=== PATIENT | male | born 1940 | race Caucasian/White ===

== ENCOUNTER 2020-03-15 08:03 | Outpatient (REF) | payer BC, SELFPAY ==
[2020-03-15 09:28] LABS: MANUAL DIFF FLAG NO
[2020-03-15 09:30] LABS: Basophils Percent Auto 0.2 % (0-2); Eosinophils Absolute Auto 0.4 X10*3/uL (0.0-0.4); Eosinophils Percent Auto 6.6 % (0-4); Hematocrit 39.8 % (42-52); Hemoglobin 12.5 g/dl (14.0-18.0); Imm Gran Abs Auto 0.01 X10*3/uL (0.00-0.03); Imm Gran Pct Auto 0.2 % (0.0-0.4); Lymphocytes Absolute Auto 2.4 X10*3/uL (1.2-4.9); Lymphocytes Percent Auto 39.5 % (20-40); Mean Corpuscular HGB Conc 31.4 g/dl (31.0-36.0); Mean Corpuscular Hemoglobin 29.6 pg (27.0-33.0); Mean Corpuscular Volume 94.3 fL (80-98); Mean Platelet Volume 10.2 fL (9.4-12.4); Monocytes Absolute Auto 0.6 X10*3/uL (0.1-1.2); Monocytes Percent Auto 10.6 % (2-11); Neutrophils Absolute Auto 2.6 X10*3/uL (2.0-8.3); Neutrophils Percent Auto 42.9 % (45-73); Platelet Count 195 X10*3/uL (160-400); Red Blood Count 4.22 X10*6/uL (4.60-5.80); Red Cell Distribution Width 13.9 % (11.0-16.0)
[2020-03-15 09:56] LABS: Anion Gap 12 (12-20); Blood Urea Nitrogen 21 mg/dL (9-16); Calcium 8.5 mg/dL (8.4-10.2); Carbon Dioxide 31 mmol/L (22-29); Chloride 103 mmol/L (96-108); Estimated Glomerular Filt Rate > 60; Glucose Fasting 81 mg/dL (60-99); Potassium 4.7 mmol/l (3.3-5.1); Sodium 141 mmol/L (135-145)
[2020-03-15 10:13] LABS: Valproate 52.1 mcg/mL (50.0-100.0)
== END 2020-03-15 08:04 | disposition home or self-care (01) ==
LOC: HO.HSH4E 08:03
PROVIDERS: Visit Provider Internal Medicine Endocrinology, Diabetes & Metabolism
DX: N40.0 Benign prostatic hyperplasia without lower urinary tract symptoms (principal)
CPT/HCPCS: 36415; 80048; 80164; 85025

== ENCOUNTER 2020-06-10 07:12 | Outpatient (REF) | payer BC, SELFPAY ==
[2020-06-10 08:54] LABS: Anion Gap 11 (12-20); Blood Urea Nitrogen 20 mg/dL (9-16); Carbon Dioxide 30 mmol/L (22-29); Chloride 103 mmol/L (96-108); Estimated Glomerular Filt Rate > 60; Glucose Fasting 87 mg/dL (60-99); Potassium 4.3 mmol/L (3.3-5.1); Sodium 140 mmol/L (135-145)
[2020-06-10 09:08] LABS: Valproate 53.6 mcg/mL (50.0-100.0)
== END 2020-06-10 07:13 | disposition home or self-care (01) ==
LOC: HO.HSH4E 07:12
PROVIDERS: Visit Provider Internal Medicine Endocrinology, Diabetes & Metabolism
DX: F20.9 Schizophrenia, unspecified (principal); I10 Essential (primary) hypertension; F31.9 Bipolar disorder, unspecified
CPT/HCPCS: 36415; 80048; 80164

== ENCOUNTER 2020-08-05 05:46 | Outpatient (REF) | payer BC, SELFPAY ==
[2020-08-05 09:31] LABS: Anion Gap 12 (12-20); Blood Urea Nitrogen 28 mg/dL (9-16); Carbon Dioxide 31 mmol/L (22-29); Chloride 104 mmol/L (96-108); Estimated Glomerular Filt Rate > 60; Potassium 4.5 mmol/L (3.3-5.1); Sodium 142 mmol/L (135-145)
== END 2020-08-05 05:47 | disposition home or self-care (01) ==
LOC: HO.HSH2E 05:46
PROVIDERS: Visit Provider Internal Medicine Endocrinology, Diabetes & Metabolism
DX: I10 Essential (primary) hypertension (principal)
CPT/HCPCS: 36415; 80051; 82565; 84520

== ENCOUNTER 2020-09-10 06:01 | Outpatient (REF) | payer BC, SELFPAY ==
[2020-09-10 07:36] LABS: Anion Gap 12 (12-20); Blood Urea Nitrogen 24 mg/dL (9-16); Calcium 9.3 mg/dL (8.4-10.2); Carbon Dioxide 31 mmol/L (22-29); Chloride 101 mmol/L (96-108); Estimated Glomerular Filt Rate > 60; Glucose Fasting 88 mg/dL (60-99); Sodium 140 mmol/L (135-145)
== END 2020-09-10 06:02 | disposition home or self-care (01) ==
LOC: HO.HSH2E 06:01
PROVIDERS: Visit Provider Internal Medicine Endocrinology, Diabetes & Metabolism
DX: I11.0 Hypertensive heart disease with heart failure (principal); I50.9 Heart failure, unspecified
CPT/HCPCS: 36415; 80048

== ENCOUNTER 2020-09-27 07:34 | Outpatient (REF) | payer BC, SELFPAY ==
[2020-09-27 08:53] LABS: Anion Gap 14 (12-20); Blood Urea Nitrogen 20 mg/dL (9-16); Calcium 9.6 mg/dL (8.4-10.2); Carbon Dioxide 30 mmol/L (22-29); Chloride 102 mmol/L (96-108); Estimated Glomerular Filt Rate > 60; Glucose Fasting 85 mg/dL (60-99); Potassium 4.3 mmol/L (3.3-5.1); Sodium 142 mmol/L (135-145)
[2020-09-27 09:49] LABS: Valproate 68.8 mcg/mL (50.0-100.0)
== END 2020-09-27 07:35 | disposition home or self-care (01) ==
LOC: HO.HSH2E 07:34
PROVIDERS: Visit Provider Internal Medicine Endocrinology, Diabetes & Metabolism
DX: F31.9 Bipolar disorder, unspecified (principal); Z79.899 Other long term (current) drug therapy; I10 Essential (primary) hypertension
CPT/HCPCS: 36415; 80048; 80164

== ENCOUNTER 2020-12-09 | Outpatient (REF) | payer BC, SELFPAY ==
[2020-12-09 09:00] LABS: Anion Gap 11 (12-20); Blood Urea Nitrogen 20 mg/dL (9-16); Carbon Dioxide 30 mmol/L (22-29); Chloride 104 mmol/L (96-108); Estimated Glomerular Filt Rate > 60; Glucose Fasting 92 mg/dL (60-99); Potassium 4.2 mmol/L (3.3-5.1); Sodium 141 mmol/L (135-145)
[2020-12-09 11:03] LABS: Valproate 47.6 mcg/mL (50.0-100.0)
== END 2020-12-09 00:01 | disposition home or self-care (01) ==
LOC: HO.HSH4E
PROVIDERS: Visit Provider Internal Medicine Endocrinology, Diabetes & Metabolism
DX: F20.9 Schizophrenia, unspecified (principal); F31.9 Bipolar disorder, unspecified; I10 Essential (primary) hypertension
CPT/HCPCS: 36415; 80048; 80164

== ENCOUNTER 2021-01-06 06:20 | Outpatient (REF) | payer BC, SELFPAY ==
[2021-01-06 08:18] LABS: Anion Gap 14 (12-20); Blood Urea Nitrogen 20 mg/dL (9-16); Calcium 9.8 mg/dL (8.4-10.2); Carbon Dioxide 30 mmol/L (22-29); Chloride 101 mmol/L (96-108); Estimated Glomerular Filt Rate > 60; Glucose Fasting 92 mg/dL (60-99); Potassium 4.6 mmol/L (3.3-5.1); Sodium 140 mmol/L (135-145)
[2021-01-06 08:29] LABS: Valproate 63.4 mcg/mL (50.0-100.0)
== END 2021-01-06 06:21 | disposition home or self-care (01) ==
LOC: HO.HSH4E 06:20
PROVIDERS: Visit Provider Internal Medicine Endocrinology, Diabetes & Metabolism
DX: I10 Essential (primary) hypertension (principal); F31.9 Bipolar disorder, unspecified; G20 Parkinson's disease; Z79.899 Other long term (current) drug therapy
CPT/HCPCS: 36415; 80048; 80164

== ENCOUNTER 2021-06-11 06:43 | Outpatient (REF) | payer BC, SELFPAY ==
[2021-06-11 07:58] LABS: Anion Gap 9 (12-20); Blood Urea Nitrogen 20 mg/dL (9-16); Calcium 9.6 mg/dL (8.4-10.2); Carbon Dioxide 34 mmol/L (22-29); Chloride 101 mmol/L (96-108); Estimated Glomerular Filt Rate > 60; Glucose Fasting 87 mg/dL (60-99); Potassium 4.1 mmol/L (3.3-5.1); Sodium 140 mmol/L (135-145)
[2021-06-11 08:35] LABS: Valproate 67.7 mcg/mL (50.0-100.0)
== END 2021-06-11 06:44 | disposition home or self-care (01) ==
LOC: HO.HSH4E 06:43
PROVIDERS: Visit Provider Internal Medicine Endocrinology, Diabetes & Metabolism
DX: I10 Essential (primary) hypertension (principal); F20.9 Schizophrenia, unspecified; F31.9 Bipolar disorder, unspecified; Z79.899 Other long term (current) drug therapy
CPT/HCPCS: 36415; 80048; 80164

== ENCOUNTER 2021-08-11 05:41 | Outpatient (REF) | payer BC, SELFPAY ==
[2021-08-11 07:45] LABS: Alanine Aminotransferase 9 U/L (0-40); Albumin Level 3.8 g/dL (3.5-5.0); Alkaline Phosphatase 61 U/L (39-117); Anion Gap 9 (12-20); Aspartate Amino Transferase 18 U/L (5-37); Bilirubin Total 0.7 mg/dL (0.0-1.0); Blood Urea Nitrogen 24 mg/dL (9-16); Calcium 9.2 mg/dL (8.4-10.2); Carbon Dioxide 32 mmol/L (22-29); Chloride 99 mmol/L (96-108); Estimated Glomerular Filt Rate 60; Glucose Fasting 89 mg/dL (60-99); Potassium 4.3 mmol/L (3.3-5.1); Sodium 136 mmol/L (135-145); Total Protein 6.6 g/dL (6.5-8.0)
== END 2021-08-11 05:42 | disposition home or self-care (01) ==
LOC: HO.HSH4E 05:41
PROVIDERS: Visit Provider Internal Medicine
DX: I10 Essential (primary) hypertension (principal); I73.9 Peripheral vascular disease, unspecified
CPT/HCPCS: 36415; 80053

== ENCOUNTER 2021-09-30 07:05 | Outpatient (REF) | payer BC, SELFPAY ==
[2021-09-30 07:46] LABS: MANUAL DIFF FLAG NO
[2021-09-30 07:47] LABS: Basophils Percent Auto 0.2 % (0-2); Eosinophils Absolute Auto 0.4 X10*3/uL (0.0-0.4); Eosinophils Percent Auto 5.9 % (0-4); Hematocrit 37.1 % (42.0-52.0); Hemoglobin 11.7 g/dl (14.0-18.0); Imm Gran Abs Auto 0.02 X10*3/uL (0.00-0.03); Imm Gran Pct Auto 0.3 % (0.0-0.4); Lymphocytes Percent Auto 32.1 % (20-40); Mean Corpuscular HGB Conc 31.5 g/dl (31.0-36.0); Mean Corpuscular Hemoglobin 29.8 pg (27.0-33.0); Mean Corpuscular Volume 94.4 fL (80.0-98.0); Mean Platelet Volume 9.9 fL (9.4-12.4); Monocytes Absolute Auto 0.8 X10*3/uL (0.1-1.2); Monocytes Percent Auto 11.9 % (2-11); Neutrophils Absolute Auto 3.1 x10*3/uL (2.0-8.3); Neutrophils Percent Auto 49.6 % (45-73); Platelet Count 167 X10*3/uL (160-400); Red Blood Count 3.93 X10*6/uL (4.60-5.80); Red Cell Distribution Width 14.1 % (11.0-16.0); White Blood Count 6.3 X10*3/uL (4.8-10.8)
[2021-09-30 07:58] LABS: Anion Gap 11 (12-20); Blood Urea Nitrogen 19 mg/dL (9-16); Calcium 9.2 mg/dL (8.4-10.2); Carbon Dioxide 30 mmol/L (22-29); Chloride 102 mmol/L (96-108); Estimated Glomerular Filt Rate > 60; Glucose Fasting 92 mg/dL (60-99); Potassium 4.5 mmol/L (3.3-5.1); Sodium 138 mmol/L (135-145)
[2021-09-30 08:07] LABS: Valproate 56.6 mcg/mL (50.0-100.0)
== END 2021-09-30 07:06 | disposition home or self-care (01) ==
LOC: HO.HSH4E 07:05
PROVIDERS: Visit Provider Internal Medicine
DX: F31.9 Bipolar disorder, unspecified (principal); G20 Parkinson's disease; Z79.899 Other long term (current) drug therapy
CPT/HCPCS: 36415; 80048; 80164; 85025

== ENCOUNTER 2021-10-16 05:41 | Outpatient (REF) | payer BC, SELFPAY ==
[2021-10-16 08:55] LABS: Thyroid Stimulating Hormone 1.78 uIU/mL (0.32-4.0)
[2021-10-16 09:06] LABS: Vitamin B12 387 pg/mL (200-900)
== END 2021-10-16 05:42 | disposition home or self-care (01) ==
LOC: HO.HSH4E 05:41
PROVIDERS: Visit Provider Internal Medicine Endocrinology, Diabetes & Metabolism
DX: F31.9 Bipolar disorder, unspecified (principal)
CPT/HCPCS: 36415; 82607; 84443

== ENCOUNTER 2021-11-15 15:16 | Outpatient (REF) | payer BC, SELFPAY ==
[2021-11-15 16:14] LABS: CDiff Gene PCR POSITIVE (Negative)
[2021-11-15 17:10] LABS: CDiff Toxin Negative (Negative)
[2021-11-15 17:11] LABS: CDIFF Internal ctrl Dots and bkg OK (V)
== END 2021-11-15 15:17 | disposition home or self-care (01) ==
LOC: HO.HSH4E 15:16
PROVIDERS: Visit Provider Internal Medicine
DX: R19.7 Diarrhea, unspecified (principal)
CPT/HCPCS: 36415; 87324; 87493

== ENCOUNTER 2021-11-17 05:51 | Outpatient (REF) | payer BC, SELFPAY ==
[2021-11-17 07:45] LABS: MANUAL DIFF FLAG NO
[2021-11-17 08:49] LABS: Basophils Percent Auto 0.5 % (0-2); Eosinophils Absolute Auto 0.3 X10*3/uL (0.0-0.4); Eosinophils Percent Auto 4.6 % (0-4); Hematocrit 36.9 % (42.0-52.0); Hemoglobin 11.6 g/dl (14.0-18.0); Imm Gran Abs Auto 0.08 X10*3/uL (0.00-0.03); Imm Gran Pct Auto 1.3 % (0.0-0.4); Lymphocytes Absolute Auto 1.7 X10*3/uL (1.2-4.9); Lymphocytes Percent Auto 28.3 % (20-40); Mean Corpuscular HGB Conc 31.4 g/dl (31.0-36.0); Mean Corpuscular Hemoglobin 29.7 pg (27.0-33.0); Mean Corpuscular Volume 94.6 fL (80.0-98.0); Mean Platelet Volume 8.8 fL (9.4-12.4); Monocytes Absolute Auto 0.9 X10*3/uL (0.1-1.2); Monocytes Percent Auto 13.8 % (2-11); Neutrophils Absolute Auto 3.2 x10*3/uL (2.0-8.3); Neutrophils Percent Auto 51.5 % (45-73); Platelet Count 241 X10*3/uL (160-400); Red Cell Distribution Width 14.8 % (11.0-16.0); White Blood Count 6.2 X10*3/uL (4.8-10.8)
== END 2021-11-17 05:52 | disposition home or self-care (01) ==
LOC: HO.HSH4E 05:51
PROVIDERS: Visit Provider Internal Medicine
DX: D64.9 Anemia, unspecified (principal)
CPT/HCPCS: 36415; 85025

== ENCOUNTER 2021-11-18 07:45 | Outpatient (REF) | payer BC, SELFPAY ==
[2021-11-18 07:40] LABS: MANUAL DIFF FLAG NO
[2021-11-18 07:43] LABS: Basophils Percent Auto 0.5 % (0-2); Eosinophils Absolute Auto 0.3 X10*3/uL (0.0-0.4); Eosinophils Percent Auto 4.3 % (0-4); Hemoglobin 11.7 g/dl (14.0-18.0); Imm Gran Abs Auto 0.06 X10*3/uL (0.00-0.03); Imm Gran Pct Auto 0.9 % (0.0-0.4); Lymphocytes Percent Auto 29.7 % (20-40); Mean Corpuscular HGB Conc 31.6 g/dl (31.0-36.0); Mean Corpuscular Volume 94.9 fL (80.0-98.0); Mean Platelet Volume 8.9 fL (9.4-12.4); Monocytes Absolute Auto 0.9 X10*3/uL (0.1-1.2); Monocytes Percent Auto 13.6 % (2-11); Neutrophils Absolute Auto 3.4 x10*3/uL (2.0-8.3); Platelet Count 243 X10*3/uL (160-400); Red Cell Distribution Width 14.7 % (11.0-16.0); White Blood Count 6.6 X10*3/uL (4.8-10.8)
[2021-11-18 08:25] LABS: Anion Gap 9 (12-20); Blood Urea Nitrogen 30 mg/dL (9-16); Calcium 9.6 mg/dL (8.4-10.2); Carbon Dioxide 32 mmol/L (22-29); Chloride 102 mmol/L (96-108); Estimated Glomerular Filt Rate > 60; Glucose Fasting 87 mg/dL (60-99); Potassium 4.7 mmol/L (3.3-5.1); Sodium 138 mmol/L (135-145)
== END 2021-11-18 07:46 | disposition home or self-care (01) ==
LOC: HO.HSH4E 07:45
PROVIDERS: Visit Provider Internal Medicine
DX: A41.9 Sepsis, unspecified organism (principal); R65.20 Severe sepsis without septic shock
CPT/HCPCS: 36415; 80048; 85025

== ENCOUNTER 2022-01-09 05:42 | Outpatient (REF) | payer BC, SELFPAY ==
[2022-01-09 08:28] LABS: Anion Gap 15 (12-20); Blood Urea Nitrogen 22 mg/dL (9-16); Calcium 9.3 mg/dL (8.4-10.2); Carbon Dioxide 29 mmol/L (22-29); Chloride 99 mmol/L (96-108); Estimated Glomerular Filt Rate > 60; Glucose Fasting 83 mg/dL (60-99); Potassium 4.3 mmol/L (3.3-5.1); Sodium 139 mmol/L (135-145)
== END 2022-01-09 05:43 | disposition home or self-care (01) ==
LOC: HO.HSH4E 05:42
PROVIDERS: Visit Provider Internal Medicine Endocrinology, Diabetes & Metabolism
DX: F20.9 Schizophrenia, unspecified (principal); F31.9 Bipolar disorder, unspecified; Z79.899 Other long term (current) drug therapy
CPT/HCPCS: 36415; 80048; 80164

== ENCOUNTER 2022-02-23 07:00 | Outpatient (REF) | payer BC, SELFPAY ==
[2022-02-23 07:29] LABS: Cholesterol 151 mg/dL; HDL Cholesterol 33 mg/dL; LDL Cholesterol Calculated 95 mg/dl; Triglycerides 119 mg/dL
== END 2022-02-23 07:01 | disposition home or self-care (01) ==
LOC: HO.HSH4E 07:00
PROVIDERS: Visit Provider Internal Medicine Endocrinology, Diabetes & Metabolism
DX: E78.00 Pure hypercholesterolemia, unspecified (principal)
CPT/HCPCS: 36415; 80061

== ENCOUNTER 2022-03-16 05:44 | Outpatient (REF) | payer BC, SELFPAY ==
[2022-03-21 12:52] LABS: Testosterone, Total 138 ng/dL (250-1100)
== END 2022-03-16 05:45 | disposition home or self-care (01) ==
LOC: HO.HSH4E 05:44
PROVIDERS: Visit Provider Internal Medicine Endocrinology, Diabetes & Metabolism
DX: N40.0 Benign prostatic hyperplasia without lower urinary tract symptoms (principal); Z12.5 Encounter for screening for malignant neoplasm of prostate
CPT/HCPCS: 36415; 84153; 84403

== ENCOUNTER 2022-04-07 16:28 | Inpatient (IN) | payer BC, SELFPAY ==
--- NOTE | ~2022-04-07 | XR_ITS ---
EXAMINATION: XR CHEST CLINICAL INFORMATION: Tachypnea and acute mental status change COMPARISON: Chest x-ray 05/30/2018 TECHNIQUE: Frontal view of the chest was obtained. FINDINGS: Lungs are hypoinflated. Minimal streaky subsegmental atelectasis at the lung bases. No airspace consolidation, pleural effusion, or pneumothorax. Normal cardiomediastinal silhouette. No evidence of pulmonary edema. No acute osseous injury. XR/XR chest 1V IMPRESSION: Low lung volumes with minimal bibasilar subsegmental atelectasis. No acute pulmonary process.
--- NOTE | ~2022-04-07 | CT_ITS ---
EXAMINATION: CT CERVICAL SPINE WITHOUT CONTRAST CLINICAL INFORMATION: Fall COMPARISON: None TECHNIQUE: Axial imaging was performed through the cervical spine. Reformatted coronal and sagittal imaging was provided for interpretation. Today's examination is limited due to motion artifact. This CT examination was performed using dose optimization techniques as appropriate, variously including the following: *Automated exposure control *Adjustment of mA and/or kV according to patient size (this includes techniques or standardized protocols for targeted exams where dose is matched to indication/reason for exam; i.e. extremities or head) *Use of iterative reconstruction technique DLP: 557 mGy-cm FINDINGS: The cervical spine is visualized in its entirety. There is straightening of the normal cervical lordosis. Alignment is otherwise unremarkable. Normal C1/C2 articulation. Cervical vertebral body heights are maintained. Disc spaces demonstrate moderate to severe narrowing at the C4/C5, C5/C6 and C6/C7 levels. There are osteophytes and sclerotic and cystic changes at these levels. Cystic changes also noted within the C2 vertebral body. Mild diffuse facet hypertrophy bilaterally. Lung apices are well aerated. CT/CT cervical spine wo IV con IMPRESSION: Moderate diffuse degenerative changes of the cervical spine without compression deformity. Fleischner guidelines were followed.
--- NOTE | ~2022-04-07 | CT_ITS ---
EXAMINATION: CT ANGIOGRAM OF THE CHEST WITH AND WITHOUT CONTRAST (CT PULMONARY ANGIOGRAM FOR PE) CLINICAL INFORMATION: Tachypnea and hypoxia COMPARISON: Chest radiograph earlier today and CT abdomen pelvis 05/29/2018 TECHNIQUE: Prior to contrast administration, noncontrast localization images were obtained. Subsequently, multidetector volumetric imaging was performed from the thoracic inlet to below the diaphragms following the administration of 85 mL Omnipaque 350 intravenous contrast. No contrast reaction reported Sagittal, coronal, and MIP oblique sagittal reformatted images were obtained on the CT workstation, uploaded to PACS, and reviewed. This CT examination was performed using dose optimization techniques as appropriate, variously including the following: *Automated exposure control *Adjustment of mA and/or kV according to patient size (this includes techniques or standardized protocols for targeted exams where dose is matched to indication/reason for exam; i.e. extremities or head) *Use of iterative reconstruction technique Total exam dose-length product 620 mGy-cm FINDINGS: QUALITY OF STUDY/CONTRAST BOLUS: Satisfactory. PULMONARY ARTERIES: The main pulmonary artery is dilated at 4 cm suggesting pulmonary hypertension. No pulmonary emboli are detected. THORACIC AORTA: No aneurysm or dissection. LUNG: The lungs are hypoinflated. Bibasilar atelectasis is present. No lung masses. No gross consolidation. PLEURA: No pleural effusion or pneumothorax. MEDIASTINUM: Normal heart size. Left ventricular hypertrophy. No pericardial effusion. No hilar or mediastinal lymphadenopathy. No evidence of septal bowing or right heart strain. Marked coronary calcification present. CHEST WALL/AXILLA: No axillary or internal mammary lymphadenopathy. OSSEOUS STRUCTURES: No acute or suspicious osseous abnormality. UPPER ABDOMEN: There is hepatic steatosis which could also be appreciated on the prior 05/29/2018 CT scan (2:24). No reflux of contrast into the hepatic veins to suggest elevated right heart pressures. CT/CT angio chest PE protocol IMPRESSION: 1. No evidence of pulmonary emboli. 2. Dilated main pulmonary artery suggesting pulmonary hypertension. 3. Left ventricular hypertrophy. 4. Hepatic steatosis VTE: negative
--- NOTE | ~2022-04-07 | CT_ITS ---
EXAMINATION: CT ABDOMEN AND PELVIS WITH CONTRAST CLINICAL INFORMATION: Fall with abdominal pain COMPARISON: CT abdomen pelvis 05/29/2018 TECHNIQUE: Multidetector volumetric images were obtained from the superior aspect of the liver through the pubic symphysis following administration 85 mL of Omnipaque 350 intravenous contrast. Sagittal and coronal reformatted images were obtained on the technologist's workstation. Oral contrast: No This CT examination was performed using dose optimization techniques as appropriate, variously including the following: *Automated exposure control *Adjustment of mA and/or kV according to patient size (this includes techniques or standardized protocols for targeted exams where dose is matched to indication/reason for exam; i.e. extremities or head) *Use of iterative reconstruction technique DLP: 1375 mGy-cm FINDINGS: LUNG BASES: See report CT PE study same day. The right hemidiaphragm is elevated. LIVER, GALLBLADDER, AND BILIARY TREE: The liver is normal in size and shape but with probable decreased attenuation suggesting hepatic steatosis. No focal hepatic lesion or biliary ductal dilatation is present. The gallbladder is unremarkable with no evidence of radiopaque gallstones, gallbladder wall thickening, or obvious pericholecystic inflammatory changes. PANCREAS: Unremarkable. SPLEEN: Unremarkable. ADRENAL GLANDS: Unremarkable. KIDNEYS AND URETERS: The kidneys are normal in size, shape, and attenuation. Left renal collecting system is slightly more dilated than the right. No gross hydronephrosis, hydroureter, or calculi seen. No perinephric stranding. BLADDER: A catheter is present in the bladder which is empty. GASTROINTESTINAL TRACT: The small and large bowel are unremarkable. The appendix is unremarkable. ABDOMINAL WALL: No significant hernia is appreciated. LYMPH NODES: There is new retroperitoneal adenopathy when compared to the prior study. One of the larger bronchial nodes in the right external iliac region measuring 6.0 x 3.2 x 7.3 cm (15:78). Left iliac nodes are present as well as are paracaval and retrocaval lymph nodes. All lymph nodes seen are below the level of the renal arteries. The largest paracaval node at the IVC confluence measures 3.9 x 2.6 x 5.2 cm (15:63). VASCULAR: Unremarkable. PELVIC VISCERA: Mildly prominent prostate. 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 No gross pathologic fractures are seen. CT/CT abdomen pelvis w IV con IMPRESSION: 1. New extensive retroperitoneal adenopathy. 2. 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 3. Other incidental findings as described above. Fleischner guidelines were followed.
--- NOTE | ~2022-04-07 | CT_ITS ---
EXAMINATION: CT HEAD WITHOUT CONTRAST CLINICAL INFORMATION: Acute mental status change COMPARISON: None TECHNIQUE: Imaging was performed from the skull base to vertex without intravenous administration of contrast. This CT examination was performed using dose optimization techniques as appropriate, variously including the following: *Automated exposure control *Adjustment of mA and/or kV according to patient size (this includes techniques or standardized protocols for targeted exams where dose is matched to indication/reason for exam; i.e. extremities or head) *Use of iterative reconstruction technique Total exam dose length product: 740 2. mGy-cm FINDINGS: No intra or extra-axial fluid collection, hemorrhage, or mass. No ventriculomegaly. No midline shift or herniation. Basal cisterns are patent. Bautista-white matter differentiation is maintained. No territorial encephalomalacia. Proportional prominence of the ventricles and sulcal spaces is consistent with moderate volume loss. Minimal nonspecific periventricular white matter hypoattenuation. No calvarial fracture or soft tissue abnormality. The mastoid air cells and visualized portions of the paranasal sinuses are well aerated. CT/CT head/brain wo IV con IMPRESSION: 1. No acute intracranial hemorrhage or acute edematous territorial infarct. 2. No calvarial fracture. Findings were communicated directly to Madison Valenzuela NP at time of initial exam interpretation 6:25 PM 04/07/2022.
--- NOTE | ~2022-04-07 | XR_ITS ---
EXAMINATION: XR chest 1V CLINICAL INFORMATION: Reason for Exam sob, cough COMPARISON: Chest radiograph 04/07/2022 TECHNIQUE: One view of the chest FINDINGS: Lung volumes with minimal bibasilar atelectasis. New trace left pleural effusion. No pneumothorax. Normal cardiomediastinal silhouette. XR/XR chest 1V IMPRESSION: 1. Lung volumes with minimal bibasilar atelectasis. 2. New trace left pleural effusion.
--- NOTE | ~2022-04-07 | XR_ITS ---
EXAMINATION: XR TIBIA AND FIBULA, RIGHT CLINICAL INFORMATION: Cellulitis. Question osteomyelitis. COMPARISON: None TECHNIQUE: AP and lateral views of the right tibia and fibula were obtained. FINDINGS: Diffuse subcutaneous edema and reticulation. No tracking soft tissue gas. No aggressive osseous destructive change or periosteal reaction. No fracture or dislocation. Trace knee joint effusion. No ankle joint effusion. Advanced tricompartmental knee joint osteoarthritis. Moderate vascular calcifications. XR/XR tibia fibula RT 2V IMPRESSION: 1. No acute osseous injury or radiographic evidence of advanced osteomyelitis. 2. Diffuse subcutaneous edema and reticulation. No tracking soft tissue gas.
--- NOTE | 2022-04-07 16:37 | ED_ITS ---
HPI - Altered Mental Status General Chief Complaint: Altered Mental Status <RUSTY Minor - Last Filed: 04/07/22 18:03> Stated Complaint: AMS <RUSTY Minor - Last Filed: 04/07/22 18:03> Time Seen by Provider: 04/07/22 16:32 <RUSTY Minor - Last Filed: 04/07/22 18:03> Source: patient and EMS <RUSTY Minor - Last Filed: 04/07/22 18:03> Mode of arrival: EMS <RUSTY Minor - Last Filed: 04/07/22 18:03> History of Present Illness HPI narrative: 82-year-old male with a past medical history of PE not on anticoagu lation, HTN, schizoaffective disorder, chronic indwelling Nugent catheter, presenting to the ED from [facility] for unwitnessed mechanical fall in the bathroom around noon today, denied head trauma/LOC, increasing confusion as patient with chronic Nugent catheter and usually A&Ox3. Then patient noted to be tachypneic, hypoxic 89% on RA and increasingly altered with hypotension 84/49 prior to arrival. Of note patient with recent injury to RLE with negative Doppler outpatient & finished dose of Keflex 04/04. patient also given an extra dose of Ativan [employer]. Per patient's nurse area was attempted to be aspirated without success. patient denies headache, CP, SOB, abdominal pain, nausea /vomit ing <RUSTY Minor - Last Filed: 04/07/22 18:03> MD complaint: altered mental status and decreased responsiveness <RUSTY Minor - Last Filed: 04/07/22 18:03> Onset (ago): hour(s) <RUSTY Minor - Last Filed: 04/07/22 18:03> Related Data Home Medications: Home Medications Medication Instructions Recorded Confirmed 1% Iodoquinol/1% Hydrocortison 1 appl topical BID 04/07/22 04/07/22 acetaminophen 325 mg tablet 650 mg PO Q6H PRN PAIN/TEMP OVER 04/07/22 04/07/22 100 acetaminophen 325 mg tablet 650 mg PO TID 04/07/22 04/07/22 aluminum-mag hydroxide-simethicone 30 ml PO Q6H PRN Indigestion 04/07/2204/07 200 mg-200 mg-20 mg/5 mL oral susp amlodipine 5 mg tablet 5 mg PO DAILY 04/07/22 04/07/22 aspirin 81 mg chewable tablet 81 mg PO DAILY 04/07/22 04/07/22 bisacodyl 10 mg rectal suppository 10 mg NE DAILY PRN Constipation 04/07/22 04/07/22 calcium polycarbophil 625 mg tablet 1,250 mg PO DAILY 04/07/22 04/07/22 carbidopa 25 mg-levodopa 100 mg 1 tab PO QID 04/07/22 04/07/22 tablet cholecalciferol (vitamin D3) 25 25 mcg PO DAILY 04/07/22 04/07/22 mcg (1,000 unit) tablet dextromethorphan-guaifenesin 10 10 ml PO Q4H PRN Cough 04/07/22 04/07/22 mg-100 mg/5 mL oral liquid divalproex 125 mg capsule,delayed 375 mg PO DAILY@1400 04/07/22 04/07/22 release sprinkle divalproex 125 mg capsule,delayed 500 mg PO BID 04/07/22 04/07/22 release sprinkle (Depakote Sprinkles) docusate sodium 100 mg capsule 100 mg PO BID 04/07/22 04/07/22 (Colace) furosemide 40 mg tablet 40 mg PO BID@0900,1400 04/07/22 04/07/22 levalbuterol tartrate 45 2 inh inhalation Q6H PRN 04/07/22 04/07/22 mcg/actuation aerosol inhaler sob/wheezing loperamide 2 mg tablet 2 mg PO QID PRN Loose Stool 04/07/22 04/07/22 lorazepam 0.5 mg tablet 0.5 mg PO BEDTIME 04/07/22 04/07/22 lorazepam 0.5 mg tablet 0.5 mg PO TID PRN Anxiety 04/07/22 04/07/22 metoprolol tartrate 25 mg tablet 12.5 mg PO BID@0900,1700 04/07/22 04/07/22 olanzapine 10 mg tablet 10 mg PO BEDTIME 04/07/22 04/07/22 olanzapine 2.5 mg tablet 7.5 mg PO DAILY 04/07/22 04/07/22 ondansetron 4 mg disintegrating 4 mg PO Q6H PRN Vomiting 04/07/22 04/07/22 tablet polyethylene glycol 3350 17 17 g PO DAILY PRN Constipation 04/07/22 04/07/22 gram/dose oral powder (Miralax) pramipexole 0.5 mg tablet 0.5 mg PO BID@0900,1700 04/07/22 04/07/22 sennosides 8.6 mg tablet (senna) 8.6 mg PO DAILY PRN Constipation 04/07/22 04/07/22 simvastatin 40 mg tablet 40 mg PO BEDTIME 04/07/22 04/07/22 tamsulosin 0.4 mg capsule 0.8 mg PO BEDTIME 04/07/22 04/07/22 <RUSTY Minor Last Filed: 04/07/22 18:03> Allergies/Adverse Reactions: Allergies Allergy/AdvReac Type Severity Reaction Status Date / Time No Known Allergies Allergy Unverified 01/25/20 16:00 [No Known Allergies*] <RUSTY Minor Last Filed: 04/07/22 18:03> Review of Systems Review of Systems: Constitutional: No Fever, No Chills, No Fatigue, No Malaise ENT/Mouth: No Ear Pain, No Nasal Congestion,No sore throat, No Rhinorrhea, No Swallowing Difficulty Eyes: No Eye Pain, No Swelling, No Vision Changes Cardiovascular: No Chest Pain, No SOB, No Edema, No Palpitations Respiratory: No Cough, No Sputum, No Dyspnea Gastrointestinal: No Nausea, No Vomiting, No Diarrhea, No Constipation, No Abdominal pain Genitourinary: No Dysuria, No Urinary Frequency, No Hematuria, No Flank Pain Musculoskeletal: No joint pain, No Myalgias, No Joint Swelling Skin: + Skin Lesions, No rash Neuro: No Weakness, No Loss of Consciousness, No Dizziness, No Headache, +fall <RUSTY Minor Last Filed: 04/07/22 18:03> Yes all other systems are reviewed and are negative <RUSTY Minor Last Filed: 04/07/22 18:03> Constitutional: Constitutional: Reports as per HPI <RUSTY Minor Last Filed: 04/07/22 18:03> Neurologic: Denies Abnormal speech present <RUSTY Minor - Last Filed: 04/07/22 18:03> [facility], LAT[facility] Past Medical History Attestation statement: The following information was validated with the patient. <RUSTY Minor - Last Filed: 04/07/22 18:03> Social History Social History: Social History Advance Directives: No Advance Directives Information Provided: No <RUSTY Minor - Last Filed: 04/07/22 18:03> Physical Exam ED Vital Signs: Vital Signs - 24 hr 04/07/22 16:44 04/07/22 18:31 04/07/22 18:55 Temperature 98.1 F Pulse Rate 62 64 67 Respiratory Rate 22 H 16 22 H Blood Pressure 120/61 131/72 Pulse Oximetry 94 94 Oxygen Delivery Method Nasal Cannula Nasal Cannula Oxygen Flow Rate 2 BMI result Body Mass Index 34.2 <RUSTY Minor - Last Filed: 04/07/22 18:03> Vital Signs - 24 hr 04/07/22 16:44 04/07/22 18:31 04/07/22 18:55 Temperature 98.1 F Pulse Rate 62 64 67 Respiratory Rate 22 H 16 22 H Blood Pressure 120/61 131/72 Pulse Oximetry 94 94 Oxygen Delivery Method Nasal Cannula Nasal Cannula Oxygen Flow Rate 2 BMI result Body Mass Index 34.2 <Madison Saucedo NP - Last Filed: 04/07/22 22:08> Const General: cooperative, no acute distress, alert and lethargic <RUSTY Minor - Last Filed: 04/07/22 18:03> Orientation/consciousness: patient oriented x3 and lethargic <RUSTY Minor - Last Filed: 04/07/22 18:03> Limitations: no limitations <RUSTY Minor - Last Filed: 04/07/22 18:03> HENMT Head: Yes normal to inspection, Yes atraumatic, No Kaye's sign and No raccoon eyes <RUSTY Minor Last Filed: 04/07/22 18:03> Ears: hearing grossly normal bilaterally <Regina Kerrmarybandar [place] - Last Filed: 04/07/22 18:03> General nose exam: Normal external nose present <Regina Kerrmaribell [place] - Last Filed: 04/07/22 18:03> Face and sinus: Yes normal facial exam <Regina Kerrmarybandar [place] - Last Filed: 04/07/22 18:03> Eyes General: appearance normal, both eyes and all related structures <Regina Kerrmaribell [place] - Last Filed: 04/07/22 18:03> Pupils: Equal, round and reactive pupils present <Regina Kerrmaribell [place] - Last Filed: 04/07/22 18:03> EOM: EOMs intact bilaterally <Regina Kerrmaribell [place] - Last Filed: 04/07/22 18:03> Neck Neck: Yes normal visual inspection and Yes no meningeal signs <Regina Kerrmaribell [place] - Last Filed: 04/07/22 18:03> Resp Effort & Inspection: normal respiratory effort, no respiratory distress and tachypneic <Regina Kerrmaribell [place] - Last Filed: 04/07/22 18:03> Auscultation: crackles bilateral at the base and diminished lung sounds diffuse <Regina Kerrmaribell [place] - Last Filed: 04/07/22 18:03> Cardio Rate: regular rate <Regina Kerrmaribell [place] - Last Filed: 04/07/22 18:03> Heart sounds: S1 normal heart sound present and S2 normal heart sound present <Regina Kerrmaribell [place] - Last Filed: 04/07/22 18:03> GI Inspection: Yes normal to inspection <Regina Kerrmaribell [facility] Last Filed: 04/07/22 18:03> Palpation (GI): Soft to palpation, Tenderness to palpation present (GI) ( diffusely) with no rebound tenderness, no guarding and not rigid <Regina Kerrmaribell [place] - Last Filed: 04/07/22 18:03> Back/Spine/Pelvis Other: No midline thoracic/lumbar spinous tenderness/step-off or deformity <Regina Kerrmaribell [place] - Last Filed: 04/07/22 18:03> Skin Other: + right lower extremity with noted erythema and fluctuant hematoma to anterior boo. Mildly warm. Neurovascular back distally. <RUSTY Minor - Last Filed: 04/07/22 18:03> Rashes: no rashes <RUSTY Minor - Last Filed: 04/07/22 18:03> Wounds: no wounds <RUSTY Minor - Last Filed: 04/07/22 18:03> Neuro General: patient oriented x3, tone normal, moves all extremities, no meningeal signs, no focal motor deficits and CN's II-XI intact bilaterally <RUSTY Minor - Last Filed: 04/07/22 18:03> Cranial nerves: Yes Equal, round and reactive pupils present <RUSTY Minor - Last Filed: 04/07/22 18:03> Speech: No Abnormal speech present <RUSTY Minor - Last Filed: 04/07/22 18:03> Gait exam (Neuro): Normal gait present <RUSTY Minor - Last Filed: 04/07/22 18:03> Motor exam (neuro): 5/5 motor strength present throughout <RUSTY Minor - Last Filed: 04/07/22 18:03> Coordination: [id number] test normal <RUSTY Minor - Last Filed: 04/07/22 18:03> Romberg Test: Negative <RUSTY Minor - Last Filed: 04/07/22 18:03> Course Course Course Narrative: -1745-- noted the co cytosis of 17.7. H&H stable. Empiric IV cefepime ordered - lactic acid negative. UA infected - attempted aspiration of hematoma without success, suspect clotted, Chema wrap applied for compression - BUN chronically elevated. BNP elevated to 603 > 40mg of IV Lasix ordered -1800-- ED care transferred to [facility] pending remaining labs, CXR, CT's and admission <RUSTY Minor - Last Filed: 04/07/22 18:03> -1745-- noted the co cytosis of 17.7. H&H stable. Empiric IV cefepime ordered - lactic acid negative. UA infected - attempted aspiration of hematoma without success, suspect clotted, Chema wrap applied for compression - BUN chronically elevated. BNP elevated to 603 > 40mg of IV Lasix ordered -1800-- ED care transferred to [facility] pending remaining labs, CXR, CT's and admission 18:13 Dr. Jack contacted for elevated troponin over 36,000, plan is to start heparin. 18:26 discussion with [facility] regarding stat CT head read, no active bleeding noted. Heparin at this time. 19:06 patient noted to be in a flutter at 66-90 beats per minute, blood pressure 131/72, order for metoprolol 2.5 mg. 19:30 no longer in flutter, normal sinus at 66 with heart rate of 1 0 5/70. 19:46 discussion with [facility], patient has diffuse bone metastatic with adenopathy and abdomen and pelvis. Discussion with hospitalist, plan of care is to admit. <Madison Saucedo NP - L ast Filed: 04/07/22 22:08> Consultations Consultation #1: Sheeba <Madison Saucedo NP - Last Filed: 04/07/22 22:08> Time: 19:20 <Madison Saucedo NP - Last Filed: 04/07/22 22:08> Medications Administered Generic Name Dose Route Start Last Admin Trade Name Freq PRN Reason Stop Dose Admin Heparin Sodium/Sodium Chloride 25,000 unit in 250 mls @ 0 mls/hr 04/07/22 19:00 04/07/22 19:17 Heparin Sodium,Porcine/1/2ns IVCONT 9.78 units/kg/hr .Q0M IVIS 10 mls/hr Administration Protocol Per Protocol Ceftriaxone Sodium 1 gm/ 50 mls @ 100 mls/hr 04/07/22 22:00 04/07/22 21:27 Sodium Chloride IV 100 mls/hr Q24H IVIS Administration Discontinued Medications Generic Name Dose Route Start Last Admin Trade Name Freq PRN Reason Stop Dose Admin Albuterol/Ipratropium 3 ml 04/07/22 17:18 04/07/22 18:30 Albuterol/Iprat 2.5/0.5mg 3 Ml Ampul.Neb INHALE 04/07/22 17:19 3 ml ONCE ONE Administration Furosemide 40 mg 04/07/22 18:01 04/07/22 18:36 Furosemide 40 Mg/4 Ml Vial IVPUSH 04/07/22 18:02 40 mg STAT STA Administration Protocol Heparin Sodium (Porcine) 4,000 unit 04/07/22 18:19 04/07/22 18:52 Heparin Sodium,Porcine 5,000 Unit/Ml Vial IVPUSH 04/07/22 18:20 4,000 unit ONCE ONE Administration Cefepime HCl 2 gm/ Sodium 50 mls @ 100 mls/hr 04/07/22 17:44 04/07/22 19:07 Chloride IV 04/07/22 18:13 Infused ONCE ONE Infusion Iohexol 100 ml 04/07/22 18:17 04/07/22 18:17 Iohexol 350 Mg/Ml 100 Ml Infus..Btl IV 04/07/22 18:18 85 ml ONCE ONE Administration Lidocaine HCl 2 ml 04/07/22 17:00 04/07/22 18:02 Lidocaine Hcl 1 % Mpf 2 Ml Vial INFILTRATI 04/07/22 17:01 Not Given ONCE ONE Metoprolol Tartrate 2.5 mg 04/07/22 19:07 04/07/22 19:18 Metoprolol Tartrate 5 Mg/5 Ml Vial IVPUSH 04/07/22 19:08 2.5 mg ONCE ONE Administration <RUSTY Minor - Last Filed: 04/07/22 18:03> Medications Administered Generic Name Dose Route Start Last Admin Trade Name Freq PRN Reason Stop Dose Admin Heparin Sodium/Sodium Chloride 25,000 unit in 250 mls @ 0 mls/hr 04/07/22 19:00 04/07/22 19:17 Heparin Sodium,Porcine/1/2ns IVCONT 9.78 units/kg/hr .Q0M IVIS 10 mls/hr Administration Protocol Per Protocol Ceftriaxone Sodium 1 gm/ 50 mls @ 100 mls/hr 04/07/22 22:00 04/07/22 21:27 Sodium Chloride IV 100 mls/hr Q24H IVIS Administration Discontinued Medications Generic Name Dose Route Start Last Admin Trade Name Freq PRN Reason Stop Dose Admin Albuterol/Ipratropium 3 ml 04/07/22 17:18 04/07/22 18:30 Albuterol/Iprat 2.5/0.5mg 3 Ml Ampul.Neb INHALE 04/07/22 17:19 3 ml ONCE ONE Administration Furosemide 40 mg 04/07/22 18:01 04/07/22 18:36 Furosemide 40 Mg/4 Ml Vial IVPUSH 04/07/22 18:02 40 mg STAT STA Administration Protocol Heparin Sodium (Porcine) 4,000 unit 04/07/22 18:19 04/07/22 18:52 Heparin Sodium,Porcine 5,000 Unit/Ml Vial IVPUSH 04/07/22 18:20 4,000 unit ONCE ONE Administration Cefepime HCl 2 gm/ Sodium 50 mls @ 100 mls/hr 04/07/22 17:44 04/07/22 19:07 Chloride IV 04/07/22 18:13 Infused ONCE ONE Infusion Iohexol 100 ml 04/07/22 18:17 04/07/22 18:17 Iohexol 350 Mg/Ml 100 Ml Infus..Btl IV 04/07/22 18:18 85 ml ONCE ONE Administration Lidocaine HCl 2 ml 04/07/22 17:00 04/07/22 18:02 Lidocaine Hcl 1 % Mpf 2 Ml Vial INFILTRATI 04/07/22 17:01 Not Given ONCE ONE Metoprolol Tartrate 2.5 mg 04/07/22 19:07 04/07/22 19:18 Metoprolol Tartrate 5 Mg/5 Ml Vial IVPUSH 04/07/22 19:08 2.5 mg ONCE ONE Administration <Madison Saucedo NP - Last Filed: 04/07/22 22:08> MDM - Altered Mental Status MDM Narrative Medical decision making narrative: 82-year-old male with a past medical history of PE not on anticoagulation, HTN, schizoaffective disorder, chronic indwelling Nugent catheter, presenting to the ED from [facility] for unwitnessed mechanical fall in the bathroom around noon today, denied head trauma/LOC, increasing confusion as patient with chronic Nugent catheter and usually A&Ox3. Then patient noted to be tachypneic, hypoxic 89% on RA and increasingly altered with hypotension 84/49 prior to arrival. On exam lethargic but A&O x3, tachypneic, satting 94% on 2 L nasal cannula, decreased lung sounds with bibasilar crackles, abdomen soft diffusely tender, right lower extremity with noted cellulitis and anterior boo hematoma that is fluctuant. Concern for altered mental status /encephalopathy vs ICH vs fracture vs pulmonary embolism/ ACS. rule out infectious and metabolic etiologies including intra-abdominal pathology. Low suspicion for severe sepsis at this time plan: EKG, labs, UA, head/ C-spine/ chest/abdomen/ pelvis CT, anticipate admission <RUSTY Minor - Last Filed: 04/07/22 18:03> Differential Diagnosis Differential diagnosis: Likely altered mental status, delirium, dementia, encephalopathy, hy poglycemia, hyponatremia, overdose polysubstance, renal failure and subarachnoid hemorrhage <RUSTY Minor - Last Filed: 04/07/22 18:03> Medical Records Attestation: I reviewed the patient's medical records. <RUSTY Minor - Last Filed: 04/07/22 18:03> Lab Data Attestation: I reviewed the patient's lab results. <RUSTY Minor - Last Filed: 04/07/22 18:03> Result diagrams: : 04/07/22 17:13 04/07/22 17:12 <RUSTY Minor - Last Filed: 04/07/22 18:03> Labs: Lab Results 04/07/22 04/07/22 04/07/22 Range/Units 17:11 17:12 17:12 WBC (4.8-10.8) X10*3/uL RBC (4.60-5.80) X10*6/uL Hgb (14.0-18.0) g/dl Hct (42.0-52.0) % MCV (80.0-98.0) fL MCH (27.0-33.0) pg MCHC (31.0-36.0) g/dl RDW (11.0-16.0) % Plt Count (160-400) X10*3/uL MPV (9.4-12.4) fL Immature Gran % (Auto) (0.0-0.4) % Neut % (Auto) (45-73) % Lymph % (Auto) (20-40) % [place] % (Auto) (2-11) % Eos % (Auto) (0-4) % Baso % (Auto) (0-2) % Lymph # (Auto) (1.2-4.9) X10*3/uL [place] # (Auto) (0.1-1.2) X10*3/uL Eos # (Auto) (0.0-0.4) X10*3/uL Baso # (Auto) (0.0-0.2) X10*3/uL Abs Immat Gran (auto) (0.00-0.03) X10*3/uL Absolute Neuts (auto) (2.0-8.3) x10*3/uL Absolute Nucleated RBC (0.0-0.012) X10*3/uL Nucleated RBC % (auto) (0.0-0.2) /100WBC PT 13.9 H (10.0-13.1) SEC INR 1.2 H (0.9-1.1) APTT 30.8 (26.0-36.4) SEC Sodium 136 (135-145) mmol/L Potassium 4.8 (3.3-5.1) mmol/L Chloride 97 (96-108) mmol/L Carbon Dioxide 33 H (22-29) mmol/L Anion Gap 11 L (12-20) BUN 20 H (9-16) mg/dL Creatinine 1.12 (0.5-1.4) mg/dL Estim Creat Clear Calc 91.5 Estimated GFR > 60 Random Glucose 102 (60-115) mg/dL Lactic Acid 1.5 (0.5-2.0) mmol/L Calcium 9.5 (8.4-10.2) mg/dL Magnesium 2.1 (1.6-2.6) mg/dL Total Bilirubin 0.7 (0.0-1.0) mg/dL Direct Bilirubin 0.3 (0.0-0.5) mg/dL AST 29 (5-37) U/L ALT < 6 (0-40) U/L Alkaline Phosphatase 74 (39-117) U/L Ammonia (13-55) umol/L Troponin I High Sens (<3.5-35.0) ng/L B-Natriuretic Peptide (<100) pg/mL Total Protein 6.9 (6.5-8.0) g/dL Albumin 3.5 (3.5-5.0) g/dL Lipase 23 (8-78) U/L Urine Color Urine Appearance Urine pH (5.0-9.0) Ur Specific [place] (1.005-1.025) Urine Protein (Neg-Trace) mg/dL Urine Glucose (UA) (Negative) mg/dL Urine Ketones (Negative) mg/dL Urine Blood (Negative) Urine Nitrite (Negative) Ur Leukocyte Esterase (Negative) Urine RBC (0-2) /HPF Urine WBC (0-5) /HPF Ur Squamous Epith Cells (0-2) /HPF Urine Bacteria (None Seen) Hyaline Casts (0-2) /LPF Urine Opiates Screen (Not Detect) Urine Fentanyl Screen (Not Detect) Ur Barbiturates Screen (Not Detect) Ur Phencyclidine Scrn (Not Detect) Ur Amphetamines Screen (Not Detect) U Benzodiazepines Scrn (Not Detect) Urine Cocaine Screen (Not Detect) U Marijuana (THC) Screen (Not Detect) Influenza Type A (PCR) (Negative) Influenza Type B (PCR) (Negative) RSV RNA Qual (PCR) (Negative) SARS-CoV-2 RNA (RT-PCR) (Negative) 04/07/22 04/07/22 04/07/22 Range/Units 17:12 17:12 17:13 WBC 17.7 H (4.8-10.8) X10*3/uL RBC 4.18 L (4.60-5.80) X10*6/uL Hgb 12.3 L (14.0-18.0) g/dl Hct 38.5 L (42.0-52.0) % MCV 92.1 (80.0-98.0) fL MCH 29.4 (27.0-33.0) pg MCHC 31.9 (31.0-36.0) g/dl RDW 14.3 (11.0-16.0) % Plt Count 246 (160-400) X10*3/uL MPV 9.0 L (9.4-12.4) fL Immature Gran % (Auto) 0.5 H (0.0-0.4) % Neut % (Auto) 79.2 H (45-73) % Lymph % (Auto) 13.8 L (20-40) % [place] % (Auto) 6.3 (2-11) % Eos % (Auto) 0.1 (0-4) % Baso % (Auto) 0.1 (0-2) % Lymph # (Auto) 2.4 (1.2-4.9) X10*3/uL [place] # (Auto) 1.1 (0.1-1.2) X10*3/uL Eos # (Auto) 0.0 (0.0-0.4) X10*3/uL Baso # (Auto) 0.0 (0.0-0.2) X10*3/uL Abs Immat Gran (auto) 0.08 H (0.00-0.03) X10*3/uL Absolute Neuts (auto) 14.1 H (2.0-8.3) x10*3/uL Absolute Nucleated RBC 0.000 (0.0-0.012) X10*3/uL Nucleated RBC % (auto) 0.0 (0.0-0.2) /100WBC PT (10.0-13.1) SEC INR (0.9-1.1) APTT (26.0-36.4) SEC Sodium (135-145) mmol/L Potassium (3.3-5.1) mmol/L Chloride (96-108) mmol/L Carbon Dioxide (22-29) mmol/L Anion Gap (12-20) BUN (9-16) mg/dL Creatinine (0.5-1.4) mg/dL Estim Creat Clear Calc Estimated GFR Random Glucose (60-115) mg/dL Lactic Acid (0.5-2.0) mmol/L Calcium (8.4-10.2) mg/dL Magnesium (1.6-2.6) mg/dL Total Bilirubin (0.0-1.0) mg/dL Direct Bilirubin (0.0-0.5) mg/dL AST (5-37) U/L ALT (0-40) U/L Alkaline Phosphatase (39-117) U/L Ammonia (13-55) umol/L Troponin I High Sens > 3600.0 H* (<3.5-35.0) ng/L B-Natriuretic Peptide 603 H (<100) pg/mL Total Protein (6.5-8.0) g/dL Albumin (3.5-5.0) g/dL Lipase (8-78) U/L Urine Color Urine Appearance Urine pH (5.0-9.0) Ur Specific [place] (1.005-1.025) Urine Protein (Neg-Trace) mg/dL Urine Glucose (UA) (Negative) mg/dL Urine Ketones (Negative) mg/dL Urine Blood (Negative) Urine Nitrite (Negative) Ur Leukocyte Esterase (Negative) Urine RBC (0-2) /HPF Urine WBC (0-5) /HPF Ur Squamous Epith Cells (0-2) /HPF Urine Bacteria (None Seen) Hyaline Casts (0-2) /LPF Urine Opiates Screen (Not Detect) Urine Fentanyl Screen (Not Detect) Ur Barbiturates Screen (Not Detect) Ur Phencyclidine Scrn (Not Detect) Ur Amphetamines Screen (Not Detect) U Benzodiazepines Scrn (Not Detect) Urine Cocaine Screen (Not Detect) U Marijuana (THC) Screen (Not Detect) Influenza Type A (PCR) (Negative) Influenza Type B (PCR) (Negative) RSV RNA Qual (PCR) (Negative) SARS-CoV-2 RNA (RT-PCR) (Negative) 04/07/22 04/07/22 04/07/22 Range/Units 17:13 17:13 18:37 WBC (4.8-10.8) X10*3/uL RBC (4.60-5.80) X10*6/uL Hgb (14.0-18.0) g/dl Hct (42.0-52.0) % MCV (80.0-98.0) fL MCH (27.0-33.0) pg MCHC (31.0-36.0) g/dl RDW (11.0-16.0) % Plt Count (160-400) X10*3/uL MPV (9.4-12.4) fL Immature Gran % (Auto) (0.0-0.4) % Neut % (Auto) (45-73) % Lymph % (Auto) (20-40) % [place] % (Auto) (2-11) % Eos % (Auto) (0-4) % Baso % (Auto) (0-2) % Lymph # (Auto) (1.2-4.9) X10*3/uL [place] # (Auto) (0.1-1.2) X10*3/uL Eos # (Auto) (0.0-0.4) X10*3/uL Baso # (Auto) (0.0-0.2) X10*3/uL Abs Immat Gran (auto) (0.00-0.03) X10*3/uL Absolute Neuts (auto) (2.0-8.3) x10*3/uL Absolute Nucleated RBC (0.0-0.012) X10*3/uL Nucleated RBC % (auto) (0.0-0.2) /100WBC PT (10.0-13.1) SEC INR (0.9-1.1) APTT (26.0-36.4) SEC Sodium (135-145) mmol/L Potassium (3.3-5.1) mmol/L Chloride (96-108) mmol/L Carbon Dioxide (22-29) mmol/L Anion Gap (12-20) BUN (9-16) mg/dL Creatinine (0.5-1.4) mg/dL Estim Creat Clear Calc Estimated GFR Random Glucose (60-115) mg/dL Lactic Acid (0.5-2.0) mmol/L Calcium (8.4-10.2) mg/dL Magnesium (1.6-2.6) mg/dL Total Bilirubin (0.0-1.0) mg/dL Direct Bilirubin (0.0-0.5) mg/dL AST (5-37) U/L ALT (0-40) U/L Alkaline Phosphatase (39-117) U/L Ammonia (13-55) umol/L Troponin I High Sens (<3.5-35.0) ng/L B-Natriuretic Peptide (<100) pg/mL Total Protein (6.5-8.0) g/dL Albumin (3.5-5.0) g/dL Lipase (8-78) U/L Urine Color Yellow Urine Appearance Clear Urine pH 7.0 (5.0-9.0) Ur Specific [place] 1.010 (1.005-1.025) Urine Protein Negative (Neg-Trace) mg/dL Urine Glucose (UA) Negative (Negative) mg/dL Urine Ketones Negative (Negative) mg/dL Urine Blood Trace H (Negative) Urine Nitrite Positive H (Negative) Ur Leukocyte Esterase Trace H (Negative) Urine RBC 3-5 H (0-2) /HPF Urine WBC 0-5 (0-5) /HPF Ur Squamous Epith Cells 0-2 (0-2) /HPF Urine Bacteria 3+ (None Seen) Hyaline Casts 0-2 (0-2) /LPF Urine Opiates Screen Not Detected (Not Detect) Urine Fentanyl Screen Not Detected (Not Detect) Ur Barbiturates Screen Not Detected (Not Detect) Ur Phencyclidine Scrn Not Detected (Not Detect) Ur Amphetamines Screen Not Detected (Not Detect) U Benzodiazepines Scrn Not Detected (Not Detect) Urine Cocaine Screen Not Detected (Not Detect) U Marijuana (THC) Screen Not Detected (Not Detect) Influenza Type A (PCR) NEGATIVE (Negative) Influenza Type B (PCR) NEGATIVE (Negative) RSV RNA Qual (PCR) NEGATIVE (Negative) SARS-CoV-2 RNA (RT-PCR) NEGATIVE (Negative) 04/07/22 04/07/22 Range/Units 18:38 19:15 WBC (4.8-10.8) X10*3/uL RBC (4.60-5.80) X10*6/uL Hgb (14.0-18.0) g/dl Hct (42.0-52.0) % MCV (80.0-98.0) fL MCH (27.0-33.0) pg MCHC (31.0-36.0) g/dl RDW (11.0-16.0) % Plt Count (160-400) X10*3/uL MPV (9.4-12.4) fL Immature Gran % (Auto) (0.0-0.4) % Neut % (Auto) (45-73) % Lymph % (Auto) (20-40) % [place] % (Auto) (2-11) % Eos % (Auto) (0-4) % Baso % (Auto) (0-2) % Lymph # (Auto) (1.2-4.9) X10*3/uL [place] # (Auto) (0.1-1.2) X10*3/uL Eos # (Auto) (0.0-0.4) X10*3/uL Baso # (Auto) (0.0-0.2) X10*3/uL Abs Immat Gran (auto) (0.00-0.03) X10*3/uL Absolute Neuts (auto) (2.0-8.3) x10*3/uL Absolute Nucleated RBC (0.0-0.012) X10*3/uL Nucleated RBC % (auto) (0.0-0.2) /100WBC PT (10.0-13.1) SEC INR (0.9-1.1) APTT (26.0-36.4) SEC Sodium (135-145) mmol/L Potassium (3.3-5.1) mmol/L Chloride (96-108) mmol/L Carbon Dioxide (22-29) mmol/L Anion Gap (12-20) BUN (9-16) mg/dL Creatinine (0.5-1.4) mg/dL Estim Creat Clear Calc Estimated GFR Random Glucose (60-115) mg/dL Lactic Acid (0.5-2.0) mmol/L Calcium (8.4-10.2) mg/dL Magnesium (1.6-2.6) mg/dL Total Bilirubin (0.0-1.0) mg/dL Direct Bilirubin (0.0-0.5) mg/dL AST (5-37) U/L ALT (0-40) U/L Alkaline Phosphatase (39-117) U/L Ammonia 30 (13-55) umol/L Troponin I High Sens > 3600.0 H* (<3.5-35.0) ng/L B-Natriuretic Peptide (<100) pg/mL Total Protein (6.5-8.0) g/dL Albumin (3.5-5.0) g/dL Lipase (8-78) U/L Urine Color Urine Appearance Urine pH (5.0-9.0) Ur Specific [place] (1.005-1.025) Urine Protein (Neg-Trace) mg/dL Urine Glucose (UA) (Negative) mg/dL Urine Ketones (Negative) mg/dL Urine Blood (Negative) Urine Nitrite (Negative) Ur Leukocyte Esterase (Negative) Urine RBC (0-2) /HPF Urine WBC (0-5) /HPF Ur Squamous Epith Cells (0-2) /HPF Urine Bacteria (None Seen) Hyaline Casts (0-2) /LPF Urine Opiates Screen (Not Detect) Urine Fentanyl Screen (Not Detect) Ur Barbiturates Screen (Not Detect) Ur Phencyclidine Scrn (Not Detect) Ur Amphetamines Screen (Not Detect) U Benzodiazepines Scrn (Not Detect) Urine Cocaine Screen (Not Detect) U Marijuana (THC) Screen (Not Detect) Influenza Type A (PCR) (Negative) Influenza Type B (PCR) (Negative) RSV RNA Qual (PCR) (Negative) SARS-CoV-2 RNA (RT-PCR) (Negative) <RUSTY Minor - Last Filed: 04/07/22 18:03> Lab Results 04/07/22 04/07/22 04/07/22 Range/Units 17:11 17:12 17:12 WBC (4.8-10.8) X10*3/uL RBC (4.60-5.80) X10*6/uL Hgb (14.0-18.0) g/dl Hct (42.0-52.0) % MCV (80.0-98.0) fL MCH (27.0-33.0) pg MCHC (31.0-36.0) g/dl RDW (11.0-16.0) % Plt Count (160-400) X10*3/uL MPV (9.4-12.4) fL Immature Gran % (Auto) (0.0-0.4) % Neut % (Auto) (45-73) % Lymph % (Auto) (20-40) % [place] % (Auto) (2-11) % Eos % (Auto) (0-4) % Baso % (Auto) (0-2) % Lymph # (Auto) (1.2-4.9) X10*3/uL [place] # (Auto) (0.1-1.2) X10*3/uL Eos # (Auto) (0.0-0.4) X10*3/uL Baso # (Auto) (0.0-0.2) X10*3/uL Abs Immat Gran (auto) (0.00-0.03) X10*3/uL Absolute Neuts (auto) (2.0-8.3) x10*3/uL Absolute Nucleated RBC (0.0-0.012) X10*3/uL Nucleated RBC % (auto) (0.0-0.2) /100WBC PT 13.9 H (10.0-13.1) SEC INR 1.2 H (0.9-1.1) APTT 30.8 (26.0-36.4) SEC Sodium 136 (135-145) mmol/L Potassium 4.8 (3.3-5.1) mmol/L Chloride 97 (96-108) mmol/L Carbon Dioxide 33 H (22-29) mmol/L Anion Gap 11 L (12-20) BUN 20 H (9-16) mg/dL Creatinine 1.12 (0.5-1.4) mg/dL Estim Creat Clear Calc 91.5 Estimated GFR > 60 Random Glucose 102 (60-115) mg/dL Lactic Acid 1.5 (0.5-2.0) mmol/L Calcium 9.5 (8.4-10.2) mg/dL Magnesium 2.1 (1.6-2.6) mg/dL Total Bilirubin 0.7 (0.0-1.0) mg/dL Direct Bilirubin 0.3 (0.0-0.5) mg/dL AST 29 (5-37) U/L ALT < 6 (0-40) U/L Alkaline Phosphatase 74 (39-117) U/L Ammonia (13-55) umol/L Troponin I High Sens (<3.5-35.0) ng/L B-Natriuretic Peptide (<100) pg/mL Total Protein 6.9 (6.5-8.0) g/dL Albumin 3.5 (3.5-5.0) g/dL Lipase 23 (8-78) U/L Urine Color Urine Appearance Urine pH (5.0-9.0) Ur Specific [place] (1.005-1.025) Urine Protein (Neg-Trace) mg/dL Urine Glucose (UA) (Negative) mg/dL Urine Ketones (Negative) mg/dL Urine Blood (Negative) Urine Nitrite (Negative) Ur Leukocyte Esterase (Negative) Urine RBC (0-2) /HPF Urine WBC (0-5) /HPF Ur Squamous Epith Cells (0-2) /HPF Urine Bacteria (None Seen) Hyaline Casts (0-2) /LPF Urine Opiates Screen (Not Detect) Urine Fentanyl Screen (Not Detect) Ur Barbiturates Screen (Not Detect) Ur Phencyclidine Scrn (Not Detect) Ur Amphetamines Screen (Not Detect) U Benzodiazepines Scrn (Not Detect) Urine Cocaine Screen (Not Detect) U Marijuana (THC) Screen (Not Detect) Influenza Type A (PCR) (Negative) Influenza Type B (PCR) (Negative) RSV RNA Qual (PCR) (Negative) SARS-CoV-2 RNA (RT-PCR) (Negative) 04/07/22 04/07/22 04/07/22 Range/Units 17:12 17:12 17:13 WBC 17.7 H (4.8-10.8) X10*3/uL RBC 4.18 L (4.60-5.80) X10*6/uL Hgb 12.3 L (14.0-18.0) g/dl Hct 38.5 L (42.0-52.0) % MCV 92.1 (80.0-98.0) fL MCH 29.4 (27.0-33.0) pg MCHC 31.9 (31.0-36.0) g/dl RDW 14.3 (11.0-16.0) % Plt Count 246 (160-400) X10*3/uL MPV 9.0 L (9.4-12.4) fL Immature Gran % (Auto) 0.5 H (0.0-0.4) % Neut % (Auto) 79.2 H (45-73) % Lymph % (Auto) 13.8 L (20-40) % [place] % (Auto) 6.3 (2-11) % Eos % (Auto) 0.1 (0-4) % Baso % (Auto) 0.1 (0-2) % Lymph # (Auto) 2.4 (1.2-4.9) X10*3/uL [place] # (Auto) 1.1 (0.1-1.2) X10*3/uL Eos # (Auto) 0.0 (0.0-0.4) X10*3/uL Baso # (Auto) 0.0 (0.0-0.2) X10*3/uL Abs Immat Gran (auto) 0.08 H (0.00-0.03) X10*3/uL Absolute Neuts (auto) 14.1 H (2.0-8.3) x10*3/uL Absolute Nucleated RBC 0.000 (0.0-0.012) X10*3/uL Nucleated RBC % (auto) 0.0 (0.0-0.2) /100WBC PT (10.0-13.1) SEC INR (0.9-1.1) APTT (26.0-36.4) SEC Sodium (135-145) mmol/L Potassium (3.3-5.1) mmol/L Chloride (96-108) mmol/L Carbon Dioxide (22-29) mmol/L Anion Gap (12-20) BUN (9-16) mg/dL Creatinine (0.5-1.4) mg/dL Estim Creat Clear Calc Estimated GFR Random Glucose (60-115) mg/dL Lactic Acid (0.5-2.0) mmol/L Calcium (8.4-10.2) mg/dL Magnesium (1.6-2.6) mg/dL Total Bilirubin (0.0-1.0) mg/dL Direct Bilirubin (0.0-0.5) mg/dL AST (5-37) U/L ALT (0-40) U/L Alkaline Phosphatase (39-117) U/L Ammonia (13-55) umol/L Troponin I High Sens > 3600.0 H* (<3.5-35.0) ng/L B-Natriuretic Peptide 603 H (<100) pg/mL Total Protein (6.5-8.0) g/dL Albumin (3.5-5.0) g/dL Lipase (8-78) U/L Urine Color Urine Appearance Urine pH (5.0-9.0) Ur Specific [place] (1.005-1.025) Urine Protein (Neg-Trace) mg/dL Urine Glucose (UA) (Negative) mg/dL Urine Ketones (Negative) mg/dL Urine Blood (Negative) Urine Nitrite (Negative) Ur Leukocyte Esterase (Negative) Urine RBC (0-2) /HPF Urine WBC (0-5) /HPF Ur Squamous Epith Cells (0-2) /HPF Urine Bacteria (None Seen) Hyaline Casts (0-2) /LPF Urine Opiates Screen (Not Detect) Urine Fentanyl Screen (Not Detect) Ur Barbiturates Screen (Not Detect) Ur Phencyclidine Scrn (Not Detect) Ur Amphetamines Screen (Not Detect) U Benzodiazepines Scrn (Not Detect) Urine Cocaine Screen (Not Detect) U Marijuana (THC) Screen (Not Detect) Influenza Type A (PCR) (Negative) Influenza Type B (PCR) (Negative) RSV RNA Qual (PCR) (Negative) SARS-CoV-2 RNA (RT-PCR) (Negative) 04/07/22 04/07/22 04/07/22 Range/Units 17:13 17:13 18:37 WBC (4.8-10.8) X10*3/uL RBC (4.60-5.80) X10*6/uL Hgb (14.0-18.0) g/dl Hct (42.0-52.0) % MCV (80.0-98.0) fL MCH (27.0-33.0) pg MCHC (31.0-36.0) g/dl RDW (11.0-16.0) % Plt Count (160-400) X10*3/uL MPV (9.4-12.4) fL Immature Gran % (Auto) (0.0-0.4) % Neut % (Auto) (45-73) % Lymph % (Auto) (20-40) % [place] % (Auto) (2-11) % Eos % (Auto) (0-4) % Baso % (Auto) (0-2) % Lymph # (Auto) (1.2-4.9) X10*3/uL [place] # (Auto) (0.1-1.2) X10*3/uL Eos # (Auto) (0.0-0.4) X10*3/uL Baso # (Auto) (0.0-0.2) X10*3/uL Abs Immat Gran (auto) (0.00-0.03) X10*3/uL Absolute Neuts (auto) (2.0-8.3) x10*3/uL Absolute Nucleated RBC (0.0-0.012) X10*3/uL Nucleated RBC % (auto) (0.0-0.2) /100WBC PT (10.0-13.1) SEC INR (0.9-1.1) APTT (26.0-36.4) SEC Sodium (135-145) mmol/L Potassium (3.3-5.1) mmol/L Chloride (96-108) mmol/L Carbon Dioxide (22-29) mmol/L Anion Gap (12-20) BUN (9-16) mg/dL Creatinine (0.5-1.4) mg/dL Estim Creat Clear Calc Estimated GFR Random Glucose (60-115) mg/dL Lactic Acid (0.5-2.0) mmol/L Calcium (8.4-10.2) mg/dL Magnesium (1.6-2.6) mg/dL Total Bilirubin (0.0-1.0) mg/dL Direct Bilirubin (0.0-0.5) mg/dL AST (5-37) U/L ALT (0-40) U/L Alkaline Phosphatase (39-117) U/L Ammonia (13-55) umol/L Troponin I High Sens (<3.5-35.0) ng/L B-Natriuretic Peptide (<100) pg/mL Total Protein (6.5-8.0) g/dL Albumin (3.5-5.0) g/dL Lipase (8-78) U/L Urine Color Yellow Urine Appearance Clear Urine pH 7.0 (5.0-9.0) Ur Specific [place] 1.010 (1.005-1.025) Urine Protein Negative (Neg-Trace) mg/dL Urine Glucose (UA) Negative (Negative) mg/dL Urine Ketones Negative (Negative) mg/dL Urine Blood Trace H (Negative) Urine Nitrite Positive H (Negative) Ur Leukocyte Esterase Trace H (Negative) Urine RBC 3-5 H (0-2) /HPF Urine WBC 0-5 (0-5) /HPF Ur Squamous Epith Cells 0-2 (0-2) /HPF Urine Bacteria 3+ (None Seen) Hyaline Casts 0-2 (0-2) /LPF Urine Opiates Screen Not Detected (Not Detect) Urine Fentanyl Screen Not Detected (Not Detect) Ur Barbiturates Screen Not Detected (Not Detect) Ur Phencyclidine Scrn Not Detected (Not Detect) Ur Amphetamines Screen Not Detected (Not Detect) U Benzodiazepines Scrn Not Detected (Not Detect) Urine Cocaine Screen Not Detected (Not Detect) U Marijuana (THC) Screen Not Detected (Not Detect) Influenza Type A (PCR) NEGATIVE (Negative) Influenza Type B (PCR) NEGATIVE (Negative) RSV RNA Qual (PCR) NEGATIVE (Negative) SARS-CoV-2 RNA (RT-PCR) NEGATIVE (Negative) 04/07/22 04/07/22 Range/Units 18:38 19:15 WBC (4.8-10.8) X10*3/uL RBC (4.60-5.80) X10*6/uL Hgb (14.0-18.0) g/dl Hct (42.0-52.0) % MCV (80.0-98.0) fL MCH (27.0-33.0) pg MCHC (31.0-36.0) g/dl RDW (11.0-16.0) % Plt Count (160-400) X10*3/uL MPV (9.4-12.4) fL Immature Gran % (Auto) (0.0-0.4) % Neut % (Auto) (45-73) % Lymph % (Auto) (20-40) % [place] % (Auto) (2-11) % Eos % (Auto) (0-4) % Baso % (Auto) (0-2) % Lymph # (Auto) (1.2-4.9) X10*3/uL [place] # (Auto) (0.1-1.2) X10*3/uL Eos # (Auto) (0.0-0.4) X10*3/uL Baso # (Auto) (0.0-0.2) X10*3/uL Abs Immat Gran (auto) (0.00-0.03) X10*3/uL Absolute Neuts (auto) (2.0-8.3) x10*3/uL Absolute Nucleated RBC (0.0-0.012) X10*3/uL Nucleated RBC % (auto) (0.0-0.2) /100WBC PT (10.0-13.1) SEC INR (0.9-1.1) APTT (26.0-36.4) SEC Sodium (135-145) mmol/L Potassium (3.3-5.1) mmol/L Chloride (96-108) mmol/L Carbon Dioxide (22-29) mmol/L Anion Gap (12-20) BUN (9-16) mg/dL Creatinine (0.5-1.4) mg/dL Estim Creat Clear Calc Estimated GFR Random Glucose (60-115) mg/dL Lactic Acid (0.5-2.0) mmol/L Calcium (8.4-10.2) mg/dL Magnesium (1.6-2.6) mg/dL Total Bilirubin (0.0-1.0) mg/dL Direct Bilirubin (0.0-0.5) mg/dL AST (5-37) U/L ALT (0-40) U/L Alkaline Phosphatase (39-117) U/L Ammonia 30 (13-55) umol/L Troponin I High Sens > 3600.0 H* (<3.5-35.0) ng/L B-Natriuretic Peptide (<100) pg/mL Total Protein (6.5-8.0) g/dL Albumin (3.5-5.0) g/dL Lipase (8-78) U/L Urine Color Urine Appearance Urine pH (5.0-9.0) Ur Specific [place] (1.005-1.025) Urine Protein (Neg-Trace) mg/dL Urine Glucose (UA) (Negative) mg/dL Urine Ketones (Negative) mg/dL Urine Blood (Negative) Urine Nitrite (Negative) Ur Leukocyte Esterase (Negative) Urine RBC (0-2) /HPF Urine WBC (0-5) /HPF Ur Squamous Epith Cells (0-2) /HPF Urine Bacteria (None Seen) Hyaline Casts (0-2) /LPF Urine Opiates Screen (Not Detect) Urine Fentanyl Screen (Not Detect) Ur Barbiturates Screen (Not Detect) Ur Phencyclidine Scrn (Not Detect) Ur Amphetamines Screen (Not Detect) U Benzodiazepines Scrn (Not Detect) Urine Cocaine Screen (Not Detect) U Marijuana (THC) Screen (Not Detect) Influenza Type A (PCR) (Negative) Influenza Type B (PCR) (Negative) RSV RNA Qual (PCR) (Negative) SARS-CoV-2 RNA (RT-PCR) (Negative) <Madison Saucedo NP - Last Filed: 04/07/22 22:08> Imaging Data CT scan - head: Attestation: I personally reviewed and interpreted this imaging study as follows: <Madison Saucedo NP - Last Filed: 04/07/22 22:08> Radiologist's impression: EXAMINATION: XR CHEST CLINICAL INFORMATION: Weakness and dizziness COMPARISON: Chest x-ray 08/26/2021 TECHNIQUE: Frontal view of the chest was obtained. FINDINGS: Cardiac silhouette is normal in size. The lungs are well aerated. There is no lobar consolidation. No pleural effusion or pneumothorax. XR/XR chest 1V IMPRESSION: No acute pulmonary pathology. ? <Madison Saucedo NP - Last Filed: 04/07/22 22:08> Chest x-ray: Attestation: I personally reviewed and interpreted this imaging study as follows: <Madison Saucedo UNDERWRITING ANALYST - Last Filed: 04/07/22 22:08> Radiologist's impression: EXAMINATION: XR CHEST CLINICAL INFORMATION: Tachypnea and acute mental status change COMPARISON: Chest x-ray 05/30/2018 TECHNIQUE: Frontal view of the chest was obtained. FINDINGS: Lungs are hypoinflated. Minimal streaky subsegmental atelectasis at the lung bases. No airspace consolidation, pleural effusion, or pneumothorax. Normal cardiomediastinal silhouette. No evidence of pulmonary edema. No acute osseous injury. XR/XR chest 1V IMPRESSION: Low lung volumes with minimal bibasilar subsegmental atelectasis. No acute pulmonary process. <Madison Saucedo NP - Last Filed: 04/07/22 22:08> Chest CTA, cervical spine CT, abdomen pelvis CT: Attestation: I personally reviewed and interpreted this imaging study as follows: <Madison Saucedo NP - Last Filed: 04/07/22 22:08> Radiologist's impression: FINDINGS: The cervical spine is visualized in its entirety. There is straightening of the normal cervical lordosis. Alignment is otherwise unremarkable. Normal C1/C2 articulation. Cervical vertebral body heights are maintained. Disc spaces demonstrate moderate to severe narrowing at the C4/C5, C5/C6 and C6/C7 levels. There are osteophytes and sclerotic and cystic changes at these levels. Cystic changes also noted within the C2 vertebral body. Mild diffuse facet hypertrophy bilaterally.? Lung apices are well aerated. CT/CT cervical spine wo IV con IMPRESSION: Moderate diffuse degenerative changes of the cervical spine without compression deformity. ? Fleischner guidelines were followed. FINDINGS: QUALITY OF STUDY/CONTRAST BOLUS: Satisfactory. PULMONARY ARTERIES: The main pulmonary artery is dilated at 4 cm suggesting pulmonary hypertension. No pulmonary emboli are detected. THORACIC AORTA: No aneurysm or dissection. LUNG: The lungs are hypoinflated. Bibasilar atelectasis is present. No lung masses. No gross consolidation. PLEURA: No pleural effusion or pneumothorax. MEDIASTINUM: Normal heart size. Left ventricular hypertrophy. No pericardial effusion.? No hilar or mediastinal lymphadenopathy.? No evidence of septal bowing or right heart strain. Marked coronary calcification present. CHEST WALL/AXILLA: No axillary or internal mammary lymphadenopathy. OSSEOUS STRUCTURES: No acute or suspicious osseous abnormality.? UPPER ABDOMEN: There is hepatic steatosis which could also be appreciated on the prior 05/29/2018 CT scan (2:24).? No reflux of contrast into the hepatic veins to suggest elevated right heart pressures. CT/CT angio chest PE protocol IMPRESSION: 1.? No evidence of pulmonary emboli. 2.? Dilated main pulmonary artery suggesting pulmonary hypertension. 3.? Left ventricular hypertrophy. 4.? Hepatic steatosis VTE: negative FINDINGS: LUNG BASES: See report CT PE study same day. The right hemidiaphragm is elevated. LIVER, GALLBLADDER, AND BILIARY TREE: The liver is normal in size and shape but with probable decreased attenuation suggesting hepatic steatosis. No focal hepatic lesion or biliary ductal dilatation is present. The gallbladder is unremarkable with no evidence of radiopaque gallstones, gallbladder wall thickening, or obvious pericholecystic inflammatory changes.? PANCREAS: Unremarkable.? SPLEEN: Unremarkable.? ADRENAL GLANDS: Unremarkable.? KIDNEYS AND URETERS: The kidneys are normal in size, shape, and attenuation. Left renal collecting system is slightly more dilated than the right. No gross hydronephrosis, hydroureter, or calculi seen. No perinephric stranding. ? BLADDER: A catheter is present in the bladder which is empty.? GASTROINTESTINAL TRACT: The small and large bowel are unremarkable. The appendix is unremarkable.? ABDOMINAL WALL: No significant hernia is appreciated.? LYMPH NODES: There is new retroperitoneal adenopathy when compared to the prior study. One of the larger bronchial nodes in the right external iliac region measuring 6.0 x 3.2 x 7.3 cm (15:78). Left iliac nodes are present as well as are paracaval and retrocaval lymph nodes. All lymph nodes seen are below the level of the renal arteries. The largest paracaval node at the IVC confluence measures 3.9 x 2.6 x 5.2 cm (15:63). VASCULAR: Unremarkable. PELVIC VISCERA: Mildly prominent prostate.? 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 No gross pathologic fractures are seen. CT/CT abdomen pelvis w IV con IMPRESSION: 1.? New extensive retroperitoneal adenopathy. 2.? 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 3.? Other incidental findings as described above. ? Fleischner guidelines were followed. <Madison Saucedo NP - Last Filed: 04/07/22 22:08> Tib-fib x-ray: Attestation: I personally reviewed and interpreted this imaging study as follows: <Madison Saucedo NP - Last Filed: 04/07/22 22:08> Radiologist's impression: EXAMINATION: XR TIBIA AND FIBULA, RIGHT CLINICAL INFORMATION: Cellulitis. Question osteomyelitis.? COMPARISON: None? TECHNIQUE: AP and lateral views of the right tibia and fibula were obtained. FINDINGS: Diffuse subcutaneous edema and reticulation. No tracking soft tissue gas. No aggressive osseous destructive change or periosteal reaction. No fracture or dislocation. Trace knee joint effusion. No ankle joint effusion. Advanced tricompartmental knee joint osteoarthritis. Moderate vascular calcifications. XR/XR tibia fibula RT 2V IMPRESSION: 1.? No acute osseous injury or radiographic evidence of advanced osteomyelitis. 2.? Diffuse subcutaneous edema and reticulation. No tracking soft tissue gas. <Madison Saucedo NP - Last Filed: 04/07/22 22:08> ECG Data ECG #1: Attestation: I personally reviewed and interpreted this ECG as follows: <Madison Saucedo NP - Last Filed: 04/07/22 22:08> ECG interpretation date: 04/07/22 <Madison Saucedo NP - Last Filed: 04/07/22 22:08> ECG interpretation time: 17:40 <Madison Saucedo NP - Last Filed: 04/07/22 22:08> Ischemic changes: acute STEMI <Madison Saucedo NP - Last Filed: 04/07/22 22:08> Interpretation: Vent. rate 59 BPM NE interval 162 ms QRS duration 156 ms QT/QTc 484/479 ms P-R-T axes 39 -60 39 Sinus bradycardia Right bundle branch block Left anterior fascicular block Bifascicular block Minimal voltage criteria for LVH, may be normal variant ( R in aVL ) Septal infarct , age undetermined Abnormal ECG When compared with ECG of 25-MAY-2018 05:53, Premature atrial complexes are no longer Present Septal infarct is now Present ... <Madison Saucedo NP - Last Filed: 04/07/22 22:08> ECG #2: Attestation: I personally reviewed and interpreted this ECG as follows: <Madison Saucedo NP - Last Filed: 04/07/22 22:08> ECG interpretation date: 04/07/22 <Madison Saucedo NP - Last Filed: 04/07/22 22:08> ECG interpretation time: 18:56 <Madison Saucedo NP - Last Filed: 04/07/22 22:08> Prior ECG tracings: available for review <Madison Saucedo NP - Last Filed: 04/07/22 22:08> Interpretation: Vent. rate 67 BPM NE interval * ms QRS duration 152 ms QT/QTc 436/460 ms P-R-T axes * -56 63 Atrial fibrillation Left axis deviation Right bundle branch block Minimal voltage criteria for LVH, may be normal variant ( R in aVL ) Septal infarct (cited on or before 07-APR-2022) Abnormal ECG When compared with ECG of 07-APR-2022 17:40, Atrial fibrillation has replaced Sinus rhythm Patient is in a flutter <Madison Saucedo NP - Last Filed: 04/07/22 22:08> Critical Care Time Critical Care Time Critical Care Time: Yes <RUSTY Minor - Last Filed: 04/07/22 18:03> Total Critical Care Time: 40 <RUSTY Minor - Last Filed: 04/07/22 18:03> 65 <Madison Saucedo NP - Last Filed: 04/07/22 22:08> Attestation: I have personally provided critical care time exclusive of time spent on separately billable procedures. Time includes review of lab data, radiology results, discussion with consultants, and monitoring for potential decompensation. Intervention performed as documented. <RUSTY Minor - Last Filed: 04/07/22 18:03> Discharge Plan Discharge Clinical Impression: Altered mental status, Fall, UTI (urinary tract infection), Congestive heart failure (CHF), Acute non-ST elevation myocardial infarction (NSTEMI), Metastatic cancer to bone <RUSTY Minor - Last Filed: 04/07/22 18:03> Patient Disposition: Admitted As Inpatient <RUSTY Minor - Last Filed: 04/07/22 18:03>
[2022-04-07 16:44] VITALS: BP 120/61; BP 138/80; PULSE 62; PULSE 66; RESP 22; TEMP 36.7; O2SAT 94; O2SAT 96; BMI 68.7
--- NOTE | 2022-04-07 17:00 | ECG_ITS ---
Test Reason : SOB Blood Pressure : / mmHG Vent. Rate : 059 BPM Atrial Rate : 059 BPM P-R Int : 162 ms QRS Dur : 156 ms QT Int : 484 ms P-R-T Axes : 039 -60 039 degrees QTc Int : 479 ms Sinus bradycardia Right bundle branch block Left anterior fascicular block Bifascicular block Minimal voltage criteria for LVH, may be normal variant ( R in aVL ) Abnormal ECG When compared with ECG of 25-MAY-2018 05:53, Premature atrial complexes are no longer Present T wave inversion no longer evident in Anterior leads Referred By: eRgina Shelton Electronically Signed By:ILYA ANNE MD
[2022-04-07 17:22] LABS: MANUAL DIFF FLAG NO
--- NOTE | 2022-04-07 17:23 | PC.NURSE ---
PT a&ox2, reports he had a fall today. PT tachypnic, o2 sat 90-93% on RA. PT placed on 1 L via NC. LS crackles.
[2022-04-07 17:30] LABS: Basophils Percent Auto 0.1 % (0-2); Eosinophils Percent Auto 0.1 % (0-4); Hematocrit 38.5 % (42.0-52.0); Hemoglobin 12.3 g/dl (14.0-18.0); Imm Gran Abs Auto 0.08 X10*3/uL (0.00-0.03); Imm Gran Pct Auto 0.5 % (0.0-0.4); Lymphocytes Absolute Auto 2.4 X10*3/uL (1.2-4.9); Lymphocytes Percent Auto 13.8 % (20-40); Mean Corpuscular HGB Conc 31.9 g/dl (31.0-36.0); Mean Corpuscular Hemoglobin 29.4 pg (27.0-33.0); Mean Corpuscular Volume 92.1 fL (80.0-98.0); Monocytes Absolute Auto 1.1 X10*3/uL (0.1-1.2); Monocytes Percent Auto 6.3 % (2-11); Neutrophils Absolute Auto 14.1 x10*3/uL (2.0-8.3); Neutrophils Percent Auto 79.2 % (45-73); Platelet Count 246 X10*3/uL (160-400); Red Blood Count 4.18 X10*6/uL (4.60-5.80); Red Cell Distribution Width 14.3 % (11.0-16.0); White Blood Count 17.7 X10*3/uL (4.8-10.8)
[2022-04-07 17:31] LABS: INTERNATIONAL NORM RATIO 1.2 (0.9-1.1); Prothrombin Time 13.9 SEC (10.0-13.1)
[2022-04-07 17:32] LABS: Appearance Urine Clear; Color Urine Yellow; Glucose Urine UA Negative (Negative); Leukocyte Esterase Urine Trace (Negative); Nitrite Urine Positive (Negative); UMIC TRIGGER UACC YES; Urine Blood Trace (Negative); Urine Ketones Negative (Negative); Urine Protein Negative (Neg-Trace)
[2022-04-07 17:34] LABS: Partial Thromboplastin Time 30.8 SEC (26.0-36.4)
[2022-04-07 17:35] LABS: Amphetamine Screen Urine Not Detected (Not Detect); Barbiturates, Urine Not Detected (Not Detect); Benzodiazepines Screen Urine Not Detected (Not Detect); Cannabinoid Screen Urine Not Detected (Not Detect); Cocaine Screen Urine Not Detected (Not Detect); Fentanyl, urine Not Detected (Not Detect); Opiate Screen Urine Not Detected (Not Detect); Phencyclidine Screen Urine Not Detected (Not Detect)
[2022-04-07 17:37] LABS: Bacteria Urine 3+ (None Seen); Hyaline Casts Urine 0-2 /LPF (0-2); Squamous Epithelial Cell Urine 0-2 /HPF (0-2); UACC Culture Trigger YES; WBC Urine 0-5 /HPF (0-5)
[2022-04-07 17:39] LABS: Lactic Acid 1.5 mmol/L (0.5-2.0)
[2022-04-07 17:46] LABS: Alanine Aminotransferase < 6 U/L (0-40); Albumin Level 3.5 g/dL (3.5-5.0); Alkaline Phosphatase 74 U/L (39-117); Anion Gap 11 (12-20); Aspartate Amino Transferase 29 U/L (5-37); Bilirubin Direct 0.3 mg/dL (0.0-0.5); Bilirubin Total 0.7 mg/dL (0.0-1.0); Blood Urea Nitrogen 20 mg/dL (9-16); Calcium 9.5 mg/dL (8.4-10.2); Carbon Dioxide 33 mmol/L (22-29); Chloride 97 mmol/L (96-108); Creatinine Clr Calc Pharmacy 91.5; Estimated Glomerular Filt Rate > 60; Glucose Random 102 mg/dL (60-115); Lipase 23 U/L (8-78); Magnesium 2.1 mg/dL (1.6-2.6); Potassium 4.8 mmol/L (3.3-5.1); Sodium 136 mmol/L (135-145); Total Protein 6.9 g/dL (6.5-8.0)
[2022-04-07 17:48] LABS: B Type Natriuretic Peptide 603 pg/mL (<100)
[2022-04-07 18:08] LABS: Troponin-I High Sensitivity > 3600.0 ng/L (<3.5-35.0)
[2022-04-07] MEDS: iohexoL 350 MG/ML 100 ML INFUS..BTL IV (18:17)
[2022-04-07 18:26] VITALS: BMI 34.2
[2022-04-07] MEDS: Albuterol/Iprat 2.5/0.5MG 3 ML AMPUL.NEB INHALE (18:30)
[2022-04-07 18:31] VITALS: PULSE 64; RESP 16; O2SAT 97
[2022-04-07] MEDS: cefEPime HCl 2 GM in 0.9 % Sodium Chloride 50 ML IV (18:34)
[2022-04-07] MEDS: Furosemide 40 MG/4 ML VIAL IVPUSH (18:36)
[2022-04-07 18:52] LABS: Ammonia 30 umol/L (13-55)
[2022-04-07] MEDS: Heparin Sodium,Porcine 5,000 UNIT/ML VIAL 4000 UNIT IVPUSH (18:52)
[2022-04-07 18:55] VITALS: BP 131/72; PULSE 67; RESP 22; O2SAT 94
--- NOTE | 2022-04-07 18:57 | ECG_ITS ---
Test Reason : REPEAT Blood Pressure : / mmHG Vent. Rate : 067 BPM Atrial Rate : 000 BPM P-R Int : 000 ms QRS Dur : 152 ms QT Int : 436 ms P-R-T Axes : 000 -56 063 degrees QTc Int : 460 ms Atrial fibrillation Left anterior fascicular block Right bundle branch block Minimal voltage criteria for LVH, may be normal variant ( R in aVL ) Abnormal ECG When compared with ECG of 07-APR-2022 17:40, Atrial fibrillation has replaced Sinus rhythm Referred By: Madison Saucedo Electronically Signed By:ILYA ANNE MD
[2022-04-07] MEDS: Heparin Sodium,Porcine/1/2NS 25,000 UNIT/250 ML IV.SOLN 10 UNIT IVCONT (19:17)
[2022-04-07] MEDS: Metoprolol Tartrate 5 MG/5 ML VIAL 2.5 MG IVPUSH (19:18)
[2022-04-07 19:23] LABS: Influenza A PCR NEGATIVE (Negative); Influenza B PCR NEGATIVE (Negative); Resp Syncy Virus RNA Qual PCR NEGATIVE (Negative); SARS COV2 PCR INHOUSE NEGATIVE (Negative)
--- NOTE | 2022-04-07 19:53 | PHA.MEDREC ---
MED REC COMPLETE,NO ISSUES Pharmacy Consult ? Medication Reconciliation Pharmacy has completed the medication reconciliation.
[2022-04-07 20:15] LABS: Troponin-I High Sensitivity > 3600.0 ng/L (<3.5-35.0)
--- NOTE | 2022-04-07 21:07 | PM.IMHP ---
History of Present Illness Date of Service: 04/07/22 Chief Complaint: fall This is an 82-year-old male with past medical history of hypertension, GERD, schizoaffective disorder, secondary parkinsonism, aortic valve stenosis, bipolar disorder, urinary retention, overactive bladder, prostate cancer presents to the hospital with altered mental status. patient is a resident of [facility]. History is obtained from EMR and ED provider as patient is altered and unable to give history. Patient was brought in from [facility] after a fall and becoming progressively altered. According to note from [facility] patient had respiratory distress with tachypnea and the 40s. On arrival to the ED patient hemodynamically stable with a respiratory rate of 22 Labs are significant for WBC count of 17.7, hemoglobin of 12.3, hematocrit 38.5, INR 1.3, pH is 7.45 with no CO2 retention, creatinine of 1.12, troponin of more than 3600, BNP of 603, UA positive for leukocyte Estrace, nitrates, WBC Chest CT angiograms negative for pulmonary emboli, patient has dilated main pulmonary artery suggesting pulmonary hypertension, abdomen pelvic CT shows new extensive retroperitoneal adenopathy, diffuse sclerotic metastatic disease throughout the entire visualized skeleton, along with other incidental findings X-ray of the tibia, fibula, cervical spine shows no acute osseous injury or drug out of thick evidence of advanced osteomyelitis. Patient started on IV antibiotics as well as heparin drip and will be admitted for further management unable to obtain past history is including family, surgical, or social history from patient as he is altered and no documentation in chart Review of Systems Review of Systems: Yes Unobtainable due to mental condition and Unobtainable due to mental status [facility] Medical History (Updated 04/08/22 @ 00:18 by Abigail Aly MD) Bipolar disorder GERD (gastroesophageal reflux disease) Hypertension Schizoaffective disorder Pertinent family history: unable to obtain Social History Advance Directives: No Advance Directives Information Provided: No Meds Allergies Allergy/AdvReac Type Severity Reaction Status Date / Time No Known Allergies Allergy Unverified 01/25/20 16:00 [No Known Allergies*] Active Medications: Current Medications Heparin Sodium (Porcine) (Heparin Sodium,Porcine 5,000 Unit/Ml Vial) 4,100 unit 40 unit/kg (4100 unit) IVPUSH PROTOCOL BOLUS PRN; Protocol PRN Reason: 40 unit/kg - Heparin Protocol Heparin Sodium (Porcine) (Heparin Sodium,Porcine 5,000 Unit/Ml Vial) 8,200 unit 80 unit/kg (8200 unit) IVPUSH PROTOCOL BOLUS PRN; Protocol PRN Reason: 80 unit/kg - Heparin Protocol Heparin Sodium/Sodium Chloride (Heparin Sodium,Porcine/1/2ns) 25,000 unit in 250 mls @ 0 mls/hr IVCONT .Q0M IVIS; Protocol Last Admin: 04/07/22 19:17 Dose: 9.78 units/kg/hr, 10 mls/hr Home Medications Medication Instructions Recorded Confirmed Last Taken Type 1% Iodoquinol/1% Hydrocortison 1 appl topical BID 04/07/22 04/07/22 Unknown History acetaminophen 325 mg tablet 650 mg PO Q6H PRN PAIN/TEMP OVER 04/07/22 04/07/22 Unknown History 100 acetaminophen 325 mg tablet 650 mg PO TID 04/07/22 04/07/22 04/07/22 History aluminum-mag hydroxide-simethicone 30 ml PO Q6H PRN Indigestion 04/07/22 04/07/22 Unknown History 200 mg-200 mg-20 mg/5 mL oral susp amlodipine 5 mg tablet 5 mg PO DAILY 04/07/22 04/07/22 04/07/22 History aspirin 81 mg chewable tablet 81 mg PO DAILY 04/07/22 04/07/22 04/07/22 History bisacodyl 10 mg rectal suppository 10 mg [place] DAILY PRN Constipation 04/07/22 04/07/22 Unknown History calcium polycarbophil 625 mg tablet 1,250 mg PO DAILY 04/07/22 04/07/22 04/07/22 History carbidopa 25 mg-levodopa 100 mg 1 tab PO QID 04/07/22 04/07/22 04/07/22 History tablet cholecalciferol (vitamin D3) 25 25 mcg PO DAILY 04/07/22 04/07/22 04/07/22 History mcg (1,000 unit) tablet dextromethorphan-guaifenesin 10 10 ml PO Q4H PRN Cough 04/07/22 04/07/22 Unknown History mg-100 mg/5 mL oral liquid divalproex 125 mg capsule,delayed 375 mg PO DAILY@1400 04/07/22 04/07/22 04/07/22 History release sprinkle divalproex 125 mg capsule,delayed 500 mg PO BID 04/07/22 04/07/22 04/07/22 History release sprinkle (Depakote Sprinkles) docusate sodium 100 mg capsule 100 mg PO BID 04/07/22 04/07/22 04/07/22 History (Colace) furosemide 40 mg tablet 40 mg PO BID@0900,1400 04/07/22 04/07/22 04/07/22 History levalbuterol tartrate 45 2 inh inhalation Q6H PRN 04/07/22 04/07/22 Unknown History mcg/actuation aerosol inhaler sob/wheezing loperamide 2 mg tablet 2 mg PO QID PRN Loose Stool 04/07/22 04/07/22 Unknown History lorazepam 0.5 mg tablet 0.5 mg PO BEDTIME 04/07/22 04/07/22 04/06/22 History lorazepam 0.5 mg tablet 0.5 mg PO TID PRN Anxiety 04/07/22 04/07/22 Unknown History metoprolol tartrate 25 mg tablet 12.5 mg PO BID@0900,1700 04/07/22 04/07/22 04/07/22 History olanzapine 10 mg tablet 10 mg PO BEDTIME 04/07/22 04/07/22 04/06/22 History olanzapine 2.5 mg tablet 7.5 mg PO DAILY 04/07/22 04/07/22 04/07/22 History ondansetron 4 mg disintegrating 4 mg PO Q6H PRN Vomiting 04/07/22 04/07/22 Unknown History tablet polyethylene glycol 3350 17 17 g PO DAILY PRN Constipation 04/07/22 04/07/22 Unknown History gram/dose oral powder (Miralax) pramipexole 0.5 mg tablet 0.5 mg PO BID@0900,1700 04/07/22 04/07/22 04/07/22 History sennosides 8.6 mg tablet (senna) 8.6 mg PO DAILY PRN Constipation 04/07/22 04/07/22 Unknown History simvastatin 40 mg tablet 40 mg PO BEDTIME 04/07/22 04/07/22 04/06/22 History tamsulosin 0.4 mg capsule 0.8 mg PO BEDTIME 04/07/22 04/07/22 04/06/22 History Physical Exam Vital Signs and Narrative: Vital Signs: Last Vital Signs Temp 98.1 F 04/07/22 16:44 Pulse 67 04/07/22 18:55 Resp 22 H 04/07/22 18:55 BP 131/72 04/07/22 18:55 Pulse Ox 94 04/07/22 18:55 O2 Del Method 04/07/22 18:55 O2 Flow Rate 2 04/07/22 18:55 Oxygen Flow Rate 1 04/07/22 16:44 BMI result Body Mass Index 34.2 Const: Other: patient is sleeping, wakes up to verbal stimuli, falls right back to sleep, not answering questions and unable to cooperate with exam General: cooperative and no acute distress Eyes: General: appearance normal, both eyes and all related structures Resp: Effort & Inspection: normal respiratory effort Auscultation: clear to auscultation bilaterally Cardio: Rate: regular rate Rhythm: regular rhythm GI: Palpation (GI): Soft to palpation Auscultation: normal bowel sounds Skin: General skin exam: no rashes or lesions noted Neuro: Cognition (Neuro): normal cognition Extrem: General: Yes normal to inspection and Yes no pedal edema Results Labs CBC and Chem 7: 04/07/22 17:13 04/07/22 17:12 Labs: Laboratory Results - last 24 hr 04/07/22 04/07/22 04/07/22 17:11 17:12 17:12 MCV MCH MCHC RDW Plt Count MPV Immature Gran % (Auto) Neut % (Auto) Lymph % (Auto) [place] % (Auto) Eos % (Auto) Baso % (Auto) Lymph # (Auto) [place] # (Auto) Eos # (Auto) Baso # (Auto) Abs Immat Gran (auto) Absolute Neuts (auto) Absolute Nucleated RBC Nucleated RBC % (auto) PT 13.9 H INR 1.2 H APTT 30.8 Anion Gap 11 L Estim Creat Clear Calc 91.5 Estimated GFR > 60 Random Glucose 102 Lactic Acid 1.5 Calcium 9.5 Magnesium 2.1 Total Bilirubin 0.7 Direct Bilirubin 0.3 AST 29 ALT < 6 Alkaline Phosphatase 74 Ammonia Troponin I High Sens B-Natriuretic Peptide Total Protein 6.9 Albumin 3.5 Lipase 23 Urine Color Urine Appearance Urine pH Ur Specific [place] Urine Protein Urine Glucose (UA) Urine Ketones Urine Blood Urine Nitrite Ur Leukocyte Esterase Urine RBC Urine WBC Ur Squamous Epith Cells Urine Bacteria Hyaline Casts Urine Opiates Screen Urine Fentanyl Screen Ur Barbiturates Screen Ur Phencyclidine Scrn Ur Amphetamines Screen U Benzodiazepines Scrn Urine Cocaine Screen U Marijuana (THC) Screen Influenza Type A (PCR) Influenza Type B (PCR) RSV RNA Qual (PCR) SARS-CoV-2 RNA (RT-PCR) 04/07/22 04/07/22 04/07/22 17:12 17:12 17:13 MCV 92.1 MCH 29.4 MCHC 31.9 RDW 14.3 Plt Count 246 MPV 9.0 L Immature Gran % (Auto) 0.5 H Neut % (Auto) 79.2 H Lymph % (Auto) 13.8 L [place] % (Auto) 6.3 Eos % (Auto) 0.1 Baso % (Auto) 0.1 Lymph # (Auto) 2.4 [place] # (Auto) 1.1 Eos # (Auto) 0.0 Baso # (Auto) 0.0 Abs Immat Gran (auto) 0.08 H Absolute Neuts (auto) 14.1 H Absolute Nucleated RBC 0.000 Nucleated RBC % (auto) 0.0 PT INR APTT Anion Gap Estim Creat Clear Calc Estimated GFR Random Glucose Lactic Acid Calcium Magnesium Total Bilirubin Direct Bilirubin AST ALT Alkaline Phosphatase Ammonia Troponin I High Sens > 3600.0 H* B-Natriuretic Peptide 603 H Total Protein Albumin Lipase Urine Color Urine Appearance Urine pH Ur Specific [place] Urine Protein Urine Glucose (UA) Urine Ketones Urine Blood Urine Nitrite Ur Leukocyte Esterase Urine RBC Urine WBC Ur Squamous Epith Cells Urine Bacteria Hyaline Casts Urine Opiates Screen Urine Fentanyl Screen Ur Barbiturates Screen Ur Phencyclidine Scrn Ur Amphetamines Screen U Benzodiazepines Scrn Urine Cocaine Screen U Marijuana (THC) Screen Influenza Type A (PCR) Influenza Type B (PCR) RSV RNA Qual (PCR) SARS-CoV-2 RNA (RT-PCR) 04/07/22 04/07/22 04/07/22 17:13 17:13 18:37 MCV MCH MCHC RDW Plt Count MPV Immature Gran % (Auto) Neut % (Auto) Lymph % (Auto) [place] % (Auto) Eos % (Auto) Baso % (Auto) Lymph # (Auto) [place] # (Auto) Eos # (Auto) Baso # (Auto) Abs Immat Gran (auto) Absolute Neuts (auto) Absolute Nucleated RBC Nucleated RBC % (auto) PT INR APTT Anion Gap Estim Creat Clear Calc Estimated GFR Random Glucose Lactic Acid Calcium Magnesium Total Bilirubin Direct Bilirubin AST ALT Alkaline Phosphatase Ammonia Troponin I High Sens B-Natriuretic Peptide Total Protein Albumin Lipase Urine Color Yellow Urine Appearance Clear Urine pH 7.0 Ur Specific [place] 1.010 Urine Protein Negative Urine Glucose (UA) Negative Urine Ketones Negative Urine Blood Trace H Urine Nitrite Positive H Ur Leukocyte Esterase Trace H Urine RBC 3-5 H Urine WBC 0-5 Ur Squamous Epith Cells 0-2 Urine Bacteria 3+ Hyaline Casts 0-2 Urine Opiates Screen Not Detected Urine Fentanyl Screen Not Detected Ur Barbiturates Screen Not Detected Ur Phencyclidine Scrn Not Detected Ur Amphetamines Screen Not Detected U Benzodiazepines Scrn Not Detected Urine Cocaine Screen Not Detected U Marijuana (THC) Screen Not Detected Influenza Type A (PCR) NEGATIVE Influenza Type B (PCR) NEGATIVE RSV RNA Qual (PCR) NEGATIVE SARS-CoV-2 RNA (RT-PCR) NEGATIVE 04/07/22 04/07/22 18:38 19:15 MCV MCH MCHC RDW Plt Count MPV Immature Gran % (Auto) Neut % (Auto) Lymph % (Auto) [place] % (Auto) Eos % (Auto) Baso % (Auto) Lymph # (Auto) [place] # (Auto) Eos # (Auto) Baso # (Auto) Abs Immat Gran (auto) Absolute Neuts (auto) Absolute Nucleated RBC Nucleated RBC % (auto) PT INR APTT Anion Gap Estim Creat Clear Calc Estimated GFR Random Glucose Lactic Acid Calcium Magnesium Total Bilirubin Direct Bilirubin AST ALT Alkaline Phosphatase Ammonia 30 Troponin I High Sens > 3600.0 H* B-Natriuretic Peptide Total Protein Albumin Lipase Urine Color Urine Appearance Urine pH Ur Specific [place] Urine Protein Urine Glucose (UA) Urine Ketones Urine Blood Urine Nitrite Ur Leukocyte Esterase Urine RBC Urine WBC Ur Squamous Epith Cells Urine Bacteria Hyaline Casts Urine Opiates Screen Urine Fentanyl Screen Ur Barbiturates Screen Ur Phencyclidine Scrn Ur Amphetamines Screen U Benzodiazepines Scrn Urine Cocaine Screen U Marijuana (THC) Screen Influenza Type A (PCR) Influenza Type B (PCR) RSV RNA Qual (PCR) SARS-CoV-2 RNA (RT-PCR) Imaging Radiologist's Impressions: Impressions Chest X-Ray 04/07/22 17:25 IMPRESSION: Low lung volumes with minimal bibasilar subsegmental atelectasis. No acute pulmonary process. Tibia/Fibula X-Ray 04/07/22 18:21 IMPRESSION: 1. No acute osseous injury or radiographic evidence of advanced osteomyelitis. 2. Diffuse subcutaneous edema and reticulation. No tracking soft tissue gas. Cervical Spine CT 04/07/22 18:23 IMPRESSION: Moderate diffuse degenerative changes of the cervical spine without compression deformity. Fleischner guidelines were followed. Head CT 04/07/22 18:23 IMPRESSION: 1. No acute intracranial hemorrhage or acute edematous territorial infarct. 2. No calvarial fracture. Findings were communicated directly to Madison Valenzuela NP at time of initial exam interpretation 6:25 PM 04/07/2022. Abdomen/Pelvis CT 04/07/22 18:40 IMPRESSION: 1. New extensive retroperitoneal adenopathy. 2. 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 3. Other incidental findings as described above. Fleischner guidelines were followed. Chest CTA 04/07/22 18:40 IMPRESSION: 1. No evidence of pulmonary emboli. 2. Dilated main pulmonary artery suggesting pulmonary hypertension. 3. Left ventricular hypertrophy. 4. Hepatic steatosis VTE: negative Assessment and Plan (1) Encephalopathy: Status: Acute (2) UTI (urinary tract infection): Status: Acute (3) Acute non-ST elevation myocardial infarction (NSTEMI): Status: Acute (4) Metastatic cancer to bone: Status: Acute (5) Fall: Status: Acute (6) Atrial fibrillation: Status: Acute Plan 82-year-old male with past medical history of schizoaffective disorder, hypertension, presents to the hospital from [facility] after having a fall and becoming more altered # encephalopathy - likely toxic metabolic encephalopathy - head CT negative for acute findings - patient has an active UTI, as well as what appears to be in NSTEMI - unable to get much history from patient at this time - baseline according to charts reviewed from [facility] show patient to be alert, oriented to self and place and can have conversations - will treat underlying infection, - monitor mentation # acute UTI - positive UA - has leukocytosis, afebrile, - will treat with IV antibiotics - follow cultures # NSTEMI - has a troponin of more than 3600 - EKG shows atrial fib which appears to be new onset - patient started on heparin GGT - will obtain echocardiogram - cardiology consulted # new onset AFib - no documented history of AFib on his charge received from [facility] - patient given 2.5 of IV Lopressor with improvement in his heart rate - echocardiogram - on heparin GGT for anticoagulation # metastatic cancer to the bone - likely primary is prostate as he has history of prostatic cancer - Hematology-Oncology consulted # hypertension - soft - will hold antihypertensives # mood disorder - continue mood stabilizers # CHF? - patient on furosemide at home, but no documented CHF and the chart from [facility] - at this time does not appear to be in volume overload - will continue home furosemide DVT prophylaxis: Heparin ggt code status: DNR DNI from [facility] given patient's need for IV antibiotics, as well as IV heparin patient will require a minimum 2 night inpatient hospital stay for further management and monitoring Quality Stroke Does the patient have a stroke diagnosis?: No VTE Prior VTE?: No VTE Risk Level:: Medical - moderate - high VTE Device Contraindication: Treatment Not Indicated VTE Drug Contraindication: N/A - Med Ordered
--- OUTSIDE RECORDS SUMMARY | 2022-04-07 21:17 | XMS_ITS | Continuity of Care Document ---
:1940 Author Organization [facility] Address [address] [place] [address]- Care Team Providers Name Role Phone Not on Staff, PCP Primary Care Physician Unavailable Encounter [facility] [place] Date(s): 10/30/21 - 11/14/[address] [address] Encounter Diagnosis Hypoxia (Final) - 10/30/21 Fever (Final) - 10/30/21 Sepsis (Final) - 10/30/21 Discharge Disposition: A-Transfer SNF Attending Physician: Edith Webber MD Admitting Physician: Filipe Jules MD, Jerome Jose Referring Physician: Not on Staff, Referring MD Allergies, Adverse Reactions, Alerts No Known Allergies Immunizations Given and Recorded Vaccine Date Status Refusal Reason SARS-CoV-2 (COVID-19) mRNA BNT-162b2 vac1 09/03/21 Record ed SARS-CoV-2 (COVID-19) mRNA BNT-162b2 vac2 02/03/21 Record ed SARS-CoV-2 (COVID-19) mRNA BNT-162b2 vac 05/28/20 Recorde d SARS-CoV-2 (COVID-19) mRNA BNT-162b2 vac 05/07/20 Recorde d pneumococcal 23-valent vaccine 07/16/12 Given 1Result Comment: #2 [id number] Comment: booster #1 Medications acetaminophen 325 mg oral tablet 650 mg, 2, tablet, By Mouth, 3 times a day, Maintenance, 10/30/21 19:05:00 EDT Start Date: 10/30/21 Status: Orderedalbuterol CFC free 90 mcg/inh inhalation aerosol 180 mcg, 2, puffs, Inhalation, Every 4 hours, PRN, Refills 0, Maintenance, 11/14/21 14:55:00 EDT, Inhaler Start Date: 11/14/21 Status: OrderedamLODIPine 5 mg oral tablet 5 mg, 1, tablet, By Mouth, Daily, Maintenance, 10/30/21 19:06:00 EDT Start Date: 10/30/21 Status: Orderedamoxicillin 250 mg oral capsule 4 capsule = 1 Gm, By Mouth, Every 8 hours, Till 11/17/2021, 0 Refills, Maintenance, 11/14/21 14:54:00EDT, Capsule, Partial fill upon patient request if the prescription is for a schedule II opioid drug. Start Date: 11/14/21 Status: Orderedarformoterol 15 mcg/2 mL inhalation solution 2 mL = 15 mcg, BAND Nebulizer, 2 times a day, 0 Refills, Maintenance, 11/14/21 14:54:00 EDT, Inhalation Solution, Partial fill upon patient request if the prescription is for a schedule II opioid drug. Start Date: 11/14/21 Status: Orderedaspirin 81 mg oral delayed release tablet 81 mg, By Mouth, Daily, Refills 0, Maintenance, 11/14/21 14:53:00 EDT, Partial fill upon patient request if the prescription is for a schedule II opioid drug. Start Date: 11/14/21 Status: Orderedcarbidopa-levodopa 25 mg-100 mg oral tablet 1 tablet, By Mouth, 4 times a day, Maintenance, 10/30/21 19:07:00 EDT, Tablet Start Date: 10/30/21 Status: Orderedcholecalciferol 1000 intl units oral capsule 1 capsule = 25 mcg, By Mouth, Daily, Maintenance, 10/30/21 19:07:00 EDT, Capsule Start Date: 10/30/21 Status: OrderedDepakote 500 mg oral enteric coated tablet 1 tablet = 500 mg, By Mouth, 2 times a day, 9a and 9p, Maintenance, 10/30/21 19:15:00 EDT, EC Tablet Start Date: 10/30/21 Status: OrderedDepakote Capsule 375 mg, By Mouth, Daily, at 2 pm, Maintenance, 10/30/21 19:15:00 EDT Start Date: 10/30/21 Status: Ordereddocusate sodium 100 mg oral capsule 100 mg, 1, capsule, By Mouth, 2 times a day, Maintenance, 10/30/21 19:08:00 EDT Start Date: 10/30/21 Status: Ordereddocusate-senna 50 mg-8.6 mg oral capsule 1 capsule, By Mouth, 2 times a day, 0 Refills, Maintenance, 11/14/21 14:54:00 EDT, Capsule, Partial fill upon patient request if the prescription is for a schedule II opioid drug. Start Date: 11/14/21 Status: OrderedLasix 40 mg oral tablet 40 mg, 1, tablet, By Mouth, 2 times a day, # 30 tablet, Refills 0, Tot. Refills 0, Maintenance, 11/14/21 15:14:00 EDT, Do Not Route, Partial fill upon patient request if the prescription is for a schedule II opioid drug. Start Date: 11/14/21 Status: Orderedlorazepam 0.5 mg oral tablet 1 tablet = 0.5 mg, By Mouth, Daily at bedtime, 0 Refills, Maintenance, 07/16/12 2:07:33 EST Start Date: 07/16/12 Status: OrderedLORazepam 0.5 mg oral tablet 1 tablet = 0.5 mg, By Mouth, Every 8 hours, PRN as needed for anxiety, Maintenance, 10/30/21 19:12:00 EDT, Tablet Start Date: 10/30/21 Status: Orderedmetoprolol 25 mg oral tablet 12.5 mg, Tablet, By Mouth, 11/14/21 9:00:00 EDT Start Date: 11/14/21 Stop Date: 11/14/21 Status: Completedmetoprolol 25 mg oral tablet 0.5 tablet = 12.5 mg, By Mouth, 2 times a day, 0 Refills, Maintenance, Tablet Start Date: 07/16/12 Status: OrderedMiconazole 2% Topical Ointment 1 applicator, Topically, Every 12 hours, 0 Refills, Maintenance, Ointment Start Date: 11/14/21 Status: Orderedolanzapine 10 mg oral tablet 1 tablet = 10 mg, By Mouth, Daily at bedtime, 0 Refills, Maintenance Start Date: 07/16/12 Status: Orderedolanzapine 5 mg oral tablet 1.5 tablet = 7.5 mg, By Mouth, Daily in AM, 0 Refills, Maintenance, 07/16/12 1:50:22 EST Start Date: 07/16/12 Status: Orderedpramipexole 0.5 mg oral tablet 1 tablet = 0.5 mg, By Mouth, 2 times a day, Maintenance, 10/30/21 19:11:00 EDT, Tablet Start Date: 10/30/21 Status: OrderedPulmicort Respules 0.5 mg/2 mL inhalation suspension 0.5 mg, 2, mL, BAND Nebulizer, 2 times a day, Refills 0, Maintenance, 11/14/21 14:54:00 EDT, Inhalation Suspension Start Date: 11/14/21 Status: OrderedSenna 8.6 mg oral tablet 8.6 mg, 1, tablet, By Mouth, Daily, PRN, Refills 0, Maintenance, Constipation, 11/14/21 14:54:00 EDT, Tablet, Partial fill upon patient request if the prescription is for a schedule II opioid drug. Start Date: 11/14/21 Status: Orderedsimvastatin 40 mg oral tablet 1 tablet, By Mouth, Daily at bedtime, # 90 tablet, 0 Refills, Maintenance, Tablet Start Date: 07/21/09 Status: Orderedtamsulosin 0.4 mg oral capsule 1 capsule = 0.4 mg, By Mouth, Daily at bedtime, 0 Refills, Maintenance Start Date: 07/16/12 Status: Ordered Problem List Condition Effective Dates Status Health Status Informant Obese class I(Confirmed) Active Results Orders for Microbiology Reports Name Date Blood Culture #2 11/02/21 Blood Culture 11/01/21 Blood Culture #2 11/01/21 Blood Culture 10/30/21 Blood Culture #2 10/30/21 Microbiology Reports TEST:Blood Culture, Second Order STATUS:Auth (Verified) BODY SITE: SOURCE:Blood COLLECTED DATE/TIME:11/02/21 12:28 AMBlood Culture, Second Order SPECIMEN DESCRIPTION : BLOOD L ARM SPECIAL REQUESTS : NONE CULTURE : NO GROWTH 5 DAYS. REPORT STATUS : FINAL 11/07/2021TEST:Blood Culture STATUS:Auth (Verified) BODY SITE: SOURCE:Blood COLLECTED DATE/TIME:11/01/21 5:10 AMBlood Culture SPECIMEN DESCRIPTION : BLOOD NOSITE SPECIAL REQUESTS : NONE CULTURE : NO GROWTH 5 DAYS. REPORT STATUS : FINAL 11/06/2021TEST:Blood Culture, Second Order STATUS:Auth (Verified) BODY SITE: SOURCE:Blood COLLECTED DATE/TIME:11/01/21 5:09 AMBlood Culture, Second Order SPECIMEN DESCRIPTION : BLOOD NOSITE SPECIAL REQUESTS : NONE CULTURE : NO GROWTH 5 DAYS. REPORT STATUS : FINAL 11/06/2021TEST:Blood Culture STATUS:Auth (Verified) BODY SITE: SOURCE:Blood COLLECTED DATE/TIME:10/30/21 12:15 PMBlood Culture SPECIMEN DESCRIPTION : BLOOD RT AC SPECIAL REQUESTS : CRITICAL VALUE CALLED AND VERIFIED BY READBACK FOR: GRAM POSITIVE COCCI TO ESC TO EN BY TECH [id number] 10/30/21 2300 CULTURE : STREPTOCOCCI, GR.G BETA HEMOLYTIC FOR SUSCEPTIBILITY RESULT REFER TO BLOOD CULTURE Streptococcus species was identified by multi-plex PCR REPORT STATUS : FINAL 11/02/2021TEST:Blood Culture, Second Order STATUS:Auth (Verified) BODY SITE: SOURCE:Blood COLLECTED DATE/TIME:10/30/21 12:14 PMBlood Culture, Second Order SPECIMEN DESCRIPTION : BLOOD RHAND SPECIAL REQUESTS : NONE CULTURE : STREPTOCOCCI, GR.G BETA HEMOLYTIC This isolate was identified using Maldi-TOF system REPORT STATUS : FINAL 11/02/2021 ORGANISM STREPTOCOCCI, GR.G BETA HEMOLYTIC This isolate was identified using Maldi-TOF system METHOD MIN. INHIB. CONC. (MCG/ML) CEFTRIAXONE SUSCEPTIBLE CLINDAMYCIN SUSCEPTIBLE ERYTHROMYCIN SUSCEPTIBLE PENICILLIN SUSCEPTIBLE VANCOMYCIN SUSCEPTIBLERadiology Reports Exam Date Time Procedure Performing Provider Status 11/07/21 5:52 PM Chest Portable Palomo Jacinto; Auth (Verified) Notes:(Chest Portable) Reason For Exam: Shortness of BreathRESULT: Chest Portable Chest Portable Reason: Shortness of Breath; Clinical Question(s): CHF COMPARISON: 11/01/2021 FINDINGS: LINES AND TUBES: None. LUNGS AND PLEURA: Central vascular congestion and bilateral pleural effusions unchanged. No pneumothorax. HEART, MEDIASTINUM AND MEG: Mild prominence of the cardiac silhouette, unchanged. Normal upper mediastinal and hilar contour. BONES AND SOFT TISSUES: No acute abnormality. IMPRESSION: Cardiac enlargement with central vascular congestion and small effusions compatible with CHF not significantly changed given differences in positioning. WSN: [id number] Ordering Physician: Loc Mccarthy Dictated By: Rodriguez Arcos MD Dictated Date/Time: 11/07/21 7:48 pm Reviewed By: Rodriguez Arcos MD Signed By: Rodriguez Arcos MD Signed Date/Time: 11/07/21 7:48 pm Transcribed By: JOSIAH Transcribed Date/Time: 11/07/21 7:44 pm Exam Date Time Procedure Performing Provider Status 11/01/21 9:08 AM Chest Portable Palomo Jacinto; Susanna (Verified) Notes:(Chest Portable) Reason For Exam: Shortness of BreathRESULT: Chest Portable AP upright portable chest dated November 01, 2021 at 0825 hours. Comparison films are from October 30, 2021. HISTORY: Shortness of breath. FINDINGS: The cardiac silhouette is at the upper limits of normal for size and unchanged. Mural calcifications are present in the aorta. There is some minimal opacity at the left lung base likely atelectasis. The right lung is clear. Degenerative changes are noted in the spine and shoulders. IMPRESSION: Minimal left basilar atelectasis. Examination [address]. Thank you for allowing me to participate in the care of this patient. WSN: [id number] Ordering Physician: Waldo Murillo Dictated By: Jc Flores MD Dictated Date/Time: 11/01/21 1:05 pm Reviewed By: Jc Flores MD Signed By: Jc Flores MD Signed Date/Time: 11/01/21 1:05 pm Transcribed By: JOSIAH Transcribed Date/Time: 11/01/21 1:05 pm Exam Date Time Procedure Performing Provider Status 10/30/21 12:39 PM Chest Portable Shyann Dale; Susanna ([facility] ed) Notes:(Chest Portable) Reason For Exam: Shortness of BreathRESULT: Chest Portable Chest Portable Hx of Present Illness: see level 1 sheet; Reason: Shortness of Breath; Clinical Question(s): CHF COMPARISON: FINDINGS: No acute cardiopulmonary process. IMPRESSION: No acute abnormality. WSN: [id number] Ordering Physician: Cass Morales Dictated By: Tong Morley MD Dictated Date/Time: 10/30/21 12:52 p Reviewed By: Tong Morley MD Signed By: Tong Morley MD Signed Date/Time: 10/30/21 12:52 pm Transcribed By: JOSIAH Transcribed Date/Time: 10/30/21 12:51 pm Vital Signs Most recent to oldest 1 2 3 [Reference Range]: Height 172.7 cm 172.7 cm 172.7 cm (11/14/21 12:24 PM) (11/14/21 6:38 AM) (11/13/21 10:18 PM) Weight 94.3 kg 95.0 kg 95.3 kg (11/14/21 6:39 AM) (11/13/21 6:12 AM) (11/10/21 5:43 A M) Oxygen Saturation [94-100 %] 98 % 97 % 100 % (11/14/21 12:24 PM) (11/14/21 6:38 AM) (11/13/21 10:18 PM) Pulse Rate [55-90 bpm] 60 bpm 66 bpm 52 bpm (11/14/21 12:24 PM) (11/14/21 8:11 AM) *L* (11/14/21 6:38 AM) Body Mass Index [18.5-24.99] 32.12 33.86 *>HHI* *>HHI* (11/08/21 5:00 AM) (10/31/21 12:42 AM) Blood Pressure [90-138/55-84 133/48 mm Hg 148/72 mm Hg 99/ 55 mm Hg mm Hg] (11/14/21 12:24 PM) *H* (11/14/21 6:38 A M) (11/14/21 8:11 AM) Respiratory Rate [16-30 20 br/min 19 br/min 25 br/mi n br/min] (11/14/21 12:24 PM) (11/14/21 6:38 AM) (11/13/21 10:18 PM) Temperature [96.8-100.4 DegF] 98.0 DegF 98.1 DegF 98 .6 DegF (11/14/21 12:24 PM) (11/14/21 6:38 AM) (11/13/21 10:18 PM) Liters per Minute 3 L/min 2 L/min 2 L/min (11/13/21 10:18 PM) (11/13/21 4:17 PM) (11/13/21 6:11 AM) Mode of Delivery (Oxygen) Room air Room air Nasal cannula (11/14/21 12:24 PM) (11/14/21 6:38 AM) (11/13/21 10:18 PM) Blood pressure sites Arm, left Arm, left Arm, left (11/14/21 12:24 PM) (11/14/21 6:38 AM) (11/13/21 10:18 PM) Temperature Route Oral Axillary Oral (11/14/21 12:24 PM) (11/14/21 6:38 AM) (11/13/21 10:18 PM) Dry Weight 101 kg (10/31/21 12:42 AM) Weight Obtained Via Bed scale Bed scale Bed scale (11/14/21 6:39 AM) (11/13/21 6:12 AM) (11/10/21 5:43 A M)
--- OUTSIDE RECORDS SUMMARY | 2022-04-07 21:17 | XMS_ITS | Continuity of Care Document ---
:1940 Author Organization [facility] Address [address] [place] [id number]- Care Team Providers Name Role Phone Not on Staff, PCP Primary Care Physician Unavailable [place] [facility] [place] 02/03/22 [facility] [address] [place] [address]- Attending Physician: Keyur Judd MD Admitting Physician: Keyur Judd MD Allergies, Adverse Reactions, Alerts No Known Allergies Immunizations Given and Recorded Vaccine Date Status Refusal Reason SARS-CoV-2 (COVID-19) mRNA BNT-162b2 vac1 09/03/21 Record ed SARS-CoV-2 (COVID-19) mRNA BNT-162b2 vac2 02/03/21 Record ed SARS-CoV-2 (COVID-19) mRNA BNT-162b2 vac 05/28/20 Recorde d SARS-CoV-2 (COVID-19) mRNA BNT-162b2 vac 05/07/20 Recorde d pneumococcal 23-valent vaccine 07/16/12 Given 1Result Comment: #2 [id number] Comment: booster #1 Medications acetaminophen 325 mg [...] II opioid drug. Start Date: 11/14/21 Status: OrderedGuaiFENEsin DM By Mouth, 0 Refills, Maintenance, 01/22/22 10:42:00 EDT, Partial fill upon patient request if the prescription is for a schedule II opioid drug. Start Date: 01/22/22 Status: OrderedLasix 40 mg oral tablet 40 mg, 1, tablet, By Mouth, 2 times a day, # 30 tablet, Refills 0, Tot. Refills 0, Maintenance, 11/14/21 15:14:00 EDT, Do Not Route, Partial fill upon patient request if the prescription is for a schedule II opioid drug. Start Date: 11/14/21 Status: Orderedloperamide 2 mg oral capsule 2 mg, 1, capsule, By Mouth, Every 4 hours, PRN, # 60 capsule, Refills 0, Maintenance, for loose stool, 01/22/22 10:42:00 EDT, Partial fill upon patient request if the prescription is for a schedule II opioid drug. Start Date: 01/22/22 Status: Orderedlorazepam 0.5 mg oral tablet 1 tablet = 0.5 mg, By Mouth, Daily at bedtime, 0 Refills, Maintenance, 07/16/12 2:07:33 EST Start Date: 07/16/12 Status: OrderedLORazepam 0.5 mg oral tablet 1 tablet = 0.5 mg, By Mouth, Every 8 hours, PRN as needed for anxiety, Maintenance, 10/30/21 19:12:00 EDT, Tablet Start Date: 10/30/21 Status: Orderedmetoprolol 25 mg oral tablet 0.5 tablet = 12.5 mg, By Mouth, 2 times a day, 0 Refills, Maintenance, Tablet Start Date: 07/16/12 Status: OrderedMiconazole 2% Topical Ointment 1 applicator, Topically, Every 12 hours, 0 Refills, Maintenance, Ointment Start Date: 11/14/21 Status: OrderedMylanta Gas = 80 mg, 3 times a day after meals and bedtime, 0 Refills, Maintenance, 01/22/22 10:41:00 EDT, Partial fill upon patient request if the prescription is for a schedule II opioid drug. Start Date: 01/22/22 Status: Orderedolanzapine 10 mg oral tablet 1 tablet = 10 mg, By Mouth, Daily at bedtime, 0 Refills, Maintenance Start Date: 07/16/12 Status: Orderedolanzapine 5 mg oral tablet 1.5 tablet = 7.5 mg, By Mouth, Daily in AM, 0 Refills, Maintenance, 07/16/12 1:50:22 EST Start Date: 07/16/12 Status: Orderedondansetron 4 mg oral tablet 1 tablet = 4 mg, By Mouth, Every 8 hours, PRN as needed for nausea/vomiting, 0 Refills, Maintenance,01/22/22 10:41:00 EDT, Tablet, Partial fill upon patient request if the prescription is for a schedule II opioid drug. Start Date: 01/22/22 Status: Orderedpramipexole 0.5 mg oral tablet 1 [...] Health Status Informant Obese class I(Confirmed) Active Care Team PersonnelName: Not on Staff, PCP
--- OUTSIDE RECORDS SUMMARY | 2022-04-07 21:17 | XMS_ITS | Continuity of Care Document ---
:1940 Author Organization [facility] Address [address] [place] [phone]- Care Team Providers Name Role Phone Not on Staff, PCP Primary Care Physician Unavailable [place] [facility] [place] 11/20/21 - 02/03/22 [facility] [address] [place] [phone]- Attending Physician: Keyur Judd MD Admitting Physician: [...] 23-valent vaccine 07/16/12 Given 1Result Comment: #2 [id number] Comment: booster #1 Medications acetaminophen 325 mg [...]
--- OUTSIDE RECORDS SUMMARY | 2022-04-07 21:17 | XMS_ITS | Continuity of Care Document ---
:1940 Author Organization [facility] Address [address] [place] [address]- Care Team Providers Name Role Phone Not on Staff, PCP Primary Care Physician Unavailable [place] [facility] [place]26[place] - 12/26/21 [facility] [address] [place] [phone]- [place] Allergies, Adverse Reactions, Alerts No Known Allergies Immunizations Given and Recorded Vaccine Date Status Refusal Reason SARS-CoV-2 (COVID-19) mRNA BNT-162b2 vac1 09/03/21 Record ed SARS-CoV-2 (COVID-19) mRNA BNT-162b2 vac2 02/03/21 Record ed SARS-CoV-2 (COVID-19) mRNA BNT-162b2 vac 05/28/20 Recorde d SARS-CoV-2 (COVID-19) mRNA BNT-162b2 vac 05/07/20 Recorde d pneumococcal 23-valent vaccine 07/16/12 Given 1Result Comment: #2 [id number] Comment: booster #1 Medications acetaminophen 325 mg [...]
--- OUTSIDE RECORDS SUMMARY | 2022-04-07 21:17 | XMS_ITS | Continuity of Care Document ---
:1940 Author Organization [facility] Address [address] [place] [phone]- Care Team Providers Name Role Phone Not on Staff, PCP Primary Care Physician Unavailable [place] [facility] [place] 11/26/21 - 02/03/22 [facility] [address] [place] [phone]- Attending Physician: Keyur Judd MD Admitting Physician: [...] 23-valent vaccine 07/16/12 Given 1Result Comment: #2 [id number] Comment: booster #1 Medications acetaminophen 325 mg [...]
--- OUTSIDE RECORDS SUMMARY | 2022-04-07 21:17 | XMS_ITS | Continuity of Care Document ---
:1940 Author Organization [facility] Address [address] [place] [phone]- Care Team Providers Name Role Phone Not on Staff, PCP Primary Care Physician Unavailable [place] [facility] [place] - 12[place]27/21 [facility] [address] [place] [phone]- Attending Physician: Keyur Judd MD Admitting Physician: [...] 23-valent vaccine 07/16/12 Given 1Result Comment: #2 [id number] Comment: booster #1 Medications acetaminophen 325 mg [...]
[2022-04-07] MEDS: cefTRIAXone sodium 1 GM in 0.9 % Sodium Chloride 50 ML IV (21:27)
[2022-04-07 22:18] LABS: Venous Blood Gas Refer to POC result
[2022-04-07 22:19] LABS: INTERNATIONAL NORM RATIO 1.3 (0.9-1.1); Prothrombin Time 14.5 SEC (10.0-13.1)
[2022-04-07 22:19] LABS: VBG Base Excess 9.6 mmol/L; VBG HCO3 34 mmol/L (22-26); VBG pCO2 49 mmHg; VBG pH 7.45 (7.32-7.43); VBG pO2 47 mmHg
--- NOTE | 2022-04-07 22:25 | PC.NURSE ---
PTT came back at 59.0. Per protocol, no adjustments needed.
--- NOTE | 2022-04-07 22:28 | PC.NURSE ---
Spoke with [facility], who were asking for updates. Updated them with admission orders, heparin drip, UTI
[2022-04-08] VITALS: BP 107/56; PULSE 67; RESP 12; TEMP 36.3; O2SAT 93
[2022-04-08 01:00] LABS: PTT Heparin Drip 41.9 SEC (53-77.9)
[2022-04-08 05:59] VITALS: BP 142/68; PULSE 76; RESP 14; TEMP 36.6; O2SAT 90
--- NOTE | 2022-04-08 07:00 | CA_ITS ---
Transthoracic Echocardiogram Patient (Last, First, Middle): Satnam Garcia, Gender: Male Date of : 1940 Age: 82 Procedure Date: 04/08/2022 Procedure Type: Transthoracic Echocardiogram Location: ER Height: 172.72 cm Weight: 102.06 kg BSA: 2.15 m2 Heart Rate: bpm BP: 142 / 68 mmHg Administration Physician: TO Referring MD: Abigail Aly MD Symptoms: CHF, NSTEMI Study Quality: Technically Difficult/Upright/Supine Conclusions: - Normal left ventricular cavity size. There is severely increased left ventricular wall thickness. The left ventricular systolic function is hyperdynamic. The visually estimated ejection fraction is >70%. - Normal right ventricular cavity size and systolic function. - There is severe aortic valve stenosis. The peak aortic velocity is 3.77 m/s. The mean gradient is 37 mmHg. The aortic valve area is 0.85 cm2. - There is severe mitral annular calcification. - There is mild dilatation of the ascending aorta measuring 3.90 cm. Findings Procedure Information Contrast agent, definity, is being given per protocol without apparent complications. Left Ventricle Normal left ventricular cavity size. There is severely increased left ventricular wall thickness. The left ventricular systolic function is hyperdynamic. The visually estimated ejection fraction is >70%. There is no evidence of regional wall motion abnormalities. Diastolic function is indeterminate on the basis of available data. Right Ventricle Normal right ventricular cavity size and systolic function. Atria The left atrium is mildly dilated. Aortic Valve There is severe calcification of the aortic valve. There is severe thickening of the aortic valve. There is severe aortic valve stenosis. The peak aortic velocity is 3.77 m/s. The mean gradient is 37 mmHg. The aortic valve area is 0.85 cm2. There is no aortic valve regurgitation. Mitral Valve There is severe mitral annular calcification. There is no mitral valve regurgitation. There is no mitral valve stenosis. Pulmonic Valve The pulmonic valve was not well visualized. Tricuspid Valve The tricuspid valve was not well visualized. Tricuspid regurgitation envelope is inadequate for calculation of right ventricular systolic pressure. Normal right atrial pressure. Great Vessels There is mild dilatation of the ascending aorta measuring 3.90 cm. The visualized portions of the pulmonary artery and branches are normal. Venous The inferior vena cava is normal in size and collapses greater than 50% with inspiration. Pericardium/Pleural There is no evidence of pericardial effusion. Prior Study Comparison Changes noted compared to prior study dated: 05/26/2018. Severe present. Measurements 2D Linear Measurements IVSd: 2.38 0.6-0.9/0.6-1.0 cm LVIDd: 4.80 3.9-5.3/4.2-5.9 cm LVIDd Index: 2.23 2.4-3.2/2.2-3.1 cm/m2 LVIDs: 3.47 2.0-3.6 cm LVPWd: 1.52 0.7-1.1 cm LV Mass: 569.83 67-162/88-224 g LV Mass Index: 265.04 43-95/49-115 g/m2 LVOT Diam: 2.10 3.0+(-)1.3 cm 2D Systolic Function EF 4C: 68.40 >55% Mitral Valve MV VTI: 0.29 MV Pk Paulie: 1.88 MV Mn Paulie: 1.03 MV Pk Grad: 14.00 MV Mn Grad: 5.00 MV Pk E: 0.74 MV PK A: 1.80 MV Decel Time: 144.00 E/A: 0.40 E'Lateral: 6.31 E'Medial: 5.55 E/E' Med: 13.30 E/E' Lat: 11.70 PHT: 42.00 MVA PHT: 5.24 MVA Continuity: 1.87 Decel [place]: 5.14 Aortic Valve AoV Pk Paulie: 3.77 AoV Mn Paulie: 2.91 AoV VTI: 0.65 AoV Pk Grad: 57.00 Aov Mn Grad: 37.00 SONIDO Cont.VTI: 0.85 LVOT LVOT Pk Paulie: 0.89 LVOT Mn Paulie: 0.57 LVOT VTI: 0.16 LVOT Pk Grad: 3.00 LVOT Mn Grad: 2.00 LVOT Diam: 2.10 LVOT Area: 3.46 Diastolic Function MV Pk E: 0.74 MV Pk A: 1.80 E/A: 0.40 E'Medial: 5.55 E/E' Med: 13.30 E' Laterial: 6.31 E/E' Lat: 11.70 Right Ventricle TAPSE (mm): 19.10 TVS' Paulie: 9.68 Great Vessels Aorta Sinus of Valsalva: 3.63 2.0-3.[address] [place]: 2.57 1.7-3.4 cm Ao Asc: 3.90 2.1-3.4 cm Updated in Other Vendor System with Status of Final Reinaldo Jack MD electronically signed on 04/08/2022 7:36:22 PM with status of Final
[2022-04-08 07:19] LABS: Basophils Percent Auto 0.3 % (0-2); Eosinophils Absolute Auto 0.1 X10*3/uL (0.0-0.4); Eosinophils Percent Auto 1.2 % (0-4); Hematocrit 35.9 % (42.0-52.0); Hemoglobin 11.3 g/dl (14.0-18.0); Imm Gran Abs Auto 0.05 X10*3/uL (0.00-0.03); Imm Gran Pct Auto 0.4 % (0.0-0.4); Lymphocytes Percent Auto 16.5 % (20-40); MANUAL DIFF FLAG NO; Mean Corpuscular HGB Conc 31.5 g/dl (31.0-36.0); Mean Corpuscular Hemoglobin 29.7 pg (27.0-33.0); Mean Corpuscular Volume 94.2 fL (80.0-98.0); Mean Platelet Volume 9.4 fL (9.4-12.4); Monocytes Absolute Auto 1.1 X10*3/uL (0.1-1.2); Neutrophils Absolute Auto 8.6 x10*3/uL (2.0-8.3); Neutrophils Percent Auto 72.6 % (45-73); Platelet Count 254 X10*3/uL (160-400); Red Blood Count 3.81 X10*6/uL (4.60-5.80); Red Cell Distribution Width 14.6 % (11.0-16.0); White Blood Count 11.8 X10*3/uL (4.8-10.8)
[2022-04-08 07:30] LABS: Anion Gap 13 (12-20); Blood Urea Nitrogen 21 mg/dL (9-16); Calcium 9.4 mg/dL (8.4-10.2); Carbon Dioxide 33 mmol/L (22-29); Chloride 97 mmol/L (96-108); Estimated Glomerular Filt Rate > 60; Glucose Random 94 mg/dL (60-115); Potassium 4.2 mmol/L (3.3-5.1); Sodium 139 mmol/L (135-145)
[2022-04-08 07:33] LABS: INTERNATIONAL NORM RATIO 1.2 (0.9-1.1); Prothrombin Time 14.1 SEC (10.0-13.1)
[2022-04-08 08:43] LABS: PTT Heparin Drip 40.9 SEC (53-77.9)
[2022-04-08] MEDS: Heparin Sodium,Porcine 5,000 UNIT/ML VIAL 4100 UNIT IVPUSH ×2 (08:57→15:12)
--- NOTE | 2022-04-08 09:03 | PC.NURSE ---
DAUGHTER BRIANNA UPDATED, SPOKE WITH HER FATHER.
[2022-04-08 09:50] LABS: Partial Thromboplastin Time 33.5 SEC (26.0-36.4)
--- NOTE | 2022-04-08 10:20 | HO.PM.IMPN ---
Subjective Subjective Date of Service: 04/08/22 Physical Exam Vital Signs: Vital Signs: Last Vital Signs Temp 97.9 F 04/08/22 05:59 Pulse 76 04/08/22 05:59 Resp 14 04/08/22 05:59 BP 142/68 H 04/08/22 05:59 Pulse Ox 90 L 04/08/22 05:59 O2 Del Method 04/08/22 05:59 O2 Flow Rate 2 04/07/22 18:55 Oxygen Flow Rate 1 04/07/22 16:44 BMI result Body Mass Index 34.2 Objective Data Active Medications Acetaminophen (Acetaminophen 325 Mg Tablet) 650 mg PO Q6H PRN PRN Reason: Pain, Mild (Pain Scale 1-3) Docusate Sodium (Docusate Sodium 100 Mg Capsule) 100 mg PO DAILY PRN PRN Reason: Constipation Heparin Sodium (Porcine) (Heparin Sodium,Porcine 5,000 Unit/Ml Vial) 4,100 unit 40 unit/kg (4100 unit) IVPUSH PROTOCOL BOLUS PRN; Protocol PRN Reason: 40 unit/kg - Heparin Protocol Last Admin: 04/08/22 08:57 Dose: 4,100 unit Documented By: MAYO Heparin Sodium (Porcine) (Heparin Sodium,Porcine 5,000 Unit/Ml Vial) 8,200 unit 80 unit/kg (8200 unit) IVPUSH PROTOCOL BOLUS PRN; Protocol PRN Reason: 80 unit/kg - Heparin Protocol Heparin Sodium/Sodium Chloride (Heparin Sodium,Porcine/1/2ns) 25,000 unit in 250 mls @ 0 mls/hr IVCONT .Q0M [facility]; Protocol Last Titration: 04/08/22 08:50 Dose: 12 units/kg/hr, 12.26 mls/hr Documented By: MAYO Co-signed By: DICK Ceftriaxone Sodium 1 gm/ (Sodium Chloride) 50 mls @ 100 mls/hr IV Q24H [facility] Last Infusion: 04/07/22 22:24 Dose: 0 mls/hr Documented By: JENNIFER Ondansetron HCl (Ondansetron Hcl 4 Mg/2 Ml Vial) 4 mg IVPUSH Q8H PRN PRN Reason: Nausea and Vomiting Labs CBC & Chem 7: 04/08/22 06:06 04/08/22 06:06 Labs: Laboratory Results - last 24 hr 04/07/22 04/07/22 04/07/22 17:11 17:12 17:12 MCV MCH MCHC RDW Plt Count MPV Immature Gran % (Auto) Neut % (Auto) Lymph % (Auto) [place] % (Auto) Eos % (Auto) Baso % (Auto) Lymph # (Auto) [place] # (Auto) Eos # (Auto) Baso # (Auto) Abs Immat Gran (auto) Absolute Neuts (auto) Absolute Nucleated RBC Nucleated RBC % (auto) PT 13.9 H INR 1.2 H APTT 30.8 aPTT Heparin Protocol VBG pH VBG pCO2 VBG pO2 VBG HCO3 VBG O2 Saturation VBG Base Excess Anion Gap 11 L Estim Creat Clear Calc 91.5 Estimated GFR > 60 Random Glucose 102 Lactic Acid 1.5 Calcium 9.5 Magnesium 2.1 Total Bilirubin 0.7 Direct Bilirubin 0.3 AST 29 ALT < 6 Alkaline Phosphatase 74 Ammonia Troponin I High Sens B-Natriuretic Peptide Total Protein 6.9 Albumin 3.5 Lipase 23 Urine Color Urine Appearance Urine pH Ur Specific [place] Urine Protein Urine Glucose (UA) Urine Ketones Urine Blood Urine Nitrite Ur Leukocyte Esterase Urine RBC Urine WBC Ur Squamous Epith Cells Urine Bacteria Hyaline Casts Urine Opiates Screen Urine Fentanyl Screen Ur Barbiturates Screen Ur Phencyclidine Scrn Ur Amphetamines Screen U Benzodiazepines Scrn Urine Cocaine Screen U Marijuana (THC) Screen Influenza Type A (PCR) Influenza Type B (PCR) RSV RNA Qual (PCR) SARS-CoV-2 RNA (RT-PCR) 04/07/22 04/07/22 04/07/22 17:12 17:12 17:13 MCV 92.1 MCH 29.4 MCHC 31.9 RDW 14.3 Plt Count 246 MPV 9.0 L Immature Gran % (Auto) 0.5 H Neut % (Auto) 79.2 H Lymph % (Auto) 13.8 L [place] % (Auto) 6.3 Eos % (Auto) 0.1 Baso % (Auto) 0.1 Lymph # (Auto) 2.4 [place] # (Auto) 1.1 Eos # (Auto) 0.0 Baso # (Auto) 0.0 Abs Immat Gran (auto) 0.08 H Absolute Neuts (auto) 14.1 H Absolute Nucleated RBC 0.000 Nucleated RBC % (auto) 0.0 PT INR APTT aPTT Heparin Protocol VBG pH VBG pCO2 VBG pO2 VBG HCO3 VBG O2 Saturation VBG Base Excess Anion Gap Estim Creat Clear Calc Estimated GFR Random Glucose Lactic Acid Calcium Magnesium Total Bilirubin Direct Bilirubin AST ALT Alkaline Phosphatase Ammonia Troponin I High Sens > 3600.0 H* B-Natriuretic Peptide 603 H Total Protein Albumin Lipase Urine Color Urine Appearance Urine pH Ur Specific [place] Urine Protein Urine Glucose (UA) Urine Ketones Urine Blood Urine Nitrite Ur Leukocyte Esterase Urine RBC Urine WBC Ur Squamous Epith Cells Urine Bacteria Hyaline Casts Urine Opiates Screen Urine Fentanyl Screen Ur Barbiturates Screen Ur Phencyclidine Scrn Ur Amphetamines Screen U Benzodiazepines Scrn Urine Cocaine Screen U Marijuana (THC) Screen Influenza Type A (PCR) Influenza Type B (PCR) RSV RNA Qual (PCR) SARS-CoV-2 RNA (RT-PCR) 04/07/22 04/07/22 04/07/22 17:13 17:13 18:37 MCV MCH MCHC RDW Plt Count MPV Immature Gran % (Auto) Neut % (Auto) Lymph % (Auto) [place] % (Auto) Eos % (Auto) Baso % (Auto) Lymph # (Auto) [place] # (Auto) Eos # (Auto) Baso # (Auto) Abs Immat Gran (auto) Absolute Neuts (auto) Absolute Nucleated RBC Nucleated RBC % (auto) PT INR APTT aPTT Heparin Protocol VBG pH VBG pCO2 VBG pO2 VBG HCO3 VBG O2 Saturation VBG Base Excess Anion Gap Estim Creat Clear Calc Estimated GFR Random Glucose Lactic Acid Calcium Magnesium Total Bilirubin Direct Bilirubin AST ALT Alkaline Phosphatase Ammonia Troponin I High Sens B-Natriuretic Peptide Total Protein Albumin Lipase Urine Color Yellow Urine Appearance Clear Urine pH 7.0 Ur Specific [place] 1.010 Urine Protein Negative Urine Glucose (UA) Negative Urine Ketones Negative Urine Blood Trace H Urine Nitrite Positive H Ur Leukocyte Esterase Trace H Urine RBC 3-5 H Urine WBC 0-5 Ur Squamous Epith Cells 0-2 Urine Bacteria 3+ Hyaline Casts 0-2 Urine Opiates Screen Not Detected Urine Fentanyl Screen Not Detected Ur Barbiturates Screen Not Detected Ur Phencyclidine Scrn Not Detected Ur Amphetamines Screen Not Detected U Benzodiazepines Scrn Not Detected Urine Cocaine Screen Not Detected U Marijuana (THC) Screen Not Detected Influenza Type A (PCR) NEGATIVE Influenza Type B (PCR) NEGATIVE RSV RNA Qual (PCR) NEGATIVE SARS-CoV-2 RNA (RT-PCR) NEGATIVE 04/07/22 04/07/22 04/07/22 18:38 19:15 22:02 MCV MCH MCHC RDW Plt Count MPV Immature Gran % (Auto) Neut % (Auto) Lymph % (Auto) [place] % (Auto) Eos % (Auto) Baso % (Auto) Lymph # (Auto) [place] # (Auto) Eos # (Auto) Baso # (Auto) Abs Immat Gran (auto) Absolute Neuts (auto) Absolute Nucleated RBC Nucleated RBC % (auto) PT 14.5 H INR 1.3 H APTT aPTT Heparin Protocol 59.0 VBG pH VBG pCO2 VBG pO2 VBG HCO3 VBG O2 Saturation VBG Base Excess Anion Gap Estim Creat Clear Calc Estimated GFR Random Glucose Lactic Acid Calcium Magnesium Total Bilirubin Direct Bilirubin AST ALT Alkaline Phosphatase Ammonia 30 Troponin I High Sens > 3600.0 H* B-Natriuretic Peptide Total Protein Albumin Lipase Urine Color Urine Appearance Urine pH Ur Specific [place] Urine Protein Urine Glucose (UA) Urine Ketones Urine Blood Urine Nitrite Ur Leukocyte Esterase Urine RBC Urine WBC Ur Squamous Epith Cells Urine Bacteria Hyaline Casts Urine Opiates Screen Urine Fentanyl Screen Ur Barbiturates Screen Ur Phencyclidine Scrn Ur Amphetamines Screen U Benzodiazepines Scrn Urine Cocaine Screen U Marijuana (THC) Screen Influenza Type A (PCR) Influenza Type B (PCR) RSV RNA Qual (PCR) SARS-CoV-2 RNA (RT-PCR) 04/07/22 04/08/22 04/08/22 22:13 00:43 06:06 MCV 94.2 MCH 29.7 MCHC 31.5 RDW 14.6 Plt Count 254 MPV 9.4 Immature Gran % (Auto) 0.4 Neut % (Auto) 72.6 Lymph % (Auto) 16.5 L [place] % (Auto) 9.0 Eos % (Auto) 1.2 Baso % (Auto) 0.3 Lymph # (Auto) 2.0 [place] # (Auto) 1.1 Eos # (Auto) 0.1 Baso # (Auto) 0.0 Abs Immat Gran (auto) 0.05 H Absolute Neuts (auto) 8.6 H Absolute Nucleated RBC 0.000 Nucleated RBC % (auto) 0.0 PT INR APTT aPTT Heparin Protocol 41.9 L D VBG pH 7.45 H VBG pCO2 49 VBG pO2 47 VBG HCO3 34 H VBG O2 Saturation 71.0 VBG Base Excess 9.6 Anion Gap Estim Creat Clear Calc Estimated GFR Random Glucose Lactic Acid Calcium Magnesium Total Bilirubin Direct Bilirubin AST ALT Alkaline Phosphatase Ammonia Troponin I High Sens B-Natriuretic Peptide Total Protein Albumin Lipase Urine Color Urine Appearance Urine pH Ur Specific [place] Urine Protein Urine Glucose (UA) Urine Ketones Urine Blood Urine Nitrite Ur Leukocyte Esterase Urine RBC Urine WBC Ur Squamous Epith Cells Urine Bacteria Hyaline Casts Urine Opiates Screen Urine Fentanyl Screen Ur Barbiturates Screen Ur Phencyclidine Scrn Ur Amphetamines Screen U Benzodiazepines Scrn Urine Cocaine Screen U Marijuana (THC) Screen Influenza Type A (PCR) Influenza Type B (PCR) RSV RNA Qual (PCR) SARS-CoV-2 RNA (RT-PCR) 04/08/22 04/08/22 04/08/22 06:06 06:06 08:21 MCV MCH MCHC RDW Plt Count MPV Immature Gran % (Auto) Neut % (Auto) Lymph % (Auto) [place] % (Auto) Eos % (Auto) Baso % (Auto) Lymph # (Auto) [place] # (Auto) Eos # (Auto) Baso # (Auto) Abs Immat Gran (auto) Absolute Neuts (auto) Absolute Nucleated RBC Nucleated RBC % (auto) PT 14.1 H INR 1.2 H APTT 33.5 aPTT Heparin Protocol 40.9 L VBG pH VBG pCO2 VBG pO2 VBG HCO3 VBG O2 Saturation VBG Base Excess Anion Gap 13 Estim Creat Clear Calc 75.0 Estimated GFR > 60 Random Glucose 94 Lactic Acid Calcium 9.4 Magnesium Total Bilirubin Direct Bilirubin AST ALT Alkaline Phosphatase Ammonia Troponin I High Sens B-Natriuretic Peptide Total Protein Albumin Lipase Urine Color Urine Appearance Urine pH Ur Specific [place] Urine Protein Urine Glucose (UA) Urine Ketones Urine Blood Urine Nitrite Ur Leukocyte Esterase Urine RBC Urine WBC Ur Squamous Epith Cells Urine Bacteria Hyaline Casts Urine Opiates Screen Urine Fentanyl Screen Ur Barbiturates Screen Ur Phencyclidine Scrn Ur Amphetamines Screen U Benzodiazepines Scrn Urine Cocaine Screen U Marijuana (THC) Screen Influenza Type A (PCR) Influenza Type B (PCR) RSV RNA Qual (PCR) SARS-CoV-2 RNA (RT-PCR) Assessment and Plan (1) Atrial fibrillation: Status: Acute Plan 82-year-old male with past medical history of schizoaffective disorder, hypertension, presents to the hospital? from [facility] after having a fall and becoming more altered Toxic metabolic encephalopathy head CT negative for acute findings patient has an active UTI, as well as?what appears to be in NSTEMI baseline according to charts reviewed from [facility] show patient to be alert, oriented to self and place and can have conversations will treat underlying infection, monitor mentation Acute UTI will treat with IV antibiotics follow cultures NSTEMI has a troponin of more than 3600 EKG shows atrial fib which appears to be new onset patient started on heparin GGT will obtain echocardiogram cardiology consulted New onset AFib no documented history of AFib on his charge received from [facility] patient given 2.5 of IV Lopressor with improvement in his heart rate echocardiogram on heparin GGT for anticoagulation Metastatic?cancer to the bone likely primary is prostate as he has history of prostatic cancer Hematology-Oncology consulted Hypertension soft will hold antihypertensives Mood disorder continue mood stabilizers CHF, unspecified patient on furosemide at home, but no documented CHF and the chart from [facility] at this time does not appear to be in volume overload will continue home furosemide Echo pending DVT prophylaxis: Heparin ggt Attending Dr. Paz code status:? DNR DNI from [facility] given patient's need for IV antibiotics, as well as IV heparin patient will require a minimum 2 night inpatient hospital stay for further management and monitoring Quality Stroke Does the patient have a stroke diagnosis?: No VTE Prior VTE?: No VTE Risk Level:: Medical - moderate - high VTE Device Contraindication: Treatment Not Indicated VTE Drug Contraindication: N/A - Med Ordered
[2022-04-08 11:10] LABS: Lactate Dehydrogenase 272 U/L (118-273)
[2022-04-08 11:50] VITALS: BP 148/76; PULSE 75; RESP 32; TEMP 36.4; O2SAT 96
[2022-04-08] MEDS: Furosemide 40 MG/4 ML VIAL IVPUSH ×2 (11:55→18:31)
--- NOTE | 2022-04-08 12:10 | PC.NURSE ---
Patient awake and alert to person and situation, patient thinks this is [facility] but patient reoriented that he is at [facility], not oriented to time. skin pale, warm, dry. resp even and labored at 32, lasix administered per order. Callie urine draining from long- sediment noted in tubing. Patient continues on heparin drip, next PTTHD ordered for 1430.
--- NOTE | 2022-04-08 12:36 | P.CONCA_ITS ---
History of Present Illness History of Present Illness Date of Service: 04/08/22 Requesting physician: Kait Machuca Chief complaint: NSTEMI, UTI, CHF, Metastatic disease Narrative: 82-year-old gentleman with severe aortic valve stenosis. He was following at [facility] with Dr. Pagan. It appears he has prostate cancer and there was some discussions happening about potential TAVR in the future as he was asymptomatic. He is now presenting to us with confusion. He is a resident of [facility]. At the time of interview he was very short of breath with minimal activity in bed. Denying chest pain. Has ruled in for NSTEMI with elevated high sensitivity troponin levels. Clinically volume overloaded. He had CT PA which did not show any evidence of pulmonary embolism but did show dilated pulmonary arteries with concern for pulmonary hypertension. Currently appears quite distress from shortness of breath despite being on supplemental oxygen. Also has parkinsonism with parkinsonian tremors in both arms. [facility] Past Medical History Medical History (Updated 04/08/22 @ 15:45 by Reinaldo Jack MD) Bipolar disorder GERD (gastroesophageal reflux disease) Hypertension Schizoaffective disorder Social History Social History Advance Directives: Yes Advance Directives on File: Yes Advance Directives Date on File: 04/08/22 service: Yes Current occupational status: retired Meds Allergies Allergy/AdvReac Type Severity Reaction Status Date / Time No Known Allergies Allergy Unverified 01/25/20 16:00 [No Known Allergies*] Active Medications: Current Medications Acetaminophen (Acetaminophen 325 Mg Tablet) 650 mg PO Q6H PRN PRN Reason: Pain, Mild (Pain Scale 1-3) Docusate Sodium (Docusate Sodium 100 Mg Capsule) 100 mg PO DAILY PRN PRN Reason: Constipation Furosemide (Furosemide 40 Mg/4 Ml Vial) 40 mg IVPUSH DAILY IVIS; Protocol Heparin Sodium (Porcine) (Heparin Sodium,Porcine 5,000 Unit/Ml Vial) 4,100 unit 40 unit/kg (4100 unit) IVPUSH PROTOCOL BOLUS PRN; Protocol PRN Reason: 40 unit/kg - Heparin Protocol Last Admin: 04/08/22 08:57 Dose: 4,100 unit Heparin Sodium (Porcine) (Heparin Sodium,Porcine 5,000 Unit/Ml Vial) 8,200 unit 80 unit/kg (8200 unit) IVPUSH PROTOCOL BOLUS PRN; Protocol PRN Reason: 80 unit/kg - Heparin Protocol Heparin Sodium/Sodium Chloride (Heparin Sodium,Porcine/1/2ns) 25,000 unit in 250 mls @ 0 mls/hr IVCONT .Q0M IVIS; Protocol Last Titration: 04/08/22 08:50 Dose: 12 units/kg/hr, 12.26 mls/hr Ceftriaxone Sodium 1 gm/ (Sodium Chloride) 50 mls @ 100 mls/hr IV Q24H [facility] Last Infusion: 04/07/22 22:24 Dose: Infused Ondansetron HCl (Ondansetron Hcl 4 Mg/2 Ml Vial) 4 mg IVPUSH Q8H PRN PRN Reason: Nausea and Vomiting Home Medications Medication Instructions Recorded Confirmed Last Taken Type 1% Iodoquinol/1% Hydrocortison 1 appl topical BID 04/07/22 04/07/22 Unknown History acetaminophen 325 mg tablet 650 mg PO Q6H PRN PAIN/TEMP OVER 04/07/22 04/07/22 Unknown History 100 acetaminophen 325 mg tablet 650 mg PO TID 04/07/22 04/07/22 04/07/22 History aluminum-mag hydroxide-simethicone 30 ml PO Q6H PRN Indigestion 04/07/22 04/07/22 Unknown History 200 mg-200 mg-20 mg/5 mL oral susp amlodipine 5 mg tablet 5 mg PO DAILY 04/07/22 04/07/22 04/07/22 History aspirin 81 mg chewable tablet 81 mg PO DAILY 04/07/22 04/07/22 04/07/22 History bisacodyl 10 mg rectal suppository 10 mg [place] DAILY PRN Constipation 04/07/22 04/07/22 Unknown History calcium polycarbophil 625 mg tablet 1,250 mg PO DAILY 04/07/22 04/07/22 04/07/22 History carbidopa 25 mg-levodopa 100 mg 1 tab PO QID 04/07/22 04/07/22 04/07/22 History tablet cholecalciferol (vitamin D3) 25 25 mcg PO DAILY 04/07/22 04/07/22 04/07/22 Hist ory mcg (1,000 unit) tablet dextromethorphan-guaifenesin 10 10 ml PO Q4H PRN Cough 04/07/22 04/07/22 Unknown History mg-100 mg/5 mL oral liquid divalproex 125 mg capsule,delayed 375 mg PO DAILY@1400 04/07/22 04/07/22 04/07/22 History release sprinkle divalproex 125 mg capsule,delayed 500 mg PO BID 04/07/22 04/07/22 04/07/22 History release sprinkle (Depakote Sprinkles) docusate sodium 100 mg capsule 100 mg PO BID 04/07/22 04/07/22 04/07/22 History (Colace) furosemide 40 mg tablet 40 mg PO BID@0900,1400 04/07/22 04/07/22 04/07/22 History levalbuterol tartrate 45 2 inh inhalation Q6H PRN 04/07/22 04/07/22 Unknown History mcg/actuation aerosol inhaler sob/wheezing loperamide 2 mg tablet 2 mg PO QID PRN Loose Stool 04/07/22 04/07/22 Unknown History lorazepam 0.5 mg tablet 0.5 mg PO BEDTIME 04/07/22 04/07/22 04/06/22 History lorazepam 0.5 mg tablet 0.5 mg PO TID PRN Anxiety 04/07/22 04/07/22 Unknown History metoprolol tartrate 25 mg tablet 12.5 mg PO BID@0900,1700 04/07/22 04/07/22 04/07/22 History olanzapine 10 mg tablet 10 mg PO BEDTIME 04/07/22 04/07/22 04/06/22 History olanzapine 2.5 mg tablet 7.5 mg PO DAILY 04/07/22 04/07/22 04/07/22 History ondansetron 4 mg disintegrating 4 mg PO Q6H PRN Vomiting 04/07/22 04/07/22 Unknown History tablet polyethylene glycol 3350 17 17 g PO DAILY PRN Constipation 04/07/22 04/07/22 Unknown History gram/dose oral powder (Miralax) pramipexole 0.5 mg tablet 0.5 mg PO BID@0900,1700 04/07/22 04/07/22 04/07/22 History sennosides 8.6 mg tablet (senna) 8.6 mg PO DAILY PRN Constipation 04/07/22 04/07/22 Unknown History simvastatin 40 mg tablet 40 mg PO BEDTIME 04/07/22 04/07/22 04/06/22 History tamsulosin 0.4 mg capsule 0.8 mg PO BEDTIME 04/07/22 04/07/22 04/06/22 History Physical Exam Vital Signs: Vital Signs: Last Vital Signs Temp 97.6 F 04/08/22 11:50 Pulse 75 04/08/22 11:50 Resp 32 H 04/08/22 11:50 BP 148/76 H 04/08/22 11:50 Pulse Ox 96 04/08/22 11:50 O2 Del Method 04/08/22 11:50 O2 Flow Rate 3 04/08/22 11:50 Oxygen Flow Rate 1 04/07/22 16:44 BMI result Body Mass Index 34.2 GENERAL APPEARANCE: Short of breath. On supplemental oxygen. NECK: no carotid bruit, elevated jugular venous distention. SKIN: no suspicious lesions, warm and dry. HEART: Ejection systolic murmur aortic area with absent 2nd heart sound., regular rate and rhythm. LUNGS: Bilateral crackles. ABDOMEN: soft, nontender. EXTREMITIES: no edema. PERIPHERAL PULSES: equal. NEUROLOGIC: Parkinsonian tremors in both hands. Objective Labs and Meds Result diagrams: 04/08/22 06:06 04/08/22 06:06 Lab results: Laboratory Results - last 24 hr 04/07/22 04/07/22 04/07/22 17:11 17:12 17:12 WBC RBC Hgb Hct MCV MCH MCHC RDW Plt Count MPV Immature Gran % (Auto) Neut % (Auto) Lymph % (Auto) [place] % (Auto) Eos % (Auto) Baso % (Auto) Lymph # (Auto) [place] # (Auto) Eos # (Auto) Baso # (Auto) Abs Immat Gran (auto) Absolute Neuts (auto) Absolute Nucleated RBC Nucleated RBC % (auto) PT 13.9 H INR 1.2 H APTT 30.8 aPTT Heparin Protocol VBG pH VBG pCO2 VBG pO2 VBG HCO3 VBG O2 Saturation VBG Base Excess Sodium 136 Potassium 4.8 Chloride 97 Carbon Dioxide 33 H Anion Gap 11 L BUN 20 H Creatinine 1.12 Estim Creat Clear Calc 91.5 Estimated GFR > 60 Random Glucose 102 Lactic Acid 1.5 Calcium 9.5 Magnesium 2.1 Total Bilirubin 0.7 Direct Bilirubin 0.3 AST 29 ALT < 6 Alkaline Phosphatase 74 Ammonia Lactate Dehydrogenase Troponin I High Sens B-Natriuretic Peptide Total Protein 6.9 Albumin 3.5 Lipase 23 Prostate Specific Ag Urine Color Urine Appearance Urine pH Ur Specific [place] Urine Protein Urine Glucose (UA) Urine Ketones Urine Blood Urine Nitrite Ur Leukocyte Esterase Urine RBC Urine WBC Ur Squamous Epith Cells Urine Bacteria Hyaline Casts Urine Opiates Screen Urine Fentanyl Screen Ur Barbiturates Screen Ur Phencyclidine Scrn Ur Amphetamines Screen U Benzodiazepines Scrn Urine Cocaine Screen U Marijuana (THC) Screen Influenza Type A (PCR) Influenza Type B (PCR) RSV RNA Qual (PCR) SARS-CoV-2 RNA (RT-PCR) 04/07/22 04/07/22 04/07/22 17:12 17:12 17:13 WBC 17.7 H RBC 4.18 L Hgb 12.3 L Hct 38.5 L MCV 92.1 MCH 29.4 MCHC 31.9 RDW 14.3 Plt Count 246 MPV 9.0 L Immature Gran % (Auto) 0.5 H Neut % (Auto) 79.2 H Lymph % (Auto) 13.8 L [place] % (Auto) 6.3 Eos % (Auto) 0.1 Baso % (Auto) 0.1 Lymph # (Auto) 2.4 [place] # (Auto) 1.1 Eos # (Auto) 0.0 Baso # (Auto) 0.0 Abs Immat Gran (auto) 0.08 H Absolute Neuts (auto) 14.1 H Absolute Nucleated RBC 0.000 Nucleated RBC % (auto) 0.0 PT INR APTT aPTT Heparin Protocol VBG pH VBG pCO2 VBG pO2 VBG HCO3 VBG O2 Saturation VBG Base Excess Sodium Potassium Chloride Carbon Dioxide Anion Gap BUN Creatinine Estim Creat Clear Calc Estimated GFR Random Glucose Lactic Acid Calcium Magnesium Total Bilirubin Direct Bilirubin AST ALT Alkaline Phosphatase Ammonia Lactate Dehydrogenase Troponin I High Sens > 3600.0 H* B-Natriuretic Peptide 603 H Total Protein Albumin Lipase Prostate Specific Ag Urine Color Urine Appearance Urine pH Ur Specific [place] Urine Protein Urine Glucose (UA) Urine Ketones Urine Blood Urine Nitrite Ur Leukocyte Esterase Urine RBC Urine WBC Ur Squamous Epith Cells Urine Bacteria Hyaline Casts Urine Opiates Screen Urine Fentanyl Screen Ur Barbiturates Screen Ur Phencyclidine Scrn Ur Amphetamines Screen U Benzodiazepines Scrn Urine Cocaine Screen U Marijuana (THC) Screen Influenza Type A (PCR) Influenza Type B (PCR) RSV RNA Qual (PCR) SARS-CoV-2 RNA (RT-PCR) 04/07/22 04/07/22 04/07/22 17:13 17:13 18:37 WBC RBC Hgb Hct MCV MCH MCHC RDW Plt Count MPV Immature Gran % (Auto) Neut % (Auto) Lymph % (Auto) [place] % (Auto) Eos % (Auto) Baso % (Auto) Lymph # (Auto) [place] # (Auto) Eos # (Auto) Baso # (Auto) Abs Immat Gran (auto) Absolute Neuts (auto) Absolute Nucleated RBC Nucleated RBC % (auto) PT INR APTT aPTT Heparin Protocol VBG pH VBG pCO2 VBG pO2 VBG HCO3 VBG O2 Saturation VBG Base Excess Sodium Potassium Chloride Carbon Dioxide Anion Gap BUN Creatinine Estim Creat Clear Calc Estimated GFR Random Glucose Lactic Acid Calcium Magnesium Total Bilirubin Direct Bilirubin AST ALT Alkaline Phosphatase Ammonia Lactate Dehydrogenase Troponin I High Sens B-Natriuretic Peptide Total Protein Albumin Lipase Prostate Specific Ag Urine Color Yellow Urine Appearance Clear Urine pH 7.0 Ur Specific [place] 1.010 Urine Protein Negative Urine Glucose (UA) Negative Urine Ketones Negative Urine Blood Trace H Urine Nitrite Positive H Ur Leukocyte Esterase Trace H Urine RBC 3-5 H Urine WBC 0-5 Ur Squamous Epith Cells 0-2 Urine Bacteria 3+ Hyaline Casts 0-2 Urine Opiates Screen Not Detected Urine Fentanyl Screen Not Detected Ur Barbiturates Screen Not Detected Ur Phencyclidine Scrn Not Detected Ur Amphetamines Screen Not Detected U Benzodiazepines Scrn Not Detected Urine Cocaine Screen Not Detected U Marijuana (THC) Screen Not Detected Influenza Type A (PCR) NEGATIVE Influenza Type B (PCR) NEGATIVE RSV RNA Qual (PCR) NEGATIVE SARS-CoV-2 RNA (RT-PCR) NEGATIVE 04/07/22 04/07/22 04/07/22 18:38 19:15 22:02 WBC RBC Hgb Hct MCV MCH MCHC RDW Plt Count MPV Immature Gran % (Auto) Neut % (Auto) Lymph % (Auto) [place] % (Auto) Eos % (Auto) Baso % (Auto) Lymph # (Auto) [place] # (Auto) Eos # (Auto) Baso # (Auto) Abs Immat Gran (auto) Absolute Neuts (auto) Absolute Nucleated RBC Nucleated RBC % (auto) PT 14.5 H INR 1.3 H APTT aPTT Heparin Protocol 59.0 VBG pH VBG pCO2 VBG pO2 VBG HCO3 VBG O2 Saturation VBG Base Excess Sodium Potassium Chloride Carbon Dioxide Anion Gap BUN Creatinine Estim Creat Clear Calc Estimated GFR Random Glucose Lactic Acid Calcium Magnesium Total Bilirubin Direct Bilirubin AST ALT Alkaline Phosphatase Ammonia 30 Lactate Dehydrogenase Troponin I High Sens > 3600.0 H* B-Natriuretic Peptide Total Protein Albumin Lipase Prostate Specific Ag Urine Color Urine Appearance Urine pH Ur Specific [place] Urine Protein Urine Glucose (UA) Urine Ketones Urine Blood Urine Nitrite Ur Leukocyte Esterase Urine RBC Urine WBC Ur Squamous Epith Cells Urine Bacteria Hyaline Casts Urine Opiates Screen Urine Fentanyl Screen Ur Barbiturates Screen Ur Phencyclidine Scrn Ur Amphetamines Screen U Benzodiazepines Scrn Urine Cocaine Screen U Marijuana (THC) Screen Influenza Type A (PCR) Influenza Type B (PCR) RSV RNA Qual (PCR) SARS-CoV-2 RNA (RT-PCR) 04/07/22 04/08/22 04/08/22 22:13 00:43 06:06 WBC 11.8 H RBC 3.81 L Hgb 11.3 L Hct 35.9 L MCV 94.2 MCH 29.7 MCHC 31.5 RDW 14.6 Plt Count 254 MPV 9.4 Immature Gran % (Auto) 0.4 Neut % (Auto) 72.6 Lymph % (Auto) 16.5 L [place] % (Auto) 9.0 Eos % (Auto) 1.2 Baso % (Auto) 0.3 Lymph # (Auto) 2.0 [place] # (Auto) 1.1 Eos # (Auto) 0.1 Baso # (Auto) 0.0 Abs Immat Gran (auto) 0.05 H Absolute Neuts (auto) 8.6 H Absolute Nucleated RBC 0.000 Nucleated RBC % (auto) 0.0 PT INR APTT aPTT Heparin Protocol 41.9 L D VBG pH 7.45 H VBG pCO2 49 VBG pO2 47 VBG HCO3 34 H VBG O2 Saturation 71.0 VBG Base Excess 9.6 Sodium Potassium Chloride Carbon Dioxide Anion Gap BUN Creatinine Estim Creat Clear Calc Estimated GFR Random Glucose Lactic Acid Calcium Magnesium Total Bilirubin Direct Bilirubin AST ALT Alkaline Phosphatase Ammonia Lactate Dehydrogenase Troponin I High Sens B-Natriuretic Peptide Total Protein Albumin Lipase Prostate Specific Ag Urine Color Urine Appearance Urine pH Ur Specific [place] Urine Protein Urine Glucose (UA) Urine Ketones Urine Blood Urine Nitrite Ur Leukocyte Esterase Urine RBC Urine WBC Ur Squamous Epith Cells Urine Bacteria Hyaline Casts Urine Opiates Screen Urine Fentanyl Screen Ur Barbiturates Screen Ur Phencyclidine Scrn Ur Amphetamines Screen U Benzodiazepines Scrn Urine Cocaine Screen U Marijuana (THC) Screen Influenza Type A (PCR) Influenza Type B (PCR) RSV RNA Qual (PCR) SARS-CoV-2 RNA (RT-PCR) 04/08/22 04/08/22 04/08/22 06:06 06:06 08:21 WBC RBC Hgb Hct MCV MCH MCHC RDW Plt Count MPV Immature Gran % (Auto) Neut % (Auto) Lymph % (Auto) [place] % (Auto) Eos % (Auto) Baso % (Auto) Lymph # (Auto) [place] # (Auto) Eos # (Auto) Baso # (Auto) Abs Immat Gran (auto) Absolute Neuts (auto) Absolute Nucleated RBC Nucleated RBC % (auto) PT 14.1 H INR 1.2 H APTT 33.5 aPTT Heparin Protocol 40.9 L VBG pH VBG pCO2 VBG pO2 VBG HCO3 VBG O2 Saturation VBG Base Excess Sodium 139 Potassium 4.2 Chloride 97 Carbon Dioxide 33 H Anion Gap 13 BUN 21 H Creatinine 0.91 Estim Creat Clear Calc 75.0 Estimated GFR > 60 Random Glucose 94 Lactic Acid Calcium 9.4 Magnesium Total Bilirubin Direct Bilirubin AST ALT Alkaline Phosphatase Ammonia Lactate Dehydrogenase 272 Troponin I High Sens B-Natriuretic Peptide Total Protein Albumin Lipase Prostate Specific Ag 307.33 H Urine Color Urine Appearance Urine pH Ur Specific [place] Urine Protein Urine Glucose (UA) Urine Ketones Urine Blood Urine Nitrite Ur Leukocyte Esterase Urine RBC Urine WBC Ur Squamous Epith Cells Urine Bacteria Hyaline Casts Urine Opiates Screen Urine Fentanyl Screen Ur Barbiturates Screen Ur Phencyclidine Scrn Ur Amphetamines Screen U Benzodiazepines Scrn Urine Cocaine Screen U Marijuana (THC) Screen Influenza Type A (PCR) Influenza Type B (PCR) RSV RNA Qual (PCR) SARS-CoV-2 RNA (RT-PCR) Imaging Radiologist's impression: Impressions Chest X-Ray 04/07/22 17:25 IMPRESSION: Low lung volumes with minimal bibasilar subsegmental atelectasis. No acute pulmonary process. Tibia/Fibula X-Ray 04/07/22 18:21 IMPRESSION: 1. No acute osseous injury or radiographic evidence of advanced osteomyelitis. 2. Diffuse subcutaneous edema and reticulation. No tracking soft tissue gas. Cervical Spine CT 04/07/22 18:23 IMPRESSION: Moderate diffuse degenerative changes of the cervical spine without compression deformity. Fleischner guidelines were followed. Head CT 04/07/22 18:23 IMPRESSION: 1. No acute intracranial hemorrhage or acute edematous territorial infarct. 2. No calvarial fracture. Findings were communicated directly to Madison Valenzuela NP at time of initial exam interpretation 6:25 PM 04/07/2022. Abdomen/Pelvis CT 04/07/22 18:40 IMPRESSION: 1. New extensive retroperitoneal adenopathy. 2. 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 3. Other incidental findings as described above. Fleischner guidelines were followed. Chest CTA 04/07/22 18:40 IMPRESSION: 1. No evidence of pulmonary emboli. 2. Dilated main pulmonary artery suggesting pulmonary hypertension. 3. Left ventricular hypertrophy. 4. Hepatic steatosis VTE: negative Assessment and Plan (1) Acute non-ST elevation myocardial infarction (NSTEMI): Status: Acute (2) Congestive heart failure (CHF): Status: Acute (3) Aortic stenosis: Status: Acute Plan [age] year gentleman was presenting for confusion. Clinically he is in congestive heart failure right now. He has severe aortic valve stenosis based on echocardiography previously showing a valve area 0.7 and mean gradient of 60. Clinically overloaded. Adding Lasix 40 mg right now. I think he will require 40 mg IV b.i.d. Lasix. He is imaging has shown evidence of extensive sclerotic metastatic disease from his known history of prostate cancer. He also has lymphadenopathy on the CT abdomen. He has elevated troponin levels which could be due to congestive heart failure due to aortic valve stenosis. Recommend echocardiogram to assess for wall motion abnormality. In any case he has care will be conservative currently due to metastatic cancer. I have discussed the case with Dr. Pagan and we will conservatively manage this patient for now. Once he is stable than further discussions can be done as outpatient with Dr. Pagan. I think he is not a good TAVR candidate given Parkinson's disease, frailty and extensive Mets. He has elevated troponin level which can be due to congestive heart failure but a true NSTEMI is also possible. Will check echocardiogram for assess for wall motion abnormality. He should be on baby aspirin. Thank you for allowing me to participate in the care of your patient. Please feel free to contact me if you have any questions. Procedures Date of Service Date of Service: 04/08/22
--- NOTE | 2022-04-08 13:34 | MHC.CM.PN ---
pt from [facility] where he will return when dcd
[2022-04-08 14:45] VITALS: BP 144/81; PULSE 87; RESP 21; TEMP 36.8; O2SAT 97
[2022-04-08 14:57] LABS: PTT Heparin Drip 50.7 SEC (53-77.9)
--- NOTE | 2022-04-08 15:28 | PC.NURSE ---
heparin drip was infusing at 10.78u/kg/hr, drip increased to 12.78u/kg/hr per protocol
--- NOTE | 2022-04-08 15:50 | P.CNHO_ITS ---
Subjective - Subjective Chief complaint: Shortness of breath, low blood pressure Patient: new to practice Consult date: 04/08/22 Requesting Physician: Hospitalist team Primary Care Provider: Franky Bryant MD HPI - Consult Narrative Reason for consult: Metastatic prostate cancer Narrative: Satnam Garcia is a 82 year old male, long-term resident of [facility] with multiple medical problems who is now admitted for non STEMI and congestive heart failure. He was noted on imaging study to have extensive retroperitoneal lymphadenopathy sclerotic bone metastasis. Patient was unable to provide much of a history in terms of his prostate cancer but I was able to get in touch with his daughter Vivien Church and able to obtain history. Review of Systems - Constitutional Reports as per HPI, Reports fatigue, Reports lack of energy, Reports malaise - Neurologic Denies abnormal speech Oncology Screenings - ECOG Performance Status ECOG Performance Status: 3 [facility] Medical History: Medical History (Last Updated 04/08/22 @ 00:14 by Abigail Aly MD) Bipolar disorder GERD (gastroesophageal reflux disease) Hypertension Schizoaffective disorder Social History: Social History (Last Reviewed 04/07/22 @ 17:17 by RUSTY Minor) Advance Directives: Advance Directives: Yes Advance Directives on File: Yes Advance Directives Date on File: 04/08/22 Occupation Assessmet: service: Yes Current occupational status: retired Home Medications and Allergies Current Medications: Current Medications Acetaminophen (Acetaminophen 325 Mg Tablet) 650 mg PO Q6H PRN PRN Reason: Pain, Mild (Pain Scale 1-3) Docusate Sodium (Docusate Sodium 100 Mg Capsule) 100 mg PO DAILY PRN PRN Reason: Constipation Furosemide (Furosemide 40 Mg/4 Ml Vial) 40 mg IVPUSH BID@0900,1800 IVIS; Protocol Heparin Sodium (Porcine) (Heparin Sodium,Porcine 5,000 Unit/Ml Vial) 4,100 unit 40 unit/kg (4100 unit) IVPUSH PROTOCOL BOLUS PRN; Protocol PRN Reason: 40 unit/kg - Heparin Protocol Last Admin: 04/08/22 15:12 Dose: 4,100 unit Heparin Sodium (Porcine) (Heparin Sodium,Porcine 5,000 Unit/Ml Vial) 8,200 unit 80 unit/kg (8200 unit) IVPUSH PROTOCOL BOLUS PRN; Protocol PRN Reason: 80 unit/kg - Heparin Protocol Heparin Sodium/Sodium Chloride (Heparin Sodium,Porcine/1/2ns) 25,000 unit in 250 mls @ 0 mls/hr IVCONT .Q0M [facility]; Protocol Last Titration: 04/08/22 15:24 Dose: 12.78 units/kg/hr, 13.06 mls/hr Ceftriaxone Sodium 1 gm/ (Sodium Chloride) 50 mls @ 100 mls/hr IV Q24H [facility] Last Infusion: 04/07/22 22:24 Dose: Infused Ondansetron HCl (Ondansetron Hcl 4 Mg/2 Ml Vial) 4 mg IVPUSH Q8H PRN PRN Reason: Nausea and Vomiting Home Medications Medication Instructions Recorded Confirmed Type 1% Iodoquinol/1% Hydrocortison 1 appl topical BID 04/07/22 04/07/22 History acetaminophen 325 mg tablet 650 mg PO Q6H PRN PAIN/TEMP OVER 04/07/22 04/07/22 History 100 acetaminophen 325 mg tablet 650 mg PO TID 04/07/22 04/07/22 History aluminum-mag hydroxide-simethicone 30 ml PO Q6H PRN Indigestion 04/07/22 04/07/22 History 200 mg-200 mg-20 mg/5 mL oral susp amlodipine 5 mg tablet 5 mg PO DAILY 04/07/22 04/07/22 History aspirin 81 mg chewable tablet 81 mg PO DAILY 04/07/22 04/07/22 History bisacodyl 10 mg rectal suppository 10 mg SD DAILY PRN Constipation 04/07/22 04/07/22 History calcium polycarbophil 625 mg tablet 1,250 mg PO DAILY 04/07/22 04/07/22 History carbidopa 25 mg-levodopa 100 mg 1 tab PO QID 04/07/22 04/07/22 History tablet cholecalciferol (vitamin D3) 25 25 mcg PO DAILY 04/07/22 04/07/22 History mcg (1,000 unit) tablet dextromethorphan-guaifenesin 10 10 ml PO Q4H PRN Cough 04/07/22 04/07/22 History mg-100 mg/5 mL oral liquid divalproex 125 mg capsule,delayed 375 mg PO DAILY@1400 04/07/22 04/07/22 History release sprinkle divalproex 125 mg capsule,delayed 500 mg PO BID 04/07/22 04/07/22 History release sprinkle (Depakote Sprinkles) docusate sodium 100 mg capsule 100 mg PO BID 04/07/22 04/07/22 History (Colace) furosemide 40 mg tablet 40 mg PO BID@0900,1400 04/07/22 04/07/22 History levalbuterol tartrate 45 2 inh inhalation Q6H PRN 04/07/22 04/07/22 History mcg/actuation aerosol inhaler sob/wheezing loperamide 2 mg tablet 2 mg PO QID PRN Loose Stool 04/07/22 04/07/22 History lorazepam 0.5 mg tablet 0.5 mg PO BEDTIME 04/07/22 04/07/22 History lorazepam 0.5 mg tablet 0.5 mg PO TID PRN Anxiety 04/07/22 04/07/22 History metoprolol tartrate 25 mg tablet 12.5 mg PO BID@0900,1700 04/07/22 04/07/22 History olanzapine 10 mg tablet 10 mg PO BEDTIME 04/07/22 04/07/22 History olanzapine 2.5 mg tablet 7.5 mg PO DAILY 04/07/22 04/07/22 History ondansetron 4 mg disintegrating 4 mg PO Q6H PRN Vomiting 04/07/22 04/07/22 History tablet polyethylene glycol 3350 17 17 g PO DAILY PRN Constipation 04/07/22 04/07/22 History gram/dose oral powder (Miralax) pramipexole 0.5 mg tablet 0.5 mg PO BID@0900,1700 04/07/22 04/07/22 History sennosides 8.6 mg tablet (senna) 8.6 mg PO DAILY PRN Constipation 04/07/22 04/07/22 History simvastatin 40 mg tablet 40 mg PO BEDTIME 04/07/22 04/07/22 History tamsulosin 0.4 mg capsule 0.8 mg PO BEDTIME 04/07/22 04/07/22 History Allergies Allergy/AdvReac Type Severity Reaction Status Date / Time No Known Allergies Allergy Unverified 01/25/20 16:00 [No Known Allergies*] Physical Exam Vital signs: Vital Signs Temp 98.3 F 04/08/22 14:45 Pulse 87 04/08/22 14:45 Resp 21 H 04/08/22 14:45 BP 144/81 H 04/08/22 14:45 Pulse Ox 97 04/08/22 14:45 O2 Del Method 04/08/22 14:45 O2 Flow Rate 3 04/08/22 14:45 Intake & Output 04/07/22 04/08/22 04/08/22 18:59 06:59 18:59 Intake Total 100 / 100 216.007 / 216.007 Balance 100 / 100 216.007 / 216.007 Intake: Intake, IV Amount 100 / 100 216.007 / 216.007 cefEPime HCl 2 gm In 0.9 % 50 / 50 Sodium Chloride 50 ml @ 100 mls /hr IV ONCE ONE Rx#:[id number] cefTRIAXone sodium 1 gm In 0.9 50 / 50 % Sodium Chloride 50 ml @ 100 mls/hr IV Q24H [facility] Rx#: [id number] Heparin Sodium,Porcine/1/2NS 25 216.007 / 216.007 ,000 unit In 250 ml @ Per Protocol IVCONT .Q0M [facility] Rx#: [id number] Other: Weight 102.2 kg [place] Weight in Grams [id number] Weight 102.2 kg - Constitutional Present: mild distress, obese - Routine HEENT Exam Head: Present: normal inspection Eye: Present: PERRL - Routine Neck Exam Absent: lymphadenopathy - Routine Respiratory Exam Present: decreased breath sounds - Routine Cardiovascular Exam Cardiovascular: Present: S1, S2 - Routine Abdominal Exam Present: soft Hem/Onc Consult Result - Labs CBC & Chem 7: 04/08/22 06:06 04/08/22 06:06 Labs: Short CBC 04/07/22 04/08/22 Range/Units 17:13 06:06 WBC 17.7 H 11.8 H (4.8-10.8) X10*3/uL Hgb 12.3 L 11.3 L (14.0-18.0) g/dl Hct 38.5 L 35.9 L (42.0-52.0) % Plt Count 246 254 (160-400) X10*3/uL BMP 04/07/22 04/08/22 17:12 06:06 Sodium 136 139 Potassium 4.8 4.2 Chloride 97 97 Carbon Dioxide 33 H 33 H BUN 20 H 21 H Creatinine 1.12 0.91 Calcium 9.5 9.4 Liver Function 04/07/22 Range/Units 17:12 Total Bilirubin 0.7 (0.0-1.0) mg/dL Direct Bilirubin 0.3 (0.0-0.5) mg/dL AST 29 (5-37) U/L ALT < 6 (0-40) U/L Alkaline Phosphatase 74 (39-117) U/L Albumin 3.5 (3.5-5.0) g/dL Urine 04/07/22 Range/Units 17:13 Urine Color Yellow Urine Appearance Clear Urine pH 7.0 (5.0-9.0) Ur Specific Star[place] 1.010 (1.005-1.025) Urine Protein Negative (Neg-Trace) mg/dL Urine Glucose (UA) Negative (Negative) mg/dL Assessment and Plan Patient Active problem list reviewed?: Yes (1) Prostate cancer metastatic to intraabdominal lymph node Status: Acute Assessment and plan: 1. This is a 82-year-old male with multiple medical problems currently admitted for non STEMI, CHF who has been diagnosed with de natalee metastatic prostate cancer. I spoke to his daughter Vivien Church who states that patient was diagnosed with this in December 2021 at [facility] when he was admitted there. He was seen by urologist ([facility]), she thinks he may have had a biopsy. He has had scans as well and he was supposed to go for a bone scan tomorrow. He was already counseled about treatment with androgen deprivation therapy/hormonal therapy. This can be done upon discharge and after resolution of his acute problems. At this time, no further oncological intervention is necessary. I thank you for this consultation. - Time Spent With Patient Time Spent with Patient (in minutes): 15
[2022-04-08] MEDS: Heparin Sodium,Porcine/1/2NS 25,000 UNIT/250 ML IV.SOLN 13.06 UNIT IVCONT (18:18)
[2022-04-08] MEDS: Acetaminophen 325 MG TABLET 650 MG PO (18:33)
[2022-04-08 19:43] VITALS: BP 133/66; PULSE 87; RESP 22; TEMP 36.7; O2SAT 95
[2022-04-08 20:00] VITALS: BP 130/71; PULSE 89; RESP 20; TEMP 37.1; O2SAT 95
[2022-04-08] MEDS: Atorvastatin Calcium 40 MG TABLET PO (20:37)
[2022-04-08] MEDS: cefTRIAXone sodium 1 GM in 0.9 % Sodium Chloride 50 ML IV (20:45)
[2022-04-08 21:09] LABS: PTT Heparin Drip 60.8 SEC (53-77.9)
[2022-04-09] VITALS (7 sets, daily range): BP systolic 109–140; BP diastolic 61–70; PULSE 67–90; RESP 16–20; TEMP 36.1–37.7; O2SAT 95–97
[2022-04-09 03:29] LABS: Hematocrit 36.5 % (42.0-52.0); Hemoglobin 11.9 g/dl (14.0-18.0); Mean Corpuscular HGB Conc 32.6 g/dl (31.0-36.0); Mean Corpuscular Hemoglobin 29.9 pg (27.0-33.0); Mean Corpuscular Volume 91.7 fL (80.0-98.0); Mean Platelet Volume 8.7 fL (9.4-12.4); Platelet Count 217 X10*3/uL (160-400); Red Blood Count 3.98 X10*6/uL (4.60-5.80); Red Cell Distribution Width 14.4 % (11.0-16.0); White Blood Count 11.5 X10*3/uL (4.8-10.8)
[2022-04-09 03:38] LABS: PTT Heparin Drip 60.7 SEC (53-77.9)
[2022-04-09 04:05] LABS: Anion Gap 13 (12-20); Blood Urea Nitrogen 22 mg/dL (9-16); Calcium 9.3 mg/dL (8.4-10.2); Carbon Dioxide 29 mmol/L (22-29); Chloride 95 mmol/L (96-108); Creatinine Clr Calc Pharmacy 68.9; Estimated Glomerular Filt Rate > 60; Glucose Random 131 mg/dL (60-115); Potassium 4.1 mmol/L (3.3-5.1); Sodium 133 mmol/L (135-145)
[2022-04-09 07:20] LABS: PTT Heparin Drip 48.7 SEC (53-77.9)
[2022-04-09] MEDS: Furosemide 40 MG/4 ML VIAL IVPUSH ×2 (08:26→17:40)
[2022-04-09] MEDS: Aspirin 81 MG TAB.CHEW PO (08:26)
[2022-04-09] MEDS: Heparin Sodium,Porcine 5,000 UNIT/ML VIAL 4100 UNIT IVPUSH (08:27)
[2022-04-09 09:54] LABS: PTT Heparin Drip > 200.0 SEC (53-77.9)
--- NOTE | 2022-04-09 11:48 | PM.PNCARD ---
Subjective Subjective Date of Service: 04/09/22 Interval history: Patient seen and examined at bedside. Breathing is improving. Still volume overloaded. On antibiotics for UTI. Physical Exam Vital Signs: Last Vital Signs Temp 98.0 F 04/09/22 11:39 Pulse 84 04/09/22 11:39 Resp 16 04/09/22 11:39 BP 109/62 04/09/22 11:39 Pulse Ox 97 04/09/22 11:39 O2 Del Method 04/09/22 11:39 O2 Flow Rate 3 04/09/22 11:39 Oxygen Flow Rate 1 04/07/22 16:44 BMI result Body Mass Index 34.2 GENERAL APPEARANCE: In no significant distress. On supplemental oxygen. NECK: no carotid bruit, elevated jugular venous distention. SKIN: no suspicious lesions, warm and dry. HEART: Ejection systolic murmur aortic area with absent 2nd heart sound., regular rate and rhythm. LUNGS: Bilateral crackles. ABDOMEN: soft, nontender. EXTREMITIES: no edema. PERIPHERAL PULSES: equal. NEUROLOGIC: Parkinsonian tremors in both hands. Objective Labs and Meds Result diagrams: 04/09/22 03:24 04/09/22 03:24 Lab results: Laboratory Results - last 24 hr 04/08/22 04/08/22 04/09/22 14:38 20:35 03:24 WBC RBC Hgb Hct MCV MCH MCHC RDW Plt Count MPV Absolute Nucleated RBC Nucleated RBC % (auto) aPTT Heparin Protocol 50.7 L D 60.8 60.7 Sodium Potassium Chloride Carbon Dioxide Anion Gap BUN Creatinine Estim Creat Clear Calc Estimated GFR Random Glucose Calcium 04/09/22 04/09/22 04/09/22 03:24 03:24 07:00 WBC 11.5 H RBC 3.98 L Hgb 11.9 L Hct 36.5 L MCV 91.7 MCH 29.9 MCHC 32.6 RDW 14.4 Plt Count 217 MPV 8.7 L Absolute Nucleated RBC 0.000 Nucleated RBC % (auto) 0.0 aPTT Heparin Protocol 48.7 L Sodium 133 L Potassium 4.1 Chloride 95 L Carbon Dioxide 29 Anion Gap 13 BUN 22 H Creatinine 0.99 Estim Creat Clear Calc 68.9 Estimated GFR > 60 Random Glucose 131 H Calcium 9.3 04/09/22 09:02 WBC RBC Hgb Hct MCV MCH MCHC RDW Plt Count MPV Absolute Nucleated RBC Nucleated RBC % (auto) aPTT Heparin Protocol > 200.0 H* D Sodium Potassium Chloride Carbon Dioxide Anion Gap BUN Creatinine Estim Creat Clear Calc Estimated GFR Random Glucose Calcium Progress Note: A&P Assessment and plan (1) Aortic stenosis: Status: Acute (2) Acute non-ST elevation myocardial infarction (NSTEMI): Status: Acute (3) Congestive heart failure (CHF): Status: Acute Plan 82-year-old gentleman who is presenting for confusion secondary to UTI as well as congestive heart failure. He has known history of severe aortic valve stenosis. His echocardiography is showing severe left ventricular hypertrophy without any wall motion abnormalities and hyperdynamic function. This possible that he has some sort of infiltrative process given significant wall thickness present. He has prostate cancer currently and this is metastatic to bones with extensive bony metastatic disease. He also has Parkinson's disease which affects his mobility. Overall clinically stable. Still volume overloaded so I would continue the IV diuretics. I think heparin can be continued for 48 hours and then it can be stopped. No significant wall motion abnormalities to suggest a major event I think the troponin elevation is related to congestive heart failure and severe . Thank you for allowing me to participate in the care of your patient. Please feel free to contact me if you have any questions. Time Spent With Patient Time: Total time spent is greater than 50% in coordination of care (as documented) at patient's floor/unit and/or counseling patient: Progress Note: Quality Stroke Does the patient have a stroke diagnosis?: No Procedures Date of Service Date of Service: 04/09/22
--- NOTE | 2022-04-09 12:50 | P.CONGS_ITS ---
History of Present Illness Consult details Consult date: 04/09/22 Narrative: 82-year-old male admitted from [facility] days ago because of altered mental status. He had apparently fallen with subsequent changes in his mental status at that time. The patient does not appear to be reliable with regards to his history. He had some shortness of breath and he had a CAT scan in the ER showing pulmonary embolism as well as multiple skeletalmetastatic lesions in the skeleton and retroperitoneal lymph nodes likely secondary to his prostate cancer. He has tremors on both hands. He was referred to me because of a swollen mass on his right anterior lower leg. He does state that he hit this when had fallen. Review of Systems Constitutional: Constitutional: Denies chills and Denies fever(s) Cardiovascular: Cardiovascular: Denies chest pain and Denies dyspnea Respiratory: Respiratory: Denies dyspnea Gastrointestinal: Gastrointestinal: Reports abdominal pain Genitourinary: Genitourinary: Denies difficulty urinating PMFSH Past Medical History Medical History (Updated 04/09/22 @ 12:56 by Miguelangel Bartlett MD) Bipolar disorder GERD (gastroesophageal reflux disease) Hematoma of lower leg Hypertension Schizoaffective disorder Social History Social History Household Members: Other Household Members Other:: [facility] Housing: Detention Do you presently have visiting nurse or other home services: Yes Patient Tobacco Use Status: Former Tobacco user Advance Directives Date on File: 04/08/22 service: Yes Current occupational status: retired Meds Allergies Allergy/AdvReac Type Severity Reaction Status Date / Time No Known Allergies Allergy Unverified 01/25/20 16:00 [No Known Allergies*] Active Medications: Current Medications Acetaminophen (Acetaminophen 325 Mg Tablet) 650 mg PO Q6H PRN PRN Reason: Pain, Mild (Pain Scale 1-3) Last Admin: 04/08/22 18:33 Dose: 650 mg Aspirin (Aspirin 81 Mg Tab.Chew) 81 mg PO DAILY [facility] Last Admin: 04/09/22 08:26 Dose: 81 mg Atorvastatin Calcium (Atorvastatin Calcium 40 Mg Tablet) 40 mg PO BEDTIME [facility] Last Admin: 04/08/22 20:37 Dose: 40 mg Atorvastatin Calcium (Atorvastatin Calcium 20 Mg Tablet) 20 mg PO BEDTIME [facility] Carbidopa/Levodopa (Carbidopa/Levodopa 25/100 Tablet) 1 tab PO QID [facility] Divalproex Sodium (Divalproex Sodium Sprinkles 125 Mg ) 500 mg PO BID [facility] Divalproex Sodium (Divalproex Sodium Sprinkles 125 Mg ) 375 mg PO DAILY@1400 [facility] Docusate Sodium (Docusate Sodium 100 Mg Capsule) 100 mg PO DAILY PRN PRN Reason: Constipation Docusate Sodium (Docusate Sodium 100 Mg Capsule) 100 mg PO BID [facility] Furosemide (Furosemide 40 Mg/4 Ml Vial) 40 mg IVPUSH BID@0900,1800 [facility]; Protocol Last Admin: 04/09/22 08:26 Dose: 40 mg Heparin Sodium (Porcine) (Heparin Sodium,Porcine 5,000 Unit/Ml Vial) 4,100 unit 40 unit/kg (4100 unit) IVPUSH PROTOCOL BOLUS PRN; Protocol PRN Reason: 40 unit/kg - Heparin Protocol Last Admin: 04/09/22 08:27 Dose: 4,100 unit Heparin Sodium (Porcine) (Heparin Sodium,Porcine 5,000 Unit/Ml Vial) 8,200 unit 80 unit/kg (8200 unit) IVPUSH PROTOCOL BOLUS PRN; Protocol PRN Reason: 80 unit/kg - Heparin Protocol Heparin Sodium/Sodium Chloride (Heparin Sodium,Porcine/1/2ns) 25,000 unit in 250 mls @ 0 mls/hr IVCONT .Q0M [facility]; Protocol Last Titration: 04/09/22 08:27 Dose: 14.78 units/kg/hr, 15.11 mls/hr Ceftriaxone Sodium 1 gm/ (Sodium Chloride) 50 mls @ 100 mls/hr IV Q24H [facility] Last Infusion: 04/08/22 21:22 Dose: Infused Lorazepam (Lorazepam 0.5 Mg Tablet) 0.5 mg PO TID PRN PRN Reason: Anxiety Metoprolol Tartrate (Metoprolol Tartrate 12.5 Mg Halftab) 12.5 mg PO BID@0900,1700 [facility]; Protocol Olanzapine (Olanzapine 10 Mg Tablet) 10 mg PO BEDTIME [facility] Olanzapine (Olanzapine 2.5 Mg Tablet) 7.5 mg PO DAILY [facility] Ondansetron HCl (Ondansetron Hcl 4 Mg/2 Ml Vial) 4 mg IVPUSH Q8H PRN PRN Reason: Nausea and Vomiting Tamsulosin HCl (Tamsulosin Hcl 0.4 Mg Capsule) 0.8 mg PO BEDTIME [facility] Home Medications Medication Instructions Recorded Confirmed Last Taken Type 1% Iodoquinol/1% Hydrocortison 1 appl topical BID 04/07/22 04/07/22 Unknown History acetaminophen 325 mg tablet 650 mg PO Q6H PRN PAIN/TEMP OVER 04/07/22 04/07/22 Unknown History 100 acetaminophen 325 mg tablet 650 mg PO TID 04/07/22 04/07/22 04/07/22 History aluminum-mag hydroxide-simethicone 30 ml PO Q6H PRN Indigestion 04/07/22 04/07/22 Unknown History 200 mg-200 mg-20 mg/5 mL oral susp amlodipine 5 mg tablet 5 mg PO DAILY 04/07/22 04/07/22 04/07/22 History aspirin 81 mg chewable tablet 81 mg PO DAILY 04/07/22 04/07/22 04/07/22 History bisacodyl 10 mg rectal suppository 10 mg OH DAILY PRN Constipation 04/07/22 04/07/22 Unknown History calcium polycarbophil 625 mg tablet 1,250 mg PO DAILY 04/07/22 04/07/22 04/07/22 History carbidopa 25 mg-levodopa 100 mg 1 tab PO QID 04/07/22 04/07/22 04/07/22 History tablet cholecalciferol (vitamin D3) 25 25 mcg PO DAILY 04/07/22 04/07/22 04/07/22 History mcg (1,000 unit) tablet dextromethorphan-guaifenesin 10 10 ml PO Q4H PRN Cough 04/07/22 04/07/22 Unknown History mg-100 mg/5 mL oral liquid divalproex 125 mg capsule,delayed 375 mg PO DAILY@1400 04/07/22 04/07/22 04/07/22 History release sprinkle divalproex 125 mg capsule,delayed 500 mg PO BID 04/07/22 04/07/22 04/07/22 History release sprinkle (Depakote Sprinkles) docusate sodium 100 mg capsule 100 mg PO BID 04/07/22 04/07/22 04/07/22 History (Colace) furosemide 40 mg tablet 40 mg PO BID@0900,1400 04/07/22 04/07/22 04/07/22 History levalbuterol tartrate 45 2 inh inhalation Q6H PRN 04/07/22 04/07/22 Unknown History mcg/actuation aerosol inhaler sob/wheezing loperamide 2 mg tablet 2 mg PO QID PRN Loose Stool 04/07/22 04/07/22 Unknown H istory lorazepam 0.5 mg tablet 0.5 mg PO BEDTIME 04/07/22 04/07/22 04/06/22 History lorazepam 0.5 mg tablet 0.5 mg PO TID PRN Anxiety 04/07/22 04/07/22 Unknown History metoprolol tartrate 25 mg tablet 12.5 mg PO BID@0900,1700 04/07/22 04/07/22 04/07/22 History olanzapine 10 mg tablet 10 mg PO BEDTIME 04/07/22 04/07/22 04/06/22 History olanzapine 2.5 mg tablet 7.5 mg PO DAILY 04/07/22 04/07/22 04/07/22 History ondansetron 4 mg disintegrating 4 mg PO Q6H PRN Vomiting 04/07/22 04/07/22 Unknown History tablet polyethylene glycol 3350 17 17 g PO DAILY PRN Constipation 04/07/22 04/07/22 Unknown History gram/dose oral powder (Miralax) pramipexole 0.5 mg tablet 0.5 mg PO BID@0900,1700 04/07/22 04/07/22 04/07/22 History sennosides 8.6 mg tablet (senna) 8.6 mg PO DAILY PRN Constipation 04/07/22 04/07/22 Unknown History simvastatin 40 mg tablet 40 mg PO BEDTIME 04/07/22 04/07/22 04/06/22 History tamsulosin 0.4 mg capsule 0.8 mg PO BEDTIME 04/07/22 04/07/22 04/06/22 History Physical Exam Vital Signs: Vital Signs: Last Vital Signs Temp 98.0 F 04/09/22 11:39 Pulse 84 04/09/22 11:39 Resp 16 04/09/22 11:39 BP 109/62 04/09/22 11:39 Pulse Ox 97 04/09/22 11:39 O2 Del Method 04/09/22 11:39 O2 Flow Rate 3 04/09/22 11:39 Oxygen Flow Rate 1 04/07/22 16:44 BMI result Body Mass Index 34.2 Const: Other: Conversant although may be unreliable General: comfortable and no acute distress Resp: Effort & Inspection: normal respiratory effort Cardio: Rate: regular rate GI: Palpation (GI): Soft to palpation, not firm and nontender Extrem: Other: anterior boo with a hematoma, about 2.5 cm in diameter, with mild redness, no evidence of any abscess at this time Results Labs Result diagrams: 04/10/22 06:48 04/10/22 06:48 Labs: Abnormal lab results 04/08/22 04/09/22 04/09/22 Range/Units 14:38 03:24 03:24 WBC 11.5 H (4.8-10.8) X10*3/uL RBC 3.98 L (4.60-5.80) X10*6/uL Hgb 11.9 L (14.0-18.0) g/dl Hct 36.5 L (42.0-52.0) % MPV 8.7 L (9.4-12.4) fL aPTT Heparin Protocol 50.7 L D (53-77.9) SEC Sodium 133 L (135-145) mmol/L Chloride 95 L (96-108) mmol/L BUN 22 H (9-16) mg/dL Random Glucose 131 H (60-115) mg/dL 04/09/22 04/09/22 Range/Units 07:00 09:02 WBC (4.8-10.8) X10*3/uL RBC (4.60-5.80) X10*6/uL Hgb (14.0-18.0) g/dl Hct (42.0-52.0) % MPV (9.4-12.4) fL aPTT Heparin Protocol 48.7 L > 200.0 H* D (53-77.9) SEC Sodium (135-145) mmol/L Chloride (96-108) mmol/L BUN (9-16) mg/dL Random Glucose (60-115) mg/dL Short CBC 04/09/22 Range/Units 03:24 WBC 11.5 H (4.8-10.8) X10*3/uL Hgb 11.9 L (14.0-18.0) g/dl Hct 36.5 L (42.0-52.0) % Plt Count 217 (160-400) X10*3/uL BMP 04/09/22 03:24 Sodium 133 L Potassium 4.1 Chloride 95 L Carbon Dioxide 29 BUN 22 H Creatinine 0.99 Calcium 9.3 Urine 04/07/22 Range/Units 17:13 Urine Color Yellow Urine Appearance Clear Urine pH 7.0 (5.0-9.0) Ur Specific [place] 1.010 (1.005-1.025) Urine Protein Negative (Neg-Trace) mg/dL Urine Glucose (UA) Negative (Negative) mg/dL All other labs normal. Imaging Additional studies: Laboratory Results WBC 11.5 X10*3/uL (4.8-10.8) H 04/09/22 03:24 RBC 3.98 X10*6/uL (4.60-5.80) L 04/09/22 03:24 Hgb 11.9 g/dl (14.0-18.0) L 04/09/22 03:24 Hct 36.5 % (42.0-52.0) L 04/09/22 03:24 MCV 91.7 fL (80.0-98.0) 04/09/22 03:24 MCH 29.9 pg (27.0-33.0) 04/09/22 03:24 MCHC 32.6 g/dl (31.0-36.0) 04/09/22 03:24 RDW 14.4 % (11.0-16.0) 04/09/22 03:24 Plt Count 217 X10*3/uL (160-400) 04/09/22 03:24 MPV 8.7 fL (9.4-12.4) L 04/09/22 03:24 Immature Gran % (Auto) 0.4 % (0.0-0.4) 04/08/22 06:06 Neut % (Auto) 72.6 % (45-73) 04/08/22 06:06 Lymph % (Auto) 16.5 % (20-40) L 04/08/22 06:06 [place] % (Auto) 9.0 % (2-11) 04/08/22 06:06 Eos % (Auto) 1.2 % (0-4) 04/08/22 06:06 Baso % (Auto) 0.3 % (0-2) 04/08/22 06:06 Lymph # (Auto) 2.0 X10*3/uL (1.2-4.9) 04/08/22 06:06 [place] # (Auto) 1.1 X10*3/uL (0.1-1.2) 04/08/22 06:06 Eos # (Auto) 0.1 X10*3/uL (0.0-0.4) 04/08/22 06:06 Baso # (Auto) 0.0 X10*3/uL (0.0-0.2) 04/08/22 06:06 Abs Immat Gran (auto) 0.05 X10*3/uL (0.00-0.03) H 04/08/22 06:06 Absolute Neuts (auto) 8.6 x10*3/uL (2.0-8.3) H 04/08/22 06:06 Absolute Nucleated RBC 0.000 X10*3/uL (0.0-0.012) 04/09/22 03:24 Nucleated RBC % (auto) 0.0 /100WBC (0.0-0.2) 04/09/22 03:24 PT 14.1 SEC (10.0-13.1) H 04/08/22 06:06 INR 1.2 (0.9-1.1) H 04/08/22 06:06 APTT 33.5 SEC (26.0-36.4) 04/08/22 06:06 aPTT Heparin Protocol > 200.0 SEC (53-77.9) H* D 04/09/22 09:02 VBG pH 7.45 (7.32-7.43) H 04/07/22 22:13 VBG pCO2 49 mmHg 04/07/22 22:13 VBG pO2 47 mmHg 04/07/22 22:13 VBG HCO3 34 mmol/L (22-26) H 04/07/22 22:13 VBG O2 Saturation 71.0 % 04/07/22 22:13 VBG Base Excess 9.6 mmol/L 04/07/22 22:13 Sodium 133 mmol/L (135-145) L 04/09/22 03:24 Potassium 4.1 mmol/L (3.3-5.1) 04/09/22 03:24 Chloride 95 mmol/L (96-108) L 04/09/22 03:24 Carbon Dioxide 29 mmol/L (22-29) 04/09/22 03:24 Anion Gap 13 (12-20) 04/09/22 03:24 BUN 22 mg/dL (9-16) H 04/09/22 03:24 Creatinine 0.99 mg/dL (0.5-1.4) 04/09/22 03:24 Estim Creat Clear Calc 68.9 04/09/22 03:24 Estimated GFR > 60 04/09/22 03:24 Random Glucose 131 mg/dL (60-115) H 04/09/22 03:24 Lactic Acid 1.5 mmol/L (0.5-2.0) 04/07/22 17:12 Calcium 9.3 mg/dL (8.4-10.2) 04/09/22 03:24 Magnesium 2.1 mg/dL (1.6-2.6) 04/07/22 17:12 Total Bilirubin 0.7 mg/dL (0.0-1.0) 04/07/22 17:12 Direct Bilirubin 0.3 mg/dL (0.0-0.5) 04/07/22 17:12 AST 29 U/L (5-37) 04/07/22 17:12 ALT < 6 U/L (0-40) 04/07/22 17:12 Alkaline Phosphatase 74 U/L (39-117) 04/07/22 17:12 Ammonia 30 umol/L (13-55) 04/07/22 18:38 Lactate Dehydrogenase 272 U/L (118-273) 04/08/22 06:06 Troponin I High Sens > 3600.0 ng/L (<3.5-35.0) H* 04/07/22 19:15 B-Natriuretic Peptide 603 pg/mL (<100) H 04/07/22 17:12 Total Protein 6.9 g/dL (6.5-8.0) 04/07/22 17:12 Albumin 3.5 g/dL (3.5-5.0) 04/07/22 17:12 Lipase 23 U/L (8-78) 04/07/22 17:12 Prostate Specific Ag 307.33 ng/mL (<0.05-4.0) H 04/08/22 06:06 Urine Color Yellow 04/07/22 17:13 Urine Appearance Clear 04/07/22 17:13 Urine pH 7.0 (5.0-9.0) 04/07/22 17:13 Ur Specific [place] 1.010 (1.005-1.025) 04/07/22 17:13 Urine Protein Negative mg/dL (Neg-Trace) 04/07/22 17:13 Urine Glucose (UA) Negative mg/dL (Negative) 04/07/22 17:13 Urine Ketones Negative mg/dL (Negative) 04/07/22 17:13 Urine Blood Trace (Negative) H 04/07/22 17:13 Urine Nitrite Positive (Negative) H 04/07/22 17:13 Ur Leukocyte Esterase Trace (Negative) H 04/07/22 17:13 Urine RBC 3-5 /HPF (0-2) H 04/07/22 17:13 Urine WBC 0-5 /HPF (0-5) 04/07/22 17:13 Ur Squamous Epith Cells 0-2 /HPF (0-2) 04/07/22 17:13 Urine Bacteria 3+ (None Seen) 04/07/22 17:13 Hyaline Casts 0-2 /LPF (0-2) 04/07/22 17:13 Urine Opiates Screen Not Detected (Not Detect) 04/07/22 17:13 Urine Fentanyl Screen Not Detected (Not Detect) 04/07/22 17:13 Ur Barbiturates Screen Not Detected (Not Detect) 04/07/22 17:13 Ur Phencyclidine Scrn Not Detected (Not Detect) 04/07/22 17:13 Ur Amphetamines Screen Not Detected (Not Detect) 04/07/22 17:13 U Benzodiazepines Scrn Not Detected (Not Detect) 04/07/22 17:13 Urine Cocaine Screen Not Detected (Not Detect) 04/07/22 17:13 U Marijuana (THC) Screen Not Detected (Not Detect) 04/07/22 17:13 Influenza Type A (PCR) NEGATIVE (Negative) 04/07/22 18:37 Influenza Type B (PCR) NEGATIVE (Negative) 04/07/22 18:37 RSV RNA Qual (PCR) NEGATIVE (Negative) 04/07/22 18:37 SARS-CoV-2 RNA (RT-PCR) NEGATIVE (Negative) 04/07/22 18:37 Impressions Chest X-Ray 04/07/22 17:25 IMPRESSION: Low lung volumes with minimal bibasilar subsegmental atelectasis. No acute pulmonary process. Tibia/Fibula X-Ray 04/07/22 18:21 IMPRESSION: 1. No acute osseous injury or radiographic evidence of advanced osteomyelitis. 2. Diffuse subcutaneous edema and reticulation. No tracking soft tissue gas. Cervical Spine CT 04/07/22 18:23 IMPRESSION: Moderate diffuse degenerative changes of the cervical spine without compression deformity. Fleischner guidelines were followed. Head CT 04/07/22 18:23 IMPRESSION: 1. No acute intracranial hemorrhage or acute edematous territorial infarct. 2. No calvarial fracture. Findings were communicated directly to Madison Valenzuela NP at time of initial exam interpretation 6:25 PM 04/07/2022. Abdomen/Pelvis CT 04/07/22 18:40 IMPRESSION: 1. New extensive retroperitoneal adenopathy. 2. 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 3. Other incidental findings as described above. Fleischner guidelines were followed. Chest CTA 04/07/22 18:40 IMPRESSION: 1. No evidence of pulmonary emboli. 2. Dilated main pulmonary artery suggesting pulmonary hypertension. 3. Left ventricular hypertrophy. 4. Hepatic steatosis VTE: negative Assessment and Plan (1) Hematoma of lower leg: Status: Acute He has what appears to be hematoma of his right lower leg after he had fallen. I would not open this up nor drain this at this point. He has multiple acute m edical issues currently. He is being treated for a PE and he has CHF. I have reapplied the [place] bandage over his leg. I would allow his hematoma to self resorbed. I will follow along while he is in the hospital. The rest of his care will be as per the hospitalist service. Procedures Date of Service Date of Service: 04/09/22
[2022-04-09] MEDS: Heparin Sodium,Porcine/1/2NS 25,000 UNIT/250 ML IV.SOLN 15.11 UNIT IVCONT (13:13)
[2022-04-09] MEDS: Carbidopa/Levodopa 25/100 TABLET 1 TAB PO ×3 (13:13→17:46)
[2022-04-09] MEDS: Divalproex Sodium Sprinkles 125 MG CAP.DR.SPR 375 MG PO (13:13)
[2022-04-09] MEDS: Famotidine/PF 20 MG/2 ML VIAL IVPUSH (13:59)
[2022-04-09] MEDS: diphenhydrAMINE HCL 50 MG/ML VIAL 25 MG IVPUSH (13:59)
[2022-04-09] MEDS: methylPREDNISolone Sod Succ 125 MG/2 ML VIAL 60 MG IVPUSH (14:00)
--- NOTE | 2022-04-09 14:05 | HO.PM.IMPN ---
Subjective Subjective Date of Service: 04/09/22 Interval History: seen and examined this morning follow up for CHF, NSTEMI reporting right leg pain. states he bumped his leg on his son's car a few weeks ago and there has been bump on his leg since. Review of Systems Review of Systems: Yes all other systems are reviewed and are negative Constitutional Constitutional: Denies chills and Denies fever(s) Cardiovascular Cardiovascular: Denies chest pain, Denies palpitations and Reports dyspnea Respiratory Respiratory: Denies cough and Reports dyspnea Gastrointestinal Gastrointestinal: Denies abdominal pain Endocrine Endocrine: Denies palpitations Physical Exam Vital Signs: Vital Signs: Last Vital Signs Temp 98.0 F 04/09/22 11:39 Pulse 84 04/09/22 11:39 Resp 16 04/09/22 11:39 BP 109/62 04/09/22 11:39 Pulse Ox 97 04/09/22 11:39 O2 Del Method 04/09/22 11:39 O2 Flow Rate 3 04/09/22 11:39 Oxygen Flow Rate 1 04/07/22 16:44 BMI result Body Mass Index 34.2 Const: General: alert and awake Nutritional Appearance: overweight Orientation/consciousness: patient oriented x3 Resp: Effort & Inspection: able to speak in complete sentences and tachypneic Auscultation: crackles and wheezes Cardio: Rate: regular rate Heart sounds: Murmur heart sound present GI: Inspection: No distended Palpation (GI): Soft to palpation Neuro: Other: b/l upper extremity tremors General: patient oriented x3 Extrem: General: Yes no pedal edema Objective Data Active Medications Acetaminophen (Acetaminophen 325 Mg Tablet) 650 mg PO Q6H PRN PRN Reason: Pain, Mild (Pain Scale 1-3) Last Admin: 04/08/22 18:33 Dose: 650 mg Documented By: MEDARDO Aspirin (Aspirin 81 Mg Tab.Chew) 81 mg PO DAILY [facility] Last Admin: 04/09/22 08:26 Dose: 81 mg Documented By: BLANQUITA Atorvastatin Calcium (Atorvastatin Calcium 40 Mg Tablet) 40 mg PO BEDTIME [facility] Last Admin: 04/08/22 20:37 Dose: 40 mg Documented By: RENATE Atorvastatin Calcium (Atorvastatin Calcium 20 Mg Tablet) 20 mg PO BEDTIME [facility] Carbidopa/Levodopa (Carbidopa/Levodopa 25/100 Tablet) 1 tab PO QID [facility] Last Admin: 04/09/22 13:13 Dose: 1 tab Documented By: BLANQUITA Divalproex Sodium (Divalproex Sodium Sprinkles 125 Mg ) 500 mg PO BID [facility] Divalproex Sodium (Divalproex Sodium Sprinkles 125 Mg ) 375 mg PO DAILY@1400 [facility] Last Admin: 04/09/22 13:13 Dose: 375 mg Documented By: BLANQUITA Docusate Sodium (Docusate Sodium 100 Mg Capsule) 100 mg PO DAILY PRN PRN Reason: Constipation Docusate Sodium (Docusate Sodium 100 Mg Capsule) 100 mg PO BID [facility] Furosemide (Furosemide 40 Mg/4 Ml Vial) 40 mg IVPUSH BID@0900,1800 [facility]; Protocol Last Admin: 04/09/22 08:26 Dose: 40 mg Documented By: BLANQUITA Heparin Sodium (Porcine) (Heparin Sodium,Porcine 5,000 Unit/Ml Vial) 4,100 unit 40 unit/kg (4100 unit) IVPUSH PROTOCOL BOLUS PRN; Protocol PRN Reason: 40 unit/kg - Heparin Protocol Last Admin: 04/09/22 08:27 Dose: 4,100 unit Documented By: BLANQUITA Heparin Sodium (Porcine) (Heparin Sodium,Porcine 5,000 Unit/Ml Vial) 8,200 unit 80 unit/kg (8200 unit) IVPUSH PROTOCOL BOLUS PRN; Protocol PRN Reason: 80 unit/kg - Heparin Protocol Heparin Sodium/Sodium Chloride (Heparin Sodium,Porcine/1/2ns) 25,000 unit in 250 mls @ 0 mls/hr IVCONT .Q0M [facility]; Protocol Last Admin: 04/09/22 13:13 Dose: 14.78 units/kg/hr, 15.11 mls/hr Documented By: BLANQUITA Co-signed By: DOBROB Lorazepam (Lorazepam 0.5 Mg Tablet) 0.5 mg PO TID PRN PRN Reason: Anxiety Metoprolol Tartrate (Metoprolol Tartrate 12.5 Mg Halftab) 12.5 mg PO BID@0900,1700 [facility]; Protocol Olanzapine (Olanzapine 10 Mg Tablet) 10 mg PO BEDTIME [facility] Olanzapine (Olanzapine 2.5 Mg Tablet) 7.5 mg PO DAILY [facility] Ondansetron HCl (Ondansetron Hcl 4 Mg/2 Ml Vial) 4 mg IVPUSH Q8H PRN PRN Reason: Nausea and Vomiting Tamsulosin HCl (Tamsulosin Hcl 0.4 Mg Capsule) 0.8 mg PO BEDTIME [facility] Labs CBC & Chem 7: 04/09/22 03:24 04/09/22 03:24 Labs: Laboratory Results - last 24 hr 04/08/22 04/08/22 04/09/22 14:38 20:35 03:24 MCV MCH MCHC RDW Plt Count MPV Absolute Nucleated RBC Nucleated RBC % (auto) aPTT Heparin Protocol 50.7 L D 60.8 60.7 Anion Gap Estim Creat Clear Calc Estimated GFR Random Glucose Calcium 04/09/22 04/09/22 04/09/22 03:24 03:24 07:00 MCV 91.7 MCH 29.9 MCHC 32.6 RDW 14.4 Plt Count 217 MPV 8.7 L Absolute Nucleated RBC 0.000 Nucleated RBC % (auto) 0.0 aPTT Heparin Protocol 48.7 L Anion Gap 13 Estim Creat Clear Calc 68.9 Estimated GFR > 60 Random Glucose 131 H Calcium 9.3 04/09/22 09:02 MCV MCH MCHC RDW Plt Count MPV Absolute Nucleated RBC Nucleated RBC % (auto) aPTT Heparin Protocol > 200.0 H* D Anion Gap Estim Creat Clear Calc Estimated GFR Random Glucose Calcium Microbiology Microbiology Results: Microbiology 04/07/22 17:41 Urine Culture - Preliminary Urine clean catch - Urine cotto top Gram negative wood 04/07/22 18:35 Blood Culture - Preliminary Blood - Venous No growth after 24 hours. 04/07/22 17:12 Blood Culture - Preliminary Blood - Venous No growth after 24 hours. Assessment and Plan (1) Hematoma of lower leg: Status: Acute (2) Prostate cancer metastatic to intraabdominal lymph node: Status: Acute (3) Aortic stenosis: Status: Acute (4) Congestive heart failure (CHF): Status: Acute (5) Acute non-ST elevation myocardial infarction (NSTEMI): Status: Acute Plan 82-year-old male with past medical history of schizoaffective disorder, hypertension, presents to the hospital? from [facility] after having a fall and becoming more altered Skin rash nurse reported skin rash this afternoon not previously noted. possible r/t to abx will stop ceftriaxone will treat with iv benadryl, solu-medrol, pepcid monitor closely Acute on chronic HFpEF continue IV lasix cardiology following Toxic metabolic encephalopathy. improving. appears to be at baseline head CT negative for acute findings patient has an active UTI, as well as?what appears to be in NSTEMI baseline according to charts reviewed from [facility] show patient to be alert, oriented to self and place and can have conversations Acute UTI Urine culture growing GNR will stop ceftriaxone due to possible allergy will change to levaquin follow final urine cultures. blood cultures negative to date NSTEMI has a troponin of more than 3600 plan for heparin GGT x 48 hours echocardiogram with no WMA cardiology following continue aspirin, statin Metastatic?cancer to the bone likely primary is prostate as he has history of prostatic cancer seen by Hematology-Oncology - recommend outpatient follow up Parkinson's disease continue sinemet Hypertension continue metoprolol Mood continue home meds DVT prophylaxis: Heparin ggt Attending Dr. Paz code status:? DNR DNI from [facility] Patient requires ongoing inpatient hospitalization for management of NSTEMI, CHF Quality Stroke Does the patient have a stroke diagnosis?: No VTE Prior VTE?: No VTE Risk Level:: Medical - moderate - high VTE Device Contraindication: Treatment Not Indicated VTE Drug Contraindication: N/A - Med Ordered
[2022-04-09 14:56] LABS: PTT Heparin Drip 64.2 SEC (53-77.9)
[2022-04-09] MEDS: Metoprolol Tartrate 12.5 MG HALFTAB PO (17:40)
[2022-04-09] MEDS: Pramipexole Di-HCL 0.25 MG TABLET 0.5 MG PO (17:45)
[2022-04-09] MEDS: levoFLOXacin/D5W 500 MG/100 ML PIGGYBACK 100 MG IV (20:40)
[2022-04-09] MEDS: Atorvastatin Calcium 40 MG TABLET PO (20:45)
[2022-04-09] MEDS: Tamsulosin HCL 0.4 MG CAPSULE 0.8 MG PO (20:45)
[2022-04-09] MEDS: OLANZapine 10 MG TABLET PO (20:45)
[2022-04-09] MEDS: Divalproex Sodium Sprinkles 125 MG CAP.DR.SPR 500 MG PO (20:46)
[2022-04-09] MEDS: Docusate Sodium 100 MG CAPSULE PO (20:47)
[2022-04-09] MEDS: LORazepam 0.5 MG TABLET PO (23:07)
[2022-04-10] VITALS (7 sets, daily range): BP systolic 115–143; BP diastolic 58–71; PULSE 50–67; RESP 16–20; TEMP 36.3–37.3; O2SAT 94–98
--- NOTE | 2022-04-10 | ECG_ITS ---
Test Reason : ? afib Blood Pressure : / mmHG Vent. Rate : 060 BPM Atrial Rate : 060 BPM P-R Int : 158 ms QRS Dur : 166 ms QT Int : 468 ms P-R-T Axes : 054 -62 089 degrees QTc Int : 468 ms Normal sinus rhythm Left axis deviation Right bundle branch block Left ventricular hypertrophy with repolarization abnormality ( R in aVL , Romhilt-Myles ) Abnormal ECG When compared with ECG of 07-APR-2022 18:56, No significant changes seen Referred By: Elizabeth Georges Electronically Signed By:Reinaldo Jack
[2022-04-10 07:41] LABS: Hematocrit 35.5 % (42.0-52.0); Hemoglobin 11.2 g/dl (14.0-18.0); Mean Corpuscular HGB Conc 31.5 g/dl (31.0-36.0); Mean Corpuscular Hemoglobin 29.2 pg (27.0-33.0); Mean Corpuscular Volume 92.4 fL (80.0-98.0); Mean Platelet Volume 9.2 fL (9.4-12.4); Platelet Count 270 X10*3/uL (160-400); Red Blood Count 3.84 X10*6/uL (4.60-5.80); Red Cell Distribution Width 14.1 % (11.0-16.0); White Blood Count 14.2 X10*3/uL (4.8-10.8)
[2022-04-10 07:55] LABS: Anion Gap 13 (12-20); Blood Urea Nitrogen 31 mg/dL (9-16); Calcium 9.6 mg/dL (8.4-10.2); Carbon Dioxide 31 mmol/L (22-29); Chloride 97 mmol/L (96-108); Creatinine Clr Calc Pharmacy 70.3; Estimated Glomerular Filt Rate > 60; Glucose Random 124 mg/dL (60-115); Potassium 4.5 mmol/L (3.3-5.1); Sodium 136 mmol/L (135-145)
[2022-04-10] MEDS: Furosemide 40 MG/4 ML VIAL IVPUSH ×2 (09:14→17:08)
[2022-04-10] MEDS: OLANZapine 2.5 MG TABLET 7.5 MG PO (09:14)
[2022-04-10] MEDS: Aspirin 81 MG TAB.CHEW PO (09:15)
[2022-04-10] MEDS: Divalproex Sodium Sprinkles 125 MG CAP.DR.SPR 500 MG PO ×2 (09:15→20:07)
[2022-04-10] MEDS: Pramipexole Di-HCL 0.25 MG TABLET 0.5 MG PO ×2 (09:16→17:08)
[2022-04-10] MEDS: Carbidopa/Levodopa 25/100 TABLET 1 TAB PO ×4 (09:16→20:07)
[2022-04-10] MEDS: Metoprolol Tartrate 12.5 MG HALFTAB PO ×2 (09:17→17:08)
[2022-04-10] MEDS: Docusate Sodium 100 MG CAPSULE PO ×2 (09:19→20:07)
--- NOTE | 2022-04-10 10:45 | P.PNGS_ITS ---
Subjective Subjective Date of Service: 04/10/22 Interval history: no new complaints tolerating diet well describes pain on right lower leg Physical Exam Vital Signs: Vital Signs: Last Vital Signs Temp 97.3 F 04/10/22 07:47 Pulse 67 04/10/22 07:47 Resp 20 04/10/22 07:47 BP 123/63 04/10/22 07:47 Pulse Ox 97 04/10/22 07:47 O2 Del Method 04/10/22 07:47 O2 Flow Rate 3 04/10/22 07:47 Oxygen Flow Rate 1 04/07/22 16:44 BMI result Body Mass Index 34.2 Const: Other: conversant has tremors General: comfortable and no acute distress Resp: Effort & Inspection: normal respiratory effort Cardio: Rate: regular rate GI: Palpation (GI): Soft to palpation, not firm and nontender Extrem: Other: large hematoma on the right lower leg anteriorly, no cellulitis or drainage Objective Data Active Medications Acetaminophen (Acetaminophen 325 Mg Tablet) 650 mg PO Q6H PRN PRN Reason: Pain, Mild (Pain Scale 1-3) Last Admin: 04/08/22 18:33 Dose: 650 mg Documented By: MEDARDO Albuterol Sulfate (Albuterol Sulfate 90 Mcg 8 Gm Inhaler) 2 puff INHALE Q6H PRN PRN Reason: sob/wheezing Aspirin (Aspirin 81 Mg Tab.Chew) 81 mg PO DAILY [facility] Last Admin: 04/10/22 09:15 Dose: 81 mg Documented By: BLANQUITA Atorvastatin Calcium (Atorvastatin Calcium 40 Mg Tablet) 40 mg PO BEDTIME [facility] Last Admin: 04/09/22 20:45 Dose: 40 mg Documented By: RENATE Carbidopa/Levodopa (Carbidopa/Levodopa 25/100 Tablet) 1 tab PO QID [facility] Last Admin: 04/10/22 09:16 Dose: 1 tab Documented By: BLANQUITA Divalproex Sodium (Divalproex Sodium Sprinkles 125 Mg ) 500 mg PO BID [facility] Last Admin: 04/10/22 09:15 Dose: 500 mg Documented By: BLANQUITA Divalproex Sodium (Divalproex Sodium Sprinkles 125 Mg ) 375 mg PO DAILY@1400 [facility] Last Admin: 04/09/22 13:13 Dose: 375 mg Documented By: BLANQUITA Docusate Sodium (Docusate Sodium 100 Mg Capsule) 100 mg PO DAILY PRN PRN Reason: Constipation Docusate Sodium (Docusate Sodium 100 Mg Capsule) 100 mg PO BID [facility] Last Admin: 04/10/22 09:19 Dose: 100 mg Documented By: BLANQUITA Furosemide (Furosemide 40 Mg/4 Ml Vial) 40 mg IVPUSH BID@0900,1800 [facility]; Protocol Last Admin: 04/10/22 09:14 Dose: 40 mg Documented By: BLANQUITA Heparin Sodium (Porcine) (Heparin Sodium,Porcine 5,000 Unit/Ml Vial) 4,100 unit 40 unit/kg (4100 unit) IVPUSH PROTOCOL BOLUS PRN; Protocol PRN Reason: 40 unit/kg - Heparin Protocol Last Admin: 04/09/22 08:27 Dose: 4,100 unit Documented By: BLANQUITA Heparin Sodium (Porcine) (Heparin Sodium,Porcine 5,000 Unit/Ml Vial) 8,200 unit 80 unit/kg (8200 unit) IVPUSH PROTOCOL BOLUS PRN; Protocol PRN Reason: 80 unit/kg - Heparin Protocol Levofloxacin (Levaquin) 500 mg in 100 mls @ 100 mls/hr IV Q24H [facility] Last Infusion: 04/09/22 21:50 Dose: 0 mls/hr Documented By: RENATE Lorazepam (Lorazepam 0.5 Mg Tablet) 0.5 mg PO TID PRN PRN Reason: Anxiety Last Admin: 04/09/22 23:07 Dose: 0.5 mg Documented By: RENATE Metoprolol Tartrate (Metoprolol Tartrate 12.5 Mg Halftab) 12.5 mg PO BID@0900,1700 [facility]; Protocol Last Admin: 04/10/22 09:17 Dose: 12.5 mg Documented By: BLANQUITA Olanzapine (Olanzapine 10 Mg Tablet) 10 mg PO BEDTIME [facility] Last Admin: 04/09/22 20:45 Dose: 10 mg Documented By: RENATE Olanzapine (Olanzapine 2.5 Mg Tablet) 7.5 mg PO DAILY [facility] Last Admin: 04/10/22 09:14 Dose: 7.5 mg Documented By: BLANQUITA Pramipexole Dihydrochloride (Pramipexole Di-Hcl 0.25 Mg Tablet) 0.5 mg PO BID@0900,1700 [facility] Last Admin: 04/10/22 09:16 Dose: 0.5 mg Documented By: BLANQUITA Tamsulosin HCl (Tamsulosin Hcl 0.4 Mg Capsule) 0.8 mg PO BEDTIME [facility] Last Admin: 04/09/22 20:45 Dose: 0.8 mg Documented By: RENATE Labs CBC & Chem 7: 04/10/22 06:48 04/10/22 06:48 Labs: Laboratory Results - last 24 hr 04/09/22 04/10/22 04/10/22 14:38 06:48 06:48 MCV 92.4 MCH 29.2 MCHC 31.5 RDW 14.1 Plt Count 270 MPV 9.2 L Absolute Nucleated RBC 0.000 Nucleated RBC % (auto) 0.0 aPTT Heparin Protocol 64.2 D Anion Gap 13 Estim Creat Clear Calc 70.3 Estimated GFR > 60 Random Glucose 124 H Calcium 9.6 Microbiology Microbiology Results: Microbiology 04/07/22 17:41 Urine Culture - Final Urine clean catch - Urine cotto top Pseudomonas aeruginosa Enterobacter cloacae complex 04/07/22 18:35 Blood Culture - Preliminary Blood - Venous No growth after 48 hours. 04/07/22 17:12 Blood Culture - Preliminary Blood - Venous No growth after 48 hours. Procedures Date of Service Date of Service: 04/10/22 Progress Note: A&P Assessment and plan (1) Hematoma of lower leg: Status: Acute Assessment and Plan: not infected dressings changed would allow self resorption of hematoma warm compresses may help hasten process of resorption no debridement or evacuation needed at this time Time Spent With Patient Time: Total time spent is greater than 50% in coordination of care (as documented) at patient's floor/unit and/or counseling patient: Quality Stroke Does the patient have a stroke diagnosis?: No VTE Prior VTE?: No VTE Risk Level:: Medical - moderate - high VTE Device Contraindication: Treatment Not Indicated VTE Drug Contraindication: N/A - Med Ordered
--- NOTE | 2022-04-10 12:12 | HO.PM.IMPN ---
Subjective Subjective Date of Service: 04/10/22 Interval History: seen and examined this morning follow up for UTI, CHF, NSTEMI rash improving had a better night. intermittent SOB Review of Systems Review of Systems: Yes all other systems are reviewed and are negative Constitutional Constitutional: Denies chills and Denies fever(s) Cardiovascular Cardiovascular: Denies chest pain, Denies palpitations and Reports dyspnea Respiratory Respiratory: Denies cough and Reports dyspnea Gastrointestinal Gastrointestinal: Denies abdominal pain Endocrine Endocrine: Denies palpitations Physical Exam Vital Signs: Vital Signs: Last Vital Signs Temp 97.9 F 04/10/22 11:09 Pulse 54 04/10/22 11:09 Resp 20 04/10/22 11:09 BP 115/58 L 04/10/22 11:09 Pulse Ox 97 04/10/22 11:09 O2 Del Method 04/10/22 11:09 O2 Flow Rate 3 04/10/22 11:09 Oxygen Flow Rate 1 04/07/22 16:44 BMI result Body Mass Index 34.2 Const: General: alert and awake Nutritional Appearance: overweight Orientation/consciousness: patient oriented x3 Resp: Effort & Inspection: able to speak in complete sentences and tachypneic Auscultation: crackles and wheezes Cardio: Rate: regular rate Heart sounds: Murmur heart sound present GI: Inspection: No distended Palpation (GI): Soft to palpation Neuro: Other: b/l upper extremity tremors General: patient oriented x3 Extrem: General: Yes no pedal edema Objective Data Active Medications Acetaminophen (Acetaminophen 325 Mg Tablet) 650 mg PO Q6H PRN PRN Reason: Pain, Mild (Pain Scale 1-3) Last Admin: 04/08/22 18:33 Dose: 650 mg Documented By: MEDARDO Albuterol Sulfate (Albuterol Sulfate 90 Mcg 8 Gm Inhaler) 2 puff INHALE Q6H PRN PRN Reason: sob/wheezing Aspirin (Aspirin 81 Mg Tab.Chew) 81 mg PO DAILY [facility] Last Admin: 04/10/22 09:15 Dose: 81 mg Documented By: BLANQUITA Atorvastatin Calcium (Atorvastatin Calcium 40 Mg Tablet) 40 mg PO BEDTIME [facility] Last Admin: 04/09/22 20:45 Dose: 40 mg Documented By: RENATE Carbidopa/Levodopa (Carbidopa/Levodopa 25/100 Tablet) 1 tab PO QID [facility] Last Admin: 04/10/22 09:16 Dose: 1 tab Documented By: BLANQUITA Divalproex Sodium (Divalproex Sodium Sprinkles 125 Mg ) 500 mg PO BID [facility] Last Admin: 04/10/22 09:15 Dose: 500 mg Documented By: BLANQUITA Divalproex Sodium (Divalproex Sodium Sprinkles 125 Mg ) 375 mg PO DAILY@1400 [facility] Last Admin: 04/09/22 13:13 Dose: 375 mg Documented By: BLANQUITA Docusate Sodium (Docusate Sodium 100 Mg Capsule) 100 mg PO DAILY PRN PRN Reason: Constipation Docusate Sodium (Docusate Sodium 100 Mg Capsule) 100 mg PO BID [facility] Last Admin: 04/10/22 09:19 Dose: 100 mg Documented By: BLANQUITA Furosemide (Furosemide 40 Mg/4 Ml Vial) 40 mg IVPUSH BID@0900,1800 [facility]; Protocol Last Admin: 04/10/22 09:14 Dose: 40 mg Documented By: BLANQUITA Heparin Sodium (Porcine) (Heparin Sodium,Porcine 5,000 Unit/Ml Vial) 4,100 unit 40 unit/kg (4100 unit) IVPUSH PROTOCOL BOLUS PRN; Protocol PRN Reason: 40 unit/kg - Heparin Protocol Last Admin: 04/09/22 08:27 Dose: 4,100 unit Documented By: BLANQUITA Heparin Sodium (Porcine) (Heparin Sodium,Porcine 5,000 Unit/Ml Vial) 8,200 unit 80 unit/kg (8200 unit) IVPUSH PROTOCOL BOLUS PRN; Protocol PRN Reason: 80 unit/kg - Heparin Protocol Levofloxacin (Levaquin) 500 mg in 100 mls @ 100 mls/hr IV Q24H [facility] Last Infusion: 04/09/22 21:50 Dose: 0 mls/hr Documented By: RENATE Lorazepam (Lorazepam 0.5 Mg Tablet) 0.5 mg PO TID PRN PRN Reason: Anxiety Last Admin: 04/09/22 23:07 Dose: 0.5 mg Documented By: RENATE Metoprolol Tartrate (Metoprolol Tartrate 12.5 Mg Halftab) 12.5 mg PO BID@0900,1700 [facility]; Protocol Last Admin: 04/10/22 09:17 Dose: 12.5 mg Documented By: BLANQUITA Olanzapine (Olanzapine 10 Mg Tablet) 10 mg PO BEDTIME [facility] Last Admin: 04/09/22 20:45 Dose: 10 mg Documented By: RENATE Olanzapine (Olanzapine 2.5 Mg Tablet) 7.5 mg PO DAILY [facility] Last Admin: 04/10/22 09:14 Dose: 7.5 mg Documented By: BLANQUITA Pramipexole Dihydrochloride (Pramipexole Di-Hcl 0.25 Mg Tablet) 0.5 mg PO BID@0900,1700 [facility] Last Admin: 04/10/22 09:16 Dose: 0.5 mg Documented By: BLANQUITA Tamsulosin HCl (Tamsulosin Hcl 0.4 Mg Capsule) 0.8 mg PO BEDTIME [facility] Last Admin: 04/09/22 20:45 Dose: 0.8 mg Documented By: RENATE Labs CBC & Chem 7: 04/10/22 06:48 04/10/22 06:48 Labs: Laboratory Results - last 24 hr 04/09/22 04/10/22 04/10/22 14:38 06:48 06:48 MCV 92.4 MCH 29.2 MCHC 31.5 RDW 14.1 Plt Count 270 MPV 9.2 L Absolute Nucleated RBC 0.000 Nucleated RBC % (auto) 0.0 aPTT Heparin Protocol 64.2 D Anion Gap 13 Estim Creat Clear Calc 70.3 Estimated GFR > 60 Random Glucose 124 H Calcium 9.6 Microbiology Microbiology Results: Microbiology 04/07/22 17:41 Urine Culture - Final Urine clean catch - Urine cotto top Pseudomonas aeruginosa Enterobacter cloacae complex 04/07/22 18:35 Blood Culture - Preliminary Blood - Venous No growth after 48 hours. 04/07/22 17:12 Blood Culture - Preliminary Blood - Venous No growth after 48 hours. Assessment and Plan (1) Hematoma of lower leg: Status: Acute (2) Congestive heart failure (CHF): Status: Acute (3) Acute non-ST elevation myocardial infarction (NSTEMI): Status: Acute (4) UTI (urinary tract infection): Status: Acute Plan 82-year-old male with past medical history of schizoaffective disorder, hypertension, presents to the hospital? from [facility] after having a fall and becoming more altered Skin rash possible r/t to abx - ceftriaxone stopped s/p benadryl, solu-medrol, pepcid - rash improving Acute on chronic HFpEF continue IV lasix cardiology following Toxic metabolic encephalopathy. improving. appears to be at baseline head CT negative for acute findings baseline according to charts reviewed from [facility] show patient to be alert, oriented to self and place and can have conversations Acute UTI Urine culture growing pseudomoas, enterobacter cloacae complex ceftriaxone stopped due to possible allergy, changed to levaquin 04/09 follow final urine cultures. 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 Paz code status:? DNR DNI from [facility] Patient requires ongoing inpatient hospitalization for management of NSTEMI, CHF Quality Stroke Does the patient have a stroke diagnosis?: No VTE Prior VTE?: No VTE Risk Level:: Medical - moderate - high VTE Device Contraindication: Treatment Not Indicated VTE Drug Contraindication: N/A - Med Ordered
[2022-04-10] MEDS: Divalproex Sodium Sprinkles 125 MG CAP.DR.SPR 375 MG PO (13:39)
[2022-04-10] MEDS: Heparin Sodium,Porcine 5,000 UNIT/ML VIAL 5000 UNIT SUBCUT ×2 (13:40→23:53)
--- NOTE | 2022-04-10 15:46 | MHC.CM.PN ---
Per MD rounds no dc today. Patient needs further management of HF. He is still SOB. DP return to the [facility]. he will travel via BLS.
--- NOTE | 2022-04-10 15:52 | P.PNCA_ITS ---
Subjective Subjective Date of Service: 04/10/22 Interval history: Seen and examined at bedside. Breathing improving. Physical Exam Vital Signs: Last Vital Signs Temp 98.5 F 04/10/22 15:15 Pulse 52 04/10/22 15:15 Resp 16 04/10/22 15:15 BP 116/58 L 04/10/22 15:15 Pulse Ox 98 04/10/22 15:15 O2 Del Method 04/10/22 15:15 O2 Flow Rate 3 04/10/22 11:09 Oxygen Flow Rate 1 04/07/22 16:44 BMI result Body Mass Index 34.2 GENERAL APPEARANCE: In no significant distress. On supplemental oxygen. NECK: no carotid bruit, no significant jugular venous distention. SKIN: no suspicious lesions, warm and dry. HEART: Ejection systolic murmur aortic area with absent 2nd heart sound., regular rate and rhythm. LUNGS: Few crackles both lungs. ABDOMEN: soft, nontender. EXTREMITIES: no edema. PERIPHERAL PULSES: equal. NEUROLOGIC: Parkinsonian tremors in both hands. Objective Labs and Meds Result diagrams: 04/10/22 06:48 04/10/22 06:48 Lab results: Laboratory Results - last 24 hr 04/10/22 04/10/22 06:48 06:48 WBC 14.2 H RBC 3.84 L Hgb 11.2 L Hct 35.5 L MCV 92.4 MCH 29.2 MCHC 31.5 RDW 14.1 Plt Count 270 MPV 9.2 L Absolute Nucleated RBC 0.000 Nucleated RBC % (auto) 0.0 Sodium 136 Potassium 4.5 Chloride 97 Carbon Dioxide 31 H Anion Gap 13 BUN 31 H Creatinine 0.97 Estim Creat Clear Calc 70.3 Estimated GFR > 60 Random Glucose 124 H Calcium 9.6 Progress Note: A&P Assessment and plan (1) Aortic stenosis: Status: Acute (2) Acute non-ST elevation myocardial infarction (NSTEMI): Status: Acute (3) Congestive heart failure (CHF): Status: Acute Plan 82-year-old gentleman who is presenting for confusion secondary to UTI as well as congestive heart failure. He has known history of severe aortic valve stenosis. His echocardiography is showing severe left ventricular hypertrophy without any wall motion abnormalities and hyperdynamic function. It is possible that he has some sort of infiltrative process given significant wall thickness present. He has prostate cancer currently and this is metastatic to bones with extensive bony metastatic disease. He also has Parkinson's disease which affects his mobility. Treated for NSTEMI for 48 hours. I think this was likely due to aortic stenosis and congestive heart failure and not true acute coronary syndrome. Can change to oral diuretics at this stage. Give him incentive spirometer because some of his crackles in the lungs are related to atelectasis and may improve with incentive spirometry. As he improves he can go home and can follow up with [facility] Cardiology Dr. Pagan. Thank you for allowing me to participate in the care of your patient. Please feel free to contact me if you have any questions. Time Spent With Patient Time: Total time spent is greater than 50% in coordination of care (as documented) at patient's floor/unit and/or counseling patient: Progress Note: Quality Stroke Does the patient have a stroke diagnosis?: No Procedures Date of Service Date of Service: 04/10/22
[2022-04-10] MEDS: levoFLOXacin/D5W 500 MG/100 ML PIGGYBACK 100 MG IV (20:06)
[2022-04-10] MEDS: OLANZapine 10 MG TABLET PO (20:07)
[2022-04-10] MEDS: Tamsulosin HCL 0.4 MG CAPSULE 0.8 MG PO (20:07)
[2022-04-10] MEDS: Atorvastatin Calcium 40 MG TABLET PO (20:07)
[2022-04-11] VITALS (10 sets, daily range): BP systolic 106–147; BP diastolic 56–91; PULSE 51–71; RESP 16–22; TEMP 36.4–36.9; O2SAT 88–97
[2022-04-11] MEDS: LORazepam 0.5 MG TABLET PO ×2 (04:05→23:48)
[2022-04-11] MEDS: Acetaminophen 325 MG TABLET 650 MG PO ×2 (04:05→23:48)
[2022-04-11 07:47] LABS: Anion Gap 12 (12-20); Blood Urea Nitrogen 37 mg/dL (9-16); Calcium 9.9 mg/dL (8.4-10.2); Carbon Dioxide 33 mmol/L (22-29); Chloride 95 mmol/L (96-108); Creatinine Clr Calc Pharmacy 66.9; Estimated Glomerular Filt Rate > 60; Glucose Random 94 mg/dL (60-115); Potassium 4.1 mmol/L (3.3-5.1); Sodium 136 mmol/L (135-145)
[2022-04-11] MEDS: Divalproex Sodium Sprinkles 125 MG CAP.DR.SPR 500 MG PO ×2 (09:14→20:58)
[2022-04-11] MEDS: Metoprolol Tartrate 12.5 MG HALFTAB PO ×2 (09:14→17:20)
[2022-04-11] MEDS: Pramipexole Di-HCL 0.25 MG TABLET 0.5 MG PO ×2 (09:14→17:20)
[2022-04-11] MEDS: OLANZapine 2.5 MG TABLET 7.5 MG PO (09:14)
[2022-04-11] MEDS: Furosemide 40 MG TABLET PO ×2 (09:15→15:15)
[2022-04-11] MEDS: Docusate Sodium 100 MG CAPSULE PO ×2 (09:15→20:58)
[2022-04-11] MEDS: Aspirin 81 MG TAB.CHEW PO (09:15)
[2022-04-11] MEDS: Carbidopa/Levodopa 25/100 TABLET 1 TAB PO ×4 (09:15→20:58)
--- NOTE | 2022-04-11 11:16 | P.PNCA_ITS ---
Subjective Subjective Date of Service: 04/11/22 Interval history: Seen and examined at bedside. He has some behavioral issues where he starts breathing quite fast but can calmed down easily by directions. Overall volume status has improved significantly. Right leg is dressed after the injury and hematoma. Physical Exam Vital Signs: Last Vital Signs Temp 97.5 F 04/11/22 07:58 Pulse 57 04/11/22 07:58 Resp 20 04/11/22 07:58 BP 143/75 H 04/11/22 07:58 Pulse Ox 97 04/11/22 07:58 O2 Del Method 04/11/22 07:58 O2 Flow Rate 3.5 04/11/22 07:58 Oxygen Flow Rate 1 04/07/22 16:44 BMI result Body Mass Index 34.2 GENERAL APPEARANCE: In no significant distress. On supplemental oxygen. NECK: no carotid bruit, no significant jugular venous distention. SKIN: no suspicious lesions, warm and dry. HEART: Ejection systolic murmur aortic area with absent 2nd heart sound., regular rate and rhythm. LUNGS: Few crackles both lungs. ABDOMEN: soft, nontender. EXTREMITIES: no edema. PERIPHERAL PULSES: equal. NEUROLOGIC: Parkinsonian tremors in both hands. Objective Labs and Meds Result diagrams: 04/10/22 06:48 04/11/22 06:20 Lab results: Laboratory Results - last 24 hr 04/11/22 06:20 Sodium 136 Potassium 4.1 Chloride 95 L Carbon Dioxide 33 H Anion Gap 12 BUN 37 H Creatinine 1.02 Estim Creat Clear Calc 66.9 Estimated GFR > 60 Random Glucose 94 Calcium 9.9 Progress Note: A&P Assessment and plan (1) Aortic stenosis: Status: Acute (2) Congestive heart failure (CHF): Status: Acute (3) Acute non-ST elevation myocardial infarction (NSTEMI): Status: Acute Plan 82-year-old gentleman who is presenting for confusion secondary to UTI as well as congestive heart failure. He has known history of severe aortic valve stenosis. His echocardiography is showing severe left ventricular hypertrophy without any wall motion abnormalities and hyperdynamic function. It is possible that he has some sort of infiltrative process given significant wall thickness present. He has prostate cancer currently and this is metastatic to bones with extensive bony metastatic disease. He also has Parkinson's disease which affects his mobility. Treated for NSTEMI for 48 hours. I think this was likely due to aortic stenosis and congestive heart failure and not true acute coronary syndrome. On 40 mg p.o. b.i.d. Lasix. Give him incentive spirometer because some of his crackles in the lungs are related to atelectasis and may improve with incentive spirometry. As he improves he can go home and can follow up with [facility] Cardiology Dr. Pagan. Thank you for allowing me to participate in the care of your patient. Please feel free to contact me if you have any questions. Time Spent With Patient Time: Total time spent is greater than 50% in coordination of care (as documented) at patient's floor/unit and/or counseling patient: Progress Note: Quality Stroke Does the patient have a stroke diagnosis?: No Procedures Date of Service Date of Service: 04/11/22
--- NOTE | 2022-04-11 11:20 | P.PNIM_ITS ---
Subjective Subjective Date of Service: 04/11/22 Interval History: seen and examined this morning follow up for CHF reports some cough although thinks his breathing is better. still requiring supplemental oxygen no chest pain, abdominal pain Review of Systems Review of Systems: Yes all other systems are reviewed and are negative Constitutional Constitutional: Denies chills and Denies fever(s) Cardiovascular Cardiovascular: Denies chest pain, Denies palpitations and Denies dyspnea Respiratory Respiratory: Reports cough and Denies dyspnea Gastrointestinal Gastrointestinal: Denies abdominal pain, Denies nausea and Denies vomiting Endocrine Endocrine: Denies palpitations Physical Exam Vital Signs: Vital Signs: Last Vital Signs Temp 97.5 F 04/11/22 07:58 Pulse 57 04/11/22 07:58 Resp 20 04/11/22 07:58 BP 143/75 H 04/11/22 07:58 Pulse Ox 97 04/11/22 07:58 O2 Del Method 04/11/22 07:58 O2 Flow Rate 3.5 04/11/22 07:58 Oxygen Flow Rate 1 04/07/22 16:44 BMI result Body Mass Index 34.2 Const: General: alert and awake Nutritional Appearance: overweight Orientation/consciousness: patient oriented x3 Resp: Other: basilar crackles, diminished respiratory effort has episodes of increased rate of breathing intermittently Effort & Inspection: able to speak in complete sentences Cardio: Rate: regular rate Heart sounds: Murmur heart sound present GI: Inspection: No distended Palpation (GI): Soft to palpation Skin: Other: b/l chronic venous stasis changes hematoma midshin, right leg Neuro: Other: b/l upper extremity tremors General: patient oriented x3 Extrem: Other: right lower leg wrapped in ISELA Objective Data Active Medications Acetaminophen (Acetaminophen 325 Mg Tablet) 650 mg PO Q6H PRN PRN Reason: Pain, Mild (Pain Scale 1-3) Last Admin: 04/11/22 04:05 Dose: 650 mg Documented By: FLAVIA Albuterol Sulfate (Albuterol Sulfate 90 Mcg 8 Gm Inhaler) 2 puff INHALE Q6H PRN PRN Reason: sob/wheezing Aspirin (Aspirin 81 Mg Tab.Chew) 81 mg PO DAILY [facility] Last Admin: 04/11/22 09:15 Dose: 81 mg Documented By: BALA Atorvastatin Calcium (Atorvastatin Calcium 40 Mg Tablet) 40 mg PO BEDTIME [facility] Last Admin: 04/10/22 20:07 Dose: 40 mg Documented By: FLAVIA Carbidopa/Levodopa (Carbidopa/Levodopa 25/100 Tablet) 1 tab PO QID [facility] Last Admin: 04/11/22 09:15 Dose: 1 tab Documented By: BALA Divalproex Sodium (Divalproex Sodium Sprinkles 125 Mg ) 500 mg PO BID [facility] Last Admin: 04/11/22 09:14 Dose: 500 mg Documented By: BALA Divalproex Sodium (Divalproex Sodium Sprinkles 125 Mg ) 375 mg PO DAILY@1400 [facility] Last Admin: 04/10/22 13:39 Dose: 375 mg Documented By: BLANQUITA Docusate Sodium (Docusate Sodium 100 Mg Capsule) 100 mg PO DAILY PRN PRN Reason: Constipation Docusate Sodium (Docusate Sodium 100 Mg Capsule) 100 mg PO BID [facility] Last Admin: 04/11/22 09:15 Dose: 100 mg Documented By: BALA Furosemide (Furosemide 40 Mg Tablet) 40 mg PO BID@0900,1400 [facility]; Protocol Last Admin: 04/11/22 09:15 Dose: 40 mg Documented By: BALA Heparin Sodium (Porcine) (Heparin Sodium,Porcine 5,000 Unit/Ml Vial) 5,000 unit SUBCUT Q12H [facility] Last Admin: 04/10/22 23:53 Dose: 5,000 unit Documented By: FLAVIA Levofloxacin (Levaquin) 500 mg in 100 mls @ 100 mls/hr IV Q24H [facility] Last Infusion: 04/10/22 21:44 Dose: 0 mls/hr Documented By: FLAVIA Lorazepam (Lorazepam 0.5 Mg Tablet) 0.5 mg PO TID PRN PRN Reason: Anxiety Last Admin: 04/11/22 04:05 Dose: 0.5 mg Documented By: FLAVIA Metoprolol Tartrate (Metoprolol Tartrate 12.5 Mg Halftab) 12.5 mg PO BID@0900,1700 [facility]; Protocol Last Admin: 04/11/22 09:14 Dose: 12.5 mg Documented By: HO.[email or web address] Olanzapine (Olanzapine 10 Mg Tablet) 10 mg PO BEDTIME [facility] Last Admin: 04/10/22 20:07 Dose: 10 mg Documented By: FLAVIA Olanzapine (Olanzapine 2.5 Mg Tablet) 7.5 mg PO DAILY [facility] Last Admin: 04/11/22 09:14 Dose: 7.5 mg Documented By: SRINIVASORRLyubov Pramipexole Dihydrochloride (Pramipexole Di-Hcl 0.25 Mg Tablet) 0.5 mg PO BID@0900,1700 [facility] Last Admin: 04/11/22 09:14 Dose: 0.5 mg Documented By: BALA Tamsulosin HCl (Tamsulosin Hcl 0.4 Mg Capsule) 0.8 mg PO BEDTIME [facility] Last Admin: 04/10/22 20:07 Dose: 0.8 mg Documented By: FLAVIA Labs CBC & Chem 7: 04/10/22 06:48 04/11/22 06:20 Labs: Laboratory Results - last 24 hr 04/11/22 06:20 Anion Gap 12 Estim Creat Clear Calc 66.9 Estimated GFR > 60 Random Glucose 94 Calcium 9.9 Microbiology Microbiology Results: Microbiology 04/07/22 17:41 Urine Culture - Final Urine clean catch - Urine cotto top Pseudomonas aeruginosa Enterobacter cloacae complex Assessment and Plan (1) Prostate cancer metastatic to intraabdominal lymph node: Status: Acute (2) Aortic stenosis: Status: Acute (3) Congestive heart failure (CHF): Status: Acute (4) Acute non-ST elevation myocardial infarction (NSTEMI): Status: Acute Plan 82-year-old male with past medical history of schizoaffective disorder, hypertension, presents to the hospital? from [facility] after having a fall and becoming more altered Acute respiratory failure with hypoxia r/t CHF will transition to po lasix still requiring oxygen, reporting cough, will check CXR IS Acute on chronic HFpEF will transition to po lasix cardiology following Toxic metabolic encephalopathy. improving. appears to be at baseline head CT negative for acute findings baseline according to charts reviewed from [facility] show patient to be alert, oriented to self and place and can have conversations Acute UTI Urine culture growing pseudomoas, enterobacter cloacae complex ceftriaxone stopped due to possible allergy, changed to levaquin 04/09 follow final urine cultures. 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 Paz code status:? DNR DNI from [facility] Patient requires ongoing inpatient hospitalization for management of NSTEMI, CHF Quality Stroke Does the patient have a stroke diagnosis?: No VTE Prior VTE?: No VTE Risk Level:: Medical - moderate - high VTE Device Contraindication: Treatment Not Indicated VTE Drug Contraindication: N/A - Med Ordered
[2022-04-11] MEDS: Albuterol/Iprat 2.5/0.5MG 3 ML AMPUL.NEB INHALE ×2 (14:27→19:49)
[2022-04-11] MEDS: Divalproex Sodium Sprinkles 125 MG CAP.DR.SPR 375 MG PO (15:15)
[2022-04-11] MEDS: Heparin Sodium,Porcine 5,000 UNIT/ML VIAL 5000 UNIT SUBCUT ×2 (15:21→23:48)
[2022-04-11] MEDS: Tamsulosin HCL 0.4 MG CAPSULE 0.8 MG PO (20:58)
[2022-04-11] MEDS: levoFLOXacin/D5W 500 MG/100 ML PIGGYBACK 100 MG IV (20:58)
[2022-04-11] MEDS: Atorvastatin Calcium 40 MG TABLET PO (20:58)
[2022-04-11] MEDS: OLANZapine 10 MG TABLET PO (20:58)
[2022-04-12 04:00] VITALS: BP 129/63; PULSE 51; RESP 18; TEMP 36.2; O2SAT 95
[2022-04-12 07:23] VITALS: BP 134/74; PULSE 62; RESP 18; TEMP 36.3; O2SAT 94
[2022-04-12 08:18] LABS: Anion Gap 6 (12-20); Blood Urea Nitrogen 31 mg/dL (9-16); Calcium 8.9 mg/dL (8.4-10.2); Carbon Dioxide 32 mmol/L (22-29); Chloride 100 mmol/L (96-108); Creatinine Clr Calc Pharmacy 76.7; Estimated Glomerular Filt Rate > 60; Glucose Random 93 mg/dL (60-115); Potassium 3.9 mmol/L (3.3-5.1); Sodium 134 mmol/L (135-145)
[2022-04-12] MEDS: Pramipexole Di-HCL 0.25 MG TABLET 0.5 MG PO ×2 (09:40→17:46)
[2022-04-12] MEDS: Furosemide 40 MG TABLET PO ×2 (09:40→15:06)
[2022-04-12] MEDS: OLANZapine 2.5 MG TABLET 7.5 MG PO (09:40)
[2022-04-12] MEDS: Aspirin 81 MG TAB.CHEW PO (09:40)
[2022-04-12] MEDS: Carbidopa/Levodopa 25/100 TABLET 1 TAB PO ×4 (09:40→21:49)
[2022-04-12] MEDS: Divalproex Sodium Sprinkles 125 MG CAP.DR.SPR 500 MG PO ×2 (09:40→21:46)
[2022-04-12] MEDS: Metoprolol Tartrate 12.5 MG HALFTAB PO (09:41)
[2022-04-12] MEDS: Docusate Sodium 100 MG CAPSULE PO (09:41)
--- NOTE | 2022-04-12 10:48 | P.PNIM_ITS ---
Subjective Subjective Date of Service: 04/12/22 Interval History: seen and examined this morning follow up for sob, chf, nstemi no chest pain. hypoxia overnight with movement, still on supplemental oxygen at rest also overall somewhat poor historian but thinks breathing is getting a little better. tearful this morning about being sick reports intermittent dry cough Review of Systems Review of Systems: Yes all other systems are reviewed and are negative Constitutional Constitutional: Denies chills and Denies fever(s) Cardiovascular Cardiovascular: Denies chest pain and Denies palpitations Respiratory Respiratory: Reports cough Gastrointestinal Gastrointestinal: Denies abdominal pain Endocrine Endocrine: Denies palpitations Physical Exam Vital Signs: Vital Signs: Last Vital Signs Temp 97.4 F 04/12/22 07:23 Pulse 62 04/12/22 07:23 Resp 18 04/12/22 07:23 BP 134/74 04/12/22 07:23 Pulse Ox 94 04/12/22 07:23 O2 Del Method 04/12/22 07:23 O2 Flow Rate 1 04/12/22 07:23 Oxygen Flow Rate 1 04/07/22 16:44 BMI result Body Mass Index 34.2 Const: General: alert and awake Nutritional Appearance: overweight Orientation/consciousness: patient oriented x3 Resp: Other: diminished respiratory effort has episodes of increased rate of breathing intermittently but able to recover if you remind him to take deep breaths or do pursed lip breathing Effort & Inspection: able to speak in complete sentences and tachypneic Auscultation: crackles and wheezes Cardio: Rate: regular rate Heart sounds: Murmur heart sound present GI: Inspection: No distended Palpation (GI): Soft to palpation Skin: Other: b/l chronic venous stasis changes hematoma midshin, right leg Neuro: Other: b/l upper extremity tremors General: patient oriented x3 Extrem: Other: right lower leg wrapped in ISELA,; hematoma right boo decreasing in size somewhat b/l chronic venous stasis changes General: Yes no pedal edema Objective Data Active Medications Acetaminophen (Acetaminophen 325 Mg Tablet) 650 mg PO Q6H PRN PRN Reason: Pain, Mild (Pain Scale 1-3) Last Admin: 04/11/22 23:48 Dose: 650 mg Documented By: JENNA Albuterol Sulfate (Albuterol Sulfate 90 Mcg 8 Gm Inhaler) 2 puff INHALE Q6H PRN PRN Reason: sob/wheezing Albuterol/Ipratropium (Albuterol/Iprat 2.5/0.5mg 3 Ml Ampul.Neb) 3 ml INHALE RQ6H WHILE AWAKE [facility] Last Admin: 04/12/22 08:10 Dose: Not Given Documented By: KIMBERLY Non-Admin Reason: pt refused wants to sleep Aspirin (Aspirin 81 Mg Tab.Chew) 81 mg PO DAILY [facility] Last Admin: 04/12/22 09:40 Dose: 81 mg Documented By: BALA Atorvastatin Calcium (Atorvastatin Calcium 40 Mg Tablet) 40 mg PO BEDTIME [facility] Last Admin: 04/11/22 20:58 Dose: 40 mg Documented By: JENNA Carbidopa/Levodopa (Carbidopa/Levodopa 25/100 Tablet) 1 tab PO QID [facility] Last Admin: 04/12/22 09:40 Dose: 1 tab Documented By: BALA Divalproex Sodium (Divalproex Sodium Sprinkles 125 Mg ) 500 mg PO BID [facility] Last Admin: 04/12/22 09:40 Dose: 500 mg Documented By: BALA Divalproex Sodium (Divalproex Sodium Sprinkles 125 Mg Spr) 375 mg PO DAILY@1400 [facility] Last Admin: 04/11/22 15:15 Dose: 375 mg Documented By: BALA Docusate Sodium (Docusate Sodium 100 Mg Capsule) 100 mg PO DAILY PRN PRN Reason: Constipation Docusate Sodium (Docusate Sodium 100 Mg Capsule) 100 mg PO BID [facility] Last Admin: 04/12/22 09:41 Dose: 100 mg Documented By: BALA Furosemide (Furosemide 40 Mg Tablet) 40 mg PO BID@0900,1400 [facility]; Protocol Last Admin: 04/12/22 09:40 Dose: 40 mg Documented By: BALA Heparin Sodium (Porcine) (Heparin Sodium,Porcine 5,000 Unit/Ml Vial) 5,000 unit SUBCUT Q12H [facility] Last Admin: 04/11/22 23:48 Dose: 5,000 unit Documented By: JENNA Levofloxacin (Levaquin) 500 mg in 100 mls @ 100 mls/hr IV Q24H [facility] Last Infusion: 04/12/22 02:10 Dose: 0 mls/hr Documented By: JENNA Lorazepam (Lorazepam 0.5 Mg Tablet) 0.5 mg PO TID PRN PRN Reason: Anxiety Last Admin: 04/11/22 23:48 Dose: 0.5 mg Documented By: JENNA Metoprolol Tartrate (Metoprolol Tartrate 12.5 Mg Halftab) 12.5 mg PO BID@0900,1700 [facility]; Protocol Last Admin: 04/12/22 09:41 Dose: 12.5 mg Documented By: BALA Olanzapine (Olanzapine 10 Mg Tablet) 10 mg PO BEDTIME [facility] Last Admin: 04/11/22 20:58 Dose: 10 mg Documented By: JENNA Olanzapine (Olanzapine 2.5 Mg Tablet) 7.5 mg PO DAILY [facility] Last Admin: 04/12/22 09:40 Dose: 7.5 mg Documented By: BALA Pramipexole Dihydrochloride (Pramipexole Di-Hcl 0.25 Mg Tablet) 0.5 mg PO BID@0900,1700 [facility] Last Admin: 04/12/22 09:40 Dose: 0.5 mg Documented By: BALA Tamsulosin HCl (Tamsulosin Hcl 0.4 Mg Capsule) 0.8 mg PO BEDTIME [facility] Last Admin: 04/11/22 20:58 Dose: 0.8 mg Documented By: JENNA Labs CBC & Chem 7: 04/10/22 06:48 04/12/22 07:42 Labs: Laboratory Results - last 24 hr 04/12/22 07:42 Anion Gap 6 L Estim Creat Clear Calc 76.7 Estimated GFR > 60 Random Glucose 93 Calcium 8.9 D Assessment and Plan (1) Prostate cancer metastatic to intraabdominal lymph node: Status: Acute (2) Aortic stenosis: Status: Acute (3) Hematoma of lower leg: Status: Acute (4) Congestive heart failure (CHF): Status: Acute (5) UTI (urinary tract infection): Status: Acute Plan 82-year-old male with past medical history of schizoaffective disorder, hypertension, presents to the hospital? from [facility] after having a fall and becoming more altered Acute respiratory failure with hypoxia r/t CHF will transition to po lasix still requiring oxygen, hypoxic with movement repeat cxr with trace left pleural effusion, low lung volumes continue IS wean oxygen as tolearted Acute on chronic HFpEF will transition to po lasix cardiology following Toxic metabolic encephalopathy. improving. appears to be at baseline head CT negative for acute findings baseline according to charts reviewed from [facility] show patient to be alert, oriented to self and place and can have conversations. he is currently oriented x3 if you give him enough time to answer questions Acute UTI Urine culture growing pseudomoas, enterobacter cloacae complex ceftriaxone stopped due to possible allergy, changed to levaquin 04/09; plan for 7-10 days of abx blood cultures negative to date Skin rash likely r/t to abx - ceftriaxone stopped s/p benadryl, solu-medrol, pepcid - rash improving Leukocytosis r/t steroids NSTEMI troponin >3600 s/p heparin GGT x 48 hours echocardiogram with no WMA elevation in troponin could be from CHF/ per cardiology cardiology following continue aspirin, statin Hematoma right boo not infected seen by surgery no need for debridement or evacuation Metastatic?cancer to the bone likely primary is prostate as he has history of prostatic cancer seen by Hematology-Oncology - recommend outpatient follow up Parkinson's disease continue sinemet Hypertension continue metoprolol Mood continue home meds DVT prophylaxis: Heparin Attending Dr. Paz code status:? Full code per [facility]. would recommend for consideration of changing code status given multiple medical issues/recently diagnosed metastatic cancer dispo - return to [facility] when medically ready Patient requires ongoing inpatient hospitalization for management of NSTEMI, CHF Quality Stroke Does the patient have a stroke diagnosis?: No VTE Prior VTE?: No VTE Risk Level:: Medical - moderate - high VTE Device Contraindication: Treatment Not Indicated VTE Drug Contraindication: N/A - Med Ordered
[2022-04-12 12:00] VITALS: BP 107/57; PULSE 58; RESP 16; TEMP 36.6; O2SAT 96
--- NOTE | 2022-04-12 12:40 | PM.PNCARD ---
Subjective Subjective Date of Service: 04/12/22 Interval history: Seen and examined at bedside. Denying any shortness of breath. Discussion with medicine team he had hypoxia with ambulation. He had chest x-ray done yesterday which showed trace left pleural effusion with bibasilar atelectasis. Physical Exam Vital Signs: Last Vital Signs Temp 97.8 F 04/12/22 12:00 Pulse 58 04/12/22 12:00 Resp 16 04/12/22 12:00 BP 107/57 L 04/12/22 12:00 Pulse Ox 96 04/12/22 12:00 O2 Del Method 04/12/22 12:00 O2 Flow Rate 1 04/12/22 12:00 Oxygen Flow Rate 1 04/07/22 16:44 BMI result Body Mass Index 34.2 GENERAL APPEARANCE: In no significant distress. On supplemental oxygen. NECK: no carotid bruit, no significant jugular venous distention. SKIN: no suspicious lesions, warm and dry. HEART: Ejection systolic murmur aortic area with absent 2nd heart sound., regular rate and rhythm. LUNGS: Few crackles both lungs. ABDOMEN: soft, nontender. EXTREMITIES: no edema. PERIPHERAL PULSES: equal. NEUROLOGIC: Parkinsonian tremors in both hands. Objective Labs and Meds Result diagrams: 04/10/22 06:48 04/12/22 07:42 Lab results: Laboratory Results - last 24 hr 04/12/22 07:42 Sodium 134 L Potassium 3.9 Chloride 100 Carbon Dioxide 32 H Anion Gap 6 L BUN 31 H Creatinine 0.89 Estim Creat Clear Calc 76.7 Estimated GFR > 60 Random Glucose 93 Calcium 8.9 D Imaging Radiologist's impression: Impressions Chest X-Ray 04/11/22 11:40 IMPRESSION: 1. Lung volumes with minimal bibasilar atelectasis. 2. New trace left pleural effusion. Progress Note: A&P Assessment and plan (1) Aortic stenosis: Status: Acute (2) Congestive heart failure (CHF): Status: Acute (3) Acute non-ST elevation myocardial infarction (NSTEMI): Status: Acute Plan 82-year-old gentleman who is presenting for confusion secondary to UTI as well as congestive heart failure. He has known history of severe aortic valve stenosis. His echocardiography is showing severe left ventricular hypertrophy without any wall motion abnormalities and hyperdynamic function. It is possible that he has some sort of infiltrative process given significant wall thickness present. He has prostate cancer currently and this is metastatic to bones with extensive bony metastatic disease. He also has Parkinson's disease which affects his mobility. Treated for NSTEMI for 48 hours. I think this was likely due to aortic stenosis and congestive heart failure and not true acute coronary syndrome. On 40 mg p.o. b.i.d. Lasix. I think most of his dyspnea is related to atelectasis. There is definitely some behavioral issue in there to because he gets out of breath while talking and but just with reassurance and helping him regulate his breathing his shortness of breath improved. Definitely not overloaded anymore and appears fairly euvolemic. As he improves he can go home and can follow up with [facility] Cardiology Dr. Pagan. Thank you for allowing me to participate in the care of your patient. Please feel free to contact me if you have any questions. Time Spent With Patient Time: Total time spent is greater than 50% in coordination of care (as documented) at patient's floor/unit and/or counseling patient: Progress Note: Quality Stroke Does the patient have a stroke diagnosis?: No Procedures Date of Service Date of Service: 04/12/22
[2022-04-12 15:03] VITALS: BP 105/55; PULSE 55; RESP 18; TEMP 37.2; O2SAT 92
[2022-04-12] MEDS: Divalproex Sodium Sprinkles 125 MG CAP.DR.SPR 375 MG PO (15:05)
[2022-04-12] MEDS: Heparin Sodium,Porcine 5,000 UNIT/ML VIAL 5000 UNIT SUBCUT (15:06)
[2022-04-12 19:37] VITALS: BP 112/57; PULSE 61; RESP 20; TEMP 36.4; O2SAT 93
[2022-04-12 20:31] VITALS: PULSE 61; RESP 20; O2SAT 93
[2022-04-12] MEDS: Albuterol/Iprat 2.5/0.5MG 3 ML AMPUL.NEB INHALE (20:31)
[2022-04-12] MEDS: OLANZapine 10 MG TABLET PO (21:48)
[2022-04-12] MEDS: Atorvastatin Calcium 40 MG TABLET PO (21:48)
[2022-04-12] MEDS: Tamsulosin HCL 0.4 MG CAPSULE 0.8 MG PO (21:50)
[2022-04-12] MEDS: levoFLOXacin/D5W 500 MG/100 ML PIGGYBACK 100 MG IV (21:59)
[2022-04-13] VITALS: BP 119/58; PULSE 61; RESP 18; TEMP 36.6; O2SAT 96
[2022-04-13] MEDS: Heparin Sodium,Porcine 5,000 UNIT/ML VIAL 5000 UNIT SUBCUT (00:09)
[2022-04-13 04:00] VITALS: BP 133/68; PULSE 56; RESP 20; TEMP 36.8; O2SAT 94
[2022-04-13] MEDS: LORazepam 0.5 MG TABLET PO (04:13)
[2022-04-13] MEDS: Albuterol/Iprat 2.5/0.5MG 3 ML AMPUL.NEB INHALE (07:09)
[2022-04-13 07:10] VITALS: PULSE 91; RESP 20; O2SAT 90
--- NOTE | 2022-04-13 07:15 | PC.NURSE ---
0400 Pt screaming unable to calm or redirect PRN ativan given with good result.
[2022-04-13 07:20] VITALS: BP 115/55; PULSE 61; RESP 20; TEMP 36.7; O2SAT 97
[2022-04-13] MEDS: Furosemide 40 MG TABLET PO (09:55)
[2022-04-13] MEDS: Divalproex Sodium Sprinkles 125 MG CAP.DR.SPR 500 MG PO (09:55)
[2022-04-13] MEDS: Aspirin 81 MG TAB.CHEW PO (09:56)
[2022-04-13] MEDS: Pramipexole Di-HCL 0.25 MG TABLET 0.5 MG PO (09:56)
[2022-04-13] MEDS: OLANZapine 2.5 MG TABLET 7.5 MG PO (09:56)
[2022-04-13] MEDS: Docusate Sodium 100 MG CAPSULE PO (09:56)
[2022-04-13] MEDS: Carbidopa/Levodopa 25/100 TABLET 1 TAB PO (09:57)
--- NOTE | 2022-04-13 11:35 | MHC.CM.PN ---
Per ROUNDS discussion, Patient has been medically cleared for dc to return to [facility] today. Patient will return to [facility] today at 1PM, via [facility]. CM addressed IMM with Son/Jc @ [phone](original to be mailed certified letter to Jc and a copy has been placed on the chart).
[2022-04-13 12:00] VITALS: BP 100/59; PULSE 60; RESP 20; TEMP 36.8; O2SAT 95
--- NOTE | 2022-04-13 12:36 | P.DS_ITS ---
DS: Providers Provider Date of Service: 04/13/22 Date of admission: 04/07/22 21:04 Primary care physician: Franky Bryant MD Consults: 04/07/22 21:00 Consult to Cardiology Routine Consulting Provider: Reianldo Jack Reason for consultation: NSTEMI Has provider been notified: No 04/07/22 21:05 Consult to Hematology / Oncology Routine Consulting Provider: Analia Butler Reason for consultation: metastatic disease Has provider been notified: No 04/09/22 12:25 Consult to General Surgery Routine Consulting Provider: Miguelangel Bartlett Reason for consultation: right boo fluctuance ?abscess Has provider been notified: No Attending physician on discharge: Jack Paz Discharging clinician: Kait Machuca DS: Diagnosis Discharge Diagnosis (1) Aortic stenosis: Status: Acute (2) Congestive heart failure (CHF): Status: Acute (3) Acute non-ST elevation myocardial infarction (NSTEMI): Status: Acute DS: Summary Hospital Course Hospital Course: History and physical as per admitting provider This is an 82-year-old male with past medical history of hypertension, GERD, schizoaffective disorder, secondary parkinsonism, aortic valve stenosis, bipolar disorder, urinary retention, overactive bladder, prostate cancer presents to the hospital with altered mental status.? patient is a resident of [facility] History is obtained from EMR and ED provider as patient is altered and unable to give history.? Patient was brought in [facility] after a fall and becoming progressively altered.? According to note from [facility] patient had respiratory distress with tachypnea and the 40s. On arrival to the ED patient hemodynamically stable with a respiratory rate of 22 Labs are significant for? WBC count of 17.7, hemoglobin of 12.3, hematocrit 38.5, INR 1.3, pH is 7.45 with no CO2 retention,? creatinine of 1.12, troponin of more than 3600, BNP of 603, UA positive for leukocyte Estrace, nitrates, WBC Chest CT angiograms negative for pulmonary emboli, patient has dilated main pulmonary artery suggesting pulmonary hypertension, abdomen pelvic CT shows new extensive retroperitoneal adenopathy, diffuse sclerotic metastatic disease throughout the entire visualized skeleton, along with other incidental findings X-ray of the tibia, fibula, cervical spine shows no acute osseous injury or drug out of thick evidence of advanced osteomyelitis. Patient started on IV antibiotics as well as heparin drip and will be admitted for further management unable to obtain? past history is including family, surgical, or social history from patient as he is altered and no documentation in chart . Acute respiratory failure with hypoxia r/t CHF transitioned to oral lasix repeat cxr with trace left pleural effusion, low lung volumes Acute on chronic HFpEF will transition to po lasix cardiology following Toxic metabolic encephalopathy. improving. appears to be at baseline head CT negative for acute findings baseline according to charts reviewed from [facility] show patient to be alert, oriented to self and place and can have conversations. he is currently oriented x3 if you give him enough time to answer questions Acute UTI Urine culture growing pseudomoas, enterobacter cloacae complex ceftriaxone stopped due to possible allergy, changed to levaquin 04/09; plan for 7-10 days of abx blood cultures negative to date Skin rash likely r/t to abx - ceftriaxone stopped s/p benadryl, solu-medrol, pepcid - rash improving? Leukocytosis r/t steroids NSTEMI troponin >3600 s/p heparin GGT x 48 hours echocardiogram with no WMA elevation in troponin could be from CHF/ per cardiology continue aspirin, statin Hematoma right boo not infected seen by surgery no need for debridement or evacuation Metastatic?cancer to the bone likely primary is prostate as he has history of prostatic cancer seen by Hematology-Oncology - recommend outpatient follow up Parkinson's disease continue sinemet Hypertension continue metoprolol Mood continue home meds Time Spent with Patient Time attestation: Total time spent providing and/or coordinating discharge services: Discharge coordination time: Greater than 30 minutes Quality: Safe Use of Opioids Does Pt have an Active Cancer Diagnosis on the Problem List?: No Quality: Stroke Does the patient have a stroke diagnosis?: No Physical Exam Vital Signs: Vital Signs: Last Vital Signs Temp 98.3 F 04/13/22 12:00 Pulse 60 04/13/22 12:00 Resp 20 04/13/22 12:00 BP 100/59 L 04/13/22 12:00 Pulse Ox 95 04/13/22 12:00 O2 Del Method 04/13/22 12:00 O2 Flow Rate 1.5 04/13/22 12:00 Oxygen Flow Rate 1 04/07/22 16:44 BMI result Body Mass Index 34.2 Appearing in no acute distress head is normocephalic atraumatic eyes pupils are PERRLA sclera is anicteric mouth throat mucous membranes are intact and moist neck is supple no lymphadenopathy, no JVD noted lung sounds are clear to auscultation heart regular rate rhythm, clear S1, S2 positive bowel sounds, abdomen is soft, nontender neuro patient is alert x3, no focal deficits Discharge Plan Discharge Anticipated Discharge Date/Time: 04/13/22 12:22 Patient Disposition: Xfer SNF Discharge Diagnosis: Acute respiratory failure with hypoxia secondary to heart failure with preserved ejection fraction Toxic metabolic encephalopathy UTI NSTEMI Referrals: [facility] [Outside] - 1 Week Franky Bryant MD [Primary Care Provider] - 1 Week Discharge Medications: New atorvastatin 40 mg Tablet 40 mg PO BEDTIME Qty: 30 0RF Continued levalbuterol tartrate 45 mcg/actuation Hfa Aerosol Inhaler 2 inh INHALATION Q6H PRN (Reason: sob/wheezing) docusate sodium [Colace] 100 mg Capsule 100 mg PO BID 1% Iodoquinol/1% Hydrocortison 1 appl topical BID Protocol: Apply to: Apply to: GROIN AND SCROTAL RASH acetaminophen 325 mg Tablet 650 mg PO TID amlodipine 5 mg Tablet 5 mg PO DAILY aspirin 81 mg Tablet,Chewable 81 mg PO DAILY calcium polycarbophil 625 mg Tablet 1,250 mg PO DAILY carbidopa-levodopa 25-100 mg Tablet 1 tab PO QID cholecalciferol (vitamin D3) 25 mcg (1,000 unit) Tablet 25 mcg PO DAILY divalproex 125 mg Capsule, Delayed Rel Sprinkle 375 mg PO DAILY@1400 divalproex [Depakote Sprinkles] 125 mg Capsule, Delayed Rel Sprinkle 500 mg PO BID furosemide 40 mg Tablet 40 mg PO BID@0900,1400 lorazepam 0.5 mg Tablet 0.5 mg PO BEDTIME olanzapine 2.5 mg Tablet 7.5 mg PO DAILY pramipexole 0.5 mg Tablet 0.5 mg PO BID@0900,1700 tamsulosin 0.4 mg Capsule 0.8 mg PO BEDTIME olanzapine 10 mg Tablet 10 mg PO BEDTIME metoprolol tartrate 25 mg Tablet 12.5 mg PO BID@0900,1700 Protocol: Hold for SBP/HR < HOLD for SBP < : 0 HOLD for HR < : 50 acetaminophen 325 mg Tablet 650 mg PO Q6H PRN (Reason: PAIN/TEMP OVER 100) alum-mag hydroxide-simeth 200-200-20 mg/5 mL Suspension 30 ml PO Q6H PRN (Reason: Indigestion) bisacodyl 10 mg Suppository 10 mg AL DAILY PRN (Reason: Constipation) dextromethorphan-guaifenesin 10-100 mg/5 mL Liquid 10 ml PO Q4H PRN (Reason: Cough) loperamide 2 mg Tablet 2 mg PO QID PRN (Reason: Loose Stool) lorazepam 0.5 mg Tablet 0.5 mg PO TID PRN (Reason: Anxiety) ondansetron 4 mg Tablet,Disintegrating 4 mg PO Q6H PRN (Reason: Vomiting) polyethylene glycol 3350 [Miralax] 17 gram/dose Powder 17 g PO DAILY PRN (Reason: Constipation) sennosides [senna] 8.6 mg Tablet 8.6 mg PO DAILY PRN (Reason: Constipation) Discontinued simvastatin 40 mg Tablet 40 mg PO BEDTIME Discharge Orders: Discharge Order (Routine); Ordered 04/13/22 Ordered By: Kait Machuca Diet: Advance to usual diet Activity on Discharge: As tolerated Stand Alone Forms: Patient Portal Discharge page Care Plan Goals: Complete resolution of symptoms Health Concerns: Acute respiratory failure with hypoxia secondary to heart failure with preserved ejection fraction Toxic metabolic encephalopathy UTI NSTEMI Plan of Treatment: Take all medications as prescribed Assessment: See discharge summary
--- NOTE | 2022-04-13 12:54 | MHC.CM.PN ---
The dc summary has been successfully faxed to Nursing Art Therapist/Yomi @ [facility] @ [phone].
[2022-04-13 12:55] LABS: COVID-19 Test Negative (Negative)
--- NOTE | 2022-04-13 13:05 | MHC.CM.PN ---
Today's (-) Covid results have been successfully faxed to [facility] Nursing Immigration Consultant/Yomi and a copy placed/sent with dc packet.
== END 2022-04-13 14:12 | disposition skilled nursing facility (03) | DRG 463 ==
LOC: HO.ED 21:00 → HO.EDOVER 21:14 → HO.IMC 04-08 16:32
PROVIDERS: Internal Medicine; Nurse Practitioner Family; Physician Assistant; Physician Assistant Medical; Admitting Provider Internal Medicine; Emergency Provider Emergency Medicine; PCP Internal Medicine Endocrinology, Diabetes & Metabolism; Visit Provider Nurse Practitioner Acute Care
DX: N39.0 Urinary tract infection, site not specified (principal); I21.4 Non-ST elevation (NSTEMI) myocardial infarction; I50.33 Acute on chronic diastolic (congestive) heart failure; G92.8 Other toxic encephalopathy; C77.2 Secondary and unspecified malignant neoplasm of intra-abdominal lymph nodes; C79.51 Secondary malignant neoplasm of bone; I11.0 Hypertensive heart disease with heart failure; G21.9 Secondary parkinsonism, unspecified; I27.20 Pulmonary hypertension, unspecified; C61 Malignant neoplasm of prostate; Z66 Do not resuscitate; I35.0 Nonrheumatic aortic (valve) stenosis; F31.9 Bipolar disorder, unspecified; L27.1 Localized skin eruption due to drugs and medicaments taken internally; T36.1X5A Adverse effect of cephalosporins and other beta-lactam antibiotics, initial encounter; B96.5 Pseudomonas (aeruginosa) (mallei) (pseudomallei) as the cause of diseases classified elsewhere; I48.91 Unspecified atrial fibrillation; K21.9 Gastro-esophageal reflux disease without esophagitis; Z20.822 Contact with and (suspected) exposure to COVID-19; Z87.891 Personal history of nicotine dependence; Z79.82 Long term (current) use of aspirin; Z79.899 Other long term (current) drug therapy
CPT/HCPCS: 0241U; 36415; 70450; 71045; 71275; 72125; 73590; 74177; 80048; 80076; 80307; 81001; 82140; 82803; 83605; 83615; 83690; 83735; 83880; 84153; 84484; 85025; 85027; 85610; 85730; 87040; 87086; 87088; 87186; 87635; 93005; 93306; 94640; 99285; C1758; J0692; J0696; J1200; J1940; J1956; J2930; Q9957; Q9967

== ENCOUNTER 2022-05-07 05:45 | Outpatient (REF) | payer BC, SELFPAY ==
[2022-05-07 08:07] LABS: MANUAL DIFF FLAG NO
[2022-05-07 08:10] LABS: Basophils Percent Auto 0.3 % (0-2); Eosinophils Absolute Auto 0.6 X10*3/uL (0.0-0.4); Eosinophils Percent Auto 9.1 % (0-4); Hematocrit 35.4 % (42.0-52.0); Hemoglobin 11.3 g/dl (14.0-18.0); Imm Gran Abs Auto 0.04 X10*3/uL (0.00-0.03); Imm Gran Pct Auto 0.6 % (0.0-0.4); Lymphocytes Absolute Auto 2.6 X10*3/uL (1.2-4.9); Lymphocytes Percent Auto 38.6 % (20-40); Mean Corpuscular HGB Conc 31.9 g/dl (31.0-36.0); Mean Corpuscular Hemoglobin 29.4 pg (27.0-33.0); Mean Corpuscular Volume 92.2 fL (80.0-98.0); Mean Platelet Volume 9.7 fL (9.4-12.4); Monocytes Percent Auto 14.5 % (2-11); Neutrophils Absolute Auto 2.5 x10*3/uL (2.0-8.3); Neutrophils Percent Auto 36.9 % (45-73); Platelet Count 175 X10*3/uL (160-400); Red Blood Count 3.84 X10*6/uL (4.60-5.80); Red Cell Distribution Width 15.1 % (11.0-16.0); White Blood Count 6.7 X10*3/uL (4.8-10.8)
[2022-05-07 09:26] LABS: Valproate 54.3 mcg/mL (50.0-100.0)
== END 2022-05-07 05:46 | disposition home or self-care (01) ==
LOC: HO.HSH4E 05:45
PROVIDERS: Visit Provider Internal Medicine Endocrinology, Diabetes & Metabolism
DX: F20.9 Schizophrenia, unspecified (principal); F31.9 Bipolar disorder, unspecified; I10 Essential (primary) hypertension; Z79.899 Other long term (current) drug therapy
CPT/HCPCS: 36415; 80164; 85025

== ENCOUNTER 2022-05-21 06:46 | Outpatient (REF) | payer BC, SELFPAY | END 2022-05-21 06:47 | disposition home or self-care (01) | LOC: HO.HSH4E 06:46 | PROVIDERS: Visit Provider Internal Medicine Endocrinology, Diabetes & Metabolism | DX: Z12.5 Encounter for screening for malignant neoplasm of prostate (principal); C61 Malignant neoplasm of prostate | CPT/HCPCS: 36415; 84153; 84403 ==

== ENCOUNTER 2022-05-22 09:03 | Outpatient (REF) | payer BC, SELFPAY ==
[2022-05-22 10:44] LABS: Prostate Specific Antigen 28.69 ng/mL (<0.05-4.0)
[2022-05-30 11:54] LABS: Testosterone, Total 177 ng/dL (250-1100)
== END 2022-05-22 09:04 | disposition home or self-care (01) ==
LOC: HO.HSH3E 09:03
PROVIDERS: Visit Provider Internal Medicine Endocrinology, Diabetes & Metabolism
DX: C61 Malignant neoplasm of prostate (principal)
CPT/HCPCS: 36415; 84153; 84403

== ENCOUNTER 2022-06-08 17:52 | Outpatient (REF) | payer BC, SELFPAY ==
[2022-06-08 18:49] LABS: MANUAL DIFF FLAG NO
[2022-06-08 18:51] LABS: Basophils Percent Auto 0.1 % (0-2); Eosinophils Absolute Auto 0.1 X10*3/uL (0.0-0.4); Eosinophils Percent Auto 0.9 % (0-4); Hematocrit 40.4 % (42.0-52.0); Imm Gran Abs Auto 0.07 X10*3/uL (0.00-0.03); Imm Gran Pct Auto 0.5 % (0.0-0.4); Lymphocytes Percent Auto 12.9 % (20-40); Mean Corpuscular HGB Conc 32.2 g/dl (31.0-36.0); Mean Corpuscular Hemoglobin 29.3 pg (27.0-33.0); Mean Corpuscular Volume 91.2 fL (80.0-98.0); Mean Platelet Volume 9.5 fL (9.4-12.4); Monocytes Percent Auto 6.8 % (2-11); Neutrophils Absolute Auto 12.1 x10*3/uL (2.0-8.3); Neutrophils Percent Auto 78.8 % (45-73); Platelet Count 191 X10*3/uL (160-400); Red Blood Count 4.43 X10*6/uL (4.60-5.80); Red Cell Distribution Width 14.9 % (11.0-16.0); White Blood Count 15.3 X10*3/uL (4.8-10.8)
[2022-06-08 18:53] LABS: Appearance Urine Turbid; Color Urine Dark Yellow; Glucose Urine UA Negative (Negative); Leukocyte Esterase Urine Small (1+) (Negative); Nitrite Urine Positive (Negative); PH 5.5 (5.0-9.0); Specific Gravity - Urine 1.025 (1.005-1.025); UMIC TRIGGER UA YES; Urine Blood Large (3+) (Negative); Urine Ketones Trace mg/dL (Negative); Urine Protein 300 (3+) mg/dL (Neg-Trace)
[2022-06-08 19:01] LABS: Bacteria Urine 4+ (None Seen); RBC Urine >20 /HPF (0-2)
[2022-06-08 19:11] LABS: C Reactive Protein 1.28 mg/dL (< or = 0.50)
== END 2022-06-08 17:53 | disposition home or self-care (01) ==
LOC: HO.HSH4E 17:52
PROVIDERS: Absent Provider Internal Medicine Interventional Cardiology; Visit Provider Nurse Practitioner
DX: N39.0 Urinary tract infection, site not specified (principal); R50.9 Fever, unspecified; R09.02 Hypoxemia
CPT/HCPCS: 36415; 81001; 85025; 86140

== ENCOUNTER 2022-06-08 21:48 | Inpatient (IN) | payer OTHER, SELFPAY ==
--- NOTE | ~2022-06-08 | XR_ITS ---
EXAMINATION: XR CHEST CLINICAL INFORMATION: Fever. COMPARISON: Chest x-ray 04/11/2022 TECHNIQUE: Frontal view of the chest was obtained. 10:20 PM FINDINGS: No significant abnormality is noted involving the heart, lungs, mediastinum, bony thorax or soft tissues. XR/XR chest 1V IMPRESSION: Unremarkable examination.
--- NOTE | ~2022-06-08 | XR_ITS ---
EXAMINATION: XR CHEST CLINICAL INFORMATION: Shortness of breath, hypoxia COMPARISON: Chest x-ray on 06/08/2022 TECHNIQUE: Frontal view of the chest was obtained. FINDINGS: The cardiac silhouette is normal. There is mild diffuse bronchial wall thickening. Lung volumes are diminished. There are no areas of consolidation. There are no pleural effusions or pneumothoraces. The bones and soft tissues are unremarkable for the patient's age. XR/XR chest 1V IMPRESSION: Bronchial wall thickening may be infectious and/or inflammatory in etiology.
--- NOTE | ~2022-06-08 | XR_ITS ---
EXAMINATION: XR chest 1V CLINICAL INFORMATION: Reason for Exam hypoxia COMPARISON: 06/10/2022 TECHNIQUE: XR chest 1V Tubes and lines: None Lungs and pleura: Diminished lung volume, portable technique. Redemonstration of diffuse interstitial marking and peribronchial wall thickening, could be mild infiltrates or small airway disease. Mild atelectasis at left lung base. Subpulmonic pleural effusion unchanged. Heart and mediastinum: The mediastinum is within normal limits.. Bones/soft tissue: Skeletal structures included are normal for patient's age. XR/XR chest 1V IMPRESSION: * There has been no significant change, Redemonstration of mild diffuse interstitial marking and peribronchial wall thickening, could be mild infiltrates or small airway disease. * Mild atelectasis at left lung base. * Subpulmonic pleural effusion.
--- NOTE | 2022-06-08 22:08 | ED.FEVER ---
HPI - Fever General Chief Complaint: Fever Stated Complaint: UTI? Fever Time Seen by Provider: 06/08/22 21:53 Source: EMS Mode of arrival: EMS Limitations: other (Dementia) History of Present Illness HPI Narrative: [facility]. Patient was sent here for a urinary tract infection. Earlier today, the staff noted that the patient had a fever of 102, [facility], they noted that his brother also had count was 15.3 and they tested his urine which is positive for UTI. Patient has a chronic Nugent catheter. Patient is awake and alert but is unable to give any significant history. Related Data Home Medications Medication Instructions Recorded Confirmed 1% Iodoquinol/1% Hydrocortison 1 appl topical BID 04/07/22 04/07/22 acetaminophen 325 mg tablet 650 mg PO Q6H PRN PAIN/TEMP OVER 04/07/22 04/07/22 100 acetaminophen 325 mg tablet 650 mg PO TID 04/07/22 04/07/22 aluminum-mag hydroxide-simethicone 30 ml PO Q6H PRN Indigestion 04/07/22 04/07/22 200 mg-200 mg-20 mg/5 mL oral susp amlodipine 5 mg tablet 5 mg PO DAILY 04/07/22 04/07/22 aspirin 81 mg chewable tablet 81 mg PO DAILY 04/07/22 04/07/22 bisacodyl 10 mg rectal suppository 10 mg TN DAILY PRN Constipation 04/07/22 04/07/22 calcium polycarbophil 625 mg tablet 1,250 mg PO DAILY 04/07/22 04/07/22 carbidopa 25 mg-levodopa 100 mg 1 tab PO QID 04/07/22 04/07/22 tablet cholecalciferol (vitamin D3) 25 25 mcg PO DAILY 04/07/22 04/07/22 mcg (1,000 unit) tablet dextromethorphan-guaifenesin 10 10 ml PO Q4H PRN Cough 04/07/22 04/07/22 mg-100 mg/5 mL oral liquid divalproex 125 mg capsule,delayed 375 mg PO DAILY@1400 04/07/22 04/07/22 release sprinkle divalproex 125 mg capsule,delayed 500 mg PO BID 04/07/22 04/07/22 release sprinkle (Depakote Sprinkles) docusate sodium 100 mg capsule 100 mg PO BID 04/07/22 04/07/22 (Colace) furosemide 40 mg tablet 40 mg PO BID@0900,1400 04/07/22 04/07/22 levalbuterol tartrate 45 2 inh inhalation Q6H PRN 04/07/22 04/07/22 mcg/actuation aerosol inhaler sob/wheezing loperamide 2 mg tablet 2 mg PO QID PRN Loose Stool 04/07/22 04/07/22 lorazepam 0.5 mg tablet 0.5 mg PO BEDTIME 04/07/22 04/07/22 lorazepam 0.5 mg tablet 0.5 mg PO TID PRN Anxiety 04/07/22 04/07/22 metoprolol tartrate 25 mg tablet 12.5 mg PO BID@0900,1700 04/07/22 04/07/22 olanzapine 10 mg tablet 10 mg PO BEDTIME 04/07/22 04/07/22 olanzapine 2.5 mg tablet 7.5 mg PO DAILY 04/07/22 04/07/22 ondansetron 4 mg disintegrating 4 mg PO Q6H PRN Vomiting 04/07/22 04/07/22 tablet polyethylene glycol 3350 17 17 g PO DAILY PRN Constipation 04/07/22 04/07/22 gram/dose oral powder (Miralax) pramipexole 0.5 mg tablet 0.5 mg PO BID@0900,1700 04/07/22 04/07/22 sennosides 8.6 mg tablet (senna) 8.6 mg PO DAILY PRN Constipation 04/07/22 04/07/22 tamsulosin 0.4 mg capsule 0.8 mg PO BEDTIME 04/07/22 04/07/22 Previous Rx's Medication Instructions Recorded atorvastatin 40 mg tablet 40 mg PO BEDTIME #30 tabs 04/13/22 levofloxacin 500 mg tablet 500 mg PO DAILY #2 tabs 04/13/22 Allergies Allergy/AdvReac Type Severity Reaction Status Date / Time ceftriaxone Allergy Rash Verified 04/10/22 12:19 Review of Systems Review of Systems: Yes Unobtainable due to mental condition PMFSH Past Medical History Medical History Acute non-ST elevation myocardial infarction (NSTEMI) Aortic stenosis Bipolar disorder Congestive heart failure (CHF) Fall GERD (gastroesophageal reflux disease) Hematoma of lower leg Hypertension Metastatic cancer to bone Prostate cancer metastatic to intraabdominal lymph node Schizoaffective disorder UTI (urinary tract infection) Social History Social History Household Members: Other Household Members Other:: [facility] Housing: Long-Term Do you presently have visiting nurse or other home services: Yes Patient Tobacco Use Status: Former Tobacco user Advance Directives: Yes Advance Directives on File: Yes Advance Directives Date on File: 04/08/22 service: Yes Current occupational status: retired Physical Exam Vital Signs: Vital Signs: Last Vital Signs Temp 99.5 F 06/08/22 23:43 Pulse 58 06/08/22 23:43 Resp 18 06/08/22 23:43 BP 94/46 L 06/08/22 23:43 Pulse Ox 95 06/08/22 23:43 O2 Del Method 06/08/22 23:43 O2 Flow Rate 4 06/08/22 23:43 BMI result Body Mass Index 28.1 Const: Other: Appearance: Alert. Oriented X2. No acute distress. Eyes: Pupils equal, round and reactive to light. ENT: Pharynx normal. Neck: Normal inspection. Neck supple. No lymph nodes noted. No crepitus CVS: Normal heart rate and rhythm. Pulses normal. Normal S1 and S2 Respiratory: No respiratory distress. Breath sounds normal. No Wheezing. No rales Abdomen: Soft and nontender. No rigidity. No distention. Skin: Skin warm and dry. Normal skin color. Normal skin turgor. Extremities: No lower extremity edema. No Lacerations. No Rash Neuro: Oriented X 2. Patient has a resting tremor . Moving all extremities. No slurred speech. CN 2 through 12 grossly intact Psych: calm, cooperative, very anxious Course Course Course Narrative: -left-sided were drawn at left shoulder some, show increased white blood cell count and positive UTI. Patient being treated with fluids and Levaquin has been started. -all patient's labs, imaging and vital signs are pending Reviewing patient's antibiotics susceptibilities, Levaquin is appropriate Medications Administered Discontinued Medications Generic Name Dose Route Start Last Admin Trade Name Freq PRN Reason Stop Dose Admin Acetaminophen 650 mg 06/08/22 23:36 06/08/22 23:56 Acetaminophen 325 Mg Tablet PO 06/08/22 23:37 650 mg ONCE ONE Administration Sodium Chloride 1,000 mls @ 999 mls/hr 06/08/22 21:56 06/08/22 23:55 Ns IVCONT 06/08/22 22:56 Infused .Q1H1M ONE Infusion Levofloxacin 500 mg in 100 mls @ 100 mls/hr 06/08/22 22:07 06/08/22 23:56 Levaquin IV 06/08/22 23:06 Infused ONCE ONE Infusion Medical Decision Making Medical Decision Making MDM Narrative: -as suspected, patient has a UTI -blood pressure stable. -chest x-ray negative. -patient was given Levaquin, patient allergic to ceftriaxone. -I discussed the patient with Dr. Her , patient being admitted Admission/Observation Consideration of admission/observation: Escalation of care including admission/observation considered Consult Healthcare Provider Management of the patient was discussed with: Hospitalist Lab Data MDM Lab Attestation statement: I reviewed the patient's lab results. 06/08/22 22:46 06/08/22 22:47 Labs: Lab Results 06/08/22 06/08/22 06/08/22 Range/Units 22:46 22:46 22:46 WBC 15.3 H (4.8-10.8) X10*3/uL RBC 4.42 L (4.60-5.80) X10*6/uL Hgb 12.7 L (14.0-18.0) g/dl Hct 39.8 L (42.0-52.0) % MCV 90.0 (80.0-98.0) fL MCH 28.7 (27.0-33.0) pg MCHC 31.9 (31.0-36.0) g/dl RDW 15.1 (11.0-16.0) % Plt Count 170 (160-400) X10*3/uL MPV 9.1 L (9.4-12.4) fL Immature Gran % (Auto) 0.5 H (0.0-0.4) % Neut % (Auto) 76.7 H (45-73) % Lymph % (Auto) 12.8 L (20-40) % [place] % (Auto) 9.6 (2-11) % Eos % (Auto) 0.3 (0-4) % Baso % (Auto) 0.1 (0-2) % Lymph # (Auto) 2.0 (1.2-4.9) X10*3/uL [place] # (Auto) 1.5 H (0.1-1.2) X10*3/uL Eos # (Auto) 0.0 (0.0-0.4) X10*3/uL Baso # (Auto) 0.0 (0.0-0.2) X10*3/uL Abs Immat Gran (auto) 0.07 H (0.00-0.03) X10*3/uL Absolute Neuts (auto) 11.7 H (2.0-8.3) x10*3/uL Absolute Nucleated RBC 0.000 (0.0-0.012) X10*3/uL Nucleated RBC % (auto) 0.0 (0.0-0.2) /100WBC PT (10.0-13.1) SEC INR (0.9-1.1) Sodium (135-145) mmol/L Potassium (3.3-5.1) mmol/L Chloride (96-108) mmol/L Carbon Dioxide (22-29) mmol/L Anion Gap (12-20) BUN (9-16) mg/dL Creatinine (0.5-1.4) mg/dL Estim Creat Clear Calc Estimated GFR Random Glucose (60-115) mg/dL Lactic Acid 1.4 (0.5-2.0) mmol/L Calcium (8.4-10.2) mg/dL Total Bilirubin (0.0-1.0) mg/dL Direct Bilirubin (0.0-0.5) mg/dL AST (5-37) U/L ALT (0-40) U/L Alkaline Phosphatase (39-117) U/L Total Protein (6.5-8.0) g/dL Albumin (3.5-5.0) g/dL Urine Color Urine Appearance Urine pH (5.0-9.0) Ur Specific [place] (1.005-1.025) Urine Protein (Neg-Trace) mg/dL Urine Glucose (UA) (Negative) mg/dL Urine Ketones (Negative) mg/dL Urine Blood (Negative) Urine Nitrite (Negative) Ur Leukocyte Esterase (Negative) Urine RBC (0-2) /HPF Urine WBC (0-5) /HPF Ur Squamous Epith Cells (0-2) /HPF Urine Bacteria (None Seen) Hyaline Casts (0-2) /LPF COVID-19 (JOSE) Negative (Negative) COVID-19 Clin Com See Note 06/08/22 06/08/22 06/08/22 Range/Units 22:46 22:47 22:47 WBC (4.8-10.8) X10*3/uL RBC (4.60-5.80) X10*6/uL Hgb (14.0-18.0) g/dl Hct (42.0-52.0) % MCV (80.0-98.0) fL MCH (27.0-33.0) pg MCHC (31.0-36.0) g/dl RDW (11.0-16.0) % Plt Count (160-400) X10*3/uL MPV (9.4-12.4) fL Immature Gran % (Auto) (0.0-0.4) % Neut % (Auto) (45-73) % Lymph % (Auto) (20-40) % [place] % (Auto) (2-11) % Eos % (Auto) (0-4) % Baso % (Auto) (0-2) % Lymph # (Auto) (1.2-4.9) X10*3/uL [place] # (Auto) (0.1-1.2) X10*3/uL Eos # (Auto) (0.0-0.4) X10*3/uL Baso # (Auto) (0.0-0.2) X10*3/uL Abs Immat Gran (auto) (0.00-0.03) X10*3/uL Absolute Neuts (auto) (2.0-8.3) x10*3/uL Absolute Nucleated RBC (0.0-0.012) X10*3/uL Nucleated RBC % (auto) (0.0-0.2) /100WBC PT 14.5 H (10.0-13.1) SEC INR 1.3 H (0.9-1.1) Sodium 139 (135-145) mmol/L Potassium 4.2 (3.3-5.1) mmol/L Chloride 99 (96-108) mmol/L Carbon Dioxide 32 H (22-29) mmol/L Anion Gap 12 (12-20) BUN 22 H (9-16) mg/dL Creatinine 1.15 (0.5-1.4) mg/dL Estim Creat Clear Calc 52.4 Estimated GFR > 60 Random Glucose 102 (60-115) mg/dL Lactic Acid (0.5-2.0) mmol/L Calcium 9.0 (8.4-10.2) mg/dL Total Bilirubin 0.7 (0.0-1.0) mg/dL Direct Bilirubin 0.2 (0.0-0.5) mg/dL AST 12 (5-37) U/L ALT < 6 (0-40) U/L Alkaline Phosphatase 72 (39-117) U/L Total Protein 6.6 (6.5-8.0) g/dL Albumin 3.4 L (3.5-5.0) g/dL Urine Color Dark Yellow Urine Appearance Cloudy Urine pH 8.0 (5.0-9.0) Ur Specific [place] 1.025 (1.005-1.025) Urine Protein 100 (2+) H (Neg-Trace) mg/dL Urine Glucose (UA) Negative (Negative) mg/dL Urine Ketones Trace (Negative) mg/dL Urine Blood Large (3+) H (Negative) Urine Nitrite Negative (Negative) Ur Leukocyte Esterase Moderate (2+) H (Negative) Urine RBC >20 H (0-2) /HPF Urine WBC 21-50 H (0-5) /HPF Ur Squamous Epith Cells 0-2 (0-2) /HPF Urine Bacteria 4+ (None Seen) Hyaline Casts 0-2 (0-2) /LPF COVID-19 (JOSE) (Negative) COVID-19 Clin Com Independent Interpretation I performed an independent interpretation of an: Plain X-Ray (My interpretation of Chest x-ray: Questionable infiltrate versus pleural effusion in the right lower lobe) Radiology Impression Discussion of test interpretation with radiology: I have reviewed the radiologist's reading. Radiologist Impression: FINDINGS: No significant abnormality is noted involving the heart, lungs, mediastinum, bony thorax or soft tissues. XR/XR chest 1V IMPRESSION: Unremarkable examination. Critical Care Time Critical Care Time Critical Care Time: Yes Total Critical Care Time: 60 Attestation: I have personally provided critical care time. Time includes review of lab data, radiology results, discussion with consultants, and monitoring for potential decompensation. Intervention performed as documented. Discharge Plan Discharge Clinical Impression: Acute UTI Patient Disposition: Admitted As Inpatient Prescriptions: No Action levalbuterol tartrate 45 mcg/actuation Hfa Aerosol Inhaler 2 inh INHALATION Q6H PRN (Reason: sob/wheezing) docusate sodium [Colace] 100 mg Capsule 100 mg PO BID 1% Iodoquinol/1% Hydrocortison 1 appl topical BID Protocol: Apply to: Apply to: GROIN AND SCROTAL RASH acetaminophen 325 mg Tablet 650 mg PO TID amlodipine 5 mg Tablet 5 mg PO DAILY aspirin 81 mg Tablet,Chewable 81 mg PO DAILY calcium polycarbophil 625 mg Tablet 1,250 mg PO DAILY carbidopa-levodopa 25-100 mg Tablet 1 tab PO QID cholecalciferol (vitamin D3) 25 mcg (1,000 unit) Tablet 25 mcg PO DAILY divalproex 125 mg Capsule, Delayed Rel Sprinkle 375 mg PO DAILY@1400 divalproex [Depakote Sprinkles] 125 mg Capsule, Delayed Rel Sprinkle 500 mg PO BID furosemide 40 mg Tablet 40 mg PO BID@0900,1400 lorazepam 0.5 mg Tablet 0.5 mg PO BEDTIME olanzapine 2.5 mg Tablet 7.5 mg PO DAILY pramipexole 0.5 mg Tablet 0.5 mg PO BID@0900,1700 tamsulosin 0.4 mg Capsule 0.8 mg PO BEDTIME olanzapine 10 mg Tablet 10 mg PO BEDTIME metoprolol tartrate 25 mg Tablet 12.5 mg PO BID@0900,1700 Protocol: Hold for SBP/HR < HOLD for SBP < : 0 HOLD for HR < : 50 acetaminophen 325 mg Tablet 650 mg PO Q6H PRN (Reason: PAIN/TEMP OVER 100) alum-mag hydroxide-simeth 200-200-20 mg/5 mL Suspension 30 ml PO Q6H PRN (Reason: Indigestion) bisacodyl 10 mg Suppository 10 mg TN DAILY PRN (Reason: Constipation) dextromethorphan-guaifenesin 10-100 mg/5 mL Liquid 10 ml PO Q4H PRN (Reason: Cough) loperamide 2 mg Tablet 2 mg PO QID PRN (Reason: Loose Stool) lorazepam 0.5 mg Tablet 0.5 mg PO TID PRN (Reason: Anxiety) ondansetron 4 mg Tablet,Disintegrating 4 mg PO Q6H PRN (Reason: Vomiting) polyethylene glycol 3350 [Miralax] 17 gram/dose Powder 17 g PO DAILY PRN (Reason: Constipation) sennosides [senna] 8.6 mg Tablet 8.6 mg PO DAILY PRN (Reason: Constipation) atorvastatin 40 mg Tablet 40 mg PO BEDTIME Qty: 30 0RF levofloxacin 500 mg tablet 500 mg PO DAILY Qty: 2 0RF
[2022-06-08 22:20] VITALS: BP 102/50; PULSE 70; O2SAT 96; BMI 28.1
[2022-06-08 22:25] VITALS: BP 110/51; PULSE 74; RESP 18; TEMP 36.9; O2SAT 91
[2022-06-08] MEDS: levoFLOXacin/D5W 500 MG/100 ML PIGGYBACK 100 MG IV (22:52)
[2022-06-08] MEDS: 0.9 % Sodium Chloride 1,000 ML 999 ML IVCONT (22:56)
[2022-06-08 22:57] LABS: MANUAL DIFF FLAG NO
[2022-06-08 22:58] VITALS: BP 98/44; PULSE 68; RESP 30; TEMP 38.3; O2SAT 93
[2022-06-08 22:58] LABS: Appearance Urine Cloudy; Color Urine Dark Yellow; Glucose Urine UA Negative (Negative); Leukocyte Esterase Urine Moderate (2+) (Negative); Nitrite Urine Negative (Negative); Specific Gravity - Urine 1.025 (1.005-1.025); UMIC TRIGGER UACC YES; Urine Blood Large (3+) (Negative); Urine Ketones Trace mg/dL (Negative); Urine Protein 100 (2+) mg/dL (Neg-Trace)
[2022-06-08 22:58] LABS: Basophils Percent Auto 0.1 % (0-2); Eosinophils Percent Auto 0.3 % (0-4); Hematocrit 39.8 % (42.0-52.0); Hemoglobin 12.7 g/dl (14.0-18.0); Imm Gran Abs Auto 0.07 X10*3/uL (0.00-0.03); Imm Gran Pct Auto 0.5 % (0.0-0.4); Lymphocytes Percent Auto 12.8 % (20-40); Mean Corpuscular HGB Conc 31.9 g/dl (31.0-36.0); Mean Corpuscular Hemoglobin 28.7 pg (27.0-33.0); Mean Platelet Volume 9.1 fL (9.4-12.4); Monocytes Absolute Auto 1.5 X10*3/uL (0.1-1.2); Monocytes Percent Auto 9.6 % (2-11); Neutrophils Absolute Auto 11.7 x10*3/uL (2.0-8.3); Neutrophils Percent Auto 76.7 % (45-73); Platelet Count 170 X10*3/uL (160-400); Red Blood Count 4.42 X10*6/uL (4.60-5.80); Red Cell Distribution Width 15.1 % (11.0-16.0); White Blood Count 15.3 X10*3/uL (4.8-10.8)
[2022-06-08 23:03] LABS: Bacteria Urine 4+ (None Seen); Hyaline Casts Urine 0-2 /LPF (0-2); RBC Urine >20 /HPF (0-2); Squamous Epithelial Cell Urine 0-2 /HPF (0-2); UACC Culture Trigger YES; WBC Urine 21-50 /HPF (0-5)
[2022-06-08 23:03] LABS: INTERNATIONAL NORM RATIO 1.3 (0.9-1.1); Prothrombin Time 14.5 SEC (10.0-13.1)
[2022-06-08 23:08] LABS: Lactic Acid 1.4 mmol/L (0.5-2.0)
[2022-06-08 23:09] LABS: COVID-19 Test Negative (Negative); IDNOW Serial# 6674DD1D
[2022-06-08 23:17] LABS: Alanine Aminotransferase < 6 U/L (0-40); Albumin Level 3.4 g/dL (3.5-5.0); Alkaline Phosphatase 72 U/L (39-117); Anion Gap 12 (12-20); Aspartate Amino Transferase 12 U/L (5-37); Bilirubin Direct 0.2 mg/dL (0.0-0.5); Bilirubin Total 0.7 mg/dL (0.0-1.0); Blood Urea Nitrogen 22 mg/dL (9-16); Carbon Dioxide 32 mmol/L (22-29); Chloride 99 mmol/L (96-108); Creatinine Clr Calc Pharmacy 52.4; Estimated Glomerular Filt Rate > 60; Glucose Random 102 mg/dL (60-115); Potassium 4.2 mmol/L (3.3-5.1); Sodium 139 mmol/L (135-145); Total Protein 6.6 g/dL (6.5-8.0)
[2022-06-08 23:43] VITALS: BP 94/46; PULSE 58; RESP 18; TEMP 37.5; O2SAT 95
[2022-06-08] MEDS: Acetaminophen 325 MG TABLET 650 MG PO (23:56)
[2022-06-09] VITALS (11 sets, daily range): BP systolic 78–127; BP diastolic 37–85; PULSE 46–96; RESP 14–28; TEMP 36–37; O2SAT 3–97; BMI 34.2
[2022-06-09] MEDS: levoFLOXacin/D5W 750 MG/150 ML PIGGYBACK 100 MG IV (02:10)
[2022-06-09] MEDS: Enoxaparin Sodium 40 MG/0.4 ML SYRINGE SUBCUT (02:10)
--- NOTE | 2022-06-09 02:31 | PM.IMHP ---
History of Present Illness Date of Service: 06/09/22 Chief Complaint: Fever This is 82-year-old male with pertinent history of essential hypertension, mood disorder, prostate cancer, urinary incontinence was sent from [facility] for evaluation of fever. History obtained from ER provider and EMR as patient is unable to provide any history. Patient was sent via EMS for evaluation of fever and UTI. Staff noted that patient had a fever of 102. Blood work was done which revealed leukocytosis and his urine was concerning for UTI. Patient has chronic [place]. Unable to obtain review of systems. The emergency department, patient was found to be septic and urine was consistent with UTI. Review of Systems Review of Systems: Yes Unobtainable due to mental condition and Unobtainable due to mental status [facility] Medical History Acute non-ST elevation myocardial infarction (NSTEMI) Aortic stenosis Bipolar disorder Congestive heart failure (CHF) Fall GERD (gastroesophageal reflux disease) Hematoma of lower leg Hypertension Metastatic cancer to bone Prostate cancer metastatic to intraabdominal lymph node Schizoaffective disorder UTI (urinary tract infection) Social History Household Members: Other Household Members Other:: Pt [facility] Housing: Detention Do you presently have visiting nurse or other home services: Yes Patient Tobacco Use Status: Former Tobacco user Advance Directives: Yes Advance Directives on File: Yes Advance Directives Date on File: 04/08/22 Nutrition Risks: No Nutritional Risk service: Yes Current occupational status: retired Meds Allergies Allergy/AdvReac Type Severity Reaction Status Date / Time ceftriaxone Allergy Rash Verified 04/10/22 12:19 Active Medications: Current Medications Acetaminophen (Acetaminophen 325 Mg Tablet) 650 mg PO Q6H PRN PRN Reason: Pain, Mild (Pain Scale 1-3) Enoxaparin Sodium (Enoxaparin Sodium 40 Mg/0.4 Ml Syringe) 40 mg SUBCUT Q24H [facility] Last Admin: 06/09/22 02:10 Dose: 40 mg Levofloxacin (Levaquin) 750 mg in 150 mls @ 100 mls/hr IV Q24H [facility] Last Admin: 06/09/22 02:10 Dose: 100 mls/hr Melatonin (Melatonin 3 Mg Tablet) 6 mg PO BEDTIME PRN PRN Reason: Insomnia Ondansetron HCl (Ondansetron Hcl 4 Mg/2 Ml Vial) 4 mg IVPUSH Q8H PRN PRN Reason: Nausea and Vomiting Sodium Chloride (0.9 % Sodium Chloride Flush 3 Ml Syringe) [facility] Medic[facility] Medication Instructions Recorded Confirmed Last Taken Type 1% Iodoquinol/1% Hydrocortison 1 appl topical BID 04/07/22 04/07/22 Unknown History acetaminophen 325 mg tablet 650 mg PO Q6H PRN PAIN/TEMP OVER 04/07/22 04/07/22 Unknown History 100 acetaminophen 325 mg tablet 650 mg PO TID 04/07/22 04/07/22 04/07/22 History aluminum-mag hydroxide-simethicone 30 ml PO Q6H PRN Indigestion 04/07/22 04/07/22 Unknown History 200 mg-200 mg-20 mg/5 mL oral susp amlodipine 5 mg tablet 5 mg PO DAILY 04/07/22 04/07/22 04/07/22 History aspirin 81 mg chewable tablet 81 mg PO DAILY 04/07/22 04/07/22 04/07/22 History bisacodyl 10 mg rectal suppository 10 mg [place] DAILY PRN Constipation 04/07/22 04/07/22 Unknown History calcium polycarbophil 625 mg tablet 1,250 mg PO DAILY 04/07/22 04/07/22 04/07/22 History carbidopa 25 mg-levodopa 100 mg 1 tab PO QID 04/07/22 04/07/22 04/07/22 History tablet cholecalciferol (vitamin D3) 25 25 mcg PO DAILY 04/07/22 04/07/22 04/07/22 History mcg (1,000 unit) tablet dextromethorphan-guaifenesin 10 10 ml PO Q4H PRN Cough 04/07/22 04/07/22 Unknown History mg-100 mg/5 mL oral liquid divalproex 125 mg capsule,delayed 375 mg PO DAILY@1400 04/07/22 04/07/22 04/07/22 History release sprinkle divalproex 125 mg capsule,delayed 500 mg PO BID 04/07/22 04/07/22 04/07/22 History release sprinkle (Depakote Sprinkles) docusate sodium 100 mg capsule 100 mg PO BID 04/07/22 04/07/22 04/07/22 History (Colace) furosemide 40 mg tablet 40 mg PO BID@0900,1400 04/07/22 04/07/22 04/07/22 History levalbuterol tartrate 45 2 inh inhalation Q6H PRN 04/07/22 04/07/22 Unknown History mcg/actuation aerosol inhaler sob/wheezing loperamide 2 mg tablet 2 mg PO QID PRN Loose Stool 04/07/22 04/07/22 Unknown History lorazepam 0.5 mg tablet 0.5 mg PO BEDTIME 04/07/22 04/07/22 04/06/22 History lorazepam 0.5 mg tablet 0.5 mg PO TID PRN Anxiety 04/07/22 04/07/22 Unknown History metoprolol tartrate 25 mg tablet 12.5 mg PO BID@0900,1700 04/07/22 04/07/22 04/07/22 History olanzapine 10 mg tablet 10 mg PO BEDTIME 04/07/22 04/07/22 04/06/22 History olanzapine 2.5 mg tablet 7.5 mg PO DAILY 04/07/22 04/07/22 04/07/22 History ondansetron 4 mg disintegrating 4 mg PO Q6H PRN Vomiting 04/07/22 04/07/22 Unknown History tablet polyethylene glycol 3350 17 17 g PO DAILY PRN Constipation 04/07/22 04/07/22 Unknown History gram/dose oral powder (Miralax) pramipexole 0.5 mg tablet 0.5 mg PO BID@0900,1700 04/07/22 04/07/22 04/07/22 History sennosides 8.6 mg tablet (senna) 8.6 mg PO DAILY PRN Constipation 04/07/22 04/07/22 Unknown History tamsulosin 0.4 mg capsule 0.8 mg PO BEDTIME 04/07/22 04/07/22 04/06/22 History Physical Exam Vital Signs and Narrative: Vital Signs: Last Vital Signs Temp 99.5 F 06/08/22 23:43 Pulse 54 06/09/22 02:17 Resp 28 H 06/09/22 02:17 BP 105/52 L 06/09/22 02:17 Pulse Ox 94 06/09/22 02:17 O2 Del Method 06/09/22 02:17 O2 Flow Rate 4 06/09/22 02:17 BMI result Body Mass Index 28.1 Elderly male lying in bed in no distress Neck supple, no JVD Regular rate and rhythm, S1-S2 heard Regular breath sounds bilaterally, no wheezing or crackles appreciated Abdomen soft nontender, no guarding, no rigidity Patient is drowsy, disoriented to place, time and person Psych: Drowsy Results Labs 06/08/22 22:46 06/08/22 22:47 Labs: Laboratory Results - last 24 hr 06/08/22 06/08/22 06/08/22 22:46 22:46 22:46 MCV 90.0 MCH 28.7 MCHC 31.9 RDW 15.1 Plt Count 170 MPV 9.1 L Immature Gran % (Auto) 0.5 H Neut % (Auto) 76.7 H Lymph % (Auto) 12.8 L [place] % (Auto) 9.6 Eos % (Auto) 0.3 Baso % (Auto) 0.1 Lymph # (Auto) 2.0 [place] # (Auto) 1.5 H Eos # (Auto) 0.0 Baso # (Auto) 0.0 Abs Immat Gran (auto) 0.07 H Absolute Neuts (auto) 11.7 H Absolute Nucleated RBC 0.000 Nucleated RBC % (auto) 0.0 PT INR Anion Gap Estim Creat Clear Calc Estimated GFR Random Glucose Lactic Acid 1.4 Calcium Total Bilirubin Direct Bilirubin AST ALT Alkaline Phosphatase Total Protein Albumin Urine Color Urine Appearance Urine pH Ur Specific [place] Urine Protein Urine Glucose (UA) Urine Ketones Urine Blood Urine Nitrite Ur Leukocyte Esterase Urine RBC Urine WBC Ur Squamous Epith Cells Urine Bacteria Hyaline Casts COVID-19 (JOSE) Negative COVID-19 Clin Com See Note 06/08/22 06/08/22 06/08/22 22:46 22:47 22:47 MCV MCH MCHC RDW Plt Count MPV Immature Gran % (Auto) Neut % (Auto) Lymph % (Auto) [place] % (Auto) Eos % (Auto) Baso % (Auto) Lymph # (Auto) [place] # (Auto) Eos # (Auto) Baso # (Auto) Abs Immat Gran (auto) Absolute Neuts (auto) Absolute Nucleated RBC Nucleated RBC % (auto) PT 14.5 H INR 1.3 H Anion Gap 12 Estim Creat Clear Calc 52.4 Estimated GFR > 60 Random Glucose 102 Lactic Acid Calcium 9.0 Total Bilirubin 0.7 Direct Bilirubin 0.2 AST 12 ALT < 6 Alkaline Phosphatase 72 Total Protein 6.6 Albumin 3.4 L Urine Color Dark Yellow Urine Appearance Cloudy Urine pH 8.0 Ur Specific [place] 1.025 Urine Protein 100 (2+) H Urine Glucose (UA) Negative Urine Ketones Trace Urine Blood Large (3+) H Urine Nitrite Negative Ur Leukocyte Esterase Moderate (2+) H Urine RBC >20 H Urine WBC 21-50 H Ur Squamous Epith Cells 0-2 Urine Bacteria 4+ Hyaline Casts 0-2 COVID-19 (JOSE) COVID-19 Clin Com Imaging Radiologist's Impressions: Impressions Chest X-Ray 06/08/22 22:27 IMPRESSION: Unremarkable examination. Assessment and Plan (1) Acute UTI: Status: Acute Plan This is 82-year-old male with pertinent history of essential hypertension, mood disorder, prostate cancer, urinary incontinence, parkinsonism was sent from [facility] for evaluation of fever. #. Sepsis due to acute UTI #. Acute metabolic encephalopathy due to above in a patient with dementia and mood disorder -will admit patient and continue empiric IV antibiotics. Follow urine culture. Lactic acid and blood culture obtained. Resuscitated with IV crystalloids in the ER #. Mood disorder: Continue home mood stabilizers. Maintain sleep-wake cycle #. Essential hypertension: Hold home antihypertensives in the setting of sepsis. Restart as appropriate Med rec pending DVT Prophylaxis: Lovenox 40mg daily Diet: NPO until mentation improves Full code. COLIN on file Admit as inpatient and will require two night minimum hospital stay for IV antibiotics Time Spent With Patient Time: Total time managing care of this patient today ____ minutes. Quality Stroke Does the patient have a stroke diagnosis?: No VTE Prior VTE?: No VTE Risk Level:: Medical - moderate - high VTE Device Contraindication: Treatment Not Indicated VTE Drug Contraindication: N/A - Med Ordered
--- NOTE | 2022-06-09 04:36 | PC.NURSE ---
Pt aox2, confused. Breaths are even, rapid, and unlabored. O2 sat 89% on 2L nc. Pt increased to 4L NC with o2 sat improvement to 94%. Sinus violeta on monitor with HR 56. Abd distended, soft, and non tender. Bilateral leg edema noted. Long catheter in place. No redness, swelling or foul smell noted on long catheter. Urine in collection bag appears clear and dark yellow. No foul odor noted. Pt arrived with 18G IV on L AC placed by EMS. 22G IV place on R hand. Medicated as ordered with no complications. Pt is now sleeping in no apparent distress.
--- NOTE | 2022-06-09 06:24 | MHC.EDTECH ---
I went into the patient's room to do an end of shift Vitals. Patient had taken off his Heart monitor, BP cuff, and IV. I went and got the Nurse so we could get him cleaned up, Vitals and a new IV. Patient at this time refused BP, Unable to do Temperature. - RN aware, and with Tech.
--- NOTE | 2022-06-09 06:32 | PC.NURSE ---
Pt removed both IV lines. Pt refusing to have another IV line established. Pt agitated and combative. This data analyst report writer will attempt to establish IV at a later time when pt is calm and cooperative. [place] text sent to Dr. Her.
--- NOTE | 2022-06-09 06:38 | PC.NURSE ---
Tissue Packer at bedside. Pt refused to have morning labs drawn. [place] text sent to Dr. Her.
--- NOTE | 2022-06-09 07:39 | PHA.MEDREC ---
Pharmacy Consult ? Medication Reconciliation Pharmacy has completed the medication reconciliation. List from [facility]
[2022-06-09 08:59] LABS: Basophils Percent Auto 0.2 % (0-2); Eosinophils Absolute Auto 0.2 X10*3/uL (0.0-0.4); Eosinophils Percent Auto 1.4 % (0-4); Hematocrit 39.1 % (42.0-52.0); Hemoglobin 12.3 g/dl (14.0-18.0); Imm Gran Abs Auto 0.06 X10*3/uL (0.00-0.03); Imm Gran Pct Auto 0.4 % (0.0-0.4); Lymphocytes Absolute Auto 2.7 X10*3/uL (1.2-4.9); Lymphocytes Percent Auto 18.9 % (20-40); MANUAL DIFF FLAG SCAN; Mean Corpuscular HGB Conc 31.5 g/dl (31.0-36.0); Mean Corpuscular Hemoglobin 28.9 pg (27.0-33.0); Mean Platelet Volume 8.8 fL (9.4-12.4); Monocytes Absolute Auto 1.5 X10*3/uL (0.1-1.2); Monocytes Percent Auto 10.4 % (2-11); Neutrophils Absolute Auto 9.9 x10*3/uL (2.0-8.3); Neutrophils Percent Auto 68.7 % (45-73); Platelet Count 151 X10*3/uL (160-400); Red Blood Count 4.25 X10*6/uL (4.60-5.80); Red Cell Distribution Width 15.2 % (11.0-16.0); SCAN SMEAR FLAG 1; White Blood Count 14.5 X10*3/uL (4.8-10.8)
--- NOTE | 2022-06-09 09:00 | MHC.CM.PN ---
Patient is a LTC Resident at [facility] and the goal is for Patient to return there once medically cleared for dc. Patient has received Covid vax x5 .
[2022-06-09 09:18] LABS: SLIDE REVIEW VERIFIED
[2022-06-09 09:23] LABS: Anion Gap 10 (12-20); Blood Urea Nitrogen 20 mg/dL (9-16); Carbon Dioxide 28 mmol/L (22-29); Chloride 103 mmol/L (96-108); Creatinine Clr Calc Pharmacy 57.3; Estimated Glomerular Filt Rate > 60; Glucose Random 88 mg/dL (60-115); Potassium 4.2 mmol/L (3.3-5.1); Sodium 137 mmol/L (135-145)
--- NOTE | 2022-06-09 09:46 | PC.NURSE ---
pt has a verbal outburst at bedside, screaming, expectorate thick yellow sputum. pt is swearing at staff, pulling at o2 and taking off hospital garment. pt wispered to another staff that he does not like black people nor tolerate black people . this rn is a proud and will treat him with respect.
[2022-06-09] MEDS: OLANZapine 2.5 MG TABLET 7.5 MG PO (10:11)
[2022-06-09] MEDS: Aspirin 81 MG TAB.CHEW PO (10:11)
[2022-06-09] MEDS: Docusate Sodium 100 MG CAPSULE PO ×2 (10:11→21:13)
[2022-06-09] MEDS: Metoprolol Tartrate 12.5 MG HALFTAB PO (10:11)
[2022-06-09] MEDS: Divalproex Sodium Sprinkles 125 MG CAP.DR.SPR 500 MG PO ×2 (10:12→21:12)
[2022-06-09] MEDS: Carbidopa/Levodopa 25/100 TABLET 1 TAB PO ×3 (10:12→21:12)
[2022-06-09] MEDS: Acetaminophen 325 MG TABLET 650 MG PO ×3 (10:13→21:12)
[2022-06-09] MEDS: fentaNYL 12 MCG PATCH.TD72 TRANSDERMA (10:13)
[2022-06-09] MEDS: Cholecalciferol (Vitamin D3) 25 MCG TABLET PO (10:14)
--- NOTE | 2022-06-09 11:06 | PM.EVENT ---
Event Note Date of Service: 06/09/22 Event Note: Seen and evaluated this morning was anxious overnight removing 2 IV lines, more comfortable this morning but still refusing IV to try again to place an IV for IV Abx , if not will cover with PO BP improved pending blood cultures Time Spent With Patient Time: Total time managing care of this patient today ____ minutes.
[2022-06-09] MEDS: LORazepam 0.5 MG TABLET PO ×2 (11:12→21:12)
[2022-06-09] MEDS: Sennosides 8.6 MG TABLET PO (11:12)
--- NOTE | 2022-06-09 11:20 | PC.NURSE ---
pt adamantly refuses to have an iv placed. md aware. pt med x 1 with ativan 0.5mg po for increase anxiety/agitation.
--- NOTE | 2022-06-09 11:40 | P.CDIC_ITS ---
CDI Concurrent Query Documentation Clarification: PHYSICIAN'S DOCUMENTATION REQUEST Date of Query: 06/09/22 1141 Patient Name: Satnam Garcia Admit Date: 06/09/22 Dear Doctor, A review of the medical record indicates additional documentation may be needed. Please review below and update the documentation accordingly. Clinical Indicators: Risk Factors/Clinical Indicators/Treatments H&P - Patient with Dementia and mood disorder, disoriented to place, time and person. PN: 06/09 - Anxious overnight removing IV lines, still refusing IV. If possible, please further clarify type of Dementia and any associated manifestations: Dementia, Vascular, Senile, Alzheimer's, other * Dementia without behavioral disturbance, Vascular, Senile, Alzheimer's or other * Dementia (Vascular, Senile, Alzheimer's etc.) with behavioral disturbance * Aggressive behavior * Combative behavior * Other * Unable to determine Use of terms such as suspected, likely, concern for, or probable (associated with a specific diagnosis that is being evaluated, monitored, or treated as if it exists) are acceptable and can be coded in the inpatient setting, when documented at the time of discharge. Thank you, Radha Collins [facility], CDIS Extension: [phone] Please use your independent medical judgment in providing your response. THIS QUERY IS PART OF THE PERMANENT MEDICAL RECORD Provider Response: Other Other Diagnosis: unable to determine
[2022-06-09] MEDS: 0.9 % Sodium Chloride 1,000 ML 999 ML IV (12:20)
--- NOTE | 2022-06-09 14:05 | PC.NURSE ---
THIS RN RETURNED PT'S DAUGHTER BRIANNA ([phone]) PHONE CALL. SHE WAS UPDATED ON PT STATUS. PT ALSO SPOKE WITH HIS DAUGHTER ON [facility].
[2022-06-09] MEDS: Divalproex Sodium Sprinkles 125 MG CAP.DR.SPR 375 MG PO (14:59)
--- NOTE | 2022-06-09 16:03 | PC.NURSE ---
Plan at this time per md: D/c metoprolol, IVF to be given wide running. Verbal order 1 L NS wide. If sbp does not increase above 90, plan at this time is to recontact Dr. Lopez and administer midodrine/albumin.
[2022-06-09] MEDS: 0.9 % Sodium Chloride Flush 3 ML SYRINGE IVFLUSH ×2 (16:12→21:13)
[2022-06-09 16:16] LABS: Glucose, Whole Blood 100 mg/dL (60-115)
--- NOTE | 2022-06-09 19:46 | PC.NURSE ---
RN report provided to LESA Castano. Pt being transferred to room 360.
[2022-06-09] MEDS: Atorvastatin Calcium 40 MG TABLET PO (21:13)
[2022-06-09] MEDS: OLANZapine 10 MG TABLET PO (21:13)
[2022-06-09] MEDS: Tamsulosin HCL 0.4 MG CAPSULE 0.8 MG PO (21:13)
[2022-06-09] MEDS: Melatonin 3 MG TABLET 6 MG PO (21:13)
[2022-06-10] MEDS: Enoxaparin Sodium 40 MG/0.4 ML SYRINGE SUBCUT (01:31)
[2022-06-10] MEDS: LORazepam 0.5 MG TABLET PO ×2 (01:31→20:22)
[2022-06-10] MEDS: levoFLOXacin/D5W 750 MG/150 ML PIGGYBACK 100 MG IV (01:41)
[2022-06-10 03:41] VITALS: BP 129/79; PULSE 95; RESP 20; TEMP 36.1; O2SAT 98
[2022-06-10 07:22] VITALS: BP 150/100; PULSE 60; RESP 16; TEMP 36.1; O2SAT 91
[2022-06-10 07:22] LABS: Hematocrit 34.8 % (42.0-52.0); Hemoglobin 10.7 g/dl (14.0-18.0); Mean Corpuscular HGB Conc 30.7 g/dl (31.0-36.0); Mean Corpuscular Hemoglobin 29.2 pg (27.0-33.0); Mean Corpuscular Volume 95.1 fL (80.0-98.0); Mean Platelet Volume 9.6 fL (9.4-12.4); Platelet Count 154 X10*3/uL (160-400); Red Blood Count 3.66 X10*6/uL (4.60-5.80); Red Cell Distribution Width 15.2 % (11.0-16.0); White Blood Count 8.1 X10*3/uL (4.8-10.8)
[2022-06-10 07:51] LABS: Anion Gap 10 (12-20); Blood Urea Nitrogen 17 mg/dL (9-16); Calcium 8.8 mg/dL (8.4-10.2); Carbon Dioxide 30 mmol/L (22-29); Chloride 106 mmol/L (96-108); Estimated Glomerular Filt Rate > 60; Glucose Random 78 mg/dL (60-115); Potassium 4.1 mmol/L (3.3-5.1); Sodium 142 mmol/L (135-145)
[2022-06-10] MEDS: Aspirin 81 MG TAB.CHEW PO (08:16)
[2022-06-10] MEDS: Acetaminophen 325 MG TABLET 650 MG PO ×3 (08:16→20:22)
[2022-06-10] MEDS: Carbidopa/Levodopa 25/100 TABLET 1 TAB PO ×4 (08:16→20:22)
[2022-06-10] MEDS: Docusate Sodium 100 MG CAPSULE PO ×2 (08:16→20:22)
[2022-06-10] MEDS: Pramipexole Di-HCL 0.25 MG TABLET 0.5 MG PO ×2 (08:16→17:15)
[2022-06-10] MEDS: calcium polycarbophiL TABLET 1 TAB PO (08:16)
[2022-06-10] MEDS: Bicalutamide 50 MG TABLET PO (08:16)
[2022-06-10] MEDS: OLANZapine 2.5 MG TABLET 7.5 MG PO (08:16)
[2022-06-10] MEDS: Divalproex Sodium Sprinkles 125 MG CAP.DR.SPR 500 MG PO ×2 (08:17→20:22)
[2022-06-10] MEDS: Cholecalciferol (Vitamin D3) 25 MCG TABLET PO (08:17)
[2022-06-10] MEDS: 0.9 % Sodium Chloride Flush 3 ML SYRINGE IVFLUSH ×3 (08:17→20:23)
--- NOTE | 2022-06-10 13:08 | P.PNIM_ITS ---
Subjective Subjective Date of Service: 06/10/22 Interval History: cc: fever, lethargy interval history: was hypotensive overnight, now better, denies sob Physical Exam Vital Signs: Vital Signs: Last Vital Signs Temp 97 F 06/10/22 07:22 Pulse 60 06/10/22 07:22 Resp 16 06/10/22 07:22 BP 150/100 H 06/10/22 07:22 Pulse Ox 91 L 06/10/22 07:22 O2 Del Method 06/10/22 07:22 O2 Flow Rate 3 06/10/22 07:22 BMI result Body Mass Index 34.2 General: ill appearing, frail Resp: diminished bilateral, no accessory muscles used CVS: S1,S2,RRR GI: soft, non tender, non distended Objective Data Active Medications Acetaminophen (Acetaminophen 325 Mg Tablet) 650 mg PO Q6H PRN PRN Reason: Pain, Mild (Pain Scale 1-3) Acetaminophen (Acetaminophen 325 Mg Tablet) 650 mg PO TID [facility] Last Admin: 06/10/22 08:16 Dose: 650 mg Documented By: TOBIAS Al Hydroxide/Mg Hydroxide (Magnesium Hydrox/Alum Hydrox 30 Ml Oral.Susp) 30 ml PO Q6H PRN PRN Reason: Indigestion Aspirin (Aspirin 81 Mg Tab.Chew) 81 mg PO DAILY [facility] Last Admin: 06/10/22 08:16 Dose: 81 mg Documented By: TOBIAS Atorvastatin Calcium (Atorvastatin Calcium 40 Mg Tablet) 40 mg PO BEDTIME [facility] Last Admin: 06/09/22 21:13 Dose: 40 mg Documented By: CANDY Benzocaine (Throat Lozenge, Medicated Lozenge) 1 lozenge MUCOUS MEM Q2H PRN PRN Reason: Sore Throat Bicalutamide (Bicalutamide 50 Mg Tablet) 50 mg PO DAILY [facility] Last Admin: 06/10/22 08:16 Dose: 50 mg Documented By: TOBIAS Bisacodyl (Bisacodyl 10 Mg Supp.Rect) 10 mg GA DAILY PRN PRN Reason: Constipation Calcium Polycarbophil (Calcium Polycarbophil Tablet) 1 tab PO DAILY [facility] Last Admin: 06/10/22 08:16 Dose: 1 tab Documented By: TOBIAS Carbidopa/Levodopa (Carbidopa/Levodopa 25/100 Tablet) 1 tab PO QID [facility] Last Admin: 06/10/22 08:16 Dose: 1 tab Documented By: TOBIAS Divalproex Sodium (Divalproex Sodium Sprinkles 125 Mg ) 500 mg PO Q12H [facility] Last Admin: 06/10/22 08:17 Dose: 500 mg Documented By: TOBIAS Divalproex Sodium (Divalproex Sodium Sprinkles 125 Mg ) 375 mg PO DAILY@1400 [facility] Last Admin: 06/09/22 14:59 Dose: 375 mg Documented By: TEENA Docusate Sodium (Docusate Sodium 100 Mg Capsule) 100 mg PO BID [facility] Last Admin: 06/10/22 08:16 Dose: 100 mg Documented By: TOBIAS Enoxaparin Sodium (Enoxaparin Sodium 40 Mg/0.4 Ml Syringe) 40 mg SUBCUT Q24H [facility] Last Admin: 06/10/22 01:31 Dose: 40 mg Documented By: CANDY Fentanyl (Fentanyl 12 Mcg Patch.Td72) 12 mcg TRANSDERMA Q72H [facility] Last Admin: 06/09/22 10:13 Dose: 12 mcg Documented By: TEENA Levofloxacin (Levaquin) 750 mg in 150 mls @ 100 mls/hr IV Q24H [facility] Last Infusion: 06/10/22 03:18 Dose: 0 mls/hr Documented By: CANDY Loperamide HCl (Loperamide Hcl 2 Mg Capsule) 2 mg PO QID PRN PRN Reason: Loose Stool Lorazepam (Lorazepam 0.5 Mg Tablet) 0.5 mg PO BEDTIME [facility] Last Admin: 06/09/22 21:12 Dose: 0.5 mg Documented By: CANDY Lorazepam (Lorazepam 0.5 Mg Tablet) 0.5 mg PO BID PRN PRN Reason: Anxiety Last Admin: 06/10/22 01:31 Dose: 0.5 mg Documented By: CANDY Melatonin (Melatonin 3 Mg Tablet) 6 mg PO BEDTIME PRN PRN Reason: Insomnia Last Admin: 06/09/22 21:13 Dose: 6 mg Documented By: CANDY Olanzapine (Olanzapine 2.5 Mg Tablet) 7.5 mg PO DAILY [facility] Last Admin: 06/10/22 08:16 Dose: 7.5 mg Documented By: TOBIAS Olanzapine (Olanzapine 10 Mg Tablet) 10 mg PO BEDTIME [facility] Last Admin: 06/09/22 21:13 Dose: 10 mg Documented By: CANDY Ondansetron HCl (Ondansetron Hcl 4 Mg/2 Ml Vial) 4 mg IVPUSH Q8H PRN PRN Reason: Nausea and Vomiting Pharmacy Consult (Consult Rx Perform Med Rec) 1 each MISCELLANE ONCE PRN PRN Reason: Consult order Polyethylene Glycol (Polyethylene Glycol 3350 17 Gm Powd.Pack) 17 gm PO DAILY PRN PRN Reason: Constipation Pramipexole Dihydrochloride (Pramipexole Di-Hcl 0.25 Mg Tablet) 0.5 mg PO BID@0900,1700 [facility] Last Admin: 06/10/22 08:16 Dose: 0.5 mg Documented By: TOBIAS Senna (Sennosides 8.6 Mg Tablet) 8.6 mg PO DAILY PRN PRN Reason: Constipation Last Admin: 06/09/22 11:12 Dose: 8.6 mg Documented By: TEENA Sodium Chloride (0.9 % Sodium Chloride Flush 3 Ml Syringe) 3 ml IVFLUSH QSHIFT [facility] Last Admin: 06/10/22 08:17 Dose: 3 ml Documented By: TOBIAS Tamsulosin HCl (Tamsulosin Hcl 0.4 Mg Capsule) 0.8 mg PO BEDTIME [facility] Last Admin: 06/09/22 21:13 Dose: 0.8 mg Documented By: CANDY Vitamin D (Cholecalciferol (Vitamin D3) 25 Mcg Tablet) 25 mcg PO DAILY [facility] Last Admin: 06/10/22 08:17 Dose: 25 mcg Documented By: TOBIAS Labs 06/10/22 06:08 06/10/22 06:08 Labs: Laboratory Results - last 24 hr 06/09/22 06/10/22 06/10/22 16:10 06:08 06:08 MCV 95.1 MCH 29.2 MCHC 30.7 L RDW 15.2 Plt Count 154 L MPV 9.6 Absolute Nucleated RBC 0.000 Nucleated RBC % (auto) 0.0 Anion Gap 10 L Estim Creat Clear Calc 68.0 Estimated GFR > 60 POC Glucose 100 Random Glucose 78 Calcium 8.8 Microbiology Microbiology Results: Microbiology 01/30/23 Unknown Urine Culture - Preliminary Urine clean catch - Urine cotto top Gram negative wood 06/08/22 22:46 Blood Culture - Preliminary Blood - Venous No growth after 24 hours. 06/08/22 22:46 Blood Culture - Preliminary Blood - Venous No growth after 24 hours. Assessment and Plan (1) Acute UTI: Status: Acute Plan 82M PMH metastatic prostate ca, chronic diastolic chf with severe , parkinsons disease, htn, presented from [facility] for fever severe sepsis due to uti complicated by metabolic encephalopathy levaquin follow up cutlures bp better acute hypoxic respiratory failure wean o2 as tolerated follow up cxr metastic prostate ca casodex fentanyl Parkinsons sinemet mood dusirder zyprexa dvt prophylaxis - lovenox full code reason for continued hospitalization:hypoxia Time Spent With Patient Time: Total time managing care of this patient today ____ minutes. Quality Stroke Does the patient have a stroke diagnosis?: No VTE Prior VTE?: No VTE Risk Level:: Medical - moderate - high VTE Device Contraindication: Treatment Not Indicated VTE Drug Contraindication: N/A - Med Ordered
[2022-06-10] MEDS: Divalproex Sodium Sprinkles 125 MG CAP.DR.SPR 375 MG PO (14:03)
[2022-06-10 15:44] VITALS: BP 122/65; PULSE 52; RESP 16; TEMP 36.3; O2SAT 95
[2022-06-10 19:46] VITALS: BP 144/65; PULSE 51; RESP 17; TEMP 36.2; O2SAT 93
[2022-06-10] MEDS: Tamsulosin HCL 0.4 MG CAPSULE 0.8 MG PO (20:22)
[2022-06-10] MEDS: Atorvastatin Calcium 40 MG TABLET PO (20:22)
[2022-06-10] MEDS: Melatonin 3 MG TABLET 6 MG PO (20:23)
[2022-06-10] MEDS: OLANZapine 10 MG TABLET PO (20:23)
[2022-06-11] MEDS: Enoxaparin Sodium 40 MG/0.4 ML SYRINGE SUBCUT (01:59)
[2022-06-11] MEDS: levoFLOXacin/D5W 750 MG/150 ML PIGGYBACK 100 MG IV (01:59)
[2022-06-11] MEDS: LORazepam 0.5 MG TABLET PO ×3 (02:00→20:35)
--- NOTE | 2022-06-11 02:53 | PC.NURSE ---
around 0150 pt was restless and anxious, and trying to pull out IV, PO ativan given at 0200 with good effect, pt resting comfortably now.
[2022-06-11 03:10] VITALS: BP 136/61; PULSE 59; RESP 20; TEMP 36.4; O2SAT 97
[2022-06-11 07:30] VITALS: BP 128/59; PULSE 64; RESP 24; TEMP 36.6; O2SAT 94
[2022-06-11 07:40] LABS: Hematocrit 36.4 % (42.0-52.0); Hemoglobin 11.3 g/dl (14.0-18.0); Mean Corpuscular Volume 93.3 fL (80.0-98.0); Mean Platelet Volume 9.5 fL (9.4-12.4); Platelet Count 151 X10*3/uL (160-400); Red Cell Distribution Width 15.1 % (11.0-16.0); White Blood Count 6.4 X10*3/uL (4.8-10.8)
[2022-06-11 07:58] LABS: Anion Gap 11 (12-20); Blood Urea Nitrogen 16 mg/dL (9-16); Calcium 8.9 mg/dL (8.4-10.2); Carbon Dioxide 30 mmol/L (22-29); Chloride 103 mmol/L (96-108); Estimated Glomerular Filt Rate > 60; Glucose Fasting 80 mg/dL (60-99); Sodium 140 mmol/L (135-145)
[2022-06-11] MEDS: Carbidopa/Levodopa 25/100 TABLET 1 TAB PO ×4 (08:23→20:35)
[2022-06-11] MEDS: calcium polycarbophiL TABLET 1 TAB PO (08:23)
[2022-06-11] MEDS: OLANZapine 2.5 MG TABLET 7.5 MG PO (08:23)
[2022-06-11] MEDS: Docusate Sodium 100 MG CAPSULE PO ×2 (08:23→20:35)
[2022-06-11] MEDS: Aspirin 81 MG TAB.CHEW PO (08:24)
[2022-06-11] MEDS: Acetaminophen 325 MG TABLET 650 MG PO ×3 (08:24→20:35)
[2022-06-11] MEDS: Pramipexole Di-HCL 0.25 MG TABLET 0.5 MG PO ×2 (08:24→17:26)
[2022-06-11] MEDS: Cholecalciferol (Vitamin D3) 25 MCG TABLET PO (08:24)
[2022-06-11] MEDS: Bicalutamide 50 MG TABLET PO (08:24)
[2022-06-11] MEDS: 0.9 % Sodium Chloride Flush 3 ML SYRINGE IVFLUSH ×3 (08:31→20:36)
--- NOTE | 2022-06-11 09:13 | P.PNIM_ITS ---
Subjective Subjective Date of Service: 06/11/22 Interval History: much improved Physical Exam Vital Signs: Vital Signs: Last Vital Signs Temp 97.9 F 06/11/22 07:30 Pulse 64 06/11/22 07:30 Resp 24 H 06/11/22 07:30 BP 128/59 L 06/11/22 07:30 Pulse Ox 94 06/11/22 07:30 O2 Del Method 06/11/22 07:30 O2 Flow Rate 2.5 06/11/22 07:30 BMI result Body Mass Index 34.2 General: much improved Resp: diminished bilateral, no accessory muscles used CVS: S1,S2,RRR GI: soft, non tender, non distended Objective Data Active Medications Acetaminophen (Acetaminophen 325 Mg Tablet) 650 mg PO Q6H PRN PRN Reason: Pain, Mild (Pain Scale 1-3) Acetaminophen (Acetaminophen 325 Mg Tablet) 650 mg PO TID [facility] Last Admin: 06/11/22 08:24 Dose: 650 mg Documented By: TORRI Al Hydroxide/Mg Hydroxide (Magnesium Hydrox/Alum Hydrox 30 Ml Oral.Susp) 30 ml PO Q6H PRN PRN Reason: Indigestion Aspirin (Aspirin 81 Mg Tab.Chew) 81 mg PO DAILY [facility] Last Admin: 06/11/22 08:24 Dose: 81 mg Documented By: TORRI Atorvastatin Calcium (Atorvastatin Calcium 40 Mg Tablet) 40 mg PO BEDTIME [facility] Last Admin: 06/10/22 20:22 Dose: 40 mg Documented By: CANDY Benzocaine (Throat Lozenge, Medicated Lozenge) 1 lozenge MUCOUS MEM Q2H PRN PRN Reason: Sore Throat Bicalutamide (Bicalutamide 50 Mg Tablet) 50 mg PO DAILY [facility] Last Admin: 06/11/22 08:24 Dose: 50 mg Documented By: TORRI Bisacodyl (Bisacodyl 10 Mg Supp.Rect) 10 mg [place] DAILY PRN PRN Reason: Constipation Calcium Polycarbophil (Calcium Polycarbophil Tablet) 1 tab PO DAILY [facility] Last Admin: 06/11/22 08:23 Dose: 1 tab Documented By: TORRI Carbidopa/Levodopa (Carbidopa/Levodopa 25/100 Tablet) 1 tab PO QID [facility] Last Admin: 06/11/22 08:23 Dose: 1 tab Documented By: TORRI Divalproex Sodium (Divalproex Sodium Sprinkles 125 Mg ) 500 mg PO Q12H [facility] Last Admin: 06/10/22 20:22 Dose: 500 mg Documented By: CANDY Divalproex Sodium (Divalproex Sodium Sprinkles 125 Mg ) 375 mg PO DAILY@1400 [facility] Last Admin: 06/10/22 14:03 Dose: 375 mg Documented By: TORRI Docusate Sodium (Docusate Sodium 100 Mg Capsule) 100 mg PO BID [facility] Last Admin: 06/11/22 08:23 Dose: 100 mg Documented By: TORRI Enoxaparin Sodium (Enoxaparin Sodium 40 Mg/0.4 Ml Syringe) 40 mg SUBCUT Q24H [facility] Last Admin: 06/11/22 01:59 Dose: 40 mg Documented By: CANDY Fentanyl (Fentanyl 12 Mcg Patch.Td72) 12 mcg TRANSDERMA Q72H [facility] Last Admin: 06/09/22 10:13 Dose: 12 mcg Documented By: TEENA Levofloxacin (Levaquin) 750 mg in 150 mls @ 100 mls/hr IV Q24H [facility] Last Infusion: 06/11/22 03:35 Dose: 0 mls/hr Documented By: CANDY Loperamide HCl (Loperamide Hcl 2 Mg Capsule) 2 mg PO QID PRN PRN Reason: Loose Stool Lorazepam (Lorazepam 0.5 Mg Tablet) 0.5 mg PO BEDTIME [facility] Last Admin: 06/10/22 20:22 Dose: 0.5 mg Documented By: CANDY Lorazepam (Lorazepam 0.5 Mg Tablet) 0.5 mg PO BID PRN PRN Reason: Anxiety Last Admin: 06/11/22 02:00 Dose: 0.5 mg Documented By: CANDY Melatonin (Melatonin 3 Mg Tablet) 6 mg PO BEDTIME PRN PRN Reason: Insomnia Last Admin: 06/10/22 20:23 Dose: 6 mg Documented By: CANDY Olanzapine (Olanzapine 2.5 Mg Tablet) 7.5 mg PO DAILY [facility] Last Admin: 06/11/22 08:23 Dose: 7.5 mg Documented By: TORRI Olanzapine (Olanzapine 10 Mg Tablet) 10 mg PO BEDTIME [facility] Last Admin: 06/10/22 20:23 Dose: 10 mg Documented By: CANDY Ondansetron HCl (Ondansetron Hcl 4 Mg/2 Ml Vial) 4 mg IVPUSH Q8H PRN PRN Reason: Nausea and Vomiting Pharmacy Consult (Consult Rx Perform Med Rec) 1 each MISCELLANE ONCE PRN PRN Reason: Consult order Polyethylene Glycol (Polyethylene Glycol 3350 17 Gm Powd.Pack) 17 gm PO DAILY PRN PRN Reason: Constipation Pramipexole Dihydrochloride (Pramipexole Di-Hcl 0.25 Mg Tablet) 0.5 mg PO BID@0900,1700 [facility] Last Admin: 06/11/22 08:24 Dose: 0.5 mg Documented By: TORRI Senna (Sennosides 8.6 Mg Tablet) 8.6 mg PO DAILY PRN PRN Reason: Constipation Last Admin: 06/09/22 11:12 Dose: 8.6 mg Documented By: TEENA Sodium Chloride (0.9 % Sodium Chloride Flush 3 Ml Syringe) 3 ml IVFLUSH QSHIFT [facility] Last Admin: 06/11/22 08:31 Dose: 3 ml Documented By: TORRI Tamsulosin HCl (Tamsulosin Hcl 0.4 Mg Capsule) 0.8 mg PO BEDTIME [facility] Last Admin: 06/10/22 20:22 Dose: 0.8 mg Documented By: CANDY Vitamin D (Cholecalciferol (Vitamin D3) 25 Mcg Tablet) 25 mcg PO DAILY [facility] Last Admin: 06/11/22 08:24 Dose: 25 mcg Documented By: TORRI Labs 06/11/22 06:58 06/11/22 06:58 Labs: Laboratory Results - last 24 hr 06/11/22 06/11/22 06:58 06:58 MCV 93.3 MCH 29.0 MCHC 31.0 RDW 15.1 Plt Count 151 L MPV 9.5 Absolute Nucleated RBC 0.000 Nucleated RBC % (auto) 0.0 Anion Gap 11 L Estim Creat Clear Calc 66.0 Estimated GFR > 60 Fasting Glucose 80 Calcium 8.9 Microbiology Microbiology Results: Microbiology 06/08/22 Unknown Urine Culture - Preliminary Urine clean catch - Urine cotto top Enterobacter aerogenes Enterococcus/Streptococcus sp 06/08/22 22:46 Blood Culture - Preliminary Blood - Venous No growth after 48 hours. 06/08/22 22:46 Blood Culture - Preliminary Blood - Venous No growth after 48 hours. Assessment and Plan (1) Acute UTI: Status: Acute Plan 82M PMH metastatic prostate ca, chronic diastolic chf with severe , parkinsons disease, htn, presented from [place] for fever severe sepsis due to uti complicated by metabolic encephalopathy levaquin urine growing enterobacter aerogenes and enterococcus/strep species bp better acute hypoxic respiratory failure wean o2 as tolerated cxr unchanged metastic prostate ca casodex fentanyl Parkinsons sinemet mood dusirder zyprexa dvt prophylaxis - lovenox full code reason for continued hospitalization:hypoxia Time Spent With Patient Time: Total time managing care of this patient today ____ minutes. Quality Stroke Does the patient have a stroke diagnosis?: No VTE Prior VTE?: No VTE Risk Level:: Medical - moderate - high VTE Device Contraindication: Treatment Not Indicated VTE Drug Contraindication: N/A - Med Ordered
[2022-06-11] MEDS: Divalproex Sodium Sprinkles 125 MG CAP.DR.SPR 500 MG PO ×2 (10:24→20:34)
[2022-06-11] MEDS: Divalproex Sodium Sprinkles 125 MG CAP.DR.SPR 375 MG PO (14:10)
[2022-06-11 15:08] VITALS: BP 117/60; PULSE 64; RESP 18; TEMP 36.8; O2SAT 91
[2022-06-11 19:39] VITALS: BP 130/60; PULSE 65; RESP 17; TEMP 36.6; O2SAT 94
[2022-06-11] MEDS: OLANZapine 10 MG TABLET PO (20:34)
[2022-06-11] MEDS: Melatonin 3 MG TABLET 6 MG PO (20:35)
[2022-06-11] MEDS: Atorvastatin Calcium 40 MG TABLET PO (20:35)
[2022-06-11] MEDS: Tamsulosin HCL 0.4 MG CAPSULE 0.8 MG PO (20:35)
[2022-06-12] MEDS: levoFLOXacin/D5W 750 MG/150 ML PIGGYBACK 100 MG IV (01:50)
[2022-06-12] MEDS: Enoxaparin Sodium 40 MG/0.4 ML SYRINGE SUBCUT (01:53)
[2022-06-12 03:43] VITALS: BP 141/62; PULSE 98; RESP 17; TEMP 36.2; O2SAT 94
[2022-06-12] MEDS: LORazepam 0.5 MG TABLET PO ×2 (05:42→20:44)
[2022-06-12 06:33] LABS: Hematocrit 38.4 % (42.0-52.0); Hemoglobin 12.1 g/dl (14.0-18.0); Mean Corpuscular HGB Conc 31.5 g/dl (31.0-36.0); Mean Corpuscular Hemoglobin 29.5 pg (27.0-33.0); Mean Corpuscular Volume 93.7 fL (80.0-98.0); Mean Platelet Volume 9.6 fL (9.4-12.4); Platelet Count 158 X10*3/uL (160-400); White Blood Count 7.3 X10*3/uL (4.8-10.8)
[2022-06-12 07:05] LABS: Anion Gap 13 (12-20); Blood Urea Nitrogen 13 mg/dL (9-16); Calcium 9.4 mg/dL (8.4-10.2); Carbon Dioxide 28 mmol/L (22-29); Chloride 101 mmol/L (96-108); Creatinine Clr Calc Pharmacy 66.7; Estimated Glomerular Filt Rate > 60; Glucose Fasting 85 mg/dL (60-99); Potassium 3.7 mmol/L (3.3-5.1); Sodium 138 mmol/L (135-145)
[2022-06-12 07:57] VITALS: BP 139/65; PULSE 62; RESP 24; TEMP 36.8; O2SAT 95
[2022-06-12] MEDS: fentaNYL 12 MCG PATCH.TD72 TRANSDERMA (08:36)
[2022-06-12] MEDS: Pramipexole Di-HCL 0.25 MG TABLET 0.5 MG PO ×2 (08:37→17:31)
[2022-06-12] MEDS: Divalproex Sodium Sprinkles 125 MG CAP.DR.SPR 500 MG PO ×2 (08:37→20:43)
[2022-06-12] MEDS: Docusate Sodium 100 MG CAPSULE PO ×2 (08:37→20:43)
[2022-06-12] MEDS: calcium polycarbophiL TABLET 1 TAB PO (08:37)
[2022-06-12] MEDS: Acetaminophen 325 MG TABLET 650 MG PO ×3 (08:37→20:44)
[2022-06-12] MEDS: OLANZapine 2.5 MG TABLET 7.5 MG PO (08:37)
[2022-06-12] MEDS: 0.9 % Sodium Chloride Flush 3 ML SYRINGE IVFLUSH ×3 (08:38→20:50)
[2022-06-12] MEDS: Bicalutamide 50 MG TABLET PO (08:38)
[2022-06-12] MEDS: Aspirin 81 MG TAB.CHEW PO (08:38)
[2022-06-12] MEDS: Cholecalciferol (Vitamin D3) 25 MCG TABLET PO (08:38)
[2022-06-12] MEDS: Carbidopa/Levodopa 25/100 TABLET 1 TAB PO ×4 (08:38→20:44)
--- NOTE | 2022-06-12 09:53 | HO.PM.IMPN ---
Subjective Subjective Date of Service: 06/12/22 Interval History: much improved Physical Exam Vital Signs: Vital Signs: Last Vital Signs Temp 98.3 F 06/12/22 07:57 Pulse 62 06/12/22 07:57 Resp 24 H 06/12/22 07:57 BP 139/65 06/12/22 07:57 Pulse Ox 95 06/12/22 07:57 O2 Del Method 06/12/22 07:57 O2 Flow Rate 2 06/12/22 07:57 BMI result Body Mass Index 34.2 General: much improved Resp: diminished bilateral, no accessory muscles used CVS: S1,S2,RRR GI: soft, non tender, non distended Objective Data Active Medications Acetaminophen (Acetaminophen 325 Mg Tablet) 650 mg PO Q6H PRN PRN Reason: Pain, Mild (Pain Scale 1-3) Acetaminophen (Acetaminophen 325 Mg Tablet) 650 mg PO TID [facility] Last Admin: 06/12/22 08:37 Dose: 650 mg Documented By: TORRI Al Hydroxide/Mg Hydroxide (Magnesium Hydrox/Alum Hydrox 30 Ml Oral.Susp) 30 ml PO Q6H PRN PRN Reason: Indigestion Aspirin (Aspirin 81 Mg Tab.Chew) 81 mg PO DAILY [facility] Last Admin: 06/12/22 08:38 Dose: 81 mg Documented By: TORRI Atorvastatin Calcium (Atorvastatin Calcium 40 Mg Tablet) 40 mg PO BEDTIME [facility] Last Admin: 06/11/22 20:35 Dose: 40 mg Documented By: CANDY Benzocaine (Throat Lozenge, Medicated Lozenge) 1 lozenge MUCOUS MEM Q2H PRN PRN Reason: Sore Throat Bicalutamide (Bicalutamide 50 Mg Tablet) 50 mg PO DAILY [facility] Last Admin: 06/12/22 08:38 Dose: 50 mg Documented By: TORRI Bisacodyl (Bisacodyl 10 Mg Supp.Rect) 10 mg [place] DAILY PRN PRN Reason: Constipation Calcium Polycarbophil (Calcium Polycarbophil Tablet) 1 tab PO DAILY [facility] Last Admin: 06/12/22 08:37 Dose: 1 tab Documented By: TORRI Carbidopa/Levodopa (Carbidopa/Levodopa 25/100 Tablet) 1 tab PO QID [facility] Last Admin: 06/12/22 08:38 Dose: 1 tab Documented By: TORRI Divalproex Sodium (Divalproex Sodium Sprinkles 125 Mg ) 500 mg PO Q12H [facility] Last Admin: 06/12/22 08:37 Dose: 500 mg Documented By: TORRI Divalproex Sodium (Divalproex Sodium Sprinkles 125 Mg ) 375 mg PO DAILY@1400 [facility] Last Admin: 06/11/22 14:10 Dose: 375 mg Documented By: TORRI Docusate Sodium (Docusate Sodium 100 Mg Capsule) 100 mg PO BID [facility] Last Admin: 06/12/22 08:37 Dose: 100 mg Documented By: TORRI Enoxaparin Sodium (Enoxaparin Sodium 40 Mg/0.4 Ml Syringe) 40 mg SUBCUT Q24H [facility] Last Admin: 06/12/22 01:53 Dose: 40 mg Documented By: CANDY Fentanyl (Fentanyl 12 Mcg Patch.Td72) 12 mcg TRANSDERMA Q72H [facility] Last Admin: 06/12/22 08:36 Dose: 12 mcg Documented By: TORRI Levofloxacin (Levaquin) 750 mg in 150 mls @ 100 mls/hr IV Q24H [facility] Last Infusion: 06/12/22 03:24 Dose: 0 mls/hr Documented By: CANDY Loperamide HCl (Loperamide Hcl 2 Mg Capsule) 2 mg PO QID PRN PRN Reason: Loose Stool Lorazepam (Lorazepam 0.5 Mg Tablet) 0.5 mg PO BEDTIME [facility] Last Admin: 06/11/22 20:35 Dose: 0.5 mg Documented By: CANDY Lorazepam (Lorazepam 0.5 Mg Tablet) 0.5 mg PO BID PRN PRN Reason: Anxiety Last Admin: 06/12/22 05:42 Dose: 0.5 mg Documented By: CANDY Melatonin (Melatonin 3 Mg Tablet) 6 mg PO BEDTIME PRN PRN Reason: Insomnia Last Admin: 06/11/22 20:35 Dose: 6 mg Documented By: CANDY Olanzapine (Olanzapine 2.5 Mg Tablet) 7.5 mg PO DAILY [facility] Last Admin: 06/12/22 08:37 Dose: 7.5 mg Documented By: TORRI Olanzapine (Olanzapine 10 Mg Tablet) 10 mg PO BEDTIME [facility] Last Admin: 06/11/22 20:34 Dose: 10 mg Documented By: CANDY Ondansetron HCl (Ondansetron Hcl 4 Mg/2 Ml Vial) 4 mg IVPUSH Q8H PRN PRN Reason: Nausea and Vomiting Pharmacy Consult (Consult Rx Perform Med Rec) 1 each MISCELLANE ONCE PRN PRN Reason: Consult order Polyethylene Glycol (Polyethylene Glycol 3350 17 Gm Powd.Pack) 17 gm PO DAILY PRN PRN Reason: Constipation Pramipexole Dihydrochloride (Pramipexole Di-Hcl 0.25 Mg Tablet) 0.5 mg PO BID@0900,1700 [facility] Last Admin: 06/12/22 08:37 Dose: 0.5 mg Documented By: TORRI Senna (Sennosides 8.6 Mg Tablet) 8.6 mg PO DAILY PRN PRN Reason: Constipation Last Admin: 06/09/22 11:12 Dose: 8.6 mg Documented By: TEENA Sodium Chloride (0.9 % Sodium Chloride Flush 3 Ml Syringe) 3 ml IVFLUSH QSHIFT [facility] Last Admin: 06/12/22 08:38 Dose: 3 ml Documented By: TORRI Tamsulosin HCl (Tamsulosin Hcl 0.4 Mg Capsule) 0.8 mg PO BEDTIME [facility] Last Admin: 06/11/22 20:35 Dose: 0.8 mg Documented By: CANDY Vitamin D (Cholecalciferol (Vitamin D3) 25 Mcg Tablet) 25 mcg PO DAILY [facility] Last Admin: 06/12/22 08:38 Dose: 25 mcg Documented By: TORRI Labs 06/12/22 05:58 06/12/22 05:58 Labs: Laboratory Results - last 24 hr 06/12/22 06/12/22 05:58 05:58 MCV 93.7 MCH 29.5 MCHC 31.5 RDW 15.0 Plt Count 158 L MPV 9.6 Absolute Nucleated RBC 0.000 Nucleated RBC % (auto) 0.0 Anion Gap 13 Estim Creat Clear Calc 66.7 Estimated GFR > 60 Fasting Glucose 85 Calcium 9.4 Microbiology Microbiology Results: Microbiology 06/08/22 Unknown Urine Culture - Final Urine clean catch - Urine cotto top Enterobacter aerogenes Enterococcus faecalis Assessment and Plan (1) Acute UTI: Status: Acute Plan 82M PMH metastatic prostate ca, chronic diastolic chf with severe , parkinsons disease, htn, presented from [place] for fever severe sepsis due to uti complicated by metabolic encephalopathy levaquin urine growing enterobacter aerogenes and enterococcus/strep species bp better hospital delerium orienting strategies acute hypoxic respiratory failure wean o2 as tolerated cxr unchanged metastic prostate ca casodex fentanyl Parkinsons sinemet mood dusirder zyprexa dvt prophylaxis - lovenox full code reason for continued hospitalization:hypoxia Time Spent With Patient Time: Total time managing care of this patient today ____ minutes. Quality Stroke Does the patient have a stroke diagnosis?: No VTE Prior VTE?: No VTE Risk Level:: Medical - moderate - high VTE Device Contraindication: Treatment Not Indicated VTE Drug Contraindication: N/A - Med Ordered
[2022-06-12] MEDS: Divalproex Sodium Sprinkles 125 MG CAP.DR.SPR 375 MG PO (14:07)
[2022-06-12 15:22] VITALS: BP 130/60; PULSE 61; RESP 19; TEMP 36.4; O2SAT 93
[2022-06-12] MEDS: bisacodyL 10 MG SUPP.RECT PR (17:31)
[2022-06-12 19:50] VITALS: BP 118/59; PULSE 70; RESP 19; TEMP 36.8; O2SAT 90
[2022-06-12] MEDS: Tamsulosin HCL 0.4 MG CAPSULE 0.8 MG PO (20:43)
[2022-06-12] MEDS: Atorvastatin Calcium 40 MG TABLET PO (20:43)
[2022-06-12] MEDS: OLANZapine 10 MG TABLET PO (20:44)
[2022-06-13] MEDS: levoFLOXacin/D5W 750 MG/150 ML PIGGYBACK 100 MG IV (02:05)
[2022-06-13] MEDS: Enoxaparin Sodium 40 MG/0.4 ML SYRINGE SUBCUT (02:05)
[2022-06-13 02:33] VITALS: BP 126/59; RESP 18; TEMP 35.8; O2SAT 98
[2022-06-13 06:40] LABS: Hematocrit 36.9 % (42.0-52.0); Hemoglobin 11.5 g/dl (14.0-18.0); Mean Corpuscular HGB Conc 31.2 g/dl (31.0-36.0); Mean Corpuscular Hemoglobin 29.1 pg (27.0-33.0); Mean Corpuscular Volume 93.4 fL (80.0-98.0); Mean Platelet Volume 9.3 fL (9.4-12.4); Platelet Count 155 X10*3/uL (160-400); Red Blood Count 3.95 X10*6/uL (4.60-5.80); White Blood Count 6.5 X10*3/uL (4.8-10.8)
[2022-06-13 06:57] LABS: Anion Gap 9 (12-20); Blood Urea Nitrogen 12 mg/dL (9-16); Calcium 9.2 mg/dL (8.4-10.2); Carbon Dioxide 31 mmol/L (22-29); Chloride 104 mmol/L (96-108); Creatinine Clr Calc Pharmacy 74.2; Estimated Glomerular Filt Rate > 60; Glucose Fasting 80 mg/dL (60-99); Potassium 4.4 mmol/L (3.3-5.1); Sodium 140 mmol/L (135-145)
[2022-06-13 08:00] VITALS: BP 150/69; PULSE 62; RESP 18; TEMP 36.4; O2SAT 92
[2022-06-13] MEDS: calcium polycarbophiL TABLET 1 TAB PO (08:38)
[2022-06-13] MEDS: Acetaminophen 325 MG TABLET 650 MG PO ×3 (08:38→21:04)
[2022-06-13] MEDS: Aspirin 81 MG TAB.CHEW PO (08:38)
[2022-06-13] MEDS: Docusate Sodium 100 MG CAPSULE PO ×2 (08:38→21:04)
[2022-06-13] MEDS: OLANZapine 2.5 MG TABLET 7.5 MG PO (08:39)
[2022-06-13] MEDS: Carbidopa/Levodopa 25/100 TABLET 1 TAB PO ×4 (08:39→21:04)
[2022-06-13] MEDS: Divalproex Sodium Sprinkles 125 MG CAP.DR.SPR 500 MG PO ×2 (08:39→21:03)
[2022-06-13] MEDS: Bicalutamide 50 MG TABLET PO (08:40)
[2022-06-13] MEDS: 0.9 % Sodium Chloride Flush 3 ML SYRINGE IVFLUSH ×3 (08:40→21:33)
[2022-06-13] MEDS: Cholecalciferol (Vitamin D3) 25 MCG TABLET PO (08:40)
[2022-06-13] MEDS: Pramipexole Di-HCL 0.25 MG TABLET 0.5 MG PO ×2 (08:40→17:17)
--- NOTE | 2022-06-13 11:07 | HO.PM.IMPN ---
Subjective Subjective Date of Service: 06/13/22 Interval History: sleepy Physical Exam Vital Signs: Vital Signs: Last Vital Signs Temp 97.6 F 06/13/22 08:00 Pulse 62 06/13/22 08:00 Resp 18 06/13/22 08:00 BP 150/69 H 06/13/22 08:00 Pulse Ox 92 06/13/22 08:00 O2 Del Method 06/13/22 08:00 O2 Flow Rate 2.5 06/13/22 08:00 BMI result Body Mass Index 34.2 General: much improved Resp: diminished bilateral, no accessory muscles used CVS: S1,S2,RRR GI: soft, non tender, non distended Objective Data Active Medications Acetaminophen (Acetaminophen 325 Mg Tablet) 650 mg PO Q6H PRN PRN Reason: Pain, Mild (Pain Scale 1-3) Acetaminophen (Acetaminophen 325 Mg Tablet) 650 mg PO TID [facility] Last Admin: 06/13/22 08:38 Dose: 650 mg Documented By: BETH Al Hydroxide/Mg Hydroxide (Magnesium Hydrox/Alum Hydrox 30 Ml Oral.Susp) 30 ml PO Q6H PRN PRN Reason: Indigestion Aspirin (Aspirin 81 Mg Tab.Chew) 81 mg PO DAILY [facility] Last Admin: 06/13/22 08:38 Dose: 81 mg Documented By: BETH Atorvastatin Calcium (Atorvastatin Calcium 40 Mg Tablet) 40 mg PO BEDTIME [facility] Last Admin: 06/12/22 20:43 Dose: 40 mg Documented By: ODRISLuda Benzocaine (Throat Lozenge, Medicated Lozenge) 1 lozenge MUCOUS MEM Q2H PRN PRN Reason: Sore Throat Bicalutamide (Bicalutamide 50 Mg Tablet) 50 mg PO DAILY [facility] Last Admin: 06/13/22 08:40 Dose: 50 mg Documented By: BETH Bisacodyl (Bisacodyl 10 Mg Supp.Rect) 10 mg [place] DAILY PRN PRN Reason: Constipation Last Admin: 06/12/22 17:31 Dose: 10 mg Documented By: TORRI Calcium Polycarbophil (Calcium Polycarbophil Tablet) 1 tab PO DAILY [facility] Last Admin: 06/13/22 08:38 Dose: 1 tab Documented By: BETH Carbidopa/Levodopa (Carbidopa/Levodopa 25/100 Tablet) 1 tab PO QID [facility] Last Admin: 06/13/22 08:39 Dose: 1 tab Documented By: BETH Divalproex Sodium (Divalproex Sodium Sprinkles 125 Mg ) 500 mg PO Q12H [facility] Last Admin: 06/13/22 08:39 Dose: 500 mg Documented By: BETH Divalproex Sodium (Divalproex Sodium Sprinkles 125 Mg ) 375 mg PO DAILY@1400 [facility] Last Admin: 06/12/22 14:07 Dose: 375 mg Documented By: TORRI Docusate Sodium (Docusate Sodium 100 Mg Capsule) 100 mg PO BID [facility] Last Admin: 06/13/22 08:38 Dose: 100 mg Documented By: BETH Enoxaparin Sodium (Enoxaparin Sodium 40 Mg/0.4 Ml Syringe) 40 mg SUBCUT Q24H [facility] Last Admin: 06/13/22 02:05 Dose: 40 mg Documented By: EVELYNE Fentanyl (Fentanyl 12 Mcg Patch.Td72) 12 mcg TRANSDERMA Q72H [facility] Last Admin: 06/12/22 08:36 Dose: 12 mcg Documented By: TORRI Levofloxacin (Levaquin) 750 mg in 150 mls @ 100 mls/hr IV Q24H [facility] Last Infusion: 06/13/22 03:40 Dose: 0 mls/hr Documented By: EVELYNE Loperamide HCl (Loperamide Hcl 2 Mg Capsule) 2 mg PO QID PRN PRN Reason: Loose Stool Lorazepam (Lorazepam 0.5 Mg Tablet) 0.5 mg PO BEDTIME [facility] Last Admin: 06/12/22 20:44 Dose: 0.5 mg Documented By: EVELYNE Lorazepam (Lorazepam 0.5 Mg Tablet) 0.5 mg PO BID PRN PRN Reason: Anxiety Last Admin: 06/12/22 05:42 Dose: 0.5 mg Documented By: CANDY Melatonin (Melatonin 3 Mg Tablet) 6 mg PO BEDTIME PRN PRN Reason: Insomnia Last Admin: 06/11/22 20:35 Dose: 6 mg Documented By: CANDY Olanzapine (Olanzapine 2.5 Mg Tablet) 7.5 mg PO DAILY [facility] Last Admin: 06/13/22 08:39 Dose: 7.5 mg Documented By: BETH Olanzapine (Olanzapine 10 Mg Tablet) 10 mg PO BEDTIME [facility] Last Admin: 06/12/22 20:44 Dose: 10 mg Documented By: EVELYNE Ondansetron HCl (Ondansetron Hcl 4 Mg/2 Ml Vial) 4 mg IVPUSH Q8H PRN PRN Reason: Nausea and Vomiting Pharmacy Consult (Consult Rx Perform Med Rec) 1 each MISCELLANE ONCE PRN PRN Reason: Consult order Polyethylene Glycol (Polyethylene Glycol 3350 17 Gm Powd.Pack) 17 gm PO DAILY PRN PRN Reason: Constipation Pramipexole Dihydrochloride (Pramipexole Di-Hcl 0.25 Mg Tablet) 0.5 mg PO BID@0900,1700 [facility] Last Admin: 06/13/22 08:40 Dose: 0.5 mg Documented By: BETH Senna (Sennosides 8.6 Mg Tablet) 8.6 mg PO DAILY PRN PRN Reason: Constipation Last Admin: 06/09/22 11:12 Dose: 8.6 mg Documented By: TEENA Sodium Chloride (0.9 % Sodium Chloride Flush 3 Ml Syringe) 3 ml IVFLUSH QSHIFT [facility] Last Admin: 06/13/22 08:40 Dose: 3 ml Documented By: BETH Tamsulosin HCl (Tamsulosin Hcl 0.4 Mg Capsule) 0.8 mg PO BEDTIME [facility] Last Admin: 06/12/22 20:43 Dose: 0.8 mg Documented By: EVELYNE Vitamin D (Cholecalciferol (Vitamin D3) 25 Mcg Tablet) 25 mcg PO DAILY [facility] Last Admin: 06/13/22 08:40 Dose: 25 mcg Documented By: BETH Labs 06/13/22 06:19 06/13/22 06:19 Labs: Laboratory Results - last 24 hr 06/13/22 06/13/22 06:19 06:19 MCV 93.4 MCH 29.1 MCHC 31.2 RDW 15.0 Plt Count 155 L MPV 9.3 L Absolute Nucleated RBC 0.000 Nucleated RBC % (auto) 0.0 Anion Gap 9 L Estim Creat Clear Calc 74.2 Estimated GFR > 60 Fasting Glucose 80 Calcium 9.2 Microbiology Microbiology Results: Microbiology 06/08/22 Unknown Urine Culture - Final Urine clean catch - Urine cotto top Enterobacter aerogenes Enterococcus faecalis Assessment and Plan (1) Acute UTI: Status: Acute Plan 82M PMH metastatic prostate ca, chronic diastolic chf with severe , parkinsons disease, htn, presented from [place] for fever severe sepsis due to uti complicated by metabolic encephalopathy levaquin urine growing enterobacter aerogenes and enterococcus faecalis bp better [facility] delerium orienting strategies check vbg acute hypoxic respiratory failure wean o2 as tolerated cxr unchanged metastic prostate ca casodex fentanyl Parkinsons sinemet mood dusirder zyprexa dvt prophylaxis - lovenox full code reason for continued hospitalization:hypoxia Time Spent With Patient Time: Total time managing care of this patient today ____ minutes. Quality Stroke Does the patient have a stroke diagnosis?: No VTE Prior VTE?: No VTE Risk Level:: Medical - moderate - high VTE Device Contraindication: Treatment Not Indicated VTE Drug Contraindication: N/A - Med Ordered
[2022-06-13 11:39] LABS: VBG Base Excess 9.8 mmol/L; VBG HCO3 36 mmol/L (22-26); VBG pCO2 57 mmHg; VBG pO2 45 mmHg
[2022-06-13 11:41] LABS: Venous Blood Gas Refer to POC result
[2022-06-13] MEDS: Divalproex Sodium Sprinkles 125 MG CAP.DR.SPR 375 MG PO (14:28)
[2022-06-13 16:00] VITALS: BP 130/63; PULSE 63; RESP 17; TEMP 36.4; O2SAT 95
[2022-06-13 20:00] VITALS: BP 129/63; PULSE 80; RESP 17; TEMP 36.5; O2SAT 93
[2022-06-13] MEDS: Tamsulosin HCL 0.4 MG CAPSULE 0.8 MG PO (21:03)
[2022-06-13] MEDS: Atorvastatin Calcium 40 MG TABLET PO (21:04)
[2022-06-13] MEDS: OLANZapine 10 MG TABLET PO (21:04)
[2022-06-13] MEDS: LORazepam 0.5 MG TABLET PO (21:04)
[2022-06-14] MEDS: Enoxaparin Sodium 40 MG/0.4 ML SYRINGE SUBCUT (01:57)
[2022-06-14] MEDS: levoFLOXacin/D5W 750 MG/150 ML PIGGYBACK 100 MG IV (01:58)
[2022-06-14 04:00] VITALS: BP 155/69; PULSE 55; RESP 20; TEMP 36.1; O2SAT 96
[2022-06-14] MEDS: LORazepam 0.5 MG TABLET PO ×2 (06:09→20:19)
[2022-06-14 07:43] LABS: Hematocrit 38.9 % (42.0-52.0); Hemoglobin 12.4 g/dl (14.0-18.0); Mean Corpuscular HGB Conc 31.9 g/dl (31.0-36.0); Mean Corpuscular Hemoglobin 29.1 pg (27.0-33.0); Mean Corpuscular Volume 91.3 fL (80.0-98.0); Mean Platelet Volume 9.2 fL (9.4-12.4); Platelet Count 165 X10*3/uL (160-400); Red Blood Count 4.26 X10*6/uL (4.60-5.80); White Blood Count 6.6 X10*3/uL (4.8-10.8)
[2022-06-14 08:00] VITALS: BP 171/80; PULSE 98; RESP 19; TEMP 36.6; O2SAT 92
[2022-06-14 08:35] LABS: Anion Gap 13 (12-20); Blood Urea Nitrogen 12 mg/dL (9-16); Calcium 9.6 mg/dL (8.4-10.2); Carbon Dioxide 28 mmol/L (22-29); Chloride 103 mmol/L (96-108); Creatinine Clr Calc Pharmacy 64.7; Estimated Glomerular Filt Rate > 60; Glucose Fasting 88 mg/dL (60-99); Potassium 4.2 mmol/L (3.3-5.1); Sodium 140 mmol/L (135-145)
--- NOTE | 2022-06-14 09:27 | HO.PM.IMPN ---
Subjective Subjective Date of Service: 06/14/22 Interval History: more alert Physical Exam Vital Signs: Vital Signs: Last Vital Signs Temp 97.9 F 06/14/22 08:00 Pulse 98 06/14/22 08:00 Resp 19 06/14/22 08:00 BP 171/80 H 06/14/22 08:00 Pulse Ox 92 06/14/22 08:00 O2 Del Method 06/14/22 08:00 O2 Flow Rate 2.0 06/14/22 08:00 BMI result Body Mass Index 34.2 General: much improved Resp: diminished bilateral, no accessory muscles used CVS: S1,S2,RRR GI: soft, non tender, non distended Objective Data Active Medications Acetaminophen (Acetaminophen 325 Mg Tablet) 650 mg PO Q6H PRN PRN Reason: Pain, Mild (Pain Scale 1-3) Acetaminophen (Acetaminophen 325 Mg Tablet) 650 mg PO TID [facility] Last Admin: 06/13/22 21:04 Dose: 650 mg Documented By: EVELYNE Al Hydroxide/Mg Hydroxide (Magnesium Hydrox/Alum Hydrox 30 Ml Oral.Susp) 30 ml PO Q6H PRN PRN Reason: Indigestion Amlodipine Besylate (Amlodipine Besylate 5 Mg Tablet) 5 mg PO DAILY [facility]; Protocol Aspirin (Aspirin 81 Mg Tab.Chew) 81 mg PO DAILY [facility] Last Admin: 06/13/22 08:38 Dose: 81 mg Documented By: BETH Atorvastatin Calcium (Atorvastatin Calcium 40 Mg Tablet) 40 mg PO BEDTIME [facility] Last Admin: 06/13/22 21:04 Dose: 40 mg Documented By: EVELYNE Benzocaine (Throat Lozenge, Medicated Lozenge) 1 lozenge MUCOUS MEM Q2H PRN PRN Reason: Sore Throat Bicalutamide (Bicalutamide 50 Mg Tablet) 50 mg PO DAILY [facility] Last Admin: 06/13/22 08:40 Dose: 50 mg Documented By: BETH Bisacodyl (Bisacodyl 10 Mg Supp.Rect) 10 mg RI DAILY PRN PRN Reason: Constipation Last Admin: 06/12/22 17:31 Dose: 10 mg Documented By: TORRI Calcium Polycarbophil (Calcium Polycarbophil Tablet) 1 tab PO DAILY [facility] Last Admin: 06/13/22 08:38 Dose: 1 tab Documented By: BETH Carbidopa/Levodopa (Carbidopa/Levodopa 25/100 Tablet) 1 tab PO QID [facility] Last Admin: 06/13/22 21:04 Dose: 1 tab Documented By: EVELYNE Divalproex Sodium (Divalproex Sodium Sprinkles 125 Mg ) 500 mg PO Q12H [facility] Last Admin: 06/13/22 21:03 Dose: 500 mg Documented By: EVELYNE Divalproex Sodium (Divalproex Sodium Sprinkles 125 Mg ) 375 mg PO DAILY@1400 [facility] Last Admin: 06/13/22 14:28 Dose: 375 mg Documented By: BETH Docusate Sodium (Docusate Sodium 100 Mg Capsule) 100 mg PO BID [facility] Last Admin: 06/13/22 21:04 Dose: 100 mg Documented By: EVELYNE Enoxaparin Sodium (Enoxaparin Sodium 40 Mg/0.4 Ml Syringe) 40 mg SUBCUT Q24H [facility] Last Admin: 06/14/22 01:57 Dose: 40 mg Documented By: EVELYNE Furosemide (Furosemide 40 Mg Tablet) 40 mg PO DAILY [facility]; Protocol Levofloxacin (Levaquin) 750 mg in 150 mls @ 100 mls/hr IV Q24H [facility] Last Infusion: 06/14/22 03:45 Dose: 0 mls/hr Documented By: EVELYNE Loperamide HCl (Loperamide Hcl 2 Mg Capsule) 2 mg PO QID PRN PRN Reason: Loose Stool Lorazepam (Lorazepam 0.5 Mg Tablet) 0.5 mg PO BEDTIME [facility] Last Admin: 06/13/22 21:04 Dose: 0.5 mg Documented By: EVELYNE Melatonin (Melatonin 3 Mg Tablet) 6 mg PO BEDTIME PRN PRN Reason: Insomnia Last Admin: 06/11/22 20:35 Dose: 6 mg Documented By: CANDY Olanzapine (Olanzapine 2.5 Mg Tablet) 7.5 mg PO DAILY [facility] Last Admin: 06/13/22 08:39 Dose: 7.5 mg Documented By: BETH Olanzapine (Olanzapine 10 Mg Tablet) 10 mg PO BEDTIME [facility] Last Admin: 06/13/22 21:04 Dose: 10 mg Documented By: HO.ODRISM Ondansetron HCl (Ondansetron Hcl 4 Mg/2 Ml Vial) 4 mg IVPUSH Q8H PRN PRN Reason: Nausea and Vomiting Pharmacy Consult (Consult Rx Perform Med Rec) 1 each MISCELLANE ONCE PRN PRN Reason: Consult order Polyethylene Glycol (Polyethylene Glycol 3350 17 Gm Powd.Pack) 17 gm PO DAILY PRN PRN Reason: Constipation Pramipexole Dihydrochloride (Pramipexole Di-Hcl 0.25 Mg Tablet) 0.5 mg PO BID@0900,1700 [facility] Last Admin: 06/13/22 17:17 Dose: 0.5 mg Documented By: BETH Senna (Sennosides 8.6 Mg Tablet) 8.6 mg PO DAILY PRN PRN Reason: Constipation Last Admin: 06/09/22 11:12 Dose: 8.6 mg Documented By: TEENA Sodium Chloride (0.9 % Sodium Chloride Flush 3 Ml Syringe) 3 ml IVFLUSH QSHIFT [facility] Last Admin: 06/13/22 21:33 Dose: 3 ml Documented By: EVELYNE Tamsulosin HCl (Tamsulosin Hcl 0.4 Mg Capsule) 0.8 mg PO BEDTIME [facility] Last Admin: 06/13/22 21:03 Dose: 0.8 mg Documented By: EVELYNE Vitamin D (Cholecalciferol (Vitamin D3) 25 Mcg Tablet) 25 mcg PO DAILY [facility] Last Admin: 06/13/22 08:40 Dose: 25 mcg Documented By: BETH Labs 06/14/22 07:19 06/14/22 07:19 Labs: Laboratory Results - last 24 hr 06/13/22 06/14/22 06/14/22 11:25 07:19 07:19 MCV 91.3 MCH 29.1 MCHC 31.9 RDW 15.0 Plt Count 165 MPV 9.2 L Absolute Nucleated RBC 0.000 Nucleated RBC % (auto) 0.0 VBG pH 7.40 VBG pCO2 57 VBG pO2 45 VBG HCO3 36 H VBG O2 Saturation 71.0 VBG Base Excess 9.8 Anion Gap 13 Estim Creat Clear Calc 64.7 Estimated GFR > 60 Fasting Glucose 88 Calcium 9.6 Microbiology Microbiology Results: Microbiology 06/08/22 22:46 Blood Culture - Final Blood - Venous No growth after 5 days. 06/08/22 22:46 Blood Culture - Final Blood - Venous No growth after 5 days. Assessment and Plan (1) Acute UTI: Status: Acute Plan 82M PMH metastatic prostate ca, chronic diastolic chf with severe , parkinsons disease, htn, presented from [place] for fever severe sepsis due to uti complicated by metabolic encephalopathy levaquin urine growing enterobacter aerogenes and enterococcus faecalis bp better (now elevated) hospital delerium orienting strategies check vbg acute hypoxic respiratory failure wean o2 as tolerated repeat cxr will restart lasix for acute on chronic diastolic chf with severe metastic prostate ca casodex fentanyl Parkinsons sinemet mood dusirder zyprexa dvt prophylaxis - lovenox full code reason for continued hospitalization:hypoxia Time Spent With Patient Time: Total time managing care of this patient today ____ minutes. Quality Stroke Does the patient have a stroke diagnosis?: No VTE Prior VTE?: No VTE Risk Level:: Medical - moderate - high VTE Device Contraindication: Treatment Not Indicated VTE Drug Contraindication: N/A - Med Ordered
[2022-06-14] MEDS: OLANZapine 2.5 MG TABLET 7.5 MG PO (10:26)
[2022-06-14] MEDS: 0.9 % Sodium Chloride Flush 3 ML SYRINGE IVFLUSH ×3 (10:26→20:20)
[2022-06-14] MEDS: Acetaminophen 325 MG TABLET 650 MG PO ×2 (10:27→20:19)
[2022-06-14] MEDS: calcium polycarbophiL TABLET 1 TAB PO (10:27)
[2022-06-14] MEDS: Docusate Sodium 100 MG CAPSULE PO ×2 (10:27→20:19)
[2022-06-14] MEDS: amLODIPine Besylate 5 MG TABLET PO (10:28)
[2022-06-14] MEDS: Bicalutamide 50 MG TABLET PO (10:28)
[2022-06-14] MEDS: Carbidopa/Levodopa 25/100 TABLET 1 TAB PO ×4 (10:28→20:19)
[2022-06-14] MEDS: Pramipexole Di-HCL 0.25 MG TABLET 0.5 MG PO ×2 (10:28→18:02)
[2022-06-14] MEDS: Aspirin 81 MG TAB.CHEW PO (10:28)
[2022-06-14] MEDS: Divalproex Sodium Sprinkles 125 MG CAP.DR.SPR 500 MG PO ×2 (10:28→20:20)
[2022-06-14] MEDS: Cholecalciferol (Vitamin D3) 25 MCG TABLET PO (10:28)
[2022-06-14] MEDS: Furosemide 40 MG TABLET PO (10:29)
[2022-06-14] MEDS: Furosemide 40 MG/4 ML VIAL IVPUSH (12:38)
[2022-06-14] MEDS: Divalproex Sodium Sprinkles 125 MG CAP.DR.SPR 375 MG PO (14:21)
[2022-06-14 14:27] VITALS: PULSE 88; O2SAT 92
[2022-06-14 16:00] VITALS: BP 135/75; PULSE 68; RESP 17; TEMP 36.5; O2SAT 93
[2022-06-14 19:33] VITALS: BP 129/66; PULSE 75; RESP 17; TEMP 36.5; O2SAT 93
[2022-06-14] MEDS: OLANZapine 10 MG TABLET PO (20:19)
[2022-06-14] MEDS: Tamsulosin HCL 0.4 MG CAPSULE 0.8 MG PO (20:19)
[2022-06-14] MEDS: Throat Lozenge, Medicated LOZENGE 1 LOZENGE MUCOUS MEM (20:19)
[2022-06-14] MEDS: Atorvastatin Calcium 40 MG TABLET PO (20:19)
[2022-06-15] MEDS: Enoxaparin Sodium 40 MG/0.4 ML SYRINGE SUBCUT (02:05)
[2022-06-15] MEDS: levoFLOXacin/D5W 750 MG/150 ML PIGGYBACK 100 MG IV (02:05)
[2022-06-15 04:00] VITALS: BP 130/73; PULSE 66; RESP 16; TEMP 36; O2SAT 96
[2022-06-15 06:44] LABS: Hematocrit 37.8 % (42.0-52.0); Hemoglobin 12.3 g/dl (14.0-18.0); Mean Corpuscular HGB Conc 32.5 g/dl (31.0-36.0); Mean Corpuscular Hemoglobin 29.7 pg (27.0-33.0); Mean Corpuscular Volume 91.3 fL (80.0-98.0); Mean Platelet Volume 9.3 fL (9.4-12.4); Platelet Count 174 X10*3/uL (160-400); Red Blood Count 4.14 X10*6/uL (4.60-5.80); Red Cell Distribution Width 15.2 % (11.0-16.0); White Blood Count 7.9 X10*3/uL (4.8-10.8)
[2022-06-15 07:01] VITALS: BP 142/72; PULSE 73; RESP 22; TEMP 36.6; O2SAT 93
[2022-06-15 07:07] LABS: Anion Gap 14 (12-20); Blood Urea Nitrogen 17 mg/dL (9-16); Calcium 9.2 mg/dL (8.4-10.2); Carbon Dioxide 31 mmol/L (22-29); Chloride 99 mmol/L (96-108); Creatinine Clr Calc Pharmacy 62.3; Estimated Glomerular Filt Rate > 60; Glucose Fasting 88 mg/dL (60-99); Magnesium 1.8 mg/dL (1.6-2.6); Potassium 3.7 mmol/L (3.3-5.1); Sodium 140 mmol/L (135-145)
[2022-06-15] MEDS: 0.9 % Sodium Chloride Flush 3 ML SYRINGE IVFLUSH ×2 (08:31→13:58)
[2022-06-15] MEDS: Pramipexole Di-HCL 0.25 MG TABLET 0.5 MG PO ×2 (08:31→16:15)
[2022-06-15] MEDS: Acetaminophen 325 MG TABLET 650 MG PO ×3 (08:32→20:34)
[2022-06-15] MEDS: OLANZapine 2.5 MG TABLET 7.5 MG PO (08:32)
[2022-06-15] MEDS: Bicalutamide 50 MG TABLET PO (08:33)
[2022-06-15] MEDS: Carbidopa/Levodopa 25/100 TABLET 1 TAB PO ×4 (08:33→20:34)
[2022-06-15] MEDS: calcium polycarbophiL TABLET 1 TAB PO (08:33)
[2022-06-15] MEDS: Aspirin 81 MG TAB.CHEW PO (08:33)
[2022-06-15] MEDS: amLODIPine Besylate 5 MG TABLET PO (08:33)
[2022-06-15] MEDS: Furosemide 40 MG TABLET PO (08:33)
[2022-06-15] MEDS: Docusate Sodium 100 MG CAPSULE PO ×2 (08:33→20:34)
[2022-06-15] MEDS: Divalproex Sodium Sprinkles 125 MG CAP.DR.SPR 500 MG PO ×2 (08:34→20:33)
[2022-06-15] MEDS: Cholecalciferol (Vitamin D3) 25 MCG TABLET PO (08:34)
--- NOTE | 2022-06-15 08:39 | HO.PM.IMPN ---
Subjective Subjective Date of Service: 06/15/22 Interval History: more alert Physical Exam Vital Signs: Vital Signs: Last Vital Signs Temp 97.8 F 06/15/22 07:01 Pulse 73 06/15/22 07:01 Resp 22 H 06/15/22 07:01 BP 142/72 H 06/15/22 07:01 Pulse Ox 93 06/15/22 07:01 O2 Del Method 06/15/22 07:01 O2 Flow Rate 2 06/15/22 07:01 BMI result Body Mass Index 34.2 General: much improved Resp: diminished bilateral, no accessory muscles used CVS: S1,S2,RRR GI: soft, non tender, non distended Objective Data Active Medications Acetaminophen (Acetaminophen 325 Mg Tablet) 650 mg PO Q6H PRN PRN Reason: Pain, Mild (Pain Scale 1-3) Acetaminophen (Acetaminophen 325 Mg Tablet) 650 mg PO TID [facility] Last Admin: 06/15/22 08:32 Dose: 650 mg Documented By: CHANTELLE Al Hydroxide/Mg Hydroxide (Magnesium Hydrox/Alum Hydrox 30 Ml Oral.Susp) 30 ml PO Q6H PRN PRN Reason: Indigestion Amlodipine Besylate (Amlodipine Besylate 5 Mg Tablet) 5 mg PO DAILY [facility]; Protocol Last Admin: 06/15/22 08:33 Dose: 5 mg Documented By: CHANTELLE Aspirin (Aspirin 81 Mg Tab.Chew) 81 mg PO DAILY [facility] Last Admin: 06/15/22 08:33 Dose: 81 mg Documented By: CHANTELLE Atorvastatin Calcium (Atorvastatin Calcium 40 Mg Tablet) 40 mg PO BEDTIME [facility] Last Admin: 06/14/22 20:19 Dose: 40 mg Documented By: EVELYNE Benzocaine (Throat Lozenge, Medicated Lozenge) 1 lozenge MUCOUS MEM Q2H PRN PRN Reason: Sore Throat Last Admin: 06/14/22 20:19 Dose: 1 lozenge Documented By: EVELYNE Bicalutamide (Bicalutamide 50 Mg Tablet) 50 mg PO DAILY [facility] Last Admin: 06/15/22 08:33 Dose: 50 mg Documented By: CHANTELLE Bisacodyl (Bisacodyl 10 Mg Supp.Rect) 10 mg TN DAILY PRN PRN Reason: Constipation Last Admin: 06/12/22 17:31 Dose: 10 mg Documented By: TORRI Calcium Polycarbophil (Calcium Polycarbophil Tablet) 1 tab PO DAILY [facility] Last Admin: 06/15/22 08:33 Dose: 1 tab Documented By: CHANTELLE Carbidopa/Levodopa (Carbidopa/Levodopa 25/100 Tablet) 1 tab PO QID [facility] Last Admin: 06/15/22 08:33 Dose: 1 tab Documented By: CHANTELLE Divalproex Sodium (Divalproex Sodium Sprinkles 125 Mg ) 500 mg PO Q12H [facility] Last Admin: 06/15/22 08:34 Dose: 500 mg Documented By: CHANTELLE Divalproex Sodium (Divalproex Sodium Sprinkles 125 Mg ) 375 mg PO DAILY@1400 [facility] Last Admin: 06/14/22 14:21 Dose: 375 mg Documented By: BETH Docusate Sodium (Docusate Sodium 100 Mg Capsule) 100 mg PO BID [facility] Last Admin: 06/15/22 08:33 Dose: 100 mg Documented By: CHANTELLE Enoxaparin Sodium (Enoxaparin Sodium 40 Mg/0.4 Ml Syringe) 40 mg SUBCUT Q24H [facility] Last Admin: 06/15/22 02:05 Dose: 40 mg Documented By: EVELYNE Furosemide (Furosemide 40 Mg Tablet) 40 mg PO DAILY [facility]; Protocol Last Admin: 06/15/22 08:33 Dose: 40 mg Documented By: CHANTELLE Levofloxacin (Levaquin) 750 mg in 150 mls @ 100 mls/hr IV Q24H [facility] Last Infusion: 06/15/22 03:35 Dose: 0 mls/hr Documented By: EVELYNE Loperamide HCl (Loperamide Hcl 2 Mg Capsule) 2 mg PO QID PRN PRN Reason: Loose Stool Melatonin (Melatonin 3 Mg Tablet) 6 mg PO BEDTIME PRN PRN Reason: Insomnia Last Admin: 06/11/22 20:35 Dose: 6 mg Documented By: CANDY Olanzapine (Olanzapine 2.5 Mg Tablet) 7.5 mg PO DAILY [facility] Last Admin: 06/15/22 08:32 Dose: 7.5 mg Documented By: CHANTELLE Olanzapine (Olanzapine 10 Mg Tablet) 10 mg PO BEDTIME [facility] Last Admin: 06/14/22 20:19 Dose: 10 mg Documented By: EVELYNE Ondansetron HCl (Ondansetron Hcl 4 Mg/2 Ml Vial) 4 mg IVPUSH Q8H PRN PRN Reason: Nausea and Vomiting Pharmacy Consult (Consult Rx Perform Med Rec) 1 each MISCELLANE ONCE PRN PRN Reason: Consult order Polyethylene Glycol (Polyethylene Glycol 3350 17 Gm Powd.Pack) 17 gm PO DAILY PRN PRN Reason: Constipation Pramipexole Dihydrochloride (Pramipexole Di-Hcl 0.25 Mg Tablet) 0.5 mg PO BID@0900,1700 [facility] Last Admin: 06/15/22 08:31 Dose: 0.5 mg Documented By: CHANTELLE Senna (Sennosides 8.6 Mg Tablet) 8.6 mg PO DAILY PRN PRN Reason: Constipation Last Admin: 06/09/22 11:12 Dose: 8.6 mg Documented By: TEENA Sodium Chloride (0.9 % Sodium Chloride Flush 3 Ml Syringe) 3 ml IVFLUSH QSHIFT [facility] Last Admin: 06/15/22 08:31 Dose: 3 ml Documented By: CHANTELLE Tamsulosin HCl (Tamsulosin Hcl 0.4 Mg Capsule) 0.8 mg PO BEDTIME [facility] Last Admin: 06/14/22 20:19 Dose: 0.8 mg Documented By: EVELYNE Vitamin D (Cholecalciferol (Vitamin D3) 25 Mcg Tablet) 25 mcg PO DAILY [facility] Last Admin: 06/15/22 08:34 Dose: 25 mcg Documented By: CHANTELLE Labs 06/15/22 05:46 06/15/22 05:46 Labs: Laboratory Results - last 24 hr 06/15/22 06/15/22 05:46 05:46 MCV 91.3 MCH 29.7 MCHC 32.5 RDW 15.2 Plt Count 174 MPV 9.3 L Absolute Nucleated RBC 0.000 Nucleated RBC % (auto) 0.0 Anion Gap 14 Estim Creat Clear Calc 62.3 Estimated GFR > 60 Fasting Glucose 88 Calcium 9.2 Magnesium 1.8 Assessment and Plan (1) Acute UTI: Status: Acute Plan 82M PMH metastatic prostate ca, chronic diastolic chf with severe , parkinsons disease, htn, presented from [place] for fever severe sepsis due to uti complicated by metabolic encephalopathy levaquin day 7 urine growing enterobacter aerogenes and enterococcus faecalis bp better (now elevated) hospital delerium orienting strategies check vbg acute hypoxic respiratory failure wean o2 as tolerated will restart lasix for acute on chronic diastolic chf with severe added prednisone and duonebs for possible undiagnosed copd with acute decompensation metastic prostate ca casodex fentanyl Parkinsons sinemet mood dusirder zyprexa dvt prophylaxis - lovenox full code reason for continued hospitalization:hypoxia Time Spent With Patient Time: Total time managing care of this patient today ____ minutes. Quality Stroke Does the patient have a stroke diagnosis?: No VTE Prior VTE?: No VTE Risk Level:: Medical - moderate - high VTE Device Contraindication: Treatment Not Indicated VTE Drug Contraindication: N/A - Med Ordered
[2022-06-15] MEDS: predniSONE 20 MG TABLET 40 MG PO (10:47)
[2022-06-15] MEDS: Divalproex Sodium Sprinkles 125 MG CAP.DR.SPR 375 MG PO (12:31)
[2022-06-15 14:51] VITALS: BP 148/74; PULSE 101; RESP 20; TEMP 35.5; O2SAT 95
--- NOTE | 2022-06-15 14:54 | MHC.CM.PN ---
EMR REVIEWED, PER HOSPITALIST PT REMAINS ACUTE AND STEROIDS ADDED, NO PLAN FOR D/C TODAY. PLAN REMAINS TO RETURN TO [facility] ONCE MEDICALLY CLEARED, CM TO SET UP TRANSPORTATION.
[2022-06-15 20:00] VITALS: BP 148/62; PULSE 103; RESP 18; TEMP 37; O2SAT 94
[2022-06-15] MEDS: OLANZapine 10 MG TABLET PO (20:33)
[2022-06-15] MEDS: Tamsulosin HCL 0.4 MG CAPSULE 0.8 MG PO (20:33)
[2022-06-15] MEDS: Atorvastatin Calcium 40 MG TABLET PO (20:33)
[2022-06-16] MEDS: 0.9 % Sodium Chloride Flush 3 ML SYRINGE IVFLUSH ×2 (00:35→09:09)
[2022-06-16] MEDS: levoFLOXacin/D5W 750 MG/150 ML PIGGYBACK 100 MG IV (01:26)
[2022-06-16] MEDS: Enoxaparin Sodium 40 MG/0.4 ML SYRINGE SUBCUT (01:29)
[2022-06-16 04:00] VITALS: BP 145/65; PULSE 60; RESP 18; TEMP 36.8; O2SAT 95
[2022-06-16 07:48] VITALS: BP 142/74; PULSE 75; RESP 18; TEMP 36.6; O2SAT 99
--- NOTE | 2022-06-16 08:27 | P.DS_ITS ---
DS: Providers Provider Date of Service: 06/16/22 Date of admission: 06/09/22 01:57 Primary care physician: Franky Bryant MD DS: Diagnosis Discharge Diagnosis (1) Acute UTI: Status: Acute DS: Summary Hospital Course Hospital Course: from initial hpi: Chief Complaint: Fever This is 82-year-old male with pertinent history of essential hypertension, mood disorder, prostate cancer, urinary incontinence was sent from [facility] for evaluation of fever.? History obtained from ER provider and EMR as patient is unable to provide any history.? Patient was sent via EMS for evaluation of fever and UTI.? Staff noted that patient had a fever of 102.? Blood work was done which revealed leukocytosis and his urine was concerning for UTI.? Patient has chronic Nugent.? Unable to obtain review of systems. hospital course: Patient was admitted for severe sepsis due to urinary tract infection complicated by metabolic encephalopathy. Patient was treated with IV fluids, levofloxacin. Urine culture grew Enterobacter aerogenes and Enterococcus faecalis. sepsis resolved. Course was complicated by hospital delirium which resolved with orienting strategies and resolution of sepsis. For acute hypoxic respiratory failure was due to acute on chronic diastolic CHF with severe aortic stenosis and possible undiagnosed COPD with acute decompensation. Patient was treated by restarting Lasix and adding prednisone and DuoNebs. Shortness of breath significantly improved, will discharge on 5more days prednisone 40mg daily. For metastatic prostate cancer was continued on Casodex and fentanyl. For Parkinson's disease he was continue on Sinemet. From mood disorder use continue on Zyprexa. Patient is feeling better will be discharged back to skilled nurse facility. Time Spent with Patient Time attestation: Total time managing care of this patient today ____ minutes. Discharge coordination time: Greater than 30 minutes Quality: Safe Use of Opioids Does Pt have an Active Cancer Diagnosis on the Problem List?: Yes Opioid Measure Date for [facility] Report: 05/17/22 Opioid Measure Time for [facility] Report: 10:13 Quality: Stroke Does the patient have a stroke diagnosis?: No Physical Exam Vital Signs: Vital Signs: Last Vital Signs Temp 97.8 F 06/16/22 07:48 Pulse 75 06/16/22 07:48 Resp 18 06/16/22 07:48 BP 142/74 H 06/16/22 07:48 Pulse Ox 99 06/16/22 07:48 O2 Del Method 06/16/22 07:48 O2 Flow Rate 2 02/07/23 07:48 BMI result Body Mass Index 34.2 General: much improved Resp: diminished bilateral, no accessory muscles used CVS: S1,S2,RRR GI: soft, non tender, non distended Discharge Plan Discharge Anticipated Discharge Date/Time: 06/16/22 08:25 Patient Disposition: er SNF Discharge Diagnosis: sepsis, uti Referrals: Franky Bryant MD [Primary Care Provider] - 1 Week Discharge Medications: New prednisone 20 mg Tablet 40 mg PO DAILY Qty: 0 0RF Continued docusate sodium [Colace] 100 mg Capsule 100 mg PO BID acetaminophen 325 mg Tablet 650 mg PO TID amlodipine 5 mg Tablet 5 mg PO DAILY aspirin 81 mg Tablet,Chewable 81 mg PO DAILY calcium polycarbophil 625 mg Tablet 1,250 mg PO DAILY carbidopa-levodopa 25-100 mg Tablet 1 tab PO QID cholecalciferol (vitamin D3) 25 mcg (1,000 unit) Tablet 25 mcg PO DAILY divalproex 125 mg Capsule, Delayed Rel Sprinkle 375 mg PO DAILY@1400 divalproex [Depakote Sprinkles] 125 mg Capsule, Delayed Rel Sprinkle 500 mg PO Q12H furosemide 40 mg Tablet 40 mg PO BID@0900,1400 lorazepam 0.5 mg Tablet 0.5 mg PO BEDTIME olanzapine 2.5 mg Tablet 7.5 mg PO DAILY pramipexole 0.5 mg Tablet 0.5 mg PO BID@0900,1700 tamsulosin 0.4 mg Capsule 0.8 mg PO BEDTIME olanzapine 10 mg Tablet 10 mg PO BEDTIME metoprolol tartrate 25 mg Tablet 12.5 mg PO BID@0900,1700 Protocol: Hold for SBP/HR < HOLD for SBP < : 0 HOLD for HR < : 50 alum-mag hydroxide-simeth 200-200-20 mg/5 mL Suspension 30 ml PO Q6H PRN (Reason: Indigestion) bisacodyl 10 mg Suppository 10 mg TN DAILY PRN (Reason: Constipation) loperamide 2 mg Tablet 2 mg PO QID PRN (Reason: Loose Stool) lorazepam 0.5 mg Tablet 0.5 mg PO BID PRN (Reason: Anxiety) polyethylene glycol 3350 [Miralax] 17 gram/dose Powder 17 g PO DAILY PRN (Reason: Constipation) sennosides [senna] 8.6 mg Tablet 8.6 mg PO DAILY PRN (Reason: Constipation) atorvastatin 40 mg Tablet 40 mg PO BEDTIME Qty: 30 0RF bicalutamide 50 mg Tablet 50 mg PO DAILY fentanyl 12 mcg/hr Patch 72 Hour 1 patch TRANSDERMAL Q72H Discharge Orders: Discharge Order (Routine); Ordered 06/16/22 Ordered By: Bahman Langley Diet: Advance to usual diet Activity on Discharge: As tolerated Stand Alone Forms: Patient Portal Discharge page Care Plan Goals: recovery Health Concerns: uti, copd Plan of Treatment: 5 more days prednisone Assessment: see above
[2022-06-16] MEDS: Pramipexole Di-HCL 0.25 MG TABLET 0.5 MG PO (09:09)
[2022-06-16] MEDS: Bicalutamide 50 MG TABLET PO (09:09)
[2022-06-16] MEDS: Cholecalciferol (Vitamin D3) 25 MCG TABLET PO (09:09)
[2022-06-16] MEDS: Carbidopa/Levodopa 25/100 TABLET 1 TAB PO (09:10)
[2022-06-16] MEDS: amLODIPine Besylate 5 MG TABLET PO (09:10)
[2022-06-16] MEDS: Furosemide 40 MG TABLET PO (09:10)
[2022-06-16] MEDS: Divalproex Sodium Sprinkles 125 MG CAP.DR.SPR 500 MG PO (09:10)
[2022-06-16] MEDS: Aspirin 81 MG TAB.CHEW PO (09:10)
[2022-06-16] MEDS: predniSONE 20 MG TABLET 40 MG PO (09:10)
[2022-06-16] MEDS: Docusate Sodium 100 MG CAPSULE PO (09:11)
[2022-06-16] MEDS: OLANZapine 2.5 MG TABLET 7.5 MG PO (09:11)
[2022-06-16] MEDS: Acetaminophen 325 MG TABLET 650 MG PO (09:11)
[2022-06-16] MEDS: calcium polycarbophiL TABLET 1 TAB PO (09:11)
[2022-06-16 09:57] VITALS: O2SAT 92
[2022-06-16 11:14] LABS: COVID-19 Test Negative (Negative); IDNOW Serial# BCCEAD1C
[2022-06-16 11:30] VITALS: O2SAT 93
--- NOTE | 2022-06-16 12:01 | MHC.CM.PN ---
PT MEDICALLY CLEARED FOR D/C HOME TO [facility], CM CONTACTED PT'S SON EARLIER THIS AM AT NUMBER ON FILE AND HE IS AGREEABLE TO PLAN, [facility] WILL PROVIDE BLS TRANSPORT
== END 2022-06-16 14:16 | disposition skilled nursing facility (03) | DRG 871 ==
LOC: HO.ED 06-09 02:01 → HO.EDOVER 06-09 02:04 → HO.S3 06-09 18:55
PROVIDERS: Student in an Organized Health Care Education/Training Program; Admitting Provider Student in an Organized Health Care Education/Training Program; Emergency Provider Emergency Medicine; PCP Internal Medicine Endocrinology, Diabetes & Metabolism; Visit Provider Internal Medicine
DX: A41.9 Sepsis, unspecified organism (principal); G93.41 Metabolic encephalopathy; J96.01 Acute respiratory failure with hypoxia; N39.0 Urinary tract infection, site not specified; I50.32 Chronic diastolic (congestive) heart failure; F05 Delirium due to known physiological condition; C79.51 Secondary malignant neoplasm of bone; C77.2 Secondary and unspecified malignant neoplasm of intra-abdominal lymph nodes; F31.9 Bipolar disorder, unspecified; I95.9 Hypotension, unspecified; G20 Parkinson's disease; F02.80 Dementia in other diseases classified elsewhere, unspecified severity, without behavioral disturbance, psychotic disturbance, mood disturbance, and anxiety; I11.0 Hypertensive heart disease with heart failure; B95.2 Enterococcus as the cause of diseases classified elsewhere; C61 Malignant neoplasm of prostate; K21.9 Gastro-esophageal reflux disease without esophagitis; J44.9 Chronic obstructive pulmonary disease, unspecified; Z96.0 Presence of urogenital implants; R65.20 Severe sepsis without septic shock; I25.2 Old myocardial infarction; Z20.822 Contact with and (suspected) exposure to COVID-19; Z87.891 Personal history of nicotine dependence; Z88.1 Allergy status to other antibiotic agents; Z79.82 Long term (current) use of aspirin; Z79.899 Other long term (current) drug therapy
CPT/HCPCS: 36415; 71045; 80048; 80076; 81001; 82803; 82947; 83605; 83735; 85025; 85027; 85610; 87040; 87086; 87088; 87186; 87635; 99285; C1758; J1650; J1940; J1956

== ENCOUNTER 2022-07-06 06:24 | Outpatient (REF) | payer BC, SELFPAY ==
[2022-07-06 06:28] LABS: MANUAL DIFF FLAG NO
[2022-07-06 06:42] LABS: Basophils Percent Auto 0.5 % (0-2); Eosinophils Absolute Auto 0.8 X10*3/uL (0.0-0.4); Eosinophils Percent Auto 12.4 % (0-4); Hemoglobin 11.9 g/dl (14.0-18.0); Imm Gran Abs Auto 0.05 X10*3/uL (0.00-0.03); Imm Gran Pct Auto 0.8 % (0.0-0.4); Lymphocytes Absolute Auto 2.7 X10*3/uL (1.2-4.9); Lymphocytes Percent Auto 41.3 % (20-40); Mean Corpuscular HGB Conc 32.2 g/dl (31.0-36.0); Mean Corpuscular Hemoglobin 29.6 pg (27.0-33.0); Mean Platelet Volume 9.2 fL (9.4-12.4); Monocytes Absolute Auto 0.7 X10*3/uL (0.1-1.2); Monocytes Percent Auto 10.4 % (2-11); Neutrophils Absolute Auto 2.3 x10*3/uL (2.0-8.3); Neutrophils Percent Auto 34.6 % (45-73); Platelet Count 210 X10*3/uL (160-400); Red Blood Count 4.02 X10*6/uL (4.60-5.80); White Blood Count 6.5 X10*3/uL (4.8-10.8)
[2022-07-06 07:24] LABS: Alanine Aminotransferase < 6 U/L (0-40); Albumin Level 3.1 g/dL (3.5-5.0); Alkaline Phosphatase 58 U/L (39-117); Anion Gap 10 (12-20); Aspartate Amino Transferase 10 U/L (5-37); Bilirubin Total 0.4 mg/dL (0.0-1.0); Blood Urea Nitrogen 21 mg/dL (9-16); Calcium 9.1 mg/dL (8.4-10.2); Carbon Dioxide 34 mmol/L (22-29); Chloride 102 mmol/L (96-108); Estimated Glomerular Filt Rate > 60; Glucose Random 86 mg/dL (60-115); PSA,Total (Free>4and<10) 9.47 ng/mL (0.00-4.00); Potassium 4.1 mmol/L (3.3-5.1); Sodium 142 mmol/L (135-145)
[2022-07-08 10:09] LABS: Percent Free Prostate Spec Ag 34 % (calc) (>25); Prostate Specific Ag Total 8.7 ng/mL (< OR = 4.0)
[2022-07-15 13:40] LABS: Testosterone, Total 9 ng/dL (250-1100)
== END 2022-07-06 06:25 | disposition home or self-care (01) ==
LOC: HO.HSH4E 06:24
PROVIDERS: Visit Provider Internal Medicine Endocrinology, Diabetes & Metabolism
DX: Z12.5 Encounter for screening for malignant neoplasm of prostate (principal); C61 Malignant neoplasm of prostate
CPT/HCPCS: 36415; 80053; 84153; 84154; 84403; 85025

== ENCOUNTER 2022-07-21 05:35 | Outpatient (REF) | payer BC, SELFPAY ==
[2022-07-21 09:43] LABS: Valproate 71.6 mcg/mL (50.0-100.0)
[2022-07-21 09:45] LABS: Anion Gap 13 (12-20); Blood Urea Nitrogen 20 mg/dL (9-16); Calcium 8.8 mg/dL (8.4-10.2); Carbon Dioxide 35 mmol/L (22-29); Chloride 101 mmol/L (96-108); Estimated Glomerular Filt Rate > 60; Glucose Fasting 82 mg/dL (60-99); Potassium 4.3 mmol/L (3.3-5.1); Sodium 145 mmol/L (135-145)
== END 2022-07-21 05:36 | disposition home or self-care (01) ==
LOC: HO.HSH4E 05:35
PROVIDERS: Visit Provider Internal Medicine Endocrinology, Diabetes & Metabolism
DX: F31.9 Bipolar disorder, unspecified (principal); I10 Essential (primary) hypertension; G20 Parkinson's disease
CPT/HCPCS: 36415; 80048; 80164

== ENCOUNTER 2022-10-16 13:02 | Outpatient (REF) | payer BC, SELFPAY ==
[2022-10-16 14:20] LABS: Appearance Urine Clear; Color Urine Yellow; Glucose Urine UA Negative (Negative); Leukocyte Esterase Urine Large (3+) (Negative); Nitrite Urine Negative (Negative); PH 6.5 (5.0-9.0); Specific Gravity - Urine 1.015 (1.005-1.025); UMIC TRIGGER UA YES; Urine Blood Large (3+) (Negative); Urine Ketones Negative (Negative); Urine Protein Trace mg/dL (Neg-Trace)
[2022-10-16 14:23] LABS: Bacteria Urine 1+ (None Seen); Hyaline Casts Urine 0-2 /LPF (0-2); RBC Urine >20 /HPF (0-2); Squamous Epithelial Cell Urine 0-2 /HPF (0-2); WBC Urine >50 /HPF (0-5)
== END 2022-10-16 13:03 | disposition home or self-care (01) ==
LOC: HO.HSH4E 13:02
PROVIDERS: Visit Provider Internal Medicine Endocrinology, Diabetes & Metabolism
DX: R31.9 Hematuria, unspecified (principal)
CPT/HCPCS: 81001; 81003; 87086

== ENCOUNTER 2022-10-17 18:08 | Outpatient (REF) | payer BC, SELFPAY ==
[2022-10-17 18:23] LABS: Appearance Urine Clear; Color Urine Yellow; Glucose Urine UA Negative (Negative); Leukocyte Esterase Urine Trace (Negative); Nitrite Urine Negative (Negative); UMIC TRIGGER UA YES; Urine Blood Moderate (2+) (Negative); Urine Ketones Negative (Negative); Urine Protein 30 (1+) mg/dL (Neg-Trace)
[2022-10-17 18:28] LABS: Bacteria Urine None Seen (None Seen); Hyaline Casts Urine 0-2 /LPF (0-2); RBC Urine >20 /HPF (0-2); Squamous Epithelial Cell Urine 0-2 /HPF (0-2); WBC Urine 0-5 /HPF (0-5)
== END 2022-10-17 18:09 | disposition home or self-care (01) ==
LOC: HO.HSH 18:08
PROVIDERS: PCP Internal Medicine Endocrinology, Diabetes & Metabolism; Visit Provider Internal Medicine Endocrinology, Diabetes & Metabolism
DX: R31.9 Hematuria, unspecified (principal)
CPT/HCPCS: 81001; 87086; 87088; 87186

== ENCOUNTER 2022-10-19 05:42 | Outpatient (REF) | payer BC, SELFPAY ==
[2022-10-19 08:04] LABS: Anion Gap 10 (12-20); Blood Urea Nitrogen 19 mg/dL (9-16); Calcium 8.8 mg/dL (8.4-10.2); Carbon Dioxide 35 mmol/L (22-29); Chloride 99 mmol/L (96-108); Estimated Glomerular Filt Rate > 60; Glucose Fasting 83 mg/dL (60-99); Potassium 3.8 mmol/L (3.3-5.1); Sodium 140 mmol/L (135-145)
[2022-10-19 08:08] LABS: Valproate 45.8 mcg/mL (50.0-100.0)
== END 2022-10-19 05:43 | disposition home or self-care (01) ==
LOC: HO.HSH4E 05:42
PROVIDERS: Visit Provider Internal Medicine Endocrinology, Diabetes & Metabolism
DX: F31.9 Bipolar disorder, unspecified (principal); G20 Parkinson's disease; I10 Essential (primary) hypertension
CPT/HCPCS: 36415; 80048; 80164

== ENCOUNTER 2022-11-05 07:10 | Outpatient (REF) | payer BC, SELFPAY ==
[2022-11-05 08:18] LABS: B Type Natriuretic Peptide 321 pg/mL (<100)
[2022-11-05 08:39] LABS: Anion Gap 12 (12-20); Blood Urea Nitrogen 26 mg/dL (9-16); Calcium 9.4 mg/dL (8.4-10.2); Carbon Dioxide 33 mmol/L (22-29); Chloride 101 mmol/L (96-108); Estimated Glomerular Filt Rate > 60; Glucose Fasting 81 mg/dL (60-99); Potassium 3.5 mmol/L (3.3-5.1); Sodium 142 mmol/L (135-145)
== END 2022-11-05 07:11 | disposition home or self-care (01) ==
LOC: HO.HSH4E 07:10
PROVIDERS: Visit Provider Internal Medicine Endocrinology, Diabetes & Metabolism
DX: C61 Malignant neoplasm of prostate (principal); I50.9 Heart failure, unspecified
CPT/HCPCS: 36415; 80048; 83880

== ENCOUNTER 2022-11-12 01:01 | Inpatient (IN) | payer BC, SELFPAY ==
[2022-11-12] VITALS (46 sets, daily range): BP systolic 64–151; BP diastolic 29–92; PULSE 50–112; RESP 14–53; TEMP 36.9–39.4; O2SAT 88–99; BMI 30.6
--- NOTE | ~2022-11-12 | IR_ITS ---
PROCEDURE: IR INSERTION OF PICC CLINICAL INFORMATION: 82-year-old male with need for central venous access for IV medication administration. COMPARISON: None available. TECHNIQUE: All elements of maximal sterile barrier technique followed including use of cap, mask, sterile gown, sterile gloves, a sterile full body drape and hand hygiene. Also followed skin preparation with 2% chlorhexidine for cutaneous antisepsis, and sterile ultrasound preparation with sterile gel and probe cover when applicable. The patient was positioned supine on the angiography table sterile preparation of his right upper arm. Ultrasound of the right upper arm showed wide patency of the right basilic vein. An appropriate site for access was noted. A tourniquet was applied. Under ultrasound, 1% lidocaine was injected subcutaneously and extended to the edge of the basilic vein. A very small incision was made in the skin with a #11 blade. Through the incision and under ultrasound guidance with permanent recordings and direct visualization of needle entry into the vein, the right basilic vein was catheterized in an antegrade fashion. Measurements were obtained using the measuring wire. We then placed a dual lumen 6 Georgian PICC line through the transitional dilator. A saved fluoroscopic image shows that it terminates in the right atrium. The line was tested and flushes and aspirates appropriately. It was flushed with heparinized saline. It was secured to the skin with a StatLock device. The patient tolerated the procedure well. FINDINGS: PICC line placement via the right basilic vein as described. IR/IR cvc insert peripheral IMPRESSION: Successful placement of a PICC line via the right basilic vein as described in detail above.
--- NOTE | 2022-11-12 01:11 | ED.MALEGU ---
HPI - Male Genitourinary General Chief complaint: Urogenital-Male Stated complaint: dislodged cath Time Seen by Provider: 11/12/22 01:05 Source: EMS Mode of arrival: EMS Limitations: other (Confused at baseline) History of Present Illness HPI Narrative: 82-year-old male with history of pulmonary embolism with cor pulmonale, hypertension, GERD, schizoaffective disorder, nonrheumatic aortic stenosis, urinary retention, bipolar disorder, diastolic congestive heart failure, prostate cancer, who resides at the [facility] who was sent to the emergency depart for ?that dislodged catheter, large amounts of blood pouring from penis, not able to control ?. Patient is confused at baseline and cannot answer questions. Nursing staff reports that the patient is on 3 L of oxygen via nasal cannula chronically pain. Initial vital signs revealed a temperature of a 100.3 degrees F, blood pressure 88/51. 0200: At the end of my shift, the patient laboratory evaluation is pending. The patient's care was turned over to my colleague, Dr. Pardeep Garg Related Data Home Medications Medication Instructions Recorded Confirmed acetaminophen 325 mg tablet 650 mg PO TID 04/07/22 06/09/22 aluminum-mag hydroxide-simethicone 30 ml PO Q6H PRN Indigestion 04/07/22 06/09/22 200 mg-200 mg-20 mg/5 mL oral susp amlodipine 5 mg tablet 5 mg PO DAILY 04/07/22 06/09/22 aspirin 81 mg chewable tablet 81 mg PO DAILY 04/07/22 06/09/22 bisacodyl 10 mg rectal suppository 10 mg VA DAILY PRN Constipation 04/07/22 06/09/22 calcium polycarbophil 625 mg tablet 1,250 mg PO DAILY 04/07/22 06/09/22 carbidopa 25 mg-levodopa 100 mg 1 tab PO QID 04/07/22 06/09/22 tablet cholecalciferol (vitamin D3) 25 25 mcg PO DAILY 04/07/22 06/09/22 mcg (1,000 unit) tablet divalproex 125 mg capsule,delayed 375 mg PO DAILY@1400 04/07/22 06/09/22 release sprinkle divalproex 125 mg capsule,delayed 500 mg PO Q12H 04/07/22 06/09/22 release sprinkle (Depakote Sprinkles) docusate sodium 100 mg capsule 100 mg PO BID 04/07/22 06/09/22 (Colace) furosemide 40 mg tablet 40 mg PO BID@0900,1400 04/07/22 06/09/22 loperamide 2 mg tablet 2 mg PO QID PRN Loose Stool 04/07/22 06/09/22 lorazepam 0.5 mg tablet 0.5 mg PO BEDTIME 04/07/22 06/09/22 lorazepam 0.5 mg tablet 0.5 mg PO BID PRN Anxiety 04/07/22 06/09/22 metoprolol tartrate 25 mg tablet 12.5 mg PO BID@0900,1700 04/07/22 06/09/22 olanzapine 10 mg tablet 10 mg PO BEDTIME 04/07/22 06/09/22 olanzapine 2.5 mg tablet 7.5 mg PO DAILY 04/07/22 06/09/22 polyethylene glycol 3350 17 17 g PO DAILY PRN Constipation 04/07/22 06/09/22 gram/dose oral powder (Miralax) pramipexole 0.5 mg tablet 0.5 mg PO BID@0900,1700 04/07/22 06/09/22 sennosides 8.6 mg tablet (senna) 8.6 mg PO DAILY PRN Constipation 04/07/22 06/09/22 tamsulosin 0.4 mg capsule 0.8 mg PO BEDTIME 04/07/22 06/09/22 bicalutamide 50 mg tablet 50 mg PO DAILY 06/09/22 06/09/22 fentanyl 12 mcg/hr transdermal 1 patch transdermal Q72H 06/09/22 06/09/22 patch Previous Rx's Medication Instructions Recorded atorvastatin 40 mg tablet 40 mg PO BEDTIME #30 tabs 04/13/22 prednisone 20 mg tablet 40 mg PO DAILY #0 tabs 06/16/22 Allergies Allergy/AdvReac Type Severity Reaction Status Date / Time ceftriaxone Allergy Rash Verified 04/10/22 12:19 Review of Systems Review of Systems: Yes Unobtainable due to mental status PMFSH Past Medical History Medical History Acute non-ST elevation myocardial infarction (NSTEMI) Aortic stenosis Bipolar disorder Congestive heart failure (CHF) Fall GERD (gastroesophageal reflux disease) Hematoma of lower leg Hypertension Metastatic cancer to bone Prostate cancer metastatic to intraabdominal lymph node Schizoaffective disorder UTI (urinary tract infection) Social History Social History Household Members: Other Household Members Other:: [facility] Do you presently have visiting nurse or other home services: No ([facility] Patient Tobacco Use Status: Former Tobacco user Tobacco use type: Cigarette Second Hand Smoke Exposure: No Advance Directives Date on File: 04/08/22 service: Yes Current occupational status: retired Physical Exam Vital Signs: Vital Signs: Last Vital Signs Temp 100.3 F 11/12/22 01:03 BMI result Body Mass Index 30.6 General: Chronically ill-appearing male patient HEENT: Normal cephalic atraumatic, pupils equal round reactive light, sclera contact however normal, mouth revealed dry membranes Neck: No adenopathy Lungs: Diminished breath sounds at the bases, no wheezing, rales or rhonchi Heart: Regular rate rhythm, normal S1-S2, 2/6 systolic murmur best heard at the right upper sternal border Abdomen: Soft, nontender, nondistended, normal bowel sound your : There were large blood clots in the patient's depends, there is a blood clot in the patient's urethra Extremities: Trace pitting edema Medications Administered Generic Name Dose Route Start Last Admin Trade Name Freq PRN Reason Stop Dose Admin Sodium Chloride 2,328 mls @ 2,328 mls/hr 11/12/22 01:12 11/12/22 01:39 Ns IV 11/12/22 02:11 2,328 mls/hr .Q1H STA Administration Levofloxacin 750 mg in 150 mls @ 100 mls/hr 11/12/22 01:16 11/12/22 01:42 Levaquin IV 11/12/22 02:45 100 mls/hr ONCE ONE Administration Discontinued Medications Generic Name Dose Route Start Last Admin Trade Name Freq PRN Reason Stop Dose Admin Acetaminophen 650 mg 11/12/22 01:12 11/12/22 01:54 Acetaminophen Supp 650 Mg Supp.Rect VA 11/12/22 01:13 650 mg ONCE ONE Administration Medical Decision Making Medical Decision Making MDM Narrative: 82-year-old male with history of pulmonary embolism with cor pulmonale, hypertension, GERD, schizoaffective disorder, nonrheumatic aortic stenosis, urinary retention, bipolar disorder, diastolic congestive heart failure, prostate cancer, who resides at the [facility] who was sent to the emergency depart for accidental dislodgement of Nugent with blood in depends coming form his penis. Patient is confused at baseline and cannot answer questions. Nursing staff reports that the patient is on 3 L of oxygen via nasal cannula chronically pain. Initial vital signs revealed a temperature of a 100.3 degrees F, blood pressure 88/51. Patient usually uses 3L via NC but needed 6L via OxyMask to keep O2 Sat at 93%. There were large blood clots in the patient's depends, there is a blood clot in the patient's urethra. Sepsis alert was initiated. I ordered the following tests: CBC, CMP, lipase,lactic acid, lipase, PT/INR, PTT, troponin, BNP,urinalysis,BCx2, COVID-19, chest x-ray, EKG pain. I ordered 30cc/kg fluid bolus based on ideal weight and Levaquin 750 mg IV. 0200: At the end of my shif the patient's work up is pending, patient's care was turned over to my colleague Dr. Pardeep Garg. Differential Diagnosis Differential Diagnoses: The differential diagnosis associated with the presentation includes Differential diagnosis includes was not limited to pneumonia, urinary tract infection, bacteremia secondary dislodged Nugent, endocarditis, dehydration, anemia, electrolyte abnormality, myocardial infarction, CHF Admission/Observation Consideration of admission/observation: Escalation of care including admission/observation considered Lab Data MDM Lab Attestation statement: I reviewed the patient's lab results. 11/12/22 01:23 11/12/22 01:23 Labs: Lab Results 11/12/22 11/12/22 11/12/22 Range/Units 01:22 01:23 01:23 Sodium 141 (135-145) mmol/L Potassium 3.9 (3.3-5.1) mmol/L Chloride 102 (96-108) mmol/L Carbon Dioxide 28 (22-29) mmol/L Anion Gap 15 (12-20) BUN 28 H (9-16) mg/dL Creatinine 1.79 H (0.5-1.4) mg/dL Estim Creat Clear Calc 40.7 Estimated GFR 37 POC Glucose 127 H (60-115) mg/dL Random Glucose 106 (60-115) mg/dL Lactic Acid (0.5-2.0) mmol/L Calcium 9.8 (8.4-10.2) mg/dL Total Bilirubin 0.5 (0.0-1.0) mg/dL AST 21 (5-37) U/L ALT 5 (0-40) U/L Alkaline Phosphatase 75 (39-117) U/L Troponin I High Sens (<3.5-35.0) ng/L B-Natriuretic Peptide 544 H (<100) pg/mL Total Protein 7.0 (6.5-8.0) g/dL Albumin 3.4 L (3.5-5.0) g/dL Lipase 32 (8-78) U/L 11/12/22 11/12/22 Range/Units 01:23 01:23 Sodium (135-145) mmol/L Potassium (3.3-5.1) mmol/L Chloride (96-108) mmol/L Carbon Dioxide (22-29) mmol/L Anion Gap (12-20) BUN (9-16) mg/dL Creatinine (0.5-1.4) mg/dL Estim Creat Clear Calc Estimated GFR POC Glucose (60-115) mg/dL Random Glucose (60-115) mg/dL Lactic Acid 4.9 H* (0.5-2.0) mmol/L Calcium (8.4-10.2) mg/dL Total Bilirubin (0.0-1.0) mg/dL AST (5-37) U/L ALT (0-40) U/L Alkaline Phosphatase (39-117) U/L Troponin I High Sens 121.0 H* D (<3.5-35.0) ng/L B-Natriuretic Peptide (<100) pg/mL Total Protein (6.5-8.0) g/dL Albumin (3.5-5.0) g/dL Lipase (8-78) U/L Independent Interpretation I performed an independent interpretation of an: EKG and Plain X-Ray Interpretation: My interpretation patient of the patient's chest x-ray: NAD Radiology Impression Discussion of test interpretation with radiology: I have reviewed the radiologist's reading. Radiologist Impression: XR chest 1V IMPRESSION: * Low lung volumes and bibasilar subsegmental atelectasis. * Mild bronchial wall thickening suspected. * No discrete consolidation. Dictated By:Bhavin Diaz MD Independent Historian Clinical information obtained from an independent historian. History obtained from or confirmed by: EMS External Record Review External record reviewed: Other (Nursing facility record sent in with patient) Critical Care Time Critical Care Time Critical Care Time: Yes Total Critical Care Time: 45 Attestation: Critical Care: The patient was critically ill with a high probability of imminent or life threatening deterioration. I spent greater than 30 minutes of discontinuous time evaluating the patient,delivering critical care at the bedside, discussing and evaluating pertinent data with consultants. Critical care time does not include time spent performing separately billable procedures or teaching. Total time spent performing critical care was 45 minutes. Discharge Plan Discharge Clinical Impression: Fever, Acute hypotension, Hypoxia Prescriptions: No Action docusate sodium [Colace] 100 mg Capsule 100 mg PO BID acetaminophen 325 mg Tablet 650 mg PO TID amlodipine 5 mg Tablet 5 mg PO DAILY aspirin 81 mg Tablet,Chewable 81 mg PO DAILY calcium polycarbophil 625 mg Tablet 1,250 mg PO DAILY carbidopa-levodopa 25-100 mg Tablet 1 tab PO QID cholecalciferol (vitamin D3) 25 mcg (1,000 unit) Tablet 25 mcg PO DAILY divalproex 125 mg Capsule, Delayed Rel Sprinkle 375 mg PO DAILY@1400 divalproex [Depakote Sprinkles] 125 mg Capsule, Delayed Rel Sprinkle 500 mg PO Q12H furosemide 40 mg Tablet 40 mg PO BID@0900,1400 lorazepam 0.5 mg Tablet 0.5 mg PO BEDTIME olanzapine 2.5 mg Tablet 7.5 mg PO DAILY pramipexole 0.5 mg Tablet 0.5 mg PO BID@0900,1700 tamsulosin 0.4 mg Capsule 0.8 mg PO BEDTIME olanzapine 10 mg Tablet 10 mg PO BEDTIME metoprolol tartrate 25 mg Tablet 12.5 mg PO BID@0900,1700 Protocol: Hold for SBP/HR < HOLD for SBP < : 0 HOLD for HR < : 50 alum-mag hydroxide-simeth 200-200-20 mg/5 mL Suspension 30 ml PO Q6H PRN (Reason: Indigestion) bisacodyl 10 mg Suppository 10 mg VA DAILY PRN (Reason: Constipation) loperamide 2 mg Tablet 2 mg PO QID PRN (Reason: Loose Stool) lorazepam 0.5 mg Tablet 0.5 mg PO BID PRN (Reason: Anxiety) polyethylene glycol 3350 [Miralax] 17 gram/dose Powder 17 g PO DAILY PRN (Reason: Constipation) sennosides [senna] 8.6 mg Tablet 8.6 mg PO DAILY PRN (Reason: Constipation) atorvastatin 40 mg Tablet 40 mg PO BEDTIME Qty: 30 0RF bicalutamide 50 mg Tablet 50 mg PO DAILY fentanyl 12 mcg/hr Patch 72 Hour 1 patch TRANSDERMAL Q72H prednisone 20 mg Tablet 40 mg PO DAILY Qty: 0 0RF
[2022-11-12 01:31] LABS: Basophils Percent Auto 0.2 % (0-2); Eosinophils Percent Auto 0.2 % (0-4); Hemoglobin 12.7 g/dl (14.0-18.0); Imm Gran Abs Auto 0.08 X10*3/uL (0.00-0.03); Imm Gran Pct Auto 0.7 % (0.0-0.4); Lymphocytes Absolute Auto 0.3 X10*3/uL (1.2-4.9); Lymphocytes Percent Auto 2.5 % (20-40); MANUAL DIFF FLAG SCAN; Mean Corpuscular HGB Conc 32.6 g/dl (31.0-36.0); Mean Platelet Volume 8.7 fL (9.4-12.4); Monocytes Absolute Auto 0.1 X10*3/uL (0.1-1.2); Monocytes Percent Auto 0.9 % (2-11); Neutrophils Absolute Auto 11.5 x10*3/uL (2.0-8.3); Neutrophils Percent Auto 95.5 % (45-73); Platelet Count 169 X10*3/uL (160-400); Red Blood Count 4.24 X10*6/uL (4.60-5.80); Red Cell Distribution Width 14.6 % (11.0-16.0); SCAN SMEAR FLAG 1; White Blood Count 12.1 X10*3/uL (4.8-10.8)
[2022-11-12 01:46] LABS: Alanine Aminotransferase 5 U/L (0-40); Albumin Level 3.4 g/dL (3.5-5.0); Alkaline Phosphatase 75 U/L (39-117); Anion Gap 15 (12-20); Aspartate Amino Transferase 21 U/L (5-37); Bilirubin Total 0.5 mg/dL (0.0-1.0); Blood Urea Nitrogen 28 mg/dL (9-16); Calcium 9.8 mg/dL (8.4-10.2); Carbon Dioxide 28 mmol/L (22-29); Chloride 102 mmol/L (96-108); Creatinine Clr Calc Pharmacy 40.7; Estimated Glomerular Filt Rate 37; Glucose Random 106 mg/dL (60-115); Lipase 32 U/L (8-78); Potassium 3.9 mmol/L (3.3-5.1); Sodium 141 mmol/L (135-145)
[2022-11-12 01:49] LABS: Lactic Acid 4.9 mmol/L (0.5-2.0)
[2022-11-12 01:57] LABS: COVID-19 Test Negative (Negative); IDNOW Serial# 08D9AD1C
[2022-11-12 02:01] LABS: INTERNATIONAL NORM RATIO 1.2 (0.9-1.1); Prothrombin Time 13.5 SEC (10.0-13.1)
[2022-11-12 02:04] LABS: Partial Thromboplastin Time 27.4 SEC (26.0-36.4)
[2022-11-12 02:23] LABS: SLIDE REVIEW VERIFIED
[2022-11-12 02:34] LABS: Appearance Urine Cloudy; Color Urine Dark Yellow; Glucose Urine UA Negative (Negative); Leukocyte Esterase Urine Moderate (2+) (Negative); Nitrite Urine Negative (Negative); Specific Gravity - Urine 1.015 (1.005-1.025); UMIC TRIGGER UACC YES; Urine Blood Large (3+) (Negative); Urine Ketones Negative (Negative); Urine Protein 100 (2+) mg/dL (Neg-Trace)
--- NOTE | 2022-11-12 03:29 | PC.NURSE ---
Second set of vitals completed for sepsis protocol bp 76/38 map 56 pulse 72. core temp 102.2. made aware
[2022-11-12 03:36] LABS: Reflex Lactate? Lactic Acid Added
[2022-11-12 03:43] LABS: Bacteria Urine Trace (None Seen); RBC Urine >20 /HPF (0-2); Squamous Epithelial Cell Urine 0-2 /HPF (0-2); UACC Culture Trigger YES; WBC Urine 21-50 /HPF (0-5)
--- NOTE | 2022-11-12 04:44 | PC.NURSE ---
Zosyn infusing late due to no available lines. Central line now in place
[2022-11-12 05:01] LABS: Troponin-I High Sensitivity 250.1 ng/L (<3.5-35.0); ~Lactic Acid-LAB USE ONLY 2.8 mmol/L (0.5-2.0)
--- NOTE | 2022-11-12 06:29 | PC.NURSE ---
Assumed care of this patient at 0103. [facility] of a dislodged catheter and SOB. Patient arrived on nonrebreather, and visible clots around catheter site. Patient changed over, labs drawn and respiratory therapist at bedside. RT placed pt on oxymask 6lpm. IV access in LAC 20 gauge and in RAC. Made Dr. Silva aware of Abnormal BP and temp. Sepsis protocol initiated at 0126, blood cultures and lactic drawn Infused of antibiotics given at 0142. Tylenol suppository administer. Patient bp remain low and temp elevated, informed Dr Roberto. placed long with core temp, and a central line. Levophen infusing and titrated based on protocol. Currently infused at 0.25 mcg/hr. Will continue to follow plan of care
[2022-11-12 06:31] LABS: Reflex Lactate? 2 Y
--- NOTE | 2022-11-12 07:06 | ED.MALEGU ---
HPI - Male Genitourinary General Chief complaint: Urogenital-Male Stated complaint: dislodged cath Time Seen by Provider: 11/12/22 01:05 Source: EMS Mode of arrival: EMS Limitations: other (Confused at baseline) Related Data Home Medications Medication Instructions Recorded Confirmed acetaminophen 325 mg tablet 650 mg PO TID 04/07/22 06/09/22 aluminum-mag hydroxide-simethicone 30 ml PO Q6H PRN Indigestion 04/07/22 06/09/22 200 mg-200 mg-20 mg/5 mL oral susp amlodipine 5 mg tablet 5 mg PO DAILY 04/07/22 06/09/22 aspirin 81 mg chewable tablet 81 mg PO DAILY 04/07/22 06/09/22 bisacodyl 10 mg rectal suppository 10 mg OR DAILY PRN Constipation 04/07/22 06/09/22 calcium polycarbophil 625 mg tablet 1,250 mg PO DAILY 04/07/22 06/09/22 carbidopa 25 mg-levodopa 100 mg 1 tab PO QID 04/07/22 06/09/22 tablet cholecalciferol (vitamin D3) 25 25 mcg PO DAILY 04/07/22 06/09/22 mcg (1,000 unit) tablet divalproex 125 mg capsule,delayed 375 mg PO DAILY@1400 04/07/22 06/09/22 release sprinkle divalproex 125 mg capsule,delayed 500 mg PO Q12H 04/07/22 06/09/22 release sprinkle (Depakote Sprinkles) docusate sodium 100 mg capsule 100 mg PO BID 04/07/22 06/09/22 (Colace) furosemide 40 mg tablet 40 mg PO BID@0900,1400 04/07/22 06/09/22 loperamide 2 mg tablet 2 mg PO QID PRN Loose Stool 04/07/22 06/09/22 lorazepam 0.5 mg tablet 0.5 mg PO BEDTIME 04/07/22 06/09/22 lorazepam 0.5 mg tablet 0.5 mg PO BID PRN Anxiety 04/07/22 06/09/22 metoprolol tartrate 25 mg tablet 12.5 mg PO BID@0900,1700 04/07/22 06/09/22 olanzapine 10 mg tablet 10 mg PO BEDTIME 04/07/22 06/09/22 olanzapine 2.5 mg tablet 7.5 mg PO DAILY 04/07/22 06/09/22 polyethylene glycol 3350 17 17 g PO DAILY PRN Constipation 04/07/22 06/09/22 gram/dose oral powder (Miralax) pramipexole 0.5 mg tablet 0.5 mg PO BID@0900,1700 04/07/22 06/09/22 sennosides 8.6 mg tablet (senna) 8.6 mg PO DAILY PRN Constipation 04/07/22 06/09/22 tamsulosin 0.4 mg capsule 0.8 mg PO BEDTIME 04/07/22 06/09/22 bicalutamide 50 mg tablet 50 mg PO DAILY 06/09/22 06/09/22 fentanyl 12 mcg/hr transdermal 1 patch transdermal Q72H 06/09/22 06/09/22 patch Previous Rx's Medication Instructions Recorded atorvastatin 40 mg tablet 40 mg PO BEDTIME #30 tabs 04/13/22 prednisone 20 mg tablet 40 mg PO DAILY #0 tabs 06/16/22 Allergies Allergy/AdvReac Type Severity Reaction Status Date / Time ceftriaxone Allergy Rash Verified 04/10/22 12:19 [facility] Past Medical History Medical History Acute non-ST elevation myocardial infarction (NSTEMI) Aortic stenosis Bipolar disorder Congestive heart failure (CHF) Fall GERD (gastroesophageal reflux disease) Hematoma of lower leg Hypertension Metastatic cancer to bone Prostate cancer metastatic to intraabdominal lymph node Schizoaffective disorder UTI (urinary tract infection) Social History Social History Household Members: Other Household Members Other:: [facility] Do you presently have visiting nurse or other home services: No ([facility]) Patient Tobacco Use Status: Former Tobacco user Tobacco use type: Cigarette Second Hand Smoke Exposure: No Advance Directives: Yes Advance Directives on File: Yes Advance Directives Date on File: 04/08/22 service: Yes Current occupational status: retired Physical Exam Vital Signs: Vital Signs: Last Vital Signs Temp 100.0 F 11/12/22 06:00 Pulse 63 11/12/22 06:27 Resp 29 H 11/12/22 06:27 BP 97/40 L 11/12/22 06:27 Pulse Ox 97 11/12/22 06:27 O2 Del Method Oxymask 11/12/22 06:27 O2 Flow Rate 4 11/12/22 06:27 BMI result Body Mass Index 30.6 Medications Administered Generic Name Dose Route Start Last Admin Trade Name Freq PRN Reason Stop Dose Admin Norepinephrine Bitartrate 8 mg in 250 mls @ 0 mls/hr 11/12/22 03:45 11/12/22 06:18 Levophed IV 0.25 mcg/kg/min .Q0M IVIS 48.05 mls/hr Titration Protocol Per Protocol Discontinued Medications Generic Name Dose Route Start Last Admin Trade Name Freq PRN Reason Stop Dose Admin Acetaminophen 650 mg 11/12/22 01:12 11/12/22 01:54 Acetaminophen Supp 650 Mg Supp.Rect OR 11/12/22 01:13 650 mg ONCE ONE Administration Acetaminophen 650 mg 11/12/22 03:36 11/12/22 04:59 Acetaminophen Oral Liquid 650 Mg/20.3 Ml Solution PO 11/12/22 03:37 Not Given ONCE ONE Sodium Chloride 2,328 mls @ 2,328 mls/hr 11/12/22 01:12 11/12/22 03:30 Ns IV 11/12/22 02:11 Infused .Q1H STA Infusion Levofloxacin 750 mg in 150 mls @ 100 mls/hr 11/12/22 01:16 11/12/22 03:30 Levaquin IV 11/12/22 02:45 Infused ONCE ONE Infusion Piperacillin Sod/Tazobactam 50 mls @ 100 mls/hr 11/12/22 03:31 11/12/22 05:09 Sod 3.375 gm/ Sodium Chloride IV 11/12/22 04:00 Infused ONCE ONE Infusion Sodium Chloride 1,000 mls @ 999 mls/hr 11/12/22 03:32 11/12/22 04:45 Ns IV 11/12/22 04:32 Infused .Q1H1M ONE Infusion Lactated Ringer's 500 mls @ 999 mls/hr 11/12/22 04:45 11/12/22 05:03 Lr IVCONT 11/12/22 05:15 Not Given .Q31M ONE Vancomycin HCl 2,000 mg in 500 mls @ 250 mls/hr 11/12/22 04:45 11/12/22 05:02 Vancomycin/Ns IV 11/12/22 06:44 250 mls/hr ONCE ONE Administration Lactated Ringer's 1,000 mls @ 999 mls/hr 11/12/22 04:51 11/12/22 06:17 Lr IVCONT 11/12/22 05:45 Infused .Q1H1M ONE Infusion Ketorolac Tromethamine 30 mg 11/12/22 02:50 11/12/22 02:57 Ketorolac Tromethamine 30 Mg/Ml Vial IVPUSH 11/12/22 02:51 30 mg ONCE ONE Administration Lidocaine HCl 10 ml 11/12/22 02:13 11/12/22 02:23 Lidocaine Hcl 2 % Urojet 10 Ml Jel.Pf.Camron TOPICAL 11/12/22 02:14 10 ml ONCE ONE Administration Lorazepam 1 mg 11/12/22 02:50 11/12/22 02:58 Lorazepam 2 Mg/Ml Vial IVPUSH 11/12/22 02:51 1 mg ONCE ONE Administration Medical Decision Making Lab Data 11/12/22 01:23 11/12/22 01:23 Labs: Lab Results 11/12/22 11/12/22 11/12/22 Range/Units 01:22 01:23 01:23 WBC 12.1 H (4.8-10.8) X10*3/uL RBC 4.24 L (4.60-5.80) X10*6/uL Hgb 12.7 L (14.0-18.0) g/dl Hct 39.0 L (42.0-52.0) % MCV 92.0 (80.0-98.0) fL MCH 30.0 (27.0-33.0) pg MCHC 32.6 (31.0-36.0) g/dl RDW 14.6 (11.0-16.0) % Plt Count 169 (160-400) X10*3/uL MPV 8.7 L (9.4-12.4) fL Immature Gran % (Auto) 0.7 H (0.0-0.4) % Neut % (Auto) 95.5 H (45-73) % Lymph % (Auto) 2.5 L (20-40) % [place] % (Auto) 0.9 L (2-11) % Eos % (Auto) 0.2 (0-4) % Baso % (Auto) 0.2 (0-2) % Lymph # (Auto) 0.3 L (1.2-4.9) X10*3/uL [place] # (Auto) 0.1 (0.1-1.2) X10*3/uL Eos # (Auto) 0.0 (0.0-0.4) X10*3/uL Baso # (Auto) 0.0 (0.0-0.2) X10*3/uL Abs Immat Gran (auto) 0.08 H (0.00-0.03) X10*3/uL Absolute Neuts (auto) 11.5 H (2.0-8.3) x10*3/uL Absolute Nucleated RBC 0.000 (0.0-0.012) X10*3/uL Nucleated RBC % (auto) 0.0 (0.0-0.2) /100WBC Smear Tech's Comments VERIFIED PT (10.0-13.1) SEC INR (0.9-1.1) APTT (26.0-36.4) SEC Sodium (135-145) mmol/L Potassium (3.3-5.1) mmol/L Chloride (96-108) mmol/L Carbon Dioxide (22-29) mmol/L Anion Gap (12-20) BUN (9-16) mg/dL Creatinine (0.5-1.4) mg/dL Estim Creat Clear Calc Estimated GFR POC Glucose 127 H (60-115) mg/dL Random Glucose (60-115) mg/dL Lactic Acid (0.5-2.0) mmol/L Lactic Acid F/U @ 2Hr (0.5-2.0) mmol/L Calcium (8.4-10.2) mg/dL Total Bilirubin (0.0-1.0) mg/dL AST (5-37) U/L ALT (0-40) U/L Alkaline Phosphatase (39-117) U/L Troponin I High Sens (<3.5-35.0) ng/L B-Natriuretic Peptide 544 H (<100) pg/mL Total Protein (6.5-8.0) g/dL Albumin (3.5-5.0) g/dL Lipase (8-78) U/L Urine Color Urine Appearance Urine pH (5.0-9.0) Ur Specific [place] (1.005-1.025) Urine Protein (Neg-Trace) mg/dL Urine Glucose (UA) (Negative) mg/dL Urine Ketones (Negative) mg/dL Urine Blood (Negative) Urine Nitrite (Negative) Ur Leukocyte Esterase (Negative) Urine RBC (0-2) /HPF Urine WBC (0-5) /HPF Ur Squamous Epith Cells (0-2) /HPF Urine Bacteria (None Seen) Hyaline Casts (0-2) /LPF COVID-19 (JOSE) (Negative) COVID-19 Clin Com 11/12/22 11/12/22 11/12/22 Range/Units 01:23 01:23 01:23 WBC (4.8-10.8) X10*3/uL RBC (4.60-5.80) X10*6/uL Hgb (14.0-18.0) g/dl Hct (42.0-52.0) % MCV (80.0-98.0) fL MCH (27.0-33.0) pg MCHC (31.0-36.0) g/dl RDW (11.0-16.0) % Plt Count (160-400) X10*3/uL MPV (9.4-12.4) fL Immature Gran % (Auto) (0.0-0.4) % Neut % (Auto) (45-73) % Lymph % (Auto) (20-40) % [place] % (Auto) (2-11) % Eos % (Auto) (0-4) % Baso % (Auto) (0-2) % Lymph # (Auto) (1.2-4.9) X10*3/uL [place] # (Auto) (0.1-1.2) X10*3/uL Eos # (Auto) (0.0-0.4) X10*3/uL Baso # (Auto) (0.0-0.2) X10*3/uL Abs Immat Gran (auto) (0.00-0.03) X10*3/uL Absolute Neuts (auto) (2.0-8.3) x10*3/uL Absolute Nucleated RBC (0.0-0.012) X10*3/uL Nucleated RBC % (auto) (0.0-0.2) /100WBC Smear Tech's Comments PT 13.5 H (10.0-13.1) SEC INR 1.2 H (0.9-1.1) APTT 27.4 (26.0-36.4) SEC Sodium 141 (135-145) mmol/L Potassium 3.9 (3.3-5.1) mmol/L Chloride 102 (96-108) mmol/L Carbon Dioxide 28 (22-29) mmol/L Anion Gap 15 (12-20) BUN 28 H (9-16) mg/dL Creatinine 1.79 H (0.5-1.4) mg/dL Estim Creat Clear Calc 40.7 Estimated GFR 37 POC Glucose (60-115) mg/dL Random Glucose 106 (60-115) mg/dL Lactic Acid 4.9 H* (0.5-2.0) mmol/L Lactic Acid F/U @ 2Hr (0.5-2.0) mmol/L Calcium 9.8 (8.4-10.2) mg/dL Total Bilirubin 0.5 (0.0-1.0) mg/dL AST 21 (5-37) U/L ALT 5 (0-40) U/L Alkaline Phosphatase 75 (39-117) U/L Troponin I High Sens (<3.5-35.0) ng/L B-Natriuretic Peptide (<100) pg/mL Total Protein 7.0 (6.5-8.0) g/dL Albumin 3.4 L (3.5-5.0) g/dL Lipase 32 (8-78) U/L Urine Color Urine Appearance Urine pH (5.0-9.0) Ur Specific [place] (1.005-1.025) Urine Protein (Neg-Trace) mg/dL Urine Glucose (UA) (Negative) mg/dL Urine Ketones (Negative) mg/dL Urine Blood (Negative) Urine Nitrite (Negative) Ur Leukocyte Esterase (Negative) Urine RBC (0-2) /HPF Urine WBC (0-5) /HPF Ur Squamous Epith Cells (0-2) /HPF Urine Bacteria (None Seen) Hyaline Casts (0-2) /LPF COVID-19 (JOSE) (Negative) COVID-19 Clin Com 11/12/22 11/12/22 11/12/22 Range/Units 01:23 01:24 02:27 WBC (4.8-10.8) X10*3/uL RBC (4.60-5.80) X10*6/uL Hgb (14.0-18.0) g/dl Hct (42.0-52.0) % MCV (80.0-98.0) fL MCH (27.0-33.0) pg MCHC (31.0-36.0) g/dl RDW (11.0-16.0) % Plt Count (160-400) X10*3/uL MPV (9.4-12.4) fL Immature Gran % (Auto) (0.0-0.4) % Neut % (Auto) (45-73) % Lymph % (Auto) (20-40) % [place] % (Auto) (2-11) % Eos % (Auto) (0-4) % Baso % (Auto) (0-2) % Lymph # (Auto) (1.2-4.9) X10*3/uL [place] # (Auto) (0.1-1.2) X10*3/uL Eos # (Auto) (0.0-0.4) X10*3/uL Baso # (Auto) (0.0-0.2) X10*3/uL Abs Immat Gran (auto) (0.00-0.03) X10*3/uL Absolute Neuts (auto) (2.0-8.3) x10*3/uL Absolute Nucleated RBC (0.0-0.012) X10*3/uL Nucleated RBC % (auto) (0.0-0.2) /100WBC Smear Tech's Comments PT (10.0-13.1) SEC INR (0.9-1.1) APTT (26.0-36.4) SEC Sodium (135-145) mmol/L Potassium (3.3-5.1) mmol/L Chloride (96-108) mmol/L Carbon Dioxide (22-29) mmol/L Anion Gap (12-20) BUN (9-16) mg/dL Creatinine (0.5-1.4) mg/dL Estim Creat Clear Calc Estimated GFR POC Glucose (60-115) mg/dL Random Glucose (60-115) mg/dL Lactic Acid (0.5-2.0) mmol/L Lactic Acid F/U @ 2Hr (0.5-2.0) mmol/L Calcium (8.4-10.2) mg/dL Total Bilirubin (0.0-1.0) mg/dL AST (5-37) U/L ALT (0-40) U/L Alkaline Phosphatase (39-117) U/L Troponin I High Sens 121.0 H* D (<3.5-35.0) ng/L B-Natriuretic Peptide (<100) pg/mL Total Protein (6.5-8.0) g/dL Albumin (3.5-5.0) g/dL Lipase (8-78) U/L Urine Color Dark Yellow Urine Appearance Cloudy Urine pH 7.0 (5.0-9.0) Ur Specific [place] 1.015 (1.005-1.025) Urine Protein 100 (2+) H (Neg-Trace) mg/dL Urine Glucose (UA) Negative (Negative) mg/dL Urine Ketones Negative (Negative) mg/dL Urine Blood Large (3+) H (Negative) Urine Nitrite Negative (Negative) Ur Leukocyte Esterase Moderate (2+) H (Negative) Urine RBC >20 H (0-2) /HPF Urine WBC 21-50 (0-5) /HPF Ur Squamous Epith Cells 0-2 (0-2) /HPF Urine Bacteria Trace (None Seen) Hyaline Casts 3-5 (0-2) /LPF COVID-19 (JOSE) Negative (Negative) COVID-19 Clin Com See Note 11/12/22 11/12/22 Range/Units 04:26 04:26 WBC (4.8-10.8) X10*3/uL RBC (4.60-5.80) X10*6/uL Hgb (14.0-18.0) g/dl Hct (42.0-52.0) % MCV (80.0-98.0) fL MCH (27.0-33.0) pg MCHC (31.0-36.0) g/dl RDW (11.0-16.0) % Plt Count (160-400) X10*3/uL MPV (9.4-12.4) fL Immature Gran % (Auto) (0.0-0.4) % Neut % (Auto) (45-73) % Lymph % (Auto) (20-40) % [place] % (Auto) (2-11) % Eos % (Auto) (0-4) % Baso % (Auto) (0-2) % Lymph # (Auto) (1.2-4.9) X10*3/uL [place] # (Auto) (0.1-1.2) X10*3/uL Eos # (Auto) (0.0-0.4) X10*3/uL Baso # (Auto) (0.0-0.2) X10*3/uL Abs Immat Gran (auto) (0.00-0.03) X10*3/uL Absolute Neuts (auto) (2.0-8.3) x10*3/uL Absolute Nucleated RBC (0.0-0.012) X10*3/uL Nucleated RBC % (auto) (0.0-0.2) /100WBC Smear Tech's Comments PT (10.0-13.1) SEC INR (0.9-1.1) APTT (26.0-36.4) SEC Sodium (135-145) mmol/L Potassium (3.3-5.1) mmol/L Chloride (96-108) mmol/L Carbon Dioxide (22-29) mmol/L Anion Gap (12-20) BUN (9-16) mg/dL Creatinine (0.5-1.4) mg/dL Estim Creat Clear Calc Estimated GFR POC Glucose (60-115) mg/dL Random Glucose (60-115) mg/dL Lactic Acid (0.5-2.0) mmol/L Lactic Acid F/U @ 2Hr 2.8 H* (0.5-2.0) mmol/L Calcium (8.4-10.2) mg/dL Total Bilirubin (0.0-1.0) mg/dL AST (5-37) U/L ALT (0-40) U/L Alkaline Phosphatase (39-117) U/L Troponin I High Sens 250.1 H* D (<3.5-35.0) ng/L B-Natriuretic Peptide (<100) pg/mL Total Protein (6.5-8.0) g/dL Albumin (3.5-5.0) g/dL Lipase (8-78) U/L Urine Color Urine Appearance Urine pH (5.0-9.0) Ur Specific [place] (1.005-1.025) Urine Protein (Neg-Trace) mg/dL Urine Glucose (UA) (Negative) mg/dL Urine Ketones (Negative) mg/dL Urine Blood (Negative) Urine Nitrite (Negative) Ur Leukocyte Esterase (Negative) Urine RBC (0-2) /HPF Urine WBC (0-5) /HPF Ur Squamous Epith Cells (0-2) /HPF Urine Bacteria (None Seen) Hyaline Casts (0-2) /LPF COVID-19 (JOSE) (Negative) COVID-19 Clin Com Discharge Plan Discharge Clinical Impression: Septic shock due to urinary tract infection Patient Disposition: Admitted As Inpatient
[2022-11-12] MEDS: Heparin Sodium,Porcine 5,000 UNIT/ML VIAL 5000 UNIT SUBCUT ×3 (07:23→22:03)
--- NOTE | 2022-11-12 07:41 | PC.NURSE ---
report given to icu
--- NOTE | 2022-11-12 09:11 | PHA.PROG ---
Admission Date/Time: November 12, 2022 06:41 Indication: SEPSIS Weight in k.5 kg Adjusted body weight in K.56 [place] body weight in K.6 Obesity Dosing Indication % IBW:30.6 Serum Creatinine - Last 168 Hours 11/12/22 11/12/22 01: 07:18 Creatinine 1.79 H 1.34 Estimated CrCl and GFR - Last 168 Hours 11/12/22 11/12/22 01: 07:18 Estim Creat Clear Calc 40.7 54.4 Estimated GFR 37 51 Vancomycin Loading Dose: 2000 MG Current Vancomycin Dosing Regimen: 1000 MG Q24 Vancomycin Monitoring using AUC goal of 400 - 600 range with trough as surrogate marker: 487 Date and Time for next Vancomycin Level to be drawn:11/14 @0500 Pharmacist Comments on Vancomycin Plan: Will check level after pt receives 2 doses to ensure correct dosing. Expected level after 2nd dose is 16.8. Vancomycin dosing will take advantage of [employer] as a clinical decision support tool that uses Bayesian modeling to calculate individual patient's pharmacokinetic parameters and forecast the patient's drug concentration time course with the target goal AUC 24 range of 400 - 600 mg/L/hr.
--- NOTE | 2022-11-12 09:41 | PHA.MEDREC ---
Pharmacy Consult ? Medication Reconciliation Pharmacy has completed the medication reconciliation. USED LIST FROM FACILITY
--- NOTE | 2022-11-12 13:08 | PM.CCHP ---
History of Present Illness Date of Service: 11/12/22 Chief Complaint: Septic shock 82-year-old gentleman with underlying history of hypertension, bipolar disorder, prostate cancer with Mets, prior Pseudomonas UTI in DNR DNI code status admitted on 11/12/2022 with septic shock, likely with source with poor response to initial IV fluid resuscitation requiring initiation of pressor support and admission to the intensive care unit. Review of Systems Review of Systems: Yes Unobtainable due to mental condition (Septic encephalopathy) and Unobtainable due to mental status PMFSH Past Medical History Medical History (Updated 11/12/22 @ 13:13 by Clifton Gaitan MD) Acute non-ST elevation myocardial infarction (NSTEMI) Aortic stenosis Bipolar disorder Congestive heart failure (CHF) Fall GERD (gastroesophageal reflux disease) Hematoma of lower leg Hypertension Metastatic cancer to bone Prostate cancer metastatic to intraabdominal lymph node Schizoaffective disorder UTI (urinary tract infection) Social History Social History Household Members: Other Household Members Other:: [facility] Do you presently have visiting nurse or other home services: No ([facility]) Unable to assess alcohol history related to: Unknown Patient Tobacco Use Status: Former Tobacco user Tobacco use type: Cigarette Second Hand Smoke Exposure: No Use of substances other than those prescribed or required for medical reasons: Unknown Currently Displaying Signs/Symptoms of Drug Intoxication Withdrawal: No Advance Directives: Yes Advance Directives on File: Yes Advance Directives Date on File: 04/08/22 Recently lost weight without trying: Unsure service: Yes Current occupational status: retired Meds Allergies Allergy/AdvReac Type Severity Reaction Status Date / Time ceftriaxone Allergy Rash Verified 04/10/22 12:19 Active Medications: Current Medications Heparin Sodium (Porcine) (Heparin Sodium,Porcine 5,000 Unit/Ml Vial) 5,000 unit SUBCUT Q8H [facility] Last Admin: 11/12/22 07:23 Dose: 5,000 unit Norepinephrine Bitartrate (Levophed) 8 mg in 250 mls @ 0 mls/hr IV .Q0M IVIS; Protocol Last Titration: 11/12/22 12:43 Dose: 0.23 mcg/kg/min, 44.2 mls/hr Piperacillin Sod/Tazobactam (Sod 3.375 gm/ Sodium Chloride) 50 mls @ 100 mls/hr IV Q6H IVIS Last Infusion: 11/12/22 12:40 Dose: Infused Vancomycin HCl 1,000 mg/ (Sodium Chloride) 270 mls @ 270 mls/hr IV Q24H IVIS Potassium Phosphate (Kphos) 15 mmol in 250 mls @ 62.5 mls/hr IV Q4H IVIS Stop: 11/12/22 20:44 Pharmacy Consult (Consult Rx Vancomycin Dosing) 1 each MISCELLANE DAILY PRN PRN Reason: Consult order Home Medications Medication Instructions Recorded Confirmed Last Taken Type acetaminophen 325 mg tablet 650 mg PO TID 04/07/22 11/12/22 06/08/22 History aluminum-mag hydroxide-simethicone 30 ml PO Q6H PRN Indigestion 04/07/22 11/12/22 06/08/22 History 200 mg-200 mg-20 mg/5 mL oral susp amlodipine 5 mg tablet 5 mg PO DAILY 04/07/22 11/12/22 11/11/22 History bisacodyl 10 mg rectal suppository 10 mg FL DAILY PRN Constipation 04/07/22 11/12/22 06/08/22 History calcium polycarbophil 625 mg tablet 1,250 mg PO DAILY 04/07/22 11/12/22 11/11/22 History carbidopa 25 mg-levodopa 100 mg 1 tab PO TID@0900,1300,1700 04/07/22 11/12/22 11/11/22 History tablet cholecalciferol (vitamin D3) 25 25 mcg PO DAILY 04/07/22 11/12/22 11/11/22 History mcg (1,000 unit) tablet divalproex 125 mg capsule,delayed 500 mg PO TID 04/07/22 11/12/22 11/11/22 History release sprinkle (Depakote Sprinkles) docusate sodium 100 mg capsule 100 mg PO BID 04/07/22 11/12/22 11/11/22 History (Colace) furosemide 40 mg tablet 40 mg PO BEDTIME 04/07/22 11/12/22 11/11/22 History lorazepam 0.5 mg tablet 0.5 mg PO BEDTIME 04/07/22 11/12/22 11/11/22 History lorazepam 0.5 mg tablet 0.5 mg PO DAILY PRN Anxiety 04/07/22 11/12/22 11/11/22 History metoprolol tartrate 25 mg tablet 12.5 mg PO BID@0900,1700 04/07/22 11/12/22 11/11/22 History olanzapine 10 mg tablet 10 mg PO BEDTIME 04/07/22 11/12/22 06/08/22 History olanzapine 2.5 mg tablet 7.5 mg PO DAILY 04/07/22 11/12/22 11/11/22 History polyethylene glycol 3350 17 17 g PO DAILY 04/07/22 11/12/22 11/11/22 History gram/dose oral powder (Miralax) pramipexole 0.5 mg tablet 0.5 mg PO BID@0900,1700 04/07/22 11/12/22 11/11/22 History tamsulosin 0.4 mg capsule 0.8 mg PO BEDTIME 04/07/22 11/12/22 11/11/22 History bicalutamide 50 mg tablet 50 mg PO DAILY 06/09/22 11/12/22 11/11/22 History bisacodyl 5 mg tablet 5 mg PO DAILY 11/12/22 11/12/22 Unknown History carbidopa 25 mg-levodopa 100 mg 0.5 tab PO BEDTIME 11/12/22 11/12/22 11/11/22 History tablet fentanyl 50 mcg/hr transdermal 1 patch transdermal Q72H 11/12/22 11/12/22 Unknown History patch furosemide 80 mg tablet 80 mg PO DAILY 11/12/22 11/12/22 11/11/22 History lorazepam 0.5 mg tablet 0.5 mg PO TU PRN ON SHOWER DAYS 11/12/22 11/12/22 11/10/22 History Physical Exam Vital Signs: Vital Signs: Last Vital Signs Temp 98.4 F 11/12/22 12:00 Pulse 59 11/12/22 12:43 Resp 39 H 11/12/22 12:00 BP 151/55 H 11/12/22 12:43 Pulse Ox 95 11/12/22 12:00 O2 Del Method Oxymask 11/12/22 12:00 O2 Flow Rate 3 11/12/22 12:00 BMI result Body Mass Index 30.6 Const: General: no acute distress, lethargic (Arousable, incoherent) and other (Screaming intermittently) Orientation/consciousness: lethargic (Arousable, incoherent) Eyes: Sclerae: sclerae normal EOM: EOMs intact bilaterally Neck: Neck: Yes no lymphadenopathy, Yes trachea midline and Yes supple Resp: Effort & Inspection: normal respiratory effort and no respiratory distress Auscultation: crackles (Diffuse bilateral) Cardio: Rate: regular rate Rhythm: abnormal rhythm (bigemini, PVC, heart block, AFlutter) Heart sounds: no gallops, no murmurs and no rubs GI: Palpation (GI): Soft to palpation and Other GI palpation findings present ( Nontender) Auscultation: normal bowel sounds Extrem: General: No clubbing, No cyanosis and Yes edema (1+ bilateral) Results Labs 11/12/22 07:18 11/12/22 07:18 Labs: Laboratory Results - last 24 hr 11/12/22 11/12/22 11/12/22 01:22 01:23 01:23 MCV 92.0 MCH 30.0 MCHC 32.6 RDW 14.6 Plt Count 169 MPV 8.7 L Immature Gran % (Auto) 0.7 H Neut % (Auto) 95.5 H Lymph % (Auto) 2.5 L [place] % (Auto) 0.9 L Eos % (Auto) 0.2 Baso % (Auto) 0.2 Lymph # (Auto) 0.3 L [place] # (Auto) 0.1 Eos # (Auto) 0.0 Baso # (Auto) 0.0 Abs Immat Gran (auto) 0.08 H Absolute Neuts (auto) 11.5 H Absolute Nucleated RBC 0.000 Nucleated RBC % (auto) 0.0 Neutrophils % (Manual) Band Neutrophils % Lymphocytes % (Manual) Monocytes % (Manual) Metamyelocytes % Abs Neuts (Manual) Lymphocytes # (Manual) Monocytes # (Manual) Metamyelocytes # Toxic Vacuolation Platelet Estimate Plt Morphology Comment RBC Morphology Hypochromasia [place] Cells Smear Tech's Comments VERIFIED PT INR APTT VBG pH VBG pCO2 VBG pO2 VBG HCO3 VBG O2 Saturation VBG Base Excess Anion Gap Estim Creat Clear Calc Estimated GFR POC Glucose 127 H Random Glucose Lactic Acid Lactic Acid F/U @ 2Hr Lactic Acid F/U @ 4Hr Calcium Phosphorus Magnesium Total Bilirubin AST ALT Alkaline Phosphatase Troponin I High Sens B-Natriuretic Peptide 544 H Total Protein Albumin Lipase Urine Color Urine Appearance Urine pH Ur Specific [place] Urine Protein Urine Glucose (UA) Urine Ketones Urine Blood Urine Nitrite Ur Leukocyte Esterase Urine RBC Urine WBC Ur Squamous Epith Cells Urine Bacteria Hyaline Casts COVID-19 (JOSE) COVID-19 Clin Com 11/12/22 11/12/22 11/12/22 01:23 01:23 01:23 MCV MCH MCHC RDW Plt Count MPV Immature Gran % (Auto) Neut % (Auto) Lymph % (Auto) [place] % (Auto) Eos % (Auto) Baso % (Auto) Lymph # (Auto) [place] # (Auto) Eos # (Auto) Baso # (Auto) Abs Immat Gran (auto) Absolute Neuts (auto) Absolute Nucleated RBC Nucleated RBC % (auto) Neutrophils % (Manual) Band Neutrophils % Lymphocytes % (Manual) Monocytes % (Manual) Metamyelocytes % Abs Neuts (Manual) Lymphocytes # (Manual) Monocytes # (Manual) Metamyelocytes # Toxic Vacuolation Platelet Estimate Plt Morphology Comment RBC Morphology Hypochromasia [place] Cells Smear Tech's Comments PT 13.5 H INR 1.2 H APTT 27.4 VBG pH VBG pCO2 VBG pO2 VBG HCO3 VBG O2 Saturation VBG Base Excess Anion Gap 15 Estim Creat Clear Calc 40.7 Estimated GFR 37 POC Glucose Random Glucose 106 Lactic Acid 4.9 H* Lactic Acid F/U @ 2Hr Lactic Acid F/U @ 4Hr Calcium 9.8 Phosphorus Magnesium Total Bilirubin 0.5 AST 21 ALT 5 Alkaline Phosphatase 75 Troponin I High Sens B-Natriuretic Peptide Total Protein 7.0 Albumin 3.4 L Lipase 32 Urine Color Urine Appearance Urine pH Ur Specific [place] Urine Protein Urine Glucose (UA) Urine Ketones Urine Blood Urine Nitrite Ur Leukocyte Esterase Urine RBC Urine WBC Ur Squamous Epith Cells Urine Bacteria Hyaline Casts COVID-19 (JOSE) COVID-19 Clin Com 11/12/22 11/12/22 11/12/22 01:23 01:24 02:27 MCV MCH MCHC RDW Plt Count MPV Immature Gran % (Auto) Neut % (Auto) Lymph % (Auto) [place] % (Auto) Eos % (Auto) Baso % (Auto) Lymph # (Auto) [place] # (Auto) Eos # (Auto) Baso # (Auto) Abs Immat Gran (auto) Absolute Neuts (auto) Absolute Nucleated RBC Nucleated RBC % (auto) Neutrophils % (Manual) Band Neutrophils % Lymphocytes % (Manual) Monocytes % (Manual) Metamyelocytes % Abs Neuts (Manual) Lymphocytes # (Manual) Monocytes # (Manual) Metamyelocytes # Toxic Vacuolation Platelet Estimate Plt Morphology Comment RBC Morphology Hypochromasia [place] Cells Smear Tech's Comments PT INR APTT VBG pH VBG pCO2 VBG pO2 VBG HCO3 VBG O2 Saturation VBG Base Excess Anion Gap Estim Creat Clear Calc Estimated GFR POC Glucose Random Glucose Lactic Acid Lactic Acid F/U @ 2Hr Lactic Acid F/U @ 4Hr Calcium Phosphorus Magnesium Total Bilirubin AST ALT Alkaline Phosphatase Troponin I High Sens 121.0 H* D B-Natriuretic Peptide Total Protein Albumin Lipase Urine Color Dark Yellow Urine Appearance Cloudy Urine pH 7.0 Ur Specific [place] 1.015 Urine Protein 100 (2+) H Urine Glucose (UA) Negative Urine Ketones Negative Urine Blood Large (3+) H Urine Nitrite Negative Ur Leukocyte Esterase Moderate (2+) H Urine RBC >20 H Urine WBC 21-50 Ur Squamous Epith Cells 0-2 Urine Bacteria Trace Hyaline Casts 3-5 COVID-19 (JOSE) Negative COVID-19 Clin Com See Note 11/12/22 11/12/22 11/12/22 04:26 04:26 07:18 MCV MCH MCHC RDW Plt Count MPV Immature Gran % (Auto) Neut % (Auto) Lymph % (Auto) [place] % (Auto) Eos % (Auto) Baso % (Auto) Lymph # (Auto) [place] # (Auto) Eos # (Auto) Baso # (Auto) Abs Immat Gran (auto) Absolute Neuts (auto) Absolute Nucleated RBC Nucleated RBC % (auto) Neutrophils % (Manual) Band Neutrophils % Lymphocytes % (Manual) Monocytes % (Manual) Metamyelocytes % Abs Neuts (Manual) Lymphocytes # (Manual) Monocytes # (Manual) Metamyelocytes # Toxic Vacuolation Platelet Estimate Plt Morphology Comment RBC Morphology Hypochromasia [place] Cells Smear Tech's Comments PT INR APTT VBG pH VBG pCO2 VBG pO2 VBG HCO3 VBG O2 Saturation VBG Base Excess Anion Gap Estim Creat Clear Calc Estimated GFR POC Glucose Random Glucose Lactic Acid Lactic Acid F/U @ 2Hr 2.8 H* Lactic Acid F/U @ 4Hr 1.9 Calcium Phosphorus Magnesium Total Bilirubin AST ALT Alkaline Phosphatase Troponin I High Sens 250.1 H* D B-Natriuretic Peptide Total Protein Albumin Lipase Urine Color Urine Appearance Urine pH Ur Specific [place] Urine Protein Urine Glucose (UA) Urine Ketones Urine Blood Urine Nitrite Ur Leukocyte Esterase Urine RBC Urine WBC Ur Squamous Epith Cells Urine Bacteria Hyaline Casts COVID-19 (JOSE) COVID-19 Clin Com 11/12/22 11/12/22 11/12/22 07:18 07:18 07:24 MCV 92.7 MCH 30.3 MCHC 32.6 RDW 14.7 Plt Count 158 L MPV 9.2 L Immature Gran % (Auto) Cancelled Neut % (Auto) Cancelled Lymph % (Auto) Cancelled [place] % (Auto) Cancelled Eos % (Auto) Cancelled Baso % (Auto) Cancelled Lymph # (Auto) Cancelled [place] # (Auto) Cancelled Eos # (Auto) Cancelled Baso # (Auto) Cancelled Abs Immat Gran (auto) Cancelled Absolute Neuts (auto) Cancelled Absolute Nucleated RBC 0.000 Nucleated RBC % (auto) 0.0 Neutrophils % (Manual) 78 H Band Neutrophils % 14 H Lymphocytes % (Manual) 4 L Monocytes % (Manual) 3 Metamyelocytes % 1 Abs Neuts (Manual) 21.7 H Lymphocytes # (Manual) 0.9 L Monocytes # (Manual) 0.7 Metamyelocytes # 0.2 Toxic Vacuolation PRESENT Platelet Estimate SLIGHTLY DECREASED Plt Morphology Comment NORMAL RBC Morphology NOTED Hypochromasia 1+ (5-14) [place] Cells 1+ (0-2) Smear Tech's Comments PT INR APTT VBG pH 7.35 VBG pCO2 50 VBG pO2 61 VBG HCO3 28 H VBG O2 Saturation 87.0 VBG Base Excess 2.1 Anion Gap 11 L Estim Creat Clear Calc 54.4 Estimated GFR 51 POC Glucose Random Glucose 133 H Lactic Acid Lactic Acid F/U @ 2Hr Lactic Acid F/U @ 4Hr Calcium 8.7 D Phosphorus 2.6 L Magnesium 1.5 L Total Bilirubin AST ALT Alkaline Phosphatase Troponin I High Sens B-Natriuretic Peptide Total Protein Albumin Lipase Urine Color Urine Appearance Urine pH Ur Specific [place] Urine Protein Urine Glucose (UA) Urine Ketones Urine Blood Urine Nitrite Ur Leukocyte Esterase Urine RBC Urine WBC Ur Squamous Epith Cells Urine Bacteria Hyaline Casts COVID-19 (JOSE) COVID-19 Clin Com 11/12/22 11/12/22 08:43 12:17 MCV MCH MCHC RDW Plt Count MPV Immature Gran % (Auto) Neut % (Auto) Lymph % (Auto) [place] % (Auto) Eos % (Auto) Baso % (Auto) Lymph # (Auto) [place] # (Auto) Eos # (Auto) Baso # (Auto) Abs Immat Gran (auto) Absolute Neuts (auto) Absolute Nucleated RBC Nucleated RBC % (auto) Neutrophils % (Manual) Band Neutrophils % Lymphocytes % (Manual) Monocytes % (Manual) Metamyelocytes % Abs Neuts (Manual) Lymphocytes # (Manual) Monocytes # (Manual) Metamyelocytes # Toxic Vacuolation Platelet Estimate Plt Morphology Comment RBC Morphology Hypochromasia [place] Cells Smear Tech's Comments PT INR APTT VBG pH 7.35 7.36 VBG pCO2 48 46 VBG pO2 53 47 VBG HCO3 27 H 26 VBG O2 Saturation 80.0 75.0 VBG Base Excess 1.1 0.9 Anion Gap Estim Creat Clear Calc Estimated GFR POC Glucose Random Glucose Lactic Acid Lactic Acid F/U @ 2Hr Lactic Acid F/U @ 4Hr Calcium Phosphorus Magnesium Total Bilirubin AST ALT Alkaline Phosphatase Troponin I High Sens B-Natriuretic Peptide Total Protein Albumin Lipase Urine Color Urine Appearance Urine pH Ur Specific [place] Urine Protein Urine Glucose (UA) Urine Ketones Urine Blood Urine Nitrite Ur Leukocyte Esterase Urine RBC Urine WBC Ur Squamous Epith Cells Urine Bacteria Hyaline Casts COVID-19 (JOSE) COVID-19 Clin Com Imaging Radiologist's Impressions: Impressions Chest X-Ray 11/12/22 01:31 IMPRESSION: * Low lung volumes and bibasilar subsegmental atelectasis. * Mild bronchial wall thickening suspected. * No discrete consolidation. Abdomen/Pelvis CT 11/12/22 03:29 IMPRESSION: * No acute findings within the abdomen or pelvis to explain the patient's symptomatology. * Significant interval improvement of the previously seen retroperitoneal and pelvic lymphadenopathy. 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 Chest X-Ray 11/12/22 04:51 IMPRESSION: * Right IJ central venous catheter terminates at the superior cavoatrial junction. * No pneumothorax. Assessment and Plan (1) Septic shock due to urinary tract infection: Status: Acute (2) Acute UTI: Status: Acute (3) Aortic stenosis: Status: Acute (4) Bipolar disorder: Status: Acute (5) Metastatic cancer to bone: Status: Acute Plan Assessment: 82-year-old gentleman admitted with septic shock likely with source on the background of prostate cancer metastatic to the bone Plan: Neuro: Septic encephalopathy. Underlying schizoaffective and bipolar disorder. Cardiac: Septic shock, continue to titrate off pressor support as tolerated. Pulmonary: Acute hypoxic respiratory failure secondary to pulmonary edema secondary to resuscitation of underlying septic shock. Continue to titrate off supplemental oxygen as tolerated. Renal: Acute renal failure secondary to septic shock, improving. Non oliguric. Continue to monitor renal indices and urine output. Endo: No acute issues. Underlying diabetes mellitus. GI: No acute issues. ID: Likely Gram-negative shock with UTI source. Cultures are pending. Continue broad-spectrum antibiotics. Heme/Onc: No acute issues. Likely underlying metastatic lung cancer, cytology is pending. Psych: No acute issues. Miscellaneous: No acute issues. Prophylaxis: Heparin Diet: NPO Critical care time spent: 60 minutes Time Spent With Patient Time: Total time managing care of this patient today ____ minutes.
[2022-11-13] VITALS (33 sets, daily range): BP systolic 96–139; BP diastolic 21–72; PULSE 59–110; RESP 13–49; TEMP 38.1–39.4; O2SAT 90–99; BMI 31.4
--- NOTE | 2022-11-13 03:31 | PC.NURSE ---
Upon initial assessment at 1900: pt A+Ox1, anxious/restless, able to follow simple commands, HESS. Pt complaining of chronic low back pain. HR 90-120, SBP 110s, MAP >65, RR 30-40s, Core temp 102.9. PA made aware. One time IVP Haldol 5mg given for anxiety/ restlessness, Ativan ordered scheduled and PRN. Fentanyl patch applied to L shoulder per JUL for pain. Tylenol suppository given for fever. Pt on 4L Oxymask, O2 in the 80s, increased to 9L Oxymask to maintained O2 >92%. Lungs dim throughout with fine crackles in bases. Nugent in place, output 20ml/hr of concentrated urine. Per EMR pt is almost 5L positive, and takes lasix daily at baseline- PA made aware. IVP lasix 80mg Q12 ordered, and first dose administered. Camera placed in room for patient safety. Bed alarm on. Bed locked and in the lowest position. Call seo within reach.
[2022-11-13 05:20] LABS: VBG Base Excess 6.3 mmol/L; VBG HCO3 31 mmol/L (22-26); VBG pCO2 49 mmHg; VBG pH 7.41 (7.32-7.43); VBG pO2 56 mmHg
[2022-11-13 05:25] LABS: MANUAL DIFF FLAG NO
[2022-11-13 05:28] LABS: Basophils Percent Auto 0.1 % (0-2); Hematocrit 32.8 % (42.0-52.0); Hemoglobin 10.4 g/dl (14.0-18.0); Imm Gran Abs Auto 0.07 X10*3/uL (0.00-0.03); Imm Gran Pct Auto 0.5 % (0.0-0.4); Lymphocytes Absolute Auto 0.8 X10*3/uL (1.2-4.9); Lymphocytes Percent Auto 5.6 % (20-40); Mean Corpuscular HGB Conc 31.7 g/dl (31.0-36.0); Mean Corpuscular Hemoglobin 29.9 pg (27.0-33.0); Mean Corpuscular Volume 94.3 fL (80.0-98.0); Mean Platelet Volume 9.5 fL (9.4-12.4); Monocytes Absolute Auto 0.8 X10*3/uL (0.1-1.2); Monocytes Percent Auto 5.6 % (2-11); Neutrophils Absolute Auto 11.9 x10*3/uL (2.0-8.3); Neutrophils Percent Auto 88.2 % (45-73); Platelet Count 125 X10*3/uL (160-400); Red Blood Count 3.48 X10*6/uL (4.60-5.80); Red Cell Distribution Width 15.2 % (11.0-16.0); White Blood Count 13.5 X10*3/uL (4.8-10.8)
[2022-11-13 05:46] LABS: Albumin Level 3.1 g/dL (3.5-5.0); Anion Gap 15 (12-20); Blood Urea Nitrogen 18 mg/dL (9-16); Calcium 9.3 mg/dL (8.4-10.2); Carbon Dioxide 27 mmol/L (22-29); Chloride 105 mmol/L (96-108); Estimated Glomerular Filt Rate > 60; Glucose Random 151 mg/dL (60-115); Magnesium 1.9 mg/dL (1.6-2.6); Phosphorus 3.2 mg/dL (2.7-4.5); Potassium 3.6 mmol/L (3.3-5.1); Sodium 143 mmol/L (135-145)
[2022-11-13 05:53] LABS: Venous Blood Gas Refer to POC result
[2022-11-13] MEDS: Heparin Sodium,Porcine 5,000 UNIT/ML VIAL 5000 UNIT SUBCUT ×3 (06:09→22:34)
--- NOTE | 2022-11-13 07:22 | HE.PHANOTE ---
Vancomycin Dosing Renal function is improving. Patient receive AM dose and has a level scheduled for tomorrow. Dose may need to be adjust due to improvement in renal function tomorrow. Nelly Negron, JamesD
--- NOTE | 2022-11-13 10:19 | MHC.CM.PN ---
Pt in ICU for BP management secondary to UTI/bacteremia. Pt not a reliable historian - call placed to pt's son/HCP Jorge who states pt is a LTC resident of the [facility] and will return when medically stable. Call placed to [facility] to inquire on pt's functional abilities: RN unable to speak on phone at this time - contact number given for return call. D/C Plan: return to [facility]: BLS transport; HCP/MOLST on file
--- NOTE | 2022-11-13 10:43 | PM.CCPN ---
Subjective Subjective Date of Service: 11/13/22 Interval History: 82-year-old gentleman with underlying history of hypertension, bipolar disorder, prostate cancer with mets, prior Pseudomonas UTI in DNR DNI code status admitted on 11/12/2022 with septic shock, with Gram-positive and Gram-negative bacteremia likely with source with poor response to initial IV fluid resuscitation requiring initiation of pressor support and admission to the intensive care unit. No events overnight. Critical Care Time (minutes): 45 Physical Exam Vital Signs: Vital Signs: Last Vital Signs Temp 100.8 F H 11/13/22 10:00 Pulse 59 11/13/22 10:00 Resp 39 H 11/13/22 10:00 BP 134/56 L 11/13/22 10:00 Pulse Ox 94 11/13/22 10:00 O2 Del Method Oxymask 11/13/22 10:00 O2 Flow Rate 2 11/13/22 10:00 BMI result Body Mass Index 31.4 Const: General: no acute distress and confusion (Redirectable) Orientation/consciousness: confusion (Redirectable) Eyes: Sclerae: sclerae normal EOM: EOMs intact bilaterally Neck: Neck: Yes no lymphadenopathy, Yes trachea midline and Yes supple Resp: Effort & Inspection: normal respiratory effort and no respiratory distress Auscultation: crackles (Diffuse) Cardio: Rate: regular rate Rhythm: regular rhythm Heart sounds: no gallops, no murmurs and no rubs GI: Palpation (GI): Soft to palpation and Other GI palpation findings present ( Nontender) Auscultation: normal bowel sounds Neuro: General: confusion (Redirectable) Extrem: General: No clubbing, No cyanosis and Yes edema (1+ bilateral) Objective Data Labs 11/13/22 05:09 11/13/22 05:09 Labs: Laboratory Results - last 24 hr 11/12/22 11/13/22 11/13/22 12:17 05:09 05:09 WBC 13.5 H RBC 3.48 L Hgb 10.4 L Hct 32.8 L MCV 94.3 MCH 29.9 MCHC 31.7 RDW 15.2 Plt Count 125 L MPV 9.5 Immature Gran % (Auto) 0.5 H Neut % (Auto) 88.2 H Lymph % (Auto) 5.6 L [place] % (Auto) 5.6 Eos % (Auto) 0.0 Baso % (Auto) 0.1 Lymph # (Auto) 0.8 L [place] # (Auto) 0.8 Eos # (Auto) 0.0 Baso # (Auto) 0.0 Abs Immat Gran (auto) 0.07 H Absolute Neuts (auto) 11.9 H Absolute Nucleated RBC 0.000 Nucleated RBC % (auto) 0.0 VBG pH 7.36 VBG pCO2 46 VBG pO2 47 VBG HCO3 26 VBG O2 Saturation 75.0 VBG Base Excess 0.9 Sodium 143 Potassium 3.6 Chloride 105 Carbon Dioxide 27 Anion Gap 15 BUN 18 H Creatinine 1.14 Estim Creat Clear Calc 64.0 Estimated GFR > 60 Random Glucose 151 H Calcium 9.3 D Phosphorus 3.2 Magnesium 1.9 Albumin 3.1 L 11/13/22 05:10 WBC RBC Hgb Hct MCV MCH MCHC RDW Plt Count MPV Immature Gran % (Auto) Neut % (Auto) Lymph % (Auto) [place] % (Auto) Eos % (Auto) Baso % (Auto) Lymph # (Auto) [place] # (Auto) Eos # (Auto) Baso # (Auto) Abs Immat Gran (auto) Absolute Neuts (auto) Absolute Nucleated RBC Nucleated RBC % (auto) VBG pH 7.41 VBG pCO2 49 VBG pO2 56 VBG HCO3 31 H VBG O2 Saturation 85.0 VBG Base Excess 6.3 Sodium Potassium Chloride Carbon Dioxide Anion Gap BUN Creatinine Estim Creat Clear Calc Estimated GFR Random Glucose Calcium Phosphorus Magnesium Albumin Microbiology Microbiology Results: Microbiology 11/12/22 01:32 Blood - Venous Blood Culture - Preliminary Prelim: GPC Gram Stain only Prelim: GNR Gram Stain only 11/12/22 01:32 Blood - Venous Blood Culture - Preliminary Prelim: GPC Gram Stain only Prelim: GNR Gram Stain only Progress Note: A&P Assessment and plan (1) Gram-positive bacteremia: Status: Acute (2) Gram-negative bacteremia: Status: Acute (3) Metastatic cancer to bone: Status: Acute (4) Bipolar disorder: Status: Acute (5) Aortic stenosis: Status: Acute (6) Septic shock due to urinary tract infection: Status: Acute Plan Assessment: 82-year-old gentleman admitted with septic shock likely with source on the background of prostate cancer metastatic to the bone Plan: Neuro: Septic encephalopathy. Underlying schizoaffective and bipolar disorder. Cardiac: Septic shock, continue to titrate off pressor support as tolerated. Pulmonary: Acute hypoxic respiratory failure secondary to pulmonary edema secondary to resuscitation of underlying septic shock. Improving with diuresis. Continue to titrate off supplemental oxygen as tolerated. Renal: Acute renal failure secondary to septic shock, improving. Non oliguric. Continue to monitor renal indices and urine output. Endo: No acute issues. Underlying diabetes mellitus. GI: No acute issues. ID: Gram-positive and Gram-negative bacteremia with UTI source. Cultures are pending. Continue broad-spectrum antibiotics. Heme/Onc: No acute issues. Underlying metastatic prostate cancer. Psych: No acute issues. Miscellaneous: No acute issues. Prophylaxis: Heparin Diet: Pending swallow evaluation Critical care time spent: 45 minutes Quality Stroke Does the patient have a stroke diagnosis?: No VTE Prior VTE?: No VTE Risk Level:: Medical - moderate - high VTE Device Contraindication: Treatment Not Indicated VTE Drug Contraindication: N/A - Med Ordered
--- NOTE | 2022-11-13 16:18 | MHC.SL.SWA ---
Speech Pathologist Impression: Risk of aspiration, oropharyngeal dysphagia Risk of Aspiration Due to: Medically Fragile Dysphasia Diet Status: Downgrade to NDD1/NTL Liquid Consistency and Strategies for Safe Swallow: Liquid Intake Recommendation: [place] Thick Liquid Intake Strategies: Small Sips No Straws Liquids by Teaspoon Only Solid Food Consistency: Dietary Recommendations: Pureed (NDD1) Additional Modifications to Solid Foods: Recommend START on PUREED (NDD1) diet and NECTAR THICK liquids via TEASPO[place], pills CRUSHED in PUREE. 1:1 assistance feeding, close monitoring of tolerance, and strict aspiration precautions. Ensure daily oral care (before first meal and after each subsequent meal). Hold tray if pt is lethargic or not attending to meal, demonstrates any cough or upper respiratory congestion with PO intake. Notified team of recommendations via [place] Message. Diet order updated by MD. Oral Medication Intake: Crushed with Puree Please contact the pharmacy regarding appropriate crushable or liquid drug formulations that are available whenever modified delivery is recommended. Compensatory Strategies and Precautions to be Taken for Safe Swallow: Sitting Upright (90 deg) Double Swallow No Straw Liquids from Spoon Small Bites and Sips Rate of Ingestion Change Oral Check Supervision While Eating and Drinking for Safe Swallow: Total Assistance (1:1) Swallowing Recommended Treatments: Compens. Strategy Educat. Recommendation for Speech: Inpatient Speech Therapy Comment: Prior to hospitalization, pt was on NDD2/thin at [facility], independently feeding. Customer Account Representative Clinican/Clinical Fellow: No Supervisory Statement: I have reviewed and agree with the student/clinical fellow's documentation: N/A Speech Language Pathologist: Lexi Loera M.A., CCC-HULL OUTFIT SUPERVISOR
[2022-11-14] VITALS (32 sets, daily range): BP systolic 77–136; BP diastolic 38–64; PULSE 54–70; RESP 16–45; TEMP 35.8–38.4; O2SAT 88–95; BMI 30.3
[2022-11-14] MEDS: Heparin Sodium,Porcine 5,000 UNIT/ML VIAL 5000 UNIT SUBCUT ×3 (06:10→21:45)
--- NOTE | 2022-11-14 07:03 | HE.PHANOTE ---
vancomycin addendum [facility] program is down, adjusted dose to 1250 mg q12 hours after level came back at 5
[2022-11-14] MEDS: Albuterol/Iprat 2.5/0.5MG 3 ML AMPUL.NEB INHALE ×4 (08:37→18:53)
--- NOTE | 2022-11-14 09:25 | PM.CCPN ---
Subjective Subjective Date of Service: 11/14/22 Interval History: 82-year-old gentleman with underlying history of hypertension, bipolar disorder, prostate cancer with mets, prior Pseudomonas UTI in DNR DNI code status admitted on 11/12/2022 with septic shock, with MRSA and Pseudomonas bacteremia with source with poor response to initial IV fluid resuscitation requiring initiation of pressor support and admission to the intensive care unit. No events overnight. Critical Care Time (minutes): 45 Physical Exam Vital Signs: Vital Signs: Last Vital Signs Temp 97 F 11/14/22 09:00 Pulse 56 11/14/22 09:10 Resp 35 H 11/14/22 09:00 BP 121/56 L 11/14/22 09:10 Pulse Ox 95 11/14/22 09:00 O2 Del Method Oxymask 11/14/22 09:00 O2 Flow Rate 2 11/14/22 09:00 BMI result Body Mass Index 30.3 Const: General: no acute distress and lethargic (Arousable to voice) Orientation/consciousness: lethargic (Arousable to voice) Eyes: Sclerae: sclerae normal EOM: EOMs intact bilaterally Neck: Neck: Yes no lymphadenopathy, Yes trachea midline and Yes supple Resp: Effort & Inspection: normal respiratory effort and no respiratory distress Auscultation: crackles (Mild bilateral) Cardio: Rate: regular rate Rhythm: regular rhythm Heart sounds: no gallops, no murmurs and no rubs GI: Palpation (GI): Soft to palpation and Other GI palpation findings present ( Nontender) Auscultation: normal bowel sounds Extrem: General: No clubbing, No cyanosis and Yes edema (Trace bilateral) Objective Data Labs 11/14/22 04:59 11/14/22 04:59 Labs: Laboratory Results - last 24 hr 11/14/22 11/14/22 11/14/22 04:59 04:59 04:59 WBC 8.9 RBC 2.99 L Hgb 8.9 L Hct 28.4 L MCV 95.0 MCH 29.8 MCHC 31.3 RDW 15.0 Plt Count 93 L D MPV 10.2 Immature Gran % (Auto) 0.4 Neut % (Auto) 73.7 H Lymph % (Auto) 16.6 L [place] % (Auto) 8.3 Eos % (Auto) 0.8 Baso % (Auto) 0.2 Lymph # (Auto) 1.5 [place] # (Auto) 0.7 Eos # (Auto) 0.1 Baso # (Auto) 0.0 Abs Immat Gran (auto) 0.04 H Absolute Neuts (auto) 6.6 Absolute Nucleated RBC 0.000 Nucleated RBC % (auto) 0.0 VBG pH VBG pCO2 VBG pO2 VBG HCO3 VBG O2 Saturation VBG Base Excess Sodium 145 Potassium 3.1 L Chloride 100 Carbon Dioxide 32 H Anion Gap 16 BUN 17 H Creatinine 1.20 Estim Creat Clear Calc 60.4 Estimated GFR 58 Random Glucose 125 H Calcium 9.8 Phosphorus 2.6 L Magnesium 1.9 Albumin 3.8 Random Vancomycin 5.0 L 11/14/22 05:02 WBC RBC Hgb Hct MCV MCH MCHC RDW Plt Count MPV Immature Gran % (Auto) Neut % (Auto) Lymph % (Auto) [place] % (Auto) Eos % (Auto) Baso % (Auto) Lymph # (Auto) [place] # (Auto) Eos # (Auto) Baso # (Auto) Abs Immat Gran (auto) Absolute Neuts (auto) Absolute Nucleated RBC Nucleated RBC % (auto) VBG pH 7.50 H VBG pCO2 51 VBG pO2 66 VBG HCO3 40 H VBG O2 Saturation 93.0 VBG Base Excess 15.3 Sodium Potassium Chloride Carbon Dioxide Anion Gap BUN Creatinine Estim Creat Clear Calc Estimated GFR Random Glucose Calcium Phosphorus Magnesium Albumin Random Vancomycin Microbiology Microbiology Results: Microbiology 11/12/22 Unknown Urine Catheterized - Nugent Catheter Urine Culture - Final Pseudomonas aeruginosa 11/12/22 01:32 Blood - Venous Blood Culture - Final Methicillin Res Staph Aureus Pseudomonas aeruginosa 11/12/22 01:32 Blood - Venous Blood Culture - Final Methicillin Res Staph Aureus Pseudomonas aeruginosa Progress Note: A&P Assessment and plan (1) MRSA bacteremia: Status: Acute (2) Pseudomonal bacteremia: Status: Acute (3) Metastatic cancer to bone: Status: Acute (4) Bipolar disorder: Status: Acute (5) Aortic stenosis: Status: Acute (6) Septic shock due to urinary tract infection: Status: Acute Plan Assessment: 82-year-old gentleman admitted with septic shock likely with source on the background of prostate cancer metastatic to the bone Plan: Neuro: Septic encephalopathy, improving. Underlying schizoaffective and bipolar disorder. Cardiac: Septic shock, continue to titrate off pressor support as tolerated. Pulmonary: Acute hypoxic respiratory failure secondary to pulmonary edema secondary to resuscitation of underlying septic shock. Improving with diuresis. Continue to titrate off supplemental oxygen as tolerated. Renal: Acute renal failure secondary to septic shock, improving. Non oliguric. Continue to monitor renal indices and urine output. Endo: No acute issues. Underlying diabetes mellitus. GI: No acute issues. ID: MRSA and Pseudomonas bacteremia with UTI source. Continue vancomycin and Zosyn. Heme/Onc: No acute issues. Underlying metastatic prostate cancer. Psych: No acute issues. Miscellaneous: No acute issues. Prophylaxis: Heparin Diet: Pureed Critical care time spent: 45 minutes Quality Stroke Does the patient have a stroke diagnosis?: No VTE Prior VTE?: No VTE Risk Level:: Medical - moderate - high VTE Device Contraindication: Treatment Not Indicated VTE Drug Contraindication: N/A - Med Ordered
[2022-11-15] VITALS (25 sets, daily range): BP systolic 95–146; BP diastolic 40–64; PULSE 52–104; RESP 17–38; TEMP 35.7–37.4; O2SAT 89–100; BMI 30.2
[2022-11-15 05:10] LABS: Venous Blood Gas Refer to POC result
[2022-11-15 05:22] LABS: MANUAL DIFF FLAG NO
[2022-11-15 05:25] LABS: Basophils Percent Auto 0.1 % (0-2); Eosinophils Absolute Auto 0.3 X10*3/uL (0.0-0.4); Eosinophils Percent Auto 4.1 % (0-4); Hematocrit 28.7 % (42.0-52.0); Imm Gran Abs Auto 0.03 X10*3/uL (0.00-0.03); Imm Gran Pct Auto 0.4 % (0.0-0.4); Lymphocytes Absolute Auto 1.3 X10*3/uL (1.2-4.9); Lymphocytes Percent Auto 18.8 % (20-40); Mean Corpuscular HGB Conc 31.4 g/dl (31.0-36.0); Mean Corpuscular Hemoglobin 29.3 pg (27.0-33.0); Mean Corpuscular Volume 93.5 fL (80.0-98.0); Mean Platelet Volume 10.2 fL (9.4-12.4); Monocytes Absolute Auto 0.5 X10*3/uL (0.1-1.2); Monocytes Percent Auto 7.5 % (2-11); Neutrophils Absolute Auto 4.9 x10*3/uL (2.0-8.3); Neutrophils Percent Auto 69.1 % (45-73); Platelet Count 114 X10*3/uL (160-400); Red Blood Count 3.07 X10*6/uL (4.60-5.80); Red Cell Distribution Width 15.3 % (11.0-16.0)
[2022-11-15] MEDS: Heparin Sodium,Porcine 5,000 UNIT/ML VIAL 5000 UNIT SUBCUT ×3 (05:32→21:06)
[2022-11-15 05:44] LABS: Albumin Level 3.5 g/dL (3.5-5.0); Anion Gap 12 (12-20); Blood Urea Nitrogen 22 mg/dL (9-16); Calcium 9.8 mg/dL (8.4-10.2); Carbon Dioxide 34 mmol/L (22-29); Chloride 103 mmol/L (96-108); Creatinine Clr Calc Pharmacy 67.8; Estimated Glomerular Filt Rate > 60; Glucose Random 118 mg/dL (60-115); Magnesium 1.9 mg/dL (1.6-2.6); Phosphorus 3.2 mg/dL (2.7-4.5); Potassium 3.6 mmol/L (3.3-5.1); Sodium 145 mmol/L (135-145)
[2022-11-15] MEDS: Albuterol/Iprat 2.5/0.5MG 3 ML AMPUL.NEB INHALE ×4 (07:24→19:14)
--- NOTE | 2022-11-15 09:48 | PM.CCPN ---
Subjective Subjective Date of Service: 11/15/22 Interval History: 82-year-old gentleman with underlying history of hypertension, bipolar disorder, prostate cancer with mets, prior Pseudomonas UTI in DNR DNI code status admitted on 11/12/2022 with septic shock, with MRSA and Pseudomonas bacteremia with source with poor response to initial IV fluid resuscitation requiring initiation of pressor support and admission to the intensive care unit. Titrated off pressors overnight. Critical Care Time (minutes): 0 Physical Exam Vital Signs: Vital Signs: Last Vital Signs Temp 98.4 F 11/15/22 08:00 Pulse 71 11/15/22 09:33 Resp 38 H 11/15/22 08:00 BP 98/46 L 11/15/22 09:33 Pulse Ox 89 L 11/15/22 08:00 O2 Del Method Nasal Cannula 11/15/22 08:00 O2 Flow Rate 2 11/15/22 08:00 BMI result Body Mass Index 30.2 Const: General: no acute distress and lethargic ( arousable to voice) Orientation/consciousness: lethargic ( arousable to voice) Eyes: Sclerae: sclerae normal EOM: EOMs intact bilaterally Neck: Neck: Yes no lymphadenopathy, Yes trachea midline and Yes supple Resp: Effort & Inspection: normal respiratory effort and no respiratory distress Auscultation: clear to auscultation bilaterally Cardio: Rate: regular rate Rhythm: regular rhythm Heart sounds: no gallops, no murmurs and no rubs GI: Palpation (GI): Soft to palpation and Other GI palpation findings present ( Nontender) Auscultation: normal bowel sounds Extrem: General: Yes no pedal edema, No clubbing, No cyanosis and Yes edema ( trace bilateral) Objective Data Labs 11/15/22 05:03 11/15/22 05:03 Labs: Laboratory Results - last 24 hr 11/15/22 11/15/22 11/15/22 04:59 05:03 05:03 WBC 7.0 RBC 3.07 L Hgb 9.0 L Hct 28.7 L MCV 93.5 MCH 29.3 MCHC 31.4 RDW 15.3 Plt Count 114 L MPV 10.2 Immature Gran % (Auto) 0.4 Neut % (Auto) 69.1 Lymph % (Auto) 18.8 L [place] % (Auto) 7.5 Eos % (Auto) 4.1 H Baso % (Auto) 0.1 Lymph # (Auto) 1.3 [place] # (Auto) 0.5 Eos # (Auto) 0.3 Baso # (Auto) 0.0 Abs Immat Gran (auto) 0.03 Absolute Neuts (auto) 4.9 Absolute Nucleated RBC 0.000 Nucleated RBC % (auto) 0.0 VBG pH 7.49 H VBG pCO2 49 VBG pO2 40 VBG HCO3 38 H VBG O2 Saturation 66.0 VBG Base Excess 13.8 Sodium 145 Potassium 3.6 Chloride 103 Carbon Dioxide 34 H Anion Gap 12 BUN 22 H Creatinine 1.07 Estim Creat Clear Calc 67.8 Estimated GFR > 60 Random Glucose 118 H Calcium 9.8 Phosphorus 3.2 Magnesium 1.9 Albumin 3.5 Microbiology Microbiology Results: Microbiology 11/12/22 Unknown Urine Catheterized - Nugent Catheter Urine Culture - Final Pseudomonas aeruginosa 11/12/22 01:32 Blood - Venous Blood Culture - Final Methicillin Res Staph Aureus Pseudomonas aeruginosa 11/12/22 01:32 Blood - Venous Blood Culture - Final Methicillin Res Staph Aureus Pseudomonas aeruginosa Progress Note: A&P Assessment and plan (1) Pseudomonal bacteremia: Status: Acute (2) MRSA bacteremia: Status: Acute (3) Metastatic cancer to bone: Status: Acute (4) Bipolar disorder: Status: Acute (5) Aortic stenosis: Status: Acute (6) Septic shock due to urinary tract infection: Status: Acute Plan Assessment: 82-year-old gentleman admitted with septic shock likely with source on the background of prostate cancer metastatic to the bone Plan: Neuro: Septic encephalopathy, improving. Underlying schizoaffective and bipolar disorder. Cardiac: Septic shock, resolved titrated off pressor support. Pulmonary: Acute hypoxic respiratory failure secondary to pulmonary edema secondary to resuscitation of underlying septic shock. Improving with diuresis. Continue to titrate off supplemental oxygen as tolerated. Renal: Acute renal failure secondary to septic shock, resolved. Continue to monitor renal indices and urine output. Endo: No acute issues. GI: No acute issues. ID: MRSA and Pseudomonas bacteremia with UTI source. Continue vancomycin and Zosyn. Heme/Onc: No acute issues. Underlying metastatic prostate cancer. Psych: No acute issues. Miscellaneous: No acute issues. Prophylaxis: Heparin Diet: Pureed Quality Stroke Does the patient have a stroke diagnosis?: No VTE Prior VTE?: No VTE Risk Level:: Medical - moderate - high VTE Device Contraindication: Treatment Not Indicated VTE Drug Contraindication: N/A - Med Ordered
--- NOTE | 2022-11-15 10:14 | MHC.CM.PN ---
Pt to be transferred to [facility] today: LTC resident of the [facility] and will return when medically stable. Clinical update called into RN strip mine supervisor at [facility] with an estimated return date of 11/16 or 11/17. CM to follow. Pt will need BLS transport.
[2022-11-15 18:23] LABS: Vancomycin Trough 17.6 mcg/mL (10.0-20.0)
[2022-11-16] VITALS (9 sets, daily range): BP systolic 92–136; BP diastolic 52–63; PULSE 45–83; RESP 16–20; TEMP 36.5–37.4; O2SAT 91–94; BMI 29.5
[2022-11-16] MEDS: Heparin Sodium,Porcine 5,000 UNIT/ML VIAL 5000 UNIT SUBCUT ×2 (06:10→15:30)
[2022-11-16 06:47] LABS: Albumin Level 3.8 g/dL (3.5-5.0); Anion Gap 12 (12-20); Blood Urea Nitrogen 22 mg/dL (9-16); Calcium 10.1 mg/dL (8.4-10.2); Carbon Dioxide 33 mmol/L (22-29); Chloride 104 mmol/L (96-108); Creatinine Clr Calc Pharmacy 71.6; Estimated Glomerular Filt Rate > 60; Glucose Random 101 mg/dL (60-115); Phosphorus 3.2 mg/dL (2.7-4.5); Potassium 3.6 mmol/L (3.3-5.1); Sodium 145 mmol/L (135-145)
[2022-11-16] MEDS: Albuterol/Iprat 2.5/0.5MG 3 ML AMPUL.NEB INHALE ×3 (08:33→19:51)
--- NOTE | 2022-11-16 10:14 | MHC.CM.PN ---
Per ROUNDS discussion, Patient is not yet medically cleared for dc (IV Lasix, IV Ativan today, IV Vanco, IV Zosyn); returning to LTC @ [facility] is the goal and CM will continue to follow.
--- NOTE | 2022-11-16 12:42 | HO.PM.IMPN ---
Subjective Subjective Date of Service: 11/16/22 Interval History: f/u on sepsis d/t UTI, MRSA and Pseudomonas bacteremia, Pseudomonas UTI Physical Exam Vital Signs: Vital Signs: Last Vital Signs Temp 97.7 F 11/16/22 11:12 Pulse 64 11/16/22 11:12 Resp 20 11/16/22 11:12 BP 136/58 L 11/16/22 11:12 Pulse Ox 94 11/16/22 11:12 O2 Del Method Nasal Cannula 11/16/22 11:12 O2 Flow Rate 2 11/16/22 11:12 BMI result Body Mass Index 29.5 Const: Other: General: AO X 3, no acute distress Resp: CTA bilateral CVS: S1,S2,RRR GI: +BS, NT, no distention Skin: No rash Neuro: motor grossly intact Psych: appropriate affect Objective Data Active Medications Acetaminophen (Acetaminophen Oral Liquid 650 Mg/20.3 Ml Solution) 650 mg PO Q6H PRN PRN Reason: Fever >103.0 Albuterol Sulfate (Albuterol Sulfate (0.083%) 2.5 Mg/3 Ml Vial.Neb) 2.5 mg INHALE Q4H PRN PRN Reason: Wheezing Last Admin: 11/13/22 21:12 Dose: 2.5 mg Documented By: INGRIS Albuterol/Ipratropium (Albuterol/Iprat 2.5/0.5mg 3 Ml Ampul.Neb) 3 ml INHALE RQ4H WHILE AWAKE [facility] Last Admin: 11/16/22 11:03 Dose: 3 ml Documented By: SID Docusate Sodium (Docusate Sodium 100 Mg Capsule) 100 mg PO BID PRN PRN Reason: Constipation Fentanyl (Fentanyl 50 Mcg Patch.Td72) 50 mcg TRANSDERMA Q72H [facility] Last Admin: 11/15/22 21:07 Dose: 50 mcg Documented By: MIRELA Furosemide (Furosemide 100 Mg/10 Ml Vial) 60 mg IVPUSH DAILY [facility]; Protocol Last Admin: 11/16/22 08:00 Dose: 60 mg Documented By: IFEOMA Heparin Sodium (Porcine) (Heparin Sodium,Porcine 5,000 Unit/Ml Vial) 5,000 unit SUBCUT Q8H [facility] Last Admin: 11/16/22 06:10 Dose: 5,000 unit Documented By: MIRELA Piperacillin Sod/Tazobactam (Sod 3.375 gm/ Sodium Chloride) 50 mls @ 100 mls/hr IV Q6H [facility] Last Infusion: 11/16/22 11:31 Dose: 0 mls/hr Documented By: IFEOMA Vancomycin HCl 1,000 mg/ (Sodium Chloride) 270 mls @ 270 mls/hr IV Q12H [facility] Last Infusion: 11/16/22 10:11 Dose: 0 mls/hr Documented By: IFEOMA Lorazepam (Lorazepam 2 Mg/Ml Vial) 0.5 mg IVPUSH BEDTIME [facility] Last Admin: 11/15/22 21:07 Dose: 0.5 mg Documented By: MIRELA Lorazepam (Lorazepam 2 Mg/Ml Vial) 0.5 mg IVPUSH Q6H PRN PRN Reason: anxiety Last Admin: 11/16/22 03:38 Dose: 0.5 mg Documented By: MIRELA Magnesium Hydroxide (Milk Of Magnesia 30 Ml Oral.Susp) 30 ml PO DAILY PRN PRN Reason: Constipation Pharmacy Consult (Consult Rx Vancomycin Dosing) 1 each MISCELLANE DAILY PRN PRN Reason: Consult order Polyethylene Glycol (Polyethylene Glycol 3350 17 Gm Powd.Pack) 17 gm PO DAILY PRN PRN Reason: Constipation Last Admin: 11/15/22 12:48 Dose: 17 gm Documented By: ALEX Labs 11/16/22 06:08 11/16/22 06:08 Labs: Laboratory Results - last 24 hr 11/15/22 11/16/22 11/16/22 17:53 06:08 06:08 MCV 93.1 MCH 29.6 MCHC 31.8 RDW 15.6 Plt Count 142 L MPV 10.4 Immature Gran % (Auto) 0.6 H Neut % (Auto) 55.2 Lymph % (Auto) 26.5 [place] % (Auto) 8.9 Eos % (Auto) 8.3 H Baso % (Auto) 0.5 Lymph # (Auto) 1.7 [place] # (Auto) 0.6 Eos # (Auto) 0.5 H Baso # (Auto) 0.0 Abs Immat Gran (auto) 0.04 H Absolute Neuts (auto) 3.5 Absolute Nucleated RBC 0.000 Nucleated RBC % (auto) 0.0 Anion Gap 12 Estim Creat Clear Calc 71.6 Estimated GFR > 60 Random Glucose 101 Calcium 10.1 Phosphorus 3.2 Magnesium 2.0 Albumin 3.8 Vancomycin Trough 17.6 Assessment and Plan (1) Pseudomonal bacteremia: Status: Acute (2) MRSA bacteremia: Status: Acute Plan 82-year-old gentleman with underlying history of hypertension, bipolar disorder,parkinson disease, prostate cancer with Mets, prior Pseudomonas UTI in DNR DNI code status admitted to the ICU on 11/12/2022 with septic shock, lthat required vasopressors in the ICU.. Urine culture is growing Pseudomonas and Blood cultures are growing Pseudomonas + MRSA..Hypotensiove resovled, transsfered out of ICU on 11/15/22 Pseudomonas UTI and bacteremia--presently on Zosyn, changing to Levaqin per ID recomendation and can change to PO at discharge MRSA bacteremia--source unclear--getting Echo, repeat blood culture today 11/16 ID following, will likely need 4 weeks of either Vanco or Dapto--TBD Parkinson--sinemet h/o prostate cancer--continue casodex mood dusirder, depakote, zyprexa, ativan dvt p: heparin need for inpt: IV Abx for MRSA and pseudomonas bacteremia, cultures not yet final Time Spent With Patient Time: Total time managing care of this patient today ____ minutes. Quality Stroke Does the patient have a stroke diagnosis?: No VTE Prior VTE?: No VTE Risk Level:: Medical - moderate - high VTE Device Contraindication: Treatment Not Indicated VTE Drug Contraindication: N/A - Med Ordered
[2022-11-16] MEDS: amLODIPine Besylate 5 MG TABLET PO (13:27)
[2022-11-16] MEDS: OLANZapine 2.5 MG TABLET 7.5 MG PO (13:27)
[2022-11-16] MEDS: Cholecalciferol (Vitamin D3) 25 MCG TABLET PO (13:27)
[2022-11-16] MEDS: Furosemide 40 MG TABLET 80 MG PO (13:27)
[2022-11-16] MEDS: Carbidopa/Levodopa 25/100 TABLET 1 TAB PO ×2 (13:32→17:27)
[2022-11-16] MEDS: polyethylene glycoL 3350 17 GM POWD.PACK PO (13:36)
--- NOTE | 2022-11-16 14:25 | MHC.SL.SWA ---
Speech Pathologist Impression: Risk of aspiration, oropharyngeal dysphagia Risk of Aspiration Due to: Medically Fragile Dysphasia Diet Status: No change Liquid Consistency and Strategies for Safe Swallow: Liquid Intake Recommendation: [place] Thick Liquid Intake Strategies: Small Sips No Straws Solid Food Consistency: Dietary Recommendations: Pureed (NDD1) Additional Modifications to Solid Foods: No changes at this time. PLANT PROTECTION OFFICER to continue to follow to monitor tolerance and re-assess for potential upgrade. Oral Medication Intake: Crushed with Puree Please contact the pharmacy regarding appropriate crushable or liquid drug formulations that are available whenever modified delivery is recommended. Compensatory Strategies and Precautions to be Taken for Safe Swallow: Sitting Upright (90 deg) No Straw Small Bites and Sips Rate of Ingestion Change Oral Check Supervision While Eating and Drinking for Safe Swallow: Total Supervision (1:1) Swallowing Recommended Treatments: Compens. Strategy Educat. Recommendation for Speech: Inpatient Speech Therapy Safety Sitter Clinican/Clinical Fellow: No Supervisory Statement: I have reviewed and agree with the student/clinical fellow's documentation: N/A Speech Language Pathologist: Lexi Loera M.A., CCC-PLANT PROTECTION OFFICER
[2022-11-16] MEDS: Acetaminophen 325 MG TABLET 650 MG PO ×2 (15:29→21:30)
[2022-11-16] MEDS: Bicalutamide 50 MG TABLET PO (15:30)
[2022-11-16] MEDS: calcium polycarbophiL TABLET 1 TAB PO (15:30)
[2022-11-16] MEDS: Divalproex Sodium Sprinkles 125 MG CAP.DR.SPR 500 MG PO ×2 (15:30→21:33)
--- NOTE | 2022-11-16 15:32 | W.PM.IDCN ---
History of Present Illness Data of Consult Service Date: 11/16/22 Requesting physician: Willy Khoury Primary Care Provider: Franky Bryant MD HPI Reason for consult: bacteremia,MRSA and Pseudomonas He presents to hospital from [facility] with catheter dislodgment. He had septic shock. Cultures include blood Pseudomonas and MRSA on 11/12. He has prostate cancer and chronic Nugent. Review of Systems Review of Systems: Yes Unobtainable due to mental condition PMFSH Past Medical History Medical History Acute non-ST elevation myocardial infarction (NSTEMI) Aortic stenosis Bipolar disorder Congestive heart failure (CHF) Fall GERD (gastroesophageal reflux disease) Hematoma of lower leg Hypertension Metastatic cancer to bone Prostate cancer metastatic to intraabdominal lymph node Schizoaffective disorder UTI (urinary tract infection) Family History Family history: reviewed and not pertinent Social History Social History Household Members: Other Household Members Other:: [facility] Housing[facility] Do you presently have visiting nurse or other home services: No ([facility]) Unable to assess alcohol history related to: Unknown Patient Tobacco Use Status: Former Tobacco user Tobacco use type: Cigarette Second Hand Smoke Exposure: No Use of substances other than those prescribed or required for medical reasons: Unknown Currently Displaying Signs/Symptoms of Drug Intoxication Withdrawal: No Advance Directives: Yes Advance Directives on File: Yes Advance Directives Date on File: 04/08/22 Recently lost weight without trying: Unsure service: Yes Current occupational status: retired Meds Allergies Allergy/AdvReac Type Severity Reaction Status Date / Time ceftriaxone Allergy Rash Verified 04/10/22 12:19 Active Medications: Current Medications Acetaminophen (Acetaminophen Oral Liquid 650 Mg/20.3 Ml Solution) 650 mg PO Q6H PRN PRN Reason: Fever >103.0 Acetaminophen (Acetaminophen 325 Mg Tablet) 650 mg PO TID [facility] Al Hydroxide/Mg Hydroxide (Magnesium Hydrox/Alum Hydrox 30 Ml Oral.Susp) 30 ml PO Q6H PRN PRN Reason: Indigestion Albuterol Sulfate (Albuterol Sulfate (0.083%) 2.5 Mg/3 Ml Vial.Neb) 2.5 mg INHALE Q4H PRN PRN Reason: Wheezing Last Admin: 11/13/22 21:12 Dose: 2.5 mg Albuterol/Ipratropium (Albuterol/Iprat 2.5/0.5mg 3 Ml Ampul.Neb) 3 ml INHALE RQ4H WHILE AWAKE [facility] Last Admin: 11/16/22 11:03 Dose: 3 ml Amlodipine Besylate (Amlodipine Besylate 5 Mg Tablet) 5 mg PO DAILY [facility]; Protocol Last Admin: 11/16/22 13:27 Dose: 5 mg Atorvastatin Calcium (Atorvastatin Calcium 40 Mg Tablet) 40 mg PO BEDTIME [facility] Bicalutamide (Bicalutamide 50 Mg Tablet) 50 mg PO DAILY [facility] Bisacodyl (Bisacodyl 5 Mg Tablet.Dr) 5 mg PO DAILY [facility] Bisacodyl (Bisacodyl 10 Mg Supp.Rect) 10 mg [place] DAILY PRN PRN Reason: Constipation Calcium Polycarbophil (Calcium Polycarbophil Tablet) 1 tab PO DAILY [facility] Carbidopa/Levodopa (Carbidopa/Levodopa 25/100 Tablet) 1 tab PO TID@0900,1300,1700 [facility] Last Admin: 11/16/22 13:32 Dose: 1 tab Divalproex Sodium (Divalproex Sodium Sprinkles 125 Mg Cap.Dr.Spr) 500 mg PO TID [facility] Docusate Sodium (Docusate Sodium 100 Mg Capsule) 100 mg PO BID PRN PRN Reason: Constipation Furosemide (Furosemide 40 Mg Tablet) 40 mg PO BEDTIME [facility]; Protocol Furosemide (Furosemide 40 Mg Tablet) 80 mg PO DAILY [facility]; Protocol Last Admin: 11/16/22 13:27 Dose: 80 mg Heparin Sodium (Porcine) (Heparin Sodium,Porcine 5,000 Unit/Ml Vial) 5,000 unit SUBCUT Q8H [facility] Last Admin: 11/16/22 06:10 Dose: 5,000 unit Piperacillin Sod/Tazobactam (Sod 3.375 gm/ Sodium Chloride) 50 mls @ 100 mls/hr IV Q6H [facility] Last Infusion: 11/16/22 11:31 Dose: Infused Vancomycin HCl 1,000 mg/ (Sodium Chloride) 270 mls @ 270 mls/hr IV Q12H [facility] Last Infusion: 11/16/22 10:11 Dose: Infused Lorazepam (Lorazepam 0.5 Mg Tablet) 0.5 mg PO BEDTIME [facility] Lorazepam (Lorazepam 0.5 Mg Tablet) 0.5 mg PO DAILY PRN PRN Reason: Anxiety Lorazepam (Lorazepam 0.5 Mg Tablet) 0.5 mg PO TU PRN PRN Reason: ON SHOWER DAYS Magnesium Hydroxide (Milk Of Magnesia 30 Ml Oral.Susp) 30 ml PO DAILY PRN PRN Reason: Constipation Metoprolol Tartrate (Metoprolol Tartrate 12.5 Mg Halftab) 12.5 mg PO BID@0900,1700 [facility]; Protocol Olanzapine (Olanzapine 2.5 Mg Tablet) 7.5 mg PO DAILY [facility] Last Admin: 11/16/22 13:27 Dose: 7.5 mg Olanzapine (Olanzapine 10 Mg Tablet) 10 mg PO BEDTIME [facility] Pharmacy Consult (Consult Rx Vancomycin Dosing) 1 each MISCELLANE DAILY PRN PRN Reason: Consult order Polyethylene Glycol (Polyethylene Glycol 3350 17 Gm Powd.Pack) 17 gm PO DAILY PRN PRN Reason: Constipation Last Admin: 11/15/22 12:48 Dose: 17 gm Polyethylene Glycol (Polyethylene Glycol 3350 17 Gm Powd.Pack) 17 gm PO DAILY [facility] Last Admin: 11/16/22 13:36 Dose: 17 gm Pramipexole Dihydrochloride (Pramipexole Di-Hcl 0.25 Mg Tablet) 0.5 mg PO BID@0900,1700 [facility] Tamsulosin HCl (Tamsulosin Hcl 0.4 Mg Capsule) 0.8 mg PO BEDTIME [facility] Vitamin D (Cholecalciferol (Vitamin D3) 25 Mcg Tablet) 25 mcg PO DAILY [facility] Last Admin: 11/16/22 13:27 Dose: 25 mcg Home Medications Medication Instructions Recorded Confirmed Last Taken Type acetaminophen 325 mg tablet 650 mg PO TID 04/07/22 11/12/22 06/08/22 History aluminum-mag hydroxide-simethicone 30 ml PO Q6H PRN Indigestion 04/07/22 11/12/22 06/08/22 History 200 mg-200 mg-20 mg/5 mL oral susp amlodipine 5 mg tablet 5 mg PO DAILY 04/07/22 11/12/22 11/11/22 History bisacodyl 10 mg rectal suppository 10 mg [place] DAILY PRN Constipation 04/07/22 11/12/22 06/08/22 History calcium polycarbophil 625 mg tablet 1,250 mg PO DAILY 04/07/22 11/12/22 11/11/22 History carbidopa 25 mg-levodopa 100 mg 1 tab PO TID@0900,1300,1700 04/07/22 11/12/22 11/11/22 History tablet cholecalciferol (vitamin D3) 25 25 mcg PO DAILY 04/07/22 11/12/22 11/11/22 History mcg (1,000 unit) tablet divalproex 125 mg capsule,delayed 500 mg PO TID 04/07/22 11/12/22 11/11/22 History release sprinkle (Depakote Sprinkles) docusate sodium 100 mg capsule 100 mg PO BID 04/07/22 11/12/22 11/11/22 History (Colace) furosemide 40 mg tablet 40 mg PO BEDTIME 04/07/22 11/12/22 11/11/22 History lorazepam 0.5 mg tablet 0.5 mg PO BEDTIME 04/07/22 11/12/22 11/11/22 History lorazepam 0.5 mg tablet 0.5 mg PO DAILY PRN Anxiety 04/07/22 11/12/22 11/11/22 History metoprolol tartrate 25 mg tablet 12.5 mg PO BID@0900,1700 04/07/22 11/12/22 11/11/22 History olanzapine 10 mg tablet 10 mg PO BEDTIME 04/07/22 11/12/22 06/08/22 History olanzapine 2.5 mg tablet 7.5 mg PO DAILY 04/07/22 11/12/22 11/11/22 History polyethylene glycol 3350 17 17 g PO DAILY 04/07/22 11/12/22 11/11/22 History gram/dose oral powder (Miralax) pramipexole 0.5 mg tablet 0.5 mg PO BID@0900,1700 04/07/22 11/12/22 11/11/22 History tamsulosin 0.4 mg capsule 0.8 mg PO BEDTIME 04/07/22 11/12/22 11/11/22 History bicalutamide 50 mg tablet 50 mg PO DAILY 06/09/22 11/12/22 11/11/22 History bisacodyl 5 mg tablet 5 mg PO DAILY 11/12/22 11/12/22 Unknown History carbidopa 25 mg-levodopa 100 mg 0.5 tab PO BEDTIME 11/12/22 11/12/22 11/11/22 History tablet fentanyl 50 mcg/hr transdermal 1 patch transdermal Q72H 11/12/22 11/12/22 Unknown History patch furosemide 80 mg tablet 80 mg PO DAILY 11/12/22 11/12/22 11/11/22 History lorazepam 0.5 mg tablet 0.5 mg PO TU PRN ON SHOWER DAYS 11/12/22 11/12/22 11/10/22 History Physical Exam Vital Signs: Vital Signs: Last Vital Signs Temp 97.7 F 11/16/22 11:12 Pulse 64 11/16/22 11:12 Resp 20 11/16/22 11:12 BP 136/58 L 11/16/22 11:12 Pulse Ox 94 11/16/22 11:12 O2 Del Method Nasal Cannula 11/16/22 11:12 O2 Flow Rate 2 11/16/22 11:12 BMI result Body Mass Index 29.5 Const: Other: not very talkative Cardio: Other: 3/6 KIAN Results Labs 11/16/22 06:08 11/16/22 06:08 Labs: Short CBC 11/16/22 Range/Units 06:08 WBC 6.3 (4.8-10.8) X10*3/uL Hgb 9.0 L (14.0-18.0) g/dl Hct 28.3 L (42.0-52.0) % Plt Count 142 L (160-400) X10*3/uL BMP 11/16/22 06:08 Sodium 145 Potassium 3.6 Chloride 104 Carbon Dioxide 33 H BUN 22 H Creatinine 1.00 Calcium 10.1 Liver Function 11/16/22 Range/Units 06:08 Albumin 3.8 (3.5-5.0) g/dL Microbiology Microbiology Results: Microbiology 11/12/22 Unknown Urine Catheterized - Nugent Catheter Urine Culture - Final Pseudomonas aeruginosa 11/12/22 01:32 Blood - Venous Blood Culture - Final Methicillin Res Staph Aureus Pseudomonas aeruginosa 11/12/22 01:32 Blood - Venous Blood Culture - Final Methicillin Res Staph Aureus Pseudomonas aeruginosa Assessment and Plan (1) Pseudomonal bacteremia: Status: Acute This is likely related to UTI (2) MRSA bacteremia: Status: Acute This is related likely to urinary infection also. (3) Metastatic cancer to bone: Status: Acute (4) Aortic stenosis: Status: Acute Plan 4 weeks IV Vancomycin (trough 15-20 with weekly level and creatinine) or Daptomycin 8m g/kg if able. and 4 weeks Po Levaquin (renal dose_if needed). Check echo evaluate endocarditis. Urology follow Time Spent With Patient Time: Total time managing care of this patient today ____ minutes.
[2022-11-16] MEDS: Metoprolol Tartrate 12.5 MG HALFTAB PO (17:27)
[2022-11-16] MEDS: Pramipexole Di-HCL 0.25 MG TABLET 0.5 MG PO (17:28)
[2022-11-16 17:40] LABS: Vancomycin Random 20.6 mcg/mL (15-20)
[2022-11-16] MEDS: vancomycin HCL 750 MG in 0.9 % Sodium Chloride 250 ML 265 MG IV (21:29)
[2022-11-16] MEDS: Furosemide 40 MG TABLET PO (21:32)
[2022-11-16] MEDS: LORazepam 0.5 MG TABLET PO (21:33)
[2022-11-16] MEDS: OLANZapine 10 MG TABLET PO (21:33)
[2022-11-16] MEDS: Atorvastatin Calcium 40 MG TABLET PO (21:33)
[2022-11-16] MEDS: Tamsulosin HCL 0.4 MG CAPSULE 0.8 MG PO (21:33)
[2022-11-17] VITALS (13 sets, daily range): BP systolic 92–131; BP diastolic 40–73; PULSE 43–74; RESP 16–24; TEMP 36.1–36.5; O2SAT 92–96
--- NOTE | 2022-11-17 | ECG_ITS ---
Test Reason : BRADYCARDIA Blood Pressure : / mmHG Vent. Rate : 042 BPM Atrial Rate : 042 BPM P-R Int : 166 ms QRS Dur : 162 ms QT Int : 570 ms P-R-T Axes : 036 -61 -14 degrees QTc Int : 475 ms Marked sinus bradycardia Left axis deviation Right bundle branch block Minimal voltage criteria for LVH, may be normal variant ( R in aVL ) Abnormal ECG When compared with ECG of 12-NOV-2022 07:07, Premature ventricular complexes are no longer Present Vent. rate has decreased BY 26 BPM Criteria for Septal infarct are no longer Present T wave inversion no longer evident in Lateral leads Referred By: Anali Mcguire Electronically Signed By:SARAH BILL MD
[2022-11-17 07:19] LABS: Creatinine Clr Calc Pharmacy 63.4; Estimated Glomerular Filt Rate > 60
[2022-11-17] MEDS: Heparin Sodium,Porcine 5,000 UNIT/ML VIAL 5000 UNIT SUBCUT ×3 (08:56→21:57)
[2022-11-17] MEDS: Bicalutamide 50 MG TABLET PO (08:56)
[2022-11-17] MEDS: Cholecalciferol (Vitamin D3) 25 MCG TABLET PO (08:56)
[2022-11-17] MEDS: polyethylene glycoL 3350 17 GM POWD.PACK PO (08:56)
[2022-11-17] MEDS: Furosemide 40 MG TABLET 80 MG PO (08:56)
[2022-11-17] MEDS: OLANZapine 2.5 MG TABLET 7.5 MG PO (08:56)
[2022-11-17] MEDS: Pramipexole Di-HCL 0.25 MG TABLET 0.5 MG PO ×2 (08:56→17:20)
[2022-11-17] MEDS: Metoprolol Tartrate 12.5 MG HALFTAB PO (08:56)
[2022-11-17] MEDS: Carbidopa/Levodopa 25/100 TABLET 1 TAB PO ×3 (08:57→17:20)
[2022-11-17] MEDS: Acetaminophen 325 MG TABLET 650 MG PO ×3 (08:57→20:05)
[2022-11-17] MEDS: Divalproex Sodium Sprinkles 125 MG CAP.DR.SPR 500 MG PO ×3 (08:57→20:05)
[2022-11-17] MEDS: amLODIPine Besylate 5 MG TABLET PO (08:57)
[2022-11-17] MEDS: bisacodyL 5 MG TABLET.DR PO (08:57)
[2022-11-17] MEDS: calcium polycarbophiL TABLET 1 TAB PO (08:57)
[2022-11-17] MEDS: vancomycin HCL 750 MG in 0.9 % Sodium Chloride 250 ML 265 MG IV ×2 (11:12→21:57)
[2022-11-17] MEDS: Albuterol/Iprat 2.5/0.5MG 3 ML AMPUL.NEB INHALE ×3 (11:29→20:50)
--- NOTE | 2022-11-17 13:15 | MHC.SL.DTX ---
Dysphagia Diet modifications: Last documented Solid diet consistencies: Grnd/Mech Altered (NDD2) Last documented Liquid consistency: [place] Thick Last documented Medication Administration: Changes made to current diet?: No: No changes at this time Liquid Consistency and Strategies: Liquid Intake Recommendation: [place] Thick Compensatory Strategies for Safe Swallow: Small Sips No Straws Compensatory Strategies for Safe Swallow(b): Sitting Upright (90 deg) No Straw Small Bites and Sips Rate of Ingestion Change Oral Check Solid Food Consistency: Dietary Recommendations: Grnd/Mech Altered (NDD2) Additional Modifications to Solids: Upgrade to Ground/Mech Altered Solids (NDD2), maintain [place]-Thick Liquids. BUSINESS ANALYTICS ANALYST to continue to follow to monitor tolerance and re-assess for potential upgrade. Pt has fluctiations in mental status and may require more or less support during meals. Oral Medication Intake: Crushed with Puree Strategies and Precautions to be Taken for Safe Swallow: Sitting Upright (90 deg) No Straw Small Bites and Sips Rate of Ingestion Change Oral Check Supervision While Eating and/Drinking: Total Supervision (1:1) Foods to Avoid: Swallowing Recommended Treatments: Compens. Strategy Educat. Level of Impact on: Daily activities: Interpersonal interactions: Education: Employment: Community: Prognosis for Improvement: Recommendation for Speech: Inpatient Speech Therapy Comment: Upgraded to GROUND/MECH ALTERED (NDD2) and NECTAR THICK liquids via TEASPOON, pills CRUSHED in PUREE. Pt consistently demonstrating difficulty with Thin Liquids. 1:1 assistance feeding, close monitoring of tolerance, and strict aspiration precautions. Ensure daily oral care (before first meal and after each subsequent meal). Hold tray if pt is lethargic or not attending to meal, demonstrates any cough or upper respiratory congestion with PO intake. Pt may benefit from MBSS if he does not tolerate return to Thin Liquids after discharge. Additional Comments: Pt comes from [facility]. Prior to this hospitalization, he was reportedly on a ground diet with thin liquids. Pt now tx to [facility] [place] [place]. Treatment: Pt resting in bed. He is talking to himself occasionally in our interaction, at one point raising both of his arms for apparently no reason. He responded to cues to put his arms down and focus on his meal. Pt tolerated Puree Solids and Ground/Mech Solids with adequate oral preparation. Liquid wash of [place]-Thick Liquids via straw assisted with oral clearance after Ground Solids and no overt s/s of aspiration. BUSINESS ANALYTICS ANALYST attempted Advanced Solid, however Pt was pocketing and stopped chewing requiring redirection. Pt tolerated Thin Liquids via Ice Chip, but he was delayed in accepting by spoon or cup resulting in coughing and reddening of the face. Pt required cues to take deep breaths and produce strong coughs. His mental status today appears to have declined from previous visits as he was unable to feed himself or accept liquids by spoon or cup proficiently. Global Analytics Head Clinican/Clinical Fellow: No Supervisory Statement: I have reviewed and agree with the student/clinical fellow's documentation: N/A Speech Language Pathologist: Bulmaro Pittman M.A., [facility]-BUSINESS ANALYTICS ANALYST
[2022-11-17] MEDS: LORazepam 0.5 MG TABLET PO ×2 (14:13→20:05)
--- NOTE | 2022-11-17 14:35 | P.PNIM_ITS ---
Subjective Subjective Date of Service: 11/17/22 Interval History: f/u on sepsis? d/t UTI, MRSA and Pseudomonas bacteremia, Pseudomonas UTI Review of Systems No significant over night events, denies any fever or chest pain or shortness of breath Physical Exam Vital Signs: Vital Signs: Last Vital Signs Temp 97.1 F 11/17/22 11:18 Pulse 74 11/17/22 11:30 Resp 16 11/17/22 11:30 BP 119/56 L 11/17/22 11:18 Pulse Ox 94 11/17/22 11:18 O2 Del Method Nasal Cannula 11/17/22 11:18 O2 Flow Rate 2 11/17/22 11:18 BMI result Body Mass Index 29.5 General: AO X 3, no acute distress Resp:? CTA bilateral CVS: S1,S2,RRR GI: +BS, NT, no distention Skin: No rash Neuro:? motor grossly intact Psych: appropriate affect Objective Data Active Medications Acetaminophen (Acetaminophen Oral Liquid 650 Mg/20.3 Ml Solution) 650 mg PO Q6H PRN PRN Reason: Fever >103.0 Acetaminophen (Acetaminophen 325 Mg Tablet) 650 mg PO TID [facility] Last Admin: 11/17/22 14:13 Dose: 650 mg Documented By: MIGUE Al Hydroxide/Mg Hydroxide (Magnesium Hydrox/Alum Hydrox 30 Ml Oral.Susp) 30 ml PO Q6H PRN PRN Reason: Indigestion Albuterol Sulfate (Albuterol Sulfate (0.083%) 2.5 Mg/3 Ml Vial.Neb) 2.5 mg INHALE Q4H PRN PRN Reason: Wheezing Last Admin: 11/13/22 21:12 Dose: 2.5 mg Documented By: INGRIS Albuterol/Ipratropium (Albuterol/Iprat 2.5/0.5mg 3 Ml Ampul.Neb) 3 ml INHALE RQ4H WHILE AWAKE [facility] Last Admin: 11/17/22 11:29 Dose: 3 ml Documented By: SDI Amlodipine Besylate (Amlodipine Besylate 5 Mg Tablet) 5 mg PO DAILY [facility]; Protocol Last Admin: 11/17/22 08:57 Dose: 5 mg Documented By: MIGUE Atorvastatin Calcium (Atorvastatin Calcium 40 Mg Tablet) 40 mg PO BEDTIME [facility] Last Admin: 11/16/22 21:33 Dose: 40 mg Documented By: MIRELA Bicalutamide (Bicalutamide 50 Mg Tablet) 50 mg PO DAILY [facility] Last Admin: 11/17/22 08:56 Dose: 50 mg Documented By: COTEMA Bisacodyl (Bisacodyl 5 Mg Tablet.) 5 mg PO DAILY [facility] Last Admin: 11/17/22 08:57 Dose: 5 mg Documented By: COTEMA Bisacodyl (Bisacodyl 10 Mg Supp.Rect) 10 mg [place] DAILY PRN PRN Reason: Constipation Calcium Polycarbophil (Calcium Polycarbophil Tablet) 1 tab PO DAILY [facility] Last Admin: 11/17/22 08:57 Dose: 1 tab Documented By: COTEMA Carbidopa/Levodopa (Carbidopa/Levodopa 25/100 Tablet) 1 tab PO TID@0900,1300,1700 [facility] Last Admin: 11/17/22 14:13 Dose: 1 tab Documented By: COTEMA Divalproex Sodium (Divalproex Sodium Sprinkles 125 Mg Cap.) 500 mg PO TID [facility] Last Admin: 11/17/22 14:12 Dose: 500 mg Documented By: COTEMA Docusate Sodium (Docusate Sodium 100 Mg Capsule) 100 mg PO BID PRN PRN Reason: Constipation Furosemide (Furosemide 40 Mg Tablet) 40 mg PO BEDTIME [facility]; Protocol Last Admin: 11/16/22 21:32 Dose: 40 mg Documented By: MIRELA Furosemide (Furosemide 40 Mg Tablet) 80 mg PO DAILY [facility]; Protocol Last Admin: 11/17/22 08:56 Dose: 80 mg Documented By: COTEMA Heparin Sodium (Porcine) (Heparin Sodium,Porcine 5,000 Unit/Ml Vial) 5,000 unit SUBCUT Q8H [facility] Last Admin: 11/17/22 14:12 Dose: 5,000 unit Documented By: COTEMA Piperacillin Sod/Tazobactam (Sod 3.375 gm/ Sodium Chloride) 50 mls @ 100 mls/hr IV Q6H [facility] Last Infusion: 11/17/22 11:52 Dose: 0 mls/hr Documented By: COTEMA Vancomycin HCl 750 mg/ Sodium (Chloride) 265 mls @ 265 mls/hr IV Q12H [facility] Last Infusion: 11/17/22 12:21 Dose: 0 mls/hr Documented By: MIGUE Lorazepam (Lorazepam 0.5 Mg Tablet) 0.5 mg PO BEDTIME [facility] Last Admin: 11/16/22 21:33 Dose: 0.5 mg Documented By: MIRELA Lorazepam (Lorazepam 0.5 Mg Tablet) 0.5 mg PO DAILY PRN PRN Reason: Anxiety Last Admin: 11/17/22 14:13 Dose: 0.5 mg Documented By: MIGUE Lorazepam (Lorazepam 0.5 Mg Tablet) 0.5 mg PO TU PRN PRN Reason: ON SHOWER DAYS Magnesium Hydroxide (Milk Of Magnesia 30 Ml Oral.Susp) 30 ml PO DAILY PRN PRN Reason: Constipation Metoprolol Tartrate (Metoprolol Tartrate 12.5 Mg Halftab) 12.5 mg PO BID@0900,1700 [facility]; Protocol Last Admin: 11/17/22 08:56 Dose: 12.5 mg Documented By: MIGUE Olanzapine (Olanzapine 2.5 Mg Tablet) 7.5 mg PO DAILY [facility] Last Admin: 11/17/22 08:56 Dose: 7.5 mg Documented By: MIGUE Olanzapine (Olanzapine 10 Mg Tablet) 10 mg PO BEDTIME [facility] Last Admin: 11/16/22 21:33 Dose: 10 mg Documented By: MIRELA Pharmacy Consult (Consult Rx Vancomycin Dosing) 1 each MISCELLANE DAILY PRN PRN Reason: Consult order Polyethylene Glycol (Polyethylene Glycol 3350 17 Gm Powd.Pack) 17 gm PO DAILY P RN PRN Reason: Constipation Last Admin: 11/15/22 12:48 Dose: 17 gm Documented By: ALEX Polyethylene Glycol (Polyethylene Glycol 3350 17 Gm Powd.Pack) 17 gm PO DAILY [facility] Last Admin: 11/17/22 08:56 Dose: 17 gm Documented By: MIGUE Pramipexole Dihydrochloride (Pramipexole Di-Hcl 0.25 Mg Tablet) 0.5 mg PO BID@0900,1700 [facility] Last Admin: 11/17/22 08:56 Dose: 0.5 mg Documented By: MIGUE Tamsulosin HCl (Tamsulosin Hcl 0.4 Mg Capsule) 0.8 mg PO BEDTIME [facility] Last Admin: 11/16/22 21:33 Dose: 0.8 mg Documented By: MIRELA Vitamin D (Cholecalciferol (Vitamin D3) 25 Mcg Tablet) 25 mcg PO DAILY [facility] Last Admin: 11/17/22 08:56 Dose: 25 mcg Documented By: MIGUE Labs 11/16/22 06:08 11/17/22 05:51 Labs: Laboratory Results - last 24 hr 11/16/22 11/17/22 16:59 05:51 Estim Creat Clear Calc 63.4 Estimated GFR > 60 Random Vancomycin 20.6 H Assessment and Plan (1) Pseudomonal bacteremia: Status: Acute (2) MRSA bacteremia: Status: Acute Plan 82-year-old gentleman with underlying history of hypertension, bipolar disorder,parkinson disease,? prostate cancer with Mets, prior Pseudomonas UTI in DNR DNI code status admitted to the ICU on 11/12/2022 with septic shock, lthat required vasopressors in the ICU.. Urine culture is growing Pseudomonas and Blood cultures are growing Pseudomonas + MRSA..Hypotensiove resovled,? transsfered out of ICU on 11/15/22 Pseudomonas UTI and bacteremia--presently on Zosyn, changing to Levaqin per ID recomendation and can change to PO at discharge urology eval MRSA bacteremia--source unclear--getting Echo,? repeat blood culture today 11/16 ID following, will likely need 4 weeks of either Vanco or Dapto--TBD Parkinson--sinemet h/o prostate cancer--continue casodex mood dusirder, depakote, zyprexa, ativan dvt p: heparin need for inpt: IV Abx for MRSA and pseudomonas bacteremia, cultures not yet final Time Spent With Patient Time: Total time managing care of this patient today ____ minutes. Quality Stroke Does the patient have a stroke diagnosis?: No VTE Prior VTE?: No VTE Risk Level:: Medical - moderate - high VTE Device Contraindication: Treatment Not Indicated VTE Drug Contraindication: N/A - Med Ordered
[2022-11-17] MEDS: 0.9 % Sodium Chloride 250 ML IVCONT (16:15)
[2022-11-17 17:05] LABS: Thyroid Stimulating Hormone 1.59 uIU/mL (0.32-4.0)
--- NOTE | 2022-11-17 17:37 | PM.UROCN ---
History of Present Illness Consult details Consult date: 11/17/22 Narrative: CC: Recurrent UTI Pseudomonas 82-year-old male Admit to hospital with septic shock Found to have recurrent Pseudomonas with positive blood culture consistent with urinary source Chronic indwelling Nugent catheter Background of hypertension, bipolar, Parkinson's in prostate cancer Metastatic prostate cancer managed with hormonal control including bicalutamide and GnRH Imaging with lymphadenopathy there has improved with hormonal management No evidence on appropriate prophylaxis management for Nugent catheter Would start combination methenamine and vitamin-C to prevent progression of urinary colonization Review of Systems Constitutional: Constitutional: Reports as per HPI and Reports no additional constitutional complaints Cardiovascular: Cardiovascular: Reports as per HPI and Reports no additional cardiovascular complaints Respiratory: Respiratory: Reports as per HPI and Reports no additional respiratory complaints Gastrointestinal: Gastrointestinal: Reports as per HPI and Reports no additional gastrointestinal complaints Genitourinary: Genitourinary: Reports as per HPI Musculoskeletal: Musculoskeletal: Reports no additional musculoskeletal complaints and Reports as per HPI Neurologic: Reports system reviewed and no additional complaints, except as documented and Reports as per HPI PMFSH Past Medical History Medical History Acute non-ST elevation myocardial infarction (NSTEMI) Aortic stenosis Bipolar disorder Congestive heart failure (CHF) Fall GERD (gastroesophageal reflux disease) Hematoma of lower leg Hypertension Metastatic cancer to bone Prostate cancer metastatic to intraabdominal lymph node Schizoaffective disorder UTI (urinary tract infection) Family History Family history: reviewed and not pertinent Social History Social History Household Members: Other Household Members Other:: [facility] Do you presently have visiting nurse or other home services: No ([facility]) Unable to assess alcohol history related to: Unknown Patient Tobacco Use Status: Former Tobacco user Tobacco use type: Cigarette Second Hand Smoke Exposure: No Use of substances other than those prescribed or required for medical reasons: Unknown Currently Displaying Signs/Symptoms of Drug Intoxication Withdrawal: No Advance Directives: Yes Advance Directives on File: Yes Advance Directives Date on File: 04/08/22 Recently lost weight without trying: Unsure service: Yes Current occupational status: retired Meds Allergies Allergy/AdvReac Type Severity Reaction Status Date / Time ceftriaxone Allergy Rash Verified 04/10/22 12:19 Active Medications: Current Medications Acetaminophen (Acetaminophen 325 Mg Tablet) 650 mg PO TID [facility] Last Admin: 11/17/22 14:13 Dose: 650 mg Al Hydroxide/Mg Hydroxide (Magnesium Hydrox/Alum Hydrox 30 Ml Oral.Susp) 30 ml PO Q6H PRN PRN Reason: Indigestion Albuterol Sulfate (Albuterol Sulfate (0.083%) 2.5 Mg/3 Ml Vial.Neb) 2.5 mg INHALE Q4H PRN PRN Reason: Wheezing Last Admin: 11/13/22 21:12 Dose: 2.5 mg Albuterol/Ipratropium (Albuterol/Iprat 2.5/0.5mg 3 Ml Ampul.Neb) 3 ml INHALE RQ4H WHILE AWAKE [facility] Last Admin: 11/17/22 16:03 Dose: 3 ml Atorvastatin Calcium (Atorvastatin Calcium 40 Mg Tablet) 40 mg PO BEDTIME [facility] Last Admin: 11/16/22 21:33 Dose: 40 mg Bicalutamide (Bicalutamide 50 Mg Tablet) 50 mg PO DAILY [facility] Last Admin: 11/17/22 08:56 Dose: 50 mg Bisacodyl (Bisacodyl 5 Mg Tablet.Dr) 5 mg PO DAILY [facility] Last Admin: 11/17/22 08:57 Dose: 5 mg Bisacodyl (Bisacodyl 10 Mg Supp.Rect) 10 mg IA DAILY PRN PRN Reason: Constipation Calcium Polycarbophil (Calcium Polycarbophil Tablet) 1 tab PO DAILY [facility] Last Admin: 11/17/22 08:57 Dose: 1 tab Carbidopa/Levodopa (Carbidopa/Levodopa 25/100 Tablet) 1 tab PO TID@0900,1300,1700 [facility] Last Admin: 11/17/22 17:20 Dose: 1 tab Divalproex Sodium (Divalproex Sodium Sprinkles 125 Mg Cap) 500 mg PO TID [facility] Last Admin: 11/17/22 14:12 Dose: 500 mg Docusate Sodium (Docusate Sodium 100 Mg Capsule) 100 mg PO BID PRN PRN Reason: Constipation Furosemide (Furosemide 40 Mg Tablet) 40 mg PO BEDTIME [facility]; Protocol Last Admin: 11/16/22 21:32 Dose: 40 mg Furosemide (Furosemide 40 Mg Tablet) 80 mg PO DAILY [facility]; Protocol Last Admin: 11/17/22 08:56 Dose: 80 mg Heparin Sodium (Porcine) (Heparin Sodium,Porcine 5,000 Unit/Ml Vial) 5,000 unit SUBCUT Q8H [facility] Last Admin: 11/17/22 14:12 Dose: 5,000 unit Piperacillin Sod/Tazobactam (Sod 3.375 gm/ Sodium Chloride) 50 mls @ 100 mls/hr IV Q6H [facility] Last Admin: 11/17/22 17:20 Dose: 100 mls/hr Vancomycin HCl 750 mg/ Sodium (Chloride) 265 mls @ 265 mls/hr IV Q12H [facility] Last Infusion: 11/17/22 12:21 Dose: Infused Lorazepam (Lorazepam 0.5 Mg Tablet) 0.5 mg PO BEDTIME [facility] Last Admin: 11/16/22 21:33 Dose: 0.5 mg Lorazepam (Lorazepam 0.5 Mg Tablet) 0.5 mg PO DAILY PRN PRN Reason: Anxiety Last Admin: 11/17/22 14:13 Dose: 0.5 mg Lorazepam (Lorazepam 0.5 Mg Tablet) 0.5 mg PO TU PRN PRN Reason: ON SHOWER DAYS Magnesium Hydroxide (Milk Of Magnesia 30 Ml Oral.Susp) 30 ml PO DAILY PRN PRN Reason: Constipation Metoprolol Tartrate (Metoprolol Tartrate 12.5 Mg Halftab) 12.5 mg PO BID@0900,1700 [facility]; Protocol Last Admin: 11/17/22 08:56 Dose: 12.5 mg Olanzapine (Olanzapine 2.5 Mg Tablet) 7.5 mg PO DAILY [facility] Last Admin: 11/17/22 08:56 Dose: 7.5 mg Olanzapine (Olanzapine 10 Mg Tablet) 10 mg PO BEDTIME [facility] Last Admin: 11/16/22 21:33 Dose: 10 mg Pharmacy Consult (Consult Rx Vancomycin Dosing) 1 each MISCELLANE DAILY PRN PRN Reason: Consult order Polyethylene Glycol (Polyethylene Glycol 3350 17 Gm Powd.Pack) 17 gm PO DAILY PRN PRN Reason: Constipation Last Admin: 11/15/22 12:48 Dose: 17 gm Polyethylene Glycol (Polyethylene Glycol 3350 17 Gm Powd.Pack) 17 gm PO DAILY [facility] Last Admin: 11/17/22 08:56 Dose: 17 gm Pramipexole Dihydrochloride (Pramipexole Di-Hcl 0.25 Mg Tablet) 0.5 mg PO BID@0900,1700 [facility] Last Admin: 11/17/22 17:20 Dose: 0.5 mg Tamsulosin HCl (Tamsulosin Hcl 0.4 Mg Capsule) 0.8 mg PO BEDTIME [facility] Last Admin: 11/16/22 21:33 Dose: 0.8 mg Vitamin D (Cholecalciferol (Vitamin D3) 25 Mcg Tablet) 25 mcg PO DAILY [facility] Last Admin: 11/17/22 08:56 Dose: 25 mcg Home Medications Medication Instructions Recorded Confirmed Last Taken Type acetaminophen 325 mg tablet 650 mg PO TID 04/07/22 11/12/22 06/08/22 History aluminum-mag hydroxide-simethicone 30 ml PO Q6H PRN Indigestion 04/07/22 11/12/22 06/08/22 History 200 mg-200 mg-20 mg/5 mL oral susp amlodipine 5 mg tablet 5 mg PO DAILY 04/07/22 11/12/22 11/11/22 History bisacodyl 10 mg rectal suppository 10 mg [place] DAILY PRN Constipation 04/07/22 11/12/22 06/08/22 History calcium polycarbophil 625 mg tablet 1,250 mg PO DAILY 04/07/22 11/12/22 11/11/22 History carbidopa 25 mg-levodopa 100 mg 1 tab PO TID@0900,1300,1700 04/07/22 11/12/22 11/11/22 History tablet cholecalciferol (vitamin D3) 25 25 mcg PO DAILY 04/07/22 11/12/22 11/11/22 History mcg (1,000 unit) tablet divalproex 125 mg capsule,delayed 500 mg PO TID 04/07/22 11/12/22 11/11/22 History release sprinkle (Depakote Sprinkles) docusate sodium 100 mg capsule 100 mg PO BID 04/07/22 11/12/22 11/11/22 History (Colace) furosemide 40 mg tablet 40 mg PO BEDTIME 04/07/22 11/12/22 11/11/22 History lorazepam 0.5 mg tablet 0.5 mg PO BEDTIME 04/07/22 11/12/22 11/11/22 History lorazepam 0.5 mg tablet 0.5 mg PO DAILY PRN Anxiety 04/07/22 11/12/22 11/11/22 History metoprolol tartrate 25 mg tablet 12.5 mg PO BID@0900,1700 04/07/22 11/12/22 11/11/22 History olanzapine 10 mg tablet 10 mg PO BEDTIME 04/07/22 11/12/22 06/08/22 History olanzapine 2.5 mg tablet 7.5 mg PO DAILY 04/07/22 11/12/22 11/11/22 History polyethylene glycol 3350 17 17 g PO DAILY 04/07/22 11/12/22 11/11/22 History gram/dose oral powder (Miralax) pramipexole 0.5 mg tablet 0.5 mg PO BID@0900,1700 04/07/22 11/12/22 11/11/22 History tamsulosin 0.4 mg capsule 0.8 mg PO BEDTIME 04/07/22 11/12/22 11/11/22 History bicalutamide 50 mg tablet 50 mg PO DAILY 06/09/22 11/12/22 11/11/22 History bisacodyl 5 mg tablet 5 mg PO DAILY 11/12/22 11/12/22 Unknown History carbidopa 25 mg-levodopa 100 mg 0.5 tab PO BEDTIME 11/12/22 11/12/22 11/11/22 History tablet fentanyl 50 mcg/hr transdermal 1 patch transdermal Q72H 11/12/22 11/12/22 Unknown History patch furosemide 80 mg tablet 80 mg PO DAILY 11/12/22 11/12/22 11/11/22 History lorazepam 0.5 mg tablet 0.5 mg PO TU PRN ON SHOWER DAYS 11/12/22 11/12/22 11/10/22 History Physical Exam Vital Signs: Vital Signs: Last Vital Signs Temp 96.9 F 11/17/22 15:12 Pulse 49 L 11/17/22 17:01 Resp 16 11/17/22 16:04 BP 92/60 11/17/22 15:12 Pulse Ox 94 11/17/22 15:12 O2 Del Method Nasal Cannula 11/17/22 15:12 O2 Flow Rate 2 11/17/22 15:12 BMI result Body Mass Index 29.5 Const: General: cooperative, healthy appearing, comfortable and no acute distress Orientation/consciousness: patient oriented x3 HEENT: Face and sinus: Yes normal facial exam Mouth: moist mucous membranes Neck: Neck: Yes normal visual inspection, Yes full ROM and Yes trachea midline Chest: Chest palpation & inspection: normal inspection of the chest Resp: Effort & Inspection: normal respiratory effort, able to speak in complete sentences and no respiratory distress GI: Inspection: Yes normal to inspection Back/Spine/Pelvis: Cervical Spine: normal cervical lordosis Thoracic/Lumbar Spine: thoracic and lumbar spine normal to inspection Skin: General skin exam: no rashes or lesions noted Neuro: General: patient oriented x3, tone normal and moves all extremities Extrem: General: Yes normal to inspection and Yes capillary refill normal Results Labs 11/16/22 06:08 11/17/22 05:51 Labs: Abnormal lab results 11/16/22 Range/Units 16:59 Random Vancomycin 20.6 H (15-20) mcg/mL BMP 11/17/22 05:51 Creatinine 1.13 Urine 11/12/22 Range/Units 02:27 Urine Color Dark Yellow Urine Appearance Cloudy Urine pH 7.0 (5.0-9.0) Ur Specific [place] 1.015 (1.005-1.025) Urine Protein 100 (2+) H (Neg-Trace) mg/dL Urine Glucose (UA) Negative (Negative) mg/dL All other labs normal. Assessment and Plan (1) Pseudomonal bacteremia: Status: Acute (2) Metastatic cancer to bone: Status: Acute Plan Methenamine and vitamin-C ongoing Time Spent With Patient Time: Total time managing care of this patient today ____ minutes. Procedures Date of Service Date of Service: 11/17/22
[2022-11-17] MEDS: Atorvastatin Calcium 40 MG TABLET PO (20:05)
[2022-11-17] MEDS: OLANZapine 10 MG TABLET PO (20:05)
[2022-11-17 20:50] LABS: Vancomycin Random 19.1 mcg/mL (15-20)
[2022-11-18] VITALS (11 sets, daily range): BP systolic 112–139; BP diastolic 55–81; PULSE 53–105; RESP 16–20; TEMP 36.1–36.9; O2SAT 89–99
[2022-11-18] MEDS: Heparin Sodium,Porcine 5,000 UNIT/ML VIAL 5000 UNIT SUBCUT ×3 (06:00→21:11)
[2022-11-18] MEDS: Albuterol/Iprat 2.5/0.5MG 3 ML AMPUL.NEB INHALE ×3 (07:23→14:48)
[2022-11-18 07:30] LABS: Creatinine Clr Calc Pharmacy 70.2; Estimated Glomerular Filt Rate > 60
[2022-11-18] MEDS: Carbidopa/Levodopa 25/100 TABLET 1 TAB PO ×3 (09:48→17:32)
[2022-11-18] MEDS: Pramipexole Di-HCL 0.25 MG TABLET 0.5 MG PO ×2 (09:48→17:31)
[2022-11-18] MEDS: calcium polycarbophiL TABLET 1 TAB PO (09:48)
[2022-11-18] MEDS: Cholecalciferol (Vitamin D3) 25 MCG TABLET PO (09:48)
[2022-11-18] MEDS: bisacodyL 5 MG TABLET.DR PO (09:48)
[2022-11-18] MEDS: OLANZapine 2.5 MG TABLET 7.5 MG PO (09:48)
[2022-11-18] MEDS: Divalproex Sodium Sprinkles 125 MG CAP.DR.SPR 500 MG PO ×3 (09:48→21:11)
[2022-11-18] MEDS: polyethylene glycoL 3350 17 GM POWD.PACK PO (09:48)
[2022-11-18] MEDS: Acetaminophen 325 MG TABLET 650 MG PO ×3 (09:48→21:11)
[2022-11-18] MEDS: vancomycin HCL 750 MG in 0.9 % Sodium Chloride 250 ML 265 MG IV ×2 (09:49→21:12)
[2022-11-18] MEDS: Bicalutamide 50 MG TABLET PO (09:51)
--- NOTE | 2022-11-18 10:22 | MHC.CM.PN ---
Per ROUNDS discussion, Patient is not yet medically cleared for dc (BC are pending); returning to the HS is the goal and CM will continue to follow.
--- NOTE | 2022-11-18 15:05 | HO.PM.IMPN ---
Subjective Subjective Date of Service: 11/18/22 Interval History: ?d/t UTI, MRSA and Pseudomonas bacteremia, Pseudomonas UTI Review of Systems Bradycardia seems to be improved, denies any chest pain shortness of breath or fever or chills Physical Exam Vital Signs: Vital Signs: Last Vital Signs Temp 98.4 F 11/18/22 14:56 Pulse 60 11/18/22 14:56 Resp 20 11/18/22 14:56 BP 112/55 L 11/18/22 14:56 Pulse Ox 99 11/18/22 14:56 O2 Del Method Nasal Cannula 11/18/22 14:56 O2 Flow Rate 2 11/18/22 14:56 BMI result Body Mass Index 29.5 General: Awake ,alert, no acute distress Resp:? CTA bilateral CVS: S1,S2,RRR GI: +BS, NT, no distention Skin: No rash Neuro:? motor grossly intact Psych: appropriate affect Objective Data Active Medications Acetaminophen (Acetaminophen 325 Mg Tablet) 650 mg PO TID [facility] Last Admin: 11/18/22 14:29 Dose: 650 mg Documented By: DESTINY Al Hydroxide/Mg Hydroxide (Magnesium Hydrox/Alum Hydrox 30 Ml Oral.Susp) 30 ml PO Q6H PRN PRN Reason: Indigestion Albuterol Sulfate (Albuterol Sulfate (0.083%) 2.5 Mg/3 Ml Vial.Neb) 2.5 mg INHALE Q4H PRN PRN Reason: Wheezing Last Admin: 11/13/22 21:12 Dose: 2.5 mg Documented By: INGRIS Albuterol/Ipratropium (Albuterol/Iprat 2.5/0.5mg 3 Ml Ampul.Neb) 3 ml INHALE RQ4H WHILE AWAKE [facility] Last Admin: 11/18/22 14:48 Dose: 3 ml Documented By: AINSLEY Atorvastatin Calcium (Atorvastatin Calcium 40 Mg Tablet) 40 mg PO BEDTIME [facility] Last Admin: 11/17/22 20:05 Dose: 40 mg Documented By: RENATE Bicalutamide (Bicalutamide 50 Mg Tablet) 50 mg PO DAILY [facility] Last Admin: 11/18/22 09:51 Dose: 50 mg Documented By: DESTINY Bisacodyl (Bisacodyl 5 Mg Tablet.) 5 mg PO DAILY [facility] Last Admin: 11/18/22 09:48 Dose: 5 mg Documented By: DESTINY Bisacodyl (Bisacodyl 10 Mg Supp.Rect) 10 mg [place] DAILY PRN PRN Reason: Constipation Calcium Polycarbophil (Calcium Polycarbophil Tablet) 1 tab PO DAILY [facility] Last Admin: 11/18/22 09:48 Dose: 1 tab Documented By: DESTINY Carbidopa/Levodopa (Carbidopa/Levodopa 25/100 Tablet) 1 tab PO TID@0900,1300,1700 [facility] Last Admin: 11/18/22 12:06 Dose: 1 tab Documented By: DESTINY Divalproex Sodium (Divalproex Sodium Sprinkles 125 Mg ) 500 mg PO TID [facility] Last Admin: 11/18/22 14:29 Dose: 500 mg Documented By: DESTINY Docusate Sodium (Docusate Sodium 100 Mg Capsule) 100 mg PO BID PRN PRN Reason: Constipation Furosemide (Furosemide 40 Mg Tablet) 40 mg PO BEDTIME [facility]; Protocol Last Admin: 11/16/22 21:32 Dose: 40 mg Documented By: MIRELA Furosemide (Furosemide 40 Mg Tablet) 80 mg PO DAILY [facility]; Protocol Last Admin: 11/17/22 08:56 Dose: 80 mg Documented By: COTEMA Heparin Sodium (Porcine) (Heparin Sodium,Porcine 5,000 Unit/Ml Vial) 5,000 unit SUBCUT Q8H [facility] Last Admin: 11/18/22 14:29 Dose: 5,000 unit Documented By: DESTINY Piperacillin Sod/Tazobactam (Sod 3.375 gm/ Sodium Chloride) 50 mls @ 100 mls/hr IV Q6H [facility] Last Infusion: 11/18/22 10:53 Dose: 0 mls/hr Documented By: DESTINY Vancomycin HCl 750 mg/ Sodium (Chloride) 265 mls @ 265 mls/hr IV Q12H [facility] Last Infusion: 11/18/22 10:51 Dose: 0 mls/hr Documented By: DESTINY Lorazepam (Lorazepam 0.5 Mg Tablet) 0.5 mg PO BEDTIME [facility] Last Admin: 11/17/22 20:05 Dose: 0.5 mg Documented By: RENATE Lorazepam (Lorazepam 0.5 Mg Tablet) 0.5 mg PO DAILY PRN PRN Reason: Anxiety Last Admin: 11/17/22 14:13 Dose: 0.5 mg Documented By: MIGUE Lorazepam (Lorazepam 0.5 Mg Tablet) 0.5 mg PO TU PRN PRN Reason: ON SHOWER DAYS Magnesium Hydroxide (Milk Of Magnesia 30 Ml Oral.Susp) 30 ml PO DAILY PRN PRN Reason: Constipation Metoprolol Tartrate (Metoprolol Tartrate 12.5 Mg Halftab) 12.5 mg PO BID@0900,1700 [facility]; Protocol Last Admin: 11/17/22 08:56 Dose: 12.5 mg Documented By: MIGUE Olanzapine (Olanzapine 2.5 Mg Tablet) 7.5 mg PO DAILY [facility] Last Admin: 11/18/22 09:48 Dose: 7.5 mg Documented By: DESTINY Olanzapine (Olanzapine 10 Mg Tablet) 10 mg PO BEDTIME [facility] Last Admin: 11/17/22 20:05 Dose: 10 mg Documented By: RENATE Pharmacy Consult (Consult Rx Vancomycin Dosing) 1 each MISCELLANE DAILY PRN PRN Reason: Consult order Polyethylene Glycol (Polyethylene Glycol 3350 17 Gm Powd.Pack) 17 gm PO DAILY PRN PRN Reason: Constipation Last Admin: 11/15/22 12:48 Dose: 17 gm Documented By: ALEX Polyethylene Glycol (Polyethylene Glycol 3350 17 Gm Powd.Pack) 17 gm PO DAILY [facility] Last Admin: 11/18/22 09:48 Dose: 17 gm Documented By: DESTINY Pramipexole Dihydrochloride (Pramipexole Di-Hcl 0.25 Mg Tablet) 0.5 mg PO BID@0900,1700 [facility] Last Admin: 11/18/22 09:48 Dose: 0.5 mg Documented By: DESTINY Tamsulosin HCl (Tamsulosin Hcl 0.4 Mg Capsule) 0.8 mg PO BEDTIME [facility] Last Admin: 11/16/22 21:33 Dose: 0.8 mg Documented By: MIRELA Vitamin D (Cholecalciferol (Vitamin D3) 25 Mcg Tablet) 25 mcg PO DAILY [facility] Last Admin: 11/18/22 09:48 Dose: 25 mcg Documented By: DESTINY Labs 11/16/22 06:08 11/18/22 06:17 Labs: Laboratory Results - last 24 hr 11/17/22 11/17/22 11/18/22 05:51 20:25 06:17 Estim Creat Clear Calc 70.2 Estimated GFR > 60 TSH 1.59 Random Vancomycin 19.1 Microbiology Microbiology Results: Microbiology 11/16/22 13:51 Blood Culture - Preliminary Blood - Venous No growth after 24 hours. 11/16/22 13:50 Blood Culture - Preliminary Blood - Venous No growth after 24 hours. Assessment and Plan (1) Pseudomonal bacteremia: Status: Acute (2) MRSA bacteremia: Status: Acute Plan 82-year-old gentleman with underlying history of hypertension, bipolar disorder,parkinson disease,? prostate cancer with Mets, prior Pseudomonas UTI in DNR DNI code status admitted to the ICU on 11/12/2022 with septic shock, lthat required vasopressors in the ICU.. Urine culture is growing Pseudomonas and Blood cultures are growing Pseudomonas + MRSA..Hypotensiove resovled,? transsfered out of ICU on 11/15/22 Pseudomonas UTI and mrsa bacteremia urine culture initially showed Mixed bacterial tom. vanco trough 19.1 presently on Zosyn/vanco urology eval MRSA bacteremia--source unclear- repeat blood culture neg@24hrs ID following, will likely need 4 weeks of either Vanco or Dapto--TBD echo -limited study -no gross possible moderate ef 55-60% Parkinson--sinemet h/o prostate cancer--continue casodex mood dusirder, depakote, zyprexa, ativan dvt p: heparin need for inpt: IV Abx for MRSA and pseudomonas bacteremia, cultures not yet final Time Spent With Patient Time: Total time managing care of this patient today ____ minutes. Quality Stroke Does the patient have a stroke diagnosis?: No VTE Prior VTE?: No VTE Risk Level:: Medical - moderate - high VTE Device Contraindication: Treatment Not Indicated VTE Drug Contraindication: N/A - Med Ordered
--- NOTE | 2022-11-18 17:09 | MHC.SLORD ---
Speech Language Pathology Order Status: ORNAMENTAL BRICK INSTALLER attempted to see pt for toleration of diet w/ lunch tray at [facility]. Pt declined PO stating I'm not hungry. ORNAMENTAL BRICK INSTALLER to continue to follow. Pt is not at baseline diet prior to hospitalization.
[2022-11-18 20:35] LABS: Vancomycin Random 18.8 mcg/mL (15-20)
[2022-11-18] MEDS: Atorvastatin Calcium 40 MG TABLET PO (21:11)
[2022-11-18] MEDS: LORazepam 0.5 MG TABLET PO (21:11)
[2022-11-18] MEDS: OLANZapine 10 MG TABLET PO (21:11)
[2022-11-19] VITALS (10 sets, daily range): BP systolic 124–146; BP diastolic 48–72; PULSE 52–86; RESP 18–20; TEMP 36.1–37; O2SAT 92–98
[2022-11-19] MEDS: Heparin Sodium,Porcine 5,000 UNIT/ML VIAL 5000 UNIT SUBCUT ×3 (05:42→23:17)
[2022-11-19 07:19] LABS: Creatinine Clr Calc Pharmacy 73.1; Estimated Glomerular Filt Rate > 60
[2022-11-19] MEDS: Albuterol/Iprat 2.5/0.5MG 3 ML AMPUL.NEB INHALE ×3 (08:16→15:02)
[2022-11-19 10:01] LABS: Hematocrit 32.2 % (42.0-52.0); Hemoglobin 10.4 g/dl (14.0-18.0)
[2022-11-19 10:18] LABS: INTERNATIONAL NORM RATIO 1.2 (0.9-1.1); Prothrombin Time 13.8 SEC (10.0-13.1)
--- NOTE | 2022-11-19 10:21 | MHC.CM.PN ---
Per ROUNDS discussion, Patient needs a PICC and will likely return to the [facility] on 1 IV ABT (Vanco vs Dapto) and 1 PO ABT(Levaquin). CM will follow.CM will contact MIRANDA/Meena @ [facility] @ [phone] to coordinate dc back to [facility]
[2022-11-19] MEDS: vancomycin HCL 750 MG in 0.9 % Sodium Chloride 250 ML 265 MG IV ×2 (10:34→23:22)
[2022-11-19] MEDS: polyethylene glycoL 3350 17 GM POWD.PACK PO (10:34)
[2022-11-19] MEDS: calcium polycarbophiL TABLET 1 TAB PO (10:35)
[2022-11-19] MEDS: Divalproex Sodium Sprinkles 125 MG CAP.DR.SPR 500 MG PO ×3 (10:37→23:19)
[2022-11-19] MEDS: OLANZapine 2.5 MG TABLET 7.5 MG PO (10:37)
[2022-11-19] MEDS: bisacodyL 5 MG TABLET.DR PO (10:38)
[2022-11-19] MEDS: Pramipexole Di-HCL 0.25 MG TABLET 0.5 MG PO ×2 (10:38→17:52)
[2022-11-19] MEDS: Carbidopa/Levodopa 25/100 TABLET 1 TAB PO ×3 (10:39→17:52)
[2022-11-19] MEDS: Cholecalciferol (Vitamin D3) 25 MCG TABLET PO (10:40)
[2022-11-19] MEDS: Acetaminophen 325 MG TABLET 650 MG PO ×3 (10:45→23:21)
[2022-11-19] MEDS: Bicalutamide 50 MG TABLET PO (10:46)
[2022-11-19] MEDS: Furosemide 40 MG TABLET 80 MG PO (10:50)
--- NOTE | 2022-11-19 13:04 | P.PNIM_ITS ---
Subjective Subjective Date of Service: 11/21/22 Interval History: d/t UTI, MRSA and Pseudomonas bacteremia, Pseudomonas UTI Review of Systems Bradycardia seems to be improved, denies any chest pain shortness of breath or fever or chills Physical Exam Vital Signs: Vital Signs: Last Vital Signs Temp 97.2 F 11/19/22 11:18 Pulse 86 11/19/22 11:19 Resp 20 11/19/22 11:19 BP 128/61 11/19/22 11:18 Pulse Ox 95 11/19/22 11:18 O2 Del Method Nasal Cannula 11/19/22 11:18 O2 Flow Rate 2 11/19/22 11:18 BMI result Body Mass Index 29.5 General: Awake ,alert, no acute distress Resp:? CTA bilateral CVS: S1,S2,RRR GI: +BS, NT, no distention Skin: No rash Neuro:? motor grossly intact Psych: appropriate affect Objective Data Active Medications Acetaminophen (Acetaminophen 325 Mg Tablet) 650 mg PO TID [facility] Last Admin: 11/19/22 10:45 Dose: 650 mg Documented By: BRISEYDA Al Hydroxide/Mg Hydroxide (Magnesium Hydrox/Alum Hydrox 30 Ml Oral.Susp) 30 ml PO Q6H PRN PRN Reason: Indigestion Albuterol Sulfate (Albuterol Sulfate (0.083%) 2.5 Mg/3 Ml Vial.Neb) 2.5 mg INHALE Q4H PRN PRN Reason: Wheezing Last Admin: 11/13/22 21:12 Dose: 2.5 mg Documented By: INGRIS Albuterol/Ipratropium (Albuterol/Iprat 2.5/0.5mg 3 Ml Ampul.Neb) 3 ml INHALE RQ4H WHILE AWAKE [facility] Last Admin: 11/19/22 11:19 Dose: 3 ml Documented By: KARRIE Atorvastatin Calcium (Atorvastatin Calcium 40 Mg Tablet) 40 mg PO BEDTIME [facility] Last Admin: 11/18/22 21:11 Dose: 40 mg Documented By: EBONIE Bicalutamide (Bicalutamide 50 Mg Tablet) 50 mg PO DAILY [facility] Last Admin: 11/19/22 10:46 Dose: 50 mg Documented By: BRISEYDA Bisacodyl (Bisacodyl 5 Mg Tablet.) 5 mg PO DAILY [facility] Last Admin: 11/19/22 10:38 Dose: 5 mg Documented By: BRISEYDA Bisacodyl (Bisacodyl 10 Mg Supp.Rect) 10 mg [place] DAILY PRN PRN Reason: Constipation Calcium Polycarbophil (Calcium Polycarbophil Tablet) 1 tab PO DAILY [facility] Last Admin: 11/19/22 10:35 Dose: 1 tab Documented By: BRISEYDA Carbidopa/Levodopa (Carbidopa/Levodopa 25/100 Tablet) 1 tab PO TID@0900,1300,1700 [facility] Last Admin: 11/19/22 10:39 Dose: 1 tab Documented By: BRISEYDA Divalproex Sodium (Divalproex Sodium Sprinkles 125 Mg ) 500 mg PO TID [facility] Last Admin: 11/19/22 10:37 Dose: 500 mg Documented By: BRISEYDA Docusate Sodium (Docusate Sodium 100 Mg Capsule) 100 mg PO BID PRN PRN Reason: Constipation Furosemide (Furosemide 40 Mg Tablet) 40 mg PO BEDTIME [facility]; Protocol Last Admin: 11/19/22 10:40 Dose: 40 mg Documented By: BRISEYDA Furosemide (Furosemide 40 Mg Tablet) 80 mg PO DAILY [facility]; Protocol Last Admin: 11/19/22 10:50 Dose: 80 mg Documented By: BRISEYDA Heparin Sodium (Porcine) (Heparin Sodium,Porcine 5,000 Unit/Ml Vial) 5,000 unit SUBCUT Q8H [facility] Last Admin: 11/19/22 05:42 Dose: 5,000 unit Documented By: EBONIE Piperacillin Sod/Tazobactam (Sod 3.375 gm/ Sodium Chloride) 50 mls @ 100 mls/hr IV Q6H [facility] Last Admin: 11/19/22 11:42 Dose: 100 mls/hr Documented By: BRISEYDA Vancomycin HCl 750 mg/ Sodium (Chloride) 265 mls @ 265 mls/hr IV Q12H [facility] Last Infusion: 11/19/22 12:05 Dose: 0 mls/hr Documented By: BRISEYDA Lorazepam (Lorazepam 0.5 Mg Tablet) 0.5 mg PO BEDTIME [facility] Last Admin: 11/18/22 21:11 Dose: 0.5 mg Documented By: EBONIE Lorazepam (Lorazepam 0.5 Mg Tablet) 0.5 mg PO DAILY PRN PRN Reason: Anxiety Last Admin: 11/17/22 14:13 Dose: 0.5 mg Documented By: COTEMA Lorazepam (Lorazepam 0.5 Mg Tablet) 0.5 mg PO TU PRN PRN Reason: ON SHOWER DAYS Magnesium Hydroxide (Milk Of Magnesia 30 Ml Oral.Susp) 30 ml PO DAILY PRN PRN Reason: Constipation Olanzapine (Olanzapine 2.5 Mg Tablet) 7.5 mg PO DAILY [facility] Last Admin: 11/19/22 10:37 Dose: 7.5 mg Documented By: BRISEYDA Olanzapine (Olanzapine 10 Mg Tablet) 10 mg PO BEDTIME [facility] Last Admin: 11/18/22 21:11 Dose: 10 mg Documented By: EBONIE Pharmacy Consult (Consult Rx Vancomycin Dosing) 1 each MISCELLANE DAILY PRN PRN Reason: Consult order Polyethylene Glycol (Polyethylene Glycol 3350 17 Gm Powd.Pack) 17 gm PO DAILY PRN PRN Reason: Constipation Last Admin: 11/15/22 12:48 Dose: 17 gm Documented By: ALEX Polyethylene Glycol (Polyethylene Glycol 3350 17 Gm Powd.Pack) 17 gm PO DAILY [facility] Last Admin: 11/19/22 10:34 Dose: 17 gm Documented By: BRISEYDA Pramipexole Dihydrochloride (Pramipexole Di-Hcl 0.25 Mg Tablet) 0.5 mg PO BID@0900,1700 [facility] Last Admin: 11/19/22 10:38 Dose: 0.5 mg Documented By: BRISEYDA Tamsulosin HCl (Tamsulosin Hcl 0.4 Mg Capsule) 0.8 mg PO BEDTIME [facility] Last Admin: 11/16/22 21:33 Dose: 0.8 mg Documented By: MIRELA Vitamin D (Cholecalciferol (Vitamin D3) 25 Mcg Tablet) 25 mcg PO DAILY [facility] Last Admin: 11/19/22 10:40 Dose: 25 mcg Documented By: BRISEYDA Labs 11/19/22 08:38 11/19/22 06:13 Labs: Laboratory Results - last 24 hr 11/18/22 11/19/22 11/19/22 20:07 06:13 08:38 PT 13.8 H INR 1.2 H Estim Creat Clear Calc 73.1 Estimated GFR > 60 Random Vancomycin 18.8 Microbiology Microbiology Results: Microbiology 11/16/22 13:51 Blood Culture - Preliminary Blood - Venous No growth after 48 hours. 11/16/22 13:50 Blood Culture - Preliminary Blood - Venous No growth after 48 hours. Assessment and Plan (1) Pseudomonal bacteremia: Status: Acute (2) MRSA bacteremia: Status: Acute Plan 82-year-old gentleman with underlying history of hypertension, bipolar disorder,parkinson disease,? prostate cancer with Mets, prior Pseudomonas UTI in DNR DNI code status admitted to the ICU on 11/12/2022 with septic shock, lthat required vasopressors in the ICU.. Urine culture is growing Pseudomonas and Blood cultures are growing Pseudomonas + MRSA..Hypotensiove resovled,? transsfered out of ICU on 11/15/22 Pseudomonas UTI and mrsa bacteremia urine culture initially showed Mixed bacterial tom. pseudomonas bacteremia-culture/senstivities reviwed with Id need picc line -then he will go with 4 weeks vanco/levquin. MRSA bacteremia--source unclear- repeat blood culture neg@24hrs ID following, will likely need 4 weeks of either Vanco or Dapto--TBD echo -limited study -no gross possible moderate ef 55-60% Parkinson--sinemet h/o prostate cancer--continue casodex mood dusirder, depakote, zyprexa, ativan dvt p: heparin need for inpt: IV Abx for MRSA and pseudomonas bacteremia-culture/senstivities reviwed with Id,need PIcc line. Time Spent With Patient Time: Total time managing care of this patient today ____ minutes. Quality Stroke Does the patient have a stroke diagnosis?: No VTE Prior VTE?: No VTE Risk Level:: Medical - moderate - high VTE Device Contraindication: Treatment Not Indicated VTE Drug Contraindication: N/A - Med Ordered
[2022-11-19] MEDS: LORazepam 0.5 MG TABLET PO ×2 (14:04→23:19)
--- NOTE | 2022-11-19 14:08 | MHC.SL.SWA ---
Speech Pathologist Impression: Risk of Aspiration Due to: Medically Fragile Dysphasia Diet Status: Recommend continue on current diet of Ground/Mechanical (NDD2) with thin liquids, pills crushed in puree. Liquid Consistency and Strategies for Safe Swallow: Liquid Intake Recommendation: [place] Thick Liquid Intake Strategies: Small Sips No Straws Solid Food Consistency: Dietary Recommendations: Grnd/Mech Altered (NDD2) Additional Modifications to Solid Foods: Patient continue to require 1-1 feed due to high level of confusion/disorientation/impulsivity. Oral Medication Intake: Crushed with Puree Please contact the pharmacy regarding appropriate crushable or liquid drug formulations that are available whenever modified delivery is recommended. Compensatory Strategies and Precautions to be Taken for Safe Swallow: Sitting Upright (90 deg) Liquids from Cup Small Bites and Sips Alternate Liquids/Solids Supervision While Eating and Drinking for Safe Swallow: Total Assistance (1:1) Foods to Avoid: Swallowing Recommended Treatments: Compens. Strategy Educat. Recommendation for Speech: Inpatient Speech Therapy Comment: Pt at onset was somewhat askew in bed, in mildly agitated state. Patient was assisted with positioning to be seated more upright, throughout he occasionally cried out (e.g. when the head of bed was lowered or raised), appeared anxious, but then tolerated being re-positioned. Intermittently through assessment, patient had episodes of clarity in communication alternating with erratic behavior (e.g. at one point loudly recited the pledge of allegiance). Patient was assisted with lunch. Patient took bite of each mashed potatoes and ground barbeque pork but rejected each after tasting them ( I don't like that ). Patient accepted several bites of pureed/soft carrots, producing a timely oral and pharyngeal phase of swallow. Noted on each bite, patient did not close mouth to strip spoon, which appeared more maladaptive than a functional issue. Patient took cup sips of nectar thick liquid, producing oral and pharyngeal phase of swallow. Patient appears to have some aversions at times to food, but is able to tolerate current consistencies well in terms of swallow function. Recommend continue on current diet of Ground/Mechanical (NDD2) with thin liquids, pills crushed in puree. Patient continue to require 1-1 feed due to high level of confusion/disorientation/impulsivity. Frequency/Duration: Date Range for Service Req: Timeline to reassess: Public Health Aide Clinican/Clinical Fellow: No Supervisory Statement: I have reviewed and agree with the student/clinical fellow's documentation: N/A Speech Language Pathologist: Kayleen Holguin M.A., [facility] STAMP OPERATOR
[2022-11-19] MEDS: Lidocaine HCl 1 % MPF 5 ML VIAL 10 ML SUBCUT (17:25)
[2022-11-19 20:31] LABS: Vancomycin Random 13.8 mcg/mL (15-20)
--- NOTE | 2022-11-19 20:43 | HE.PHANOTE ---
vancomycin addendum dose was decreased from 1250 mg q 12 hr, to 1 gram q12 hour to 750 mg q 12 hour current level is 13.8 with a predicted AUC of 406, we will check another level, may consider increasing back to 1 gram q 12 hr
[2022-11-19] MEDS: OLANZapine 10 MG TABLET PO (23:18)
[2022-11-19] MEDS: Atorvastatin Calcium 40 MG TABLET PO (23:19)
[2022-11-19] MEDS: Furosemide 40 MG TABLET PO (23:19)
[2022-11-20 04:00] VITALS: BP 163/72; PULSE 63; RESP 20; TEMP 36.1; O2SAT 97
[2022-11-20] MEDS: Heparin Sodium,Porcine 5,000 UNIT/ML VIAL 5000 UNIT SUBCUT (06:20)
[2022-11-20 07:02] LABS: Creatinine Clr Calc Pharmacy 78.7; Estimated Glomerular Filt Rate > 60
[2022-11-20] MEDS: Albuterol/Iprat 2.5/0.5MG 3 ML AMPUL.NEB INHALE ×2 (07:06→11:17)
[2022-11-20 07:07] VITALS: PULSE 62; RESP 20; O2SAT 92
[2022-11-20 07:29] VITALS: BP 140/86; PULSE 67; RESP 18; TEMP 36.2; O2SAT 96
[2022-11-20] MEDS: Divalproex Sodium Sprinkles 125 MG CAP.DR.SPR 500 MG PO (09:36)
[2022-11-20] MEDS: Cholecalciferol (Vitamin D3) 25 MCG TABLET PO (09:37)
[2022-11-20] MEDS: Acetaminophen 325 MG TABLET 650 MG PO (09:37)
[2022-11-20] MEDS: Pramipexole Di-HCL 0.25 MG TABLET 0.5 MG PO (09:38)
[2022-11-20] MEDS: Bicalutamide 50 MG TABLET PO (09:38)
[2022-11-20] MEDS: OLANZapine 2.5 MG TABLET 7.5 MG PO (09:39)
[2022-11-20] MEDS: calcium polycarbophiL TABLET 1 TAB PO (09:39)
[2022-11-20] MEDS: bisacodyL 5 MG TABLET.DR PO (09:40)
[2022-11-20] MEDS: Furosemide 40 MG TABLET 80 MG PO (09:40)
[2022-11-20] MEDS: Carbidopa/Levodopa 25/100 TABLET 1 TAB PO ×2 (09:41→11:19)
[2022-11-20] MEDS: 0.9 % Sodium Chloride Flush 10 ML SYRINGE 5 ML IVFLUSH (09:48)
[2022-11-20] MEDS: polyethylene glycoL 3350 17 GM POWD.PACK PO (09:48)
--- NOTE | 2022-11-20 10:44 | PM.DS ---
DS: Providers Provider Date of Service: 11/20/22 Date of admission: 11/12/22 06:41 Date of discharge: 11/20/22 Primary care physician: Franky Bryant MD Consults: 11/16/22 12:25 Consult to Infectious Diseases Routine Consulting Provider: [facility] Disease Reason for consultation: Polymicrobial bactereemi (pseudomonas and MRSA) Has provider been notified: No 11/17/22 09:08 Consult to Urology Routine Consulting Provider: [facility] [place] [facility] Reason for consultation: reccurrent psudomonas uti Attending physician on discharge: Anali Mcguire Discharging clinician: Anali Mcguire DS: Diagnosis Discharge Diagnosis (1) Pseudomonal bacteremia: Status: Acute (2) MRSA bacteremia: Status: Acute DS: Summary Hospital Course Hospital Course: 82-year-old gentleman with underlying history of hypertension, bipolar disorder,parkinson disease,? prostate cancer with Mets, prior Pseudomonas UTI in DNR DNI code status admitted to the ICU on 11/12/2022 with septic shock that required vasopressors in the ICU.. Urine culture is growing Pseudomonas and Blood cultures are growing Pseudomonas + MRSA.Hypotensiove resovled,? transfered out of ICU on 11/15/22. Hospital course: Patient was admitted for possible septic shock secondary to urinary infection concern, initially required broad-spectrum IV antibiotics(Vanco and Zosyn), vasopressors: Subsequently patient's condition improved and sent to the floor with antibiotics, blood culture grew MRSA/Pseudomonas, echo was done also: Limited study, has probably moderate to severe . Subsequently repeat blood cultures were sent which came out to be negative patient is seems improved, leukocytosis resolved, no fever. Patient was seen by ID-recommended IV vancomycin and Levaquin for MRSA/Pseudomonas coverage respectively. Total antibiotic course for 4 weeks. Please consider repeating CBC, CMP, ESR CRP Q weekly while on antibiotics. echo was done also: Limited study, has probably moderate to severe . Discussed with patient family in detail currently they defer further workup and intervention- want to follow-up with outpatient cardiology. Patient had bradycardia and borderline blood pressure during this admission: Which resolved after stopping metoprolol and amlodipine: Please consider reintroducing amlodipine if needed for blood pressure in rehab. Plan: Complete course of vanco and Levaquin for 4 weeks Monitor vanco trough,Please consider repeating CBC, CMP, ESR CRP Q weekly while on antibiotics. Follow-up with outpatient cardiology for . Above management discussed with the patient and his daughter miss care in in detail length-they understand and in agreement with the above plan, time spent 50 minute. Time Spent with Patient Time attestation: Total time managing care of this patient today ____ minutes. Discharge coordination time: Greater than 30 minutes Quality: Safe Use of Opioids Does Pt have an Active Cancer Diagnosis on the Problem List?: No Quality: Stroke Does the patient have a stroke diagnosis?: No Physical Exam Vital Signs: Vital Signs: Last Vital Signs Temp 97.2 F 11/20/22 07:29 Pulse 67 11/20/22 07:29 Resp 18 11/20/22 07:29 BP 140/86 H 11/20/22 07:29 Pulse Ox 96 11/20/22 07:29 O2 Del Method Nasal Cannula 11/20/22 07:29 O2 Flow Rate 2 11/20/22 07:29 BMI result Body Mass Index 29.5 General: Awake ,alert, no acute distress Resp:? CTA bilateral CVS: S1,S2,RRR GI: +BS, NT, no distention Skin: No rash Neuro:? motor grossly intact Psych: appropriate affect DS: Data Data Completed and Pending Labs on day of discharge: Laboratory Results - last 24 hr 11/19/22 11/20/22 20:01 06:23 Creatinine 0.91 Estim Creat Clear Calc 78.7 Estimated GFR > 60 Random Vancomycin 13.8 L Preliminary micro results at discharge 11/16/22 13:51 Blood Culture - Preliminary Blood - Venous No growth after 48 hours. 11/16/22 13:50 Blood Culture - Preliminary Blood - Venous No growth after 48 hours. Imaging Chest x-ray: Radiologist's impression: ITS Impressions Chest X-Ray 11/12/22 01:31 IMPRESSION: * Low lung volumes and bibasilar subsegmental atelectasis. * Mild bronchial wall thickening suspected. * No discrete consolidation. Abdomen/Pelvis CT 11/12/22 03:29 IMPRESSION: * No acute findings within the abdomen or pelvis to explain the patient's symptomatology. * Significant interval improvement of the previously seen retroperitoneal and pelvic lymphadenopathy. 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 Chest X-Ray 11/12/22 04:51 IMPRESSION: * Right IJ central venous catheter terminates at the superior cavoatrial junction. * No pneumothorax. PICC Line Insertion 11/19/22 17:19 IMPRESSION: Successful placement of a PICC line via the right basilic vein as described in detail above. Discharge Plan Discharge Anticipated Discharge Date/Time: 11/20/22 10:24 Patient Disposition: Xfer [facility] Discharge Diagnosis: mrsa /pseudomonas bacteremia Referrals: Franky Bryant MD [Primary Care Provider] - 1 Week Discharge Medications: New ascorbic acid (vitamin C) [Vitamin C] 500 mg capsule, extended release 500 mg PO DAILY 90 Days Qty: 90 1RF vancomycin 750 mg recon soln 750 mg IV Q12H Qty: 46 0RF Rx Instructions: continue until 12/16/22 (end date) levofloxacin 500 mg tablet 500 mg PO DAILY Qty: 27 0RF Rx Instructions: END DATE 12/16/22 Continued docusate sodium [Colace] 100 mg Capsule 100 mg PO BID acetaminophen 325 mg Tablet 650 mg PO TID calcium polycarbophil 625 mg Tablet 1,250 mg PO DAILY carbidopa-levodopa 25-100 mg Tablet 1 tab PO TID@0900,1300,1700 cholecalciferol (vitamin D3) 25 mcg (1,000 unit) Tablet 25 mcg PO DAILY divalproex [Depakote Sprinkles] 125 mg Capsule, Delayed Rel Sprinkle 500 mg PO TID furosemide 40 mg Tablet 40 mg PO BEDTIME lorazepam 0.5 mg Tablet 0.5 mg PO BEDTIME olanzapine 2.5 mg Tablet 7.5 mg PO DAILY pramipexole 0.5 mg Tablet 0.5 mg PO BID@0900,1700 tamsulosin 0.4 mg Capsule 0.8 mg PO BEDTIME olanzapine 10 mg Tablet 10 mg PO BEDTIME alum-mag hydroxide-simeth 200-200-20 mg/5 mL Suspension 30 ml PO Q6H PRN (Reason: Indigestion) bisacodyl 10 mg Suppository 10 mg [place] DAILY PRN (Reason: Constipation) lorazepam 0.5 mg Tablet 0.5 mg PO DAILY PRN (Reason: Anxiety) polyethylene glycol 3350 [Miralax] 17 gram/dose Powder 17 g PO DAILY atorvastatin 40 mg Tablet 40 mg PO BEDTIME Qty: 30 0RF bicalutamide 50 mg Tablet 50 mg PO DAILY carbidopa-levodopa 25-100 mg Tablet 0.5 tab PO BEDTIME bisacodyl 5 mg Tablet 5 mg PO DAILY fentanyl 50 mcg/hr Patch 72 Hour 1 patch TRANSDERMAL Q72H lorazepam 0.5 mg Tablet 0.5 mg PO TU PRN (Reason: ON SHOWER DAYS) Rx Instructions: ON SHOWER DAYS furosemide 80 mg Tablet 80 mg PO DAILY Changed amlodipine 5 mg Tablet 2.5 mg PO DAILY Qty: 1 0RF Discontinued metoprolol tartrate 25 mg Tablet 12.5 mg PO BID@0900,1700 Protocol: Hold for SBP/HR < HOLD for SBP < : 0 HOLD for HR < : 50 Discharge Orders: Discharge Order (Routine); Ordered 11/20/22 Ordered By: Anali Mcguire Diet: Advance to usual diet Activity on Discharge: As tolerated Stand Alone Forms: Patient Portal Discharge page Care Plan Goals: Patient was admitted possible septic shock secondary to urinary infection concern-patient was started on IV vasopressors as well as IV antibiotics and subsequently patient seems to be improving and sent to medical floor: His blood culture came out to be MRSA/Pseudomonas: Patient was on vanco and Zosyn, repeat blood culture came out-48 hour. PICC line was placed seen by infectious disease and recommended IV vancomycin for 4 weeks and Levaquin for 4 weeks. Patient echo was limited: Has moderate still to severe aortic stenosis currently not much symptomatic, consider his limited functional status-consider follow-up outpatient cardiology for further management. Consider Monitor CBC, BMP and LFTs Q weekly while on antibiotics. In addition patient had borderline blood pressure and bradycardia as: So metoprolol is stopped, currently also off amlodipine, slowly introduce amlodipine as needed for blood pressure in the rehab. Health Concerns: As above. Plan of Treatment: As above. Assessment: As above. GI med
[2022-11-20 11:07] VITALS: BP 118/84; PULSE 64; RESP 18; TEMP 36.3; O2SAT 97
--- NOTE | 2022-11-20 11:11 | MHC.CM.PN ---
Pt is medically cleared for D/C back to the [facility], transportation set up from 1:30pm via [employer]. D/C summary faxed to at fax # [phone]. Spoke with hammer shop supervisor Leanne from at # [phone] to confirm D/C.
[2022-11-20 11:17] VITALS: PULSE 63; RESP 18; O2SAT 96
[2022-11-20] MEDS: levoFLOXacin 500 MG TABLET PO (11:19)
== END 2022-11-20 14:14 | disposition skilled nursing facility (03) | DRG 720 ==
LOC: HO.ED 02:00 → HO.EDOVER 06:45 → HO.ICU 07:09 → HO.IMC 11-15 16:31
PROVIDERS: Internal Medicine; Admitting Provider Internal Medicine Pulmonary Disease; Emergency Provider Emergency Medicine Emergency Medical Services; PCP Internal Medicine Endocrinology, Diabetes & Metabolism; Visit Provider Internal Medicine
DX: A41.9 Sepsis, unspecified organism (principal); J96.01 Acute respiratory failure with hypoxia; R65.21 Severe sepsis with septic shock; G93.41 Metabolic encephalopathy; N17.9 Acute kidney failure, unspecified; J81.1 Chronic pulmonary edema; C78.00 Secondary malignant neoplasm of unspecified lung; C79.51 Secondary malignant neoplasm of bone; G20 Parkinson's disease; R00.1 Bradycardia, unspecified; N39.0 Urinary tract infection, site not specified; I35.0 Nonrheumatic aortic (valve) stenosis; Z66 Do not resuscitate; B96.5 Pseudomonas (aeruginosa) (mallei) (pseudomallei) as the cause of diseases classified elsewhere; R31.0 Gross hematuria; B95.62 Methicillin resistant Staphylococcus aureus infection as the cause of diseases classified elsewhere; I10 Essential (primary) hypertension; C61 Malignant neoplasm of prostate; F31.9 Bipolar disorder, unspecified; Z20.822 Contact with and (suspected) exposure to COVID-19; Z87.891 Personal history of nicotine dependence; Z79.899 Other long term (current) drug therapy
CPT/HCPCS: 36415; 36573; 71045; 74176; 80048; 80053; 80202; 81001; 82040; 82565; 82803; 82947; 83605; 83690; 83735; 83880; 84100; 84443; 84484; 85007; 85014; 85018; 85025; 85027; 85610; 85730; 87040; 87077; 87086; 87088; 87147; 87186; 87205; 87635; 92526; 92610; 93005; 93306; 94640; 97162; 99285; C1751; C1758; J1643; J1885; J1940; J1956; J2060; J2250; J2543; J3370; J3371; J3475; P9047

== ENCOUNTER 2022-11-12 06:41 | Outpatient (BNV) | payer BC, SELFPAY | END 2022-11-16 07:00 | PROVIDERS: Admitting Provider Internal Medicine Pulmonary Disease; Emergency Provider Emergency Medicine Emergency Medical Services; PCP Internal Medicine Endocrinology, Diabetes & Metabolism; Visit Provider Internal Medicine Cardiovascular Disease | DX: I95.9 Hypotension, unspecified (principal) | CPT/HCPCS: 93306 ==

== ENCOUNTER 2022-11-12 06:41 | Outpatient (BNV) | payer BC, SELFPAY | END 2022-11-19 16:30 | PROVIDERS: Admitting Provider Internal Medicine Pulmonary Disease; Emergency Provider Emergency Medicine Emergency Medical Services; PCP Internal Medicine Endocrinology, Diabetes & Metabolism; Visit Provider Radiology Vascular & Interventional Radiology | DX: R78.81 Bacteremia (principal); N39.0 Urinary tract infection, site not specified | CPT/HCPCS: 36573 ==

== ENCOUNTER 2022-11-12 06:41 | Outpatient (BNV) | payer BC, SELFPAY | END 2022-11-17 15:45 | PROVIDERS: Admitting Provider Internal Medicine Pulmonary Disease; Emergency Provider Emergency Medicine Emergency Medical Services; PCP Internal Medicine Endocrinology, Diabetes & Metabolism; Visit Provider Internal Medicine Cardiovascular Disease | DX: I45.10 Unspecified right bundle-branch block (principal) | CPT/HCPCS: 93010 ==

== ENCOUNTER → 2022-11-12 06:41 | Outpatient (BNV) | payer BC, SELFPAY | PROVIDERS: Admitting Provider Internal Medicine Pulmonary Disease; Emergency Provider Emergency Medicine Emergency Medical Services; PCP Internal Medicine Endocrinology, Diabetes & Metabolism; Visit Provider Internal Medicine | DX: R78.81 Bacteremia (principal); B96.5 Pseudomonas (aeruginosa) (mallei) (pseudomallei) as the cause of diseases classified elsewhere; B95.62 Methicillin resistant Staphylococcus aureus infection as the cause of diseases classified elsewhere; C79.51 Secondary malignant neoplasm of bone; I35.0 Nonrheumatic aortic (valve) stenosis | CPT/HCPCS: 99222 ==

== ENCOUNTER → 2022-11-12 06:41 | Outpatient (BNV) | payer BC, SELFPAY | PROVIDERS: Admitting Provider Internal Medicine Pulmonary Disease; Emergency Provider Emergency Medicine Emergency Medical Services; PCP Internal Medicine Endocrinology, Diabetes & Metabolism; Visit Provider Urology | DX: R78.81 Bacteremia (principal); B96.5 Pseudomonas (aeruginosa) (mallei) (pseudomallei) as the cause of diseases classified elsewhere; C79.51 Secondary malignant neoplasm of bone | CPT/HCPCS: 99222 ==

== ENCOUNTER → 2022-11-12 06:41 | Outpatient (BNV) | payer BC, SELFPAY | PROVIDERS: Admitting Provider Internal Medicine Pulmonary Disease; Emergency Provider Emergency Medicine Emergency Medical Services; PCP Internal Medicine Endocrinology, Diabetes & Metabolism; Visit Provider Internal Medicine | DX: R78.81 Bacteremia (principal); B96.5 Pseudomonas (aeruginosa) (mallei) (pseudomallei) as the cause of diseases classified elsewhere; B95.62 Methicillin resistant Staphylococcus aureus infection as the cause of diseases classified elsewhere | CPT/HCPCS: 99232; 99239 ==

== ENCOUNTER 2022-11-23 12:54 | Outpatient (REF) | payer BC, SELFPAY ==
[2022-11-23 13:57] LABS: Anion Gap 14 (12-20); Blood Urea Nitrogen 24 mg/dL (9-16); Carbon Dioxide 29 mmol/L (22-29); Chloride 100 mmol/L (96-108); Estimated Glomerular Filt Rate > 60; Glucose Random 87 mg/dL (60-115); Potassium 3.8 mmol/L (3.3-5.1); Sodium 139 mmol/L (135-145)
== END 2022-11-23 12:55 | disposition home or self-care (01) ==
LOC: HO.HSH4E 12:54
PROVIDERS: Visit Provider Internal Medicine Interventional Cardiology
DX: R78.81 Bacteremia (principal)
CPT/HCPCS: 36415; 80048

== ENCOUNTER 2022-11-30 05:40 | Outpatient (REF) | payer BC, SELFPAY ==
[2022-11-30 07:22] LABS: MANUAL DIFF FLAG NO
[2022-11-30 07:30] LABS: Imm Gran Abs Auto 0.02 X10*3/uL (0.00-0.03); Imm Gran Pct Auto 0.4 % (0.0-0.4); Mean Corpuscular HGB Conc 32.4 g/dl (31.0-36.0); Mean Corpuscular Hemoglobin 29.6 pg (27.0-33.0); Monocytes Absolute Auto 0.7 X10*3/uL (0.1-1.2); Red Cell Distribution Width 15.3 % (11.0-16.0)
[2022-11-30 07:38] LABS: Basophils Percent Auto 0.5 % (0-2); Eosinophils Absolute Auto 0.3 X10*3/uL (0.0-0.4); Eosinophils Percent Auto 5.8 % (0-4); Hematocrit 34.6 % (42.0-52.0); Hemoglobin 11.2 g/dl (14.0-18.0); Lymphocytes Absolute Auto 2.1 X10*3/uL (1.2-4.9); Mean Corpuscular Volume 91.5 fL (80.0-98.0); Mean Platelet Volume 10.4 fL (9.4-12.4); Monocytes Percent Auto 13.1 % (2-11); Neutrophils Absolute Auto 2.3 x10*3/uL (2.0-8.3); Neutrophils Percent Auto 42.2 % (45-73); Platelet Count 194 X10*3/uL (160-400); Red Blood Count 3.78 X10*6/uL (4.60-5.80); White Blood Count 5.5 X10*3/uL (4.8-10.8)
== END 2022-11-30 05:41 | disposition home or self-care (01) ==
LOC: HO.HSH4E 05:40
PROVIDERS: Visit Provider Internal Medicine Endocrinology, Diabetes & Metabolism
DX: R78.81 Bacteremia (principal)
CPT/HCPCS: 36415; 85025

== ENCOUNTER 2022-12-04 05:32 | Outpatient (REF) | payer BC, SELFPAY ==
[2022-12-04 07:34] LABS: MANUAL DIFF FLAG NO
[2022-12-04 07:40] LABS: Basophils Percent Auto 0.3 % (0-2); Eosinophils Absolute Auto 0.7 X10*3/uL (0.0-0.4); Eosinophils Percent Auto 9.5 % (0-4); Hematocrit 31.1 % (42.0-52.0); Hemoglobin 10.1 g/dl (14.0-18.0); Imm Gran Abs Auto 0.03 X10*3/uL (0.00-0.03); Imm Gran Pct Auto 0.4 % (0.0-0.4); Lymphocytes Absolute Auto 2.3 X10*3/uL (1.2-4.9); Lymphocytes Percent Auto 32.3 % (20-40); Mean Corpuscular HGB Conc 32.5 g/dl (31.0-36.0); Mean Corpuscular Volume 92.3 fL (80.0-98.0); Mean Platelet Volume 9.4 fL (9.4-12.4); Monocytes Absolute Auto 1.1 X10*3/uL (0.1-1.2); Neutrophils Absolute Auto 2.9 x10*3/uL (2.0-8.3); Neutrophils Percent Auto 41.5 % (45-73); Platelet Count 123 X10*3/uL (160-400); Red Blood Count 3.37 X10*6/uL (4.60-5.80); Red Cell Distribution Width 15.4 % (11.0-16.0); White Blood Count 7.1 X10*3/uL (4.8-10.8)
== END 2022-12-04 05:33 | disposition home or self-care (01) ==
LOC: HO.HSH4E 05:32
PROVIDERS: Visit Provider Internal Medicine Endocrinology, Diabetes & Metabolism
DX: K92.2 Gastrointestinal hemorrhage, unspecified (principal)
CPT/HCPCS: 36415; 85025

== ENCOUNTER 2022-12-15 05:43 | Outpatient (REF) | payer BC, SELFPAY ==
[2022-12-15 07:09] LABS: Prostate Specific Antigen 3.86 ng/mL (<0.05-4.0)
[2022-12-20 13:42] LABS: Testosterone, Total 4 ng/dL (250-1100)
== END 2022-12-15 05:44 | disposition home or self-care (01) ==
LOC: HO.HSH4E 05:43
PROVIDERS: Visit Provider Internal Medicine Endocrinology, Diabetes & Metabolism
DX: Z12.5 Encounter for screening for malignant neoplasm of prostate (principal); C61 Malignant neoplasm of prostate
CPT/HCPCS: 36415; 84153; 84403

== ENCOUNTER 2023-02-08 05:10 | Outpatient (REF) | payer BC, SELFPAY ==
[2023-02-08 06:21] LABS: Valproate 73.6 mcg/mL (50.0-100.0)
[2023-02-08 06:22] LABS: Anion Gap 14 (12-20); Blood Urea Nitrogen 21 mg/dL (9-16); Calcium 8.9 mg/dL (8.4-10.2); Carbon Dioxide 32 mmol/L (22-29); Chloride 97 mmol/L (96-108); Estimated Glomerular Filt Rate > 60; Glucose Fasting 89 mg/dL (60-99); Potassium 3.1 mmol/L (3.3-5.1); Sodium 140 mmol/L (135-145)
== END 2023-02-08 05:11 | disposition home or self-care (01) ==
LOC: HO.HSH4E 05:10
PROVIDERS: Visit Provider Internal Medicine Endocrinology, Diabetes & Metabolism
DX: C61 Malignant neoplasm of prostate (principal); I35.0 Nonrheumatic aortic (valve) stenosis
CPT/HCPCS: 36415; 80048; 80164

== ENCOUNTER 2023-04-04 21:12 | Outpatient (REF) | payer BC, SELFPAY ==
[2023-04-04 21:28] LABS: Appearance Urine Clear; Color Urine Yellow; Glucose Urine UA Negative (Negative); Leukocyte Esterase Urine Small (1+) (Negative); Nitrite Urine Positive (Negative); UMIC TRIGGER UA YES; Urine Blood Moderate (2+) (Negative); Urine Ketones Negative (Negative); Urine Protein Negative (Neg-Trace)
[2023-04-04 21:32] LABS: Bacteria Urine 4+ (None Seen); Hyaline Casts Urine 0-2 /LPF (0-2); RBC Urine >20 /HPF (0-2); Squamous Epithelial Cell Urine 0-2 /HPF (0-2); WBC Urine 21-50 /HPF (0-5)
== END 2023-04-04 21:13 | disposition home or self-care (01) ==
LOC: HO.HSH4E 21:12
PROVIDERS: Visit Provider Nurse Practitioner
DX: R30.0 Dysuria (principal)
CPT/HCPCS: 81001; 87086

== ENCOUNTER 2023-04-12 04:56 | Outpatient (REF) | payer BC, SELFPAY ==
[2023-04-12 06:50] LABS: Anion Gap 12 (12-20); Blood Urea Nitrogen 29 mg/dL (9-16); Calcium 8.5 mg/dL (8.4-10.2); Carbon Dioxide 29 mmol/L (22-29); Chloride 104 mmol/L (96-108); Estimated Glomerular Filt Rate 38; Glucose Fasting 75 mg/dL (60-99); Potassium 4.2 mmol/L (3.3-5.1); Sodium 141 mmol/L (135-145); Valproate 56.1 mcg/mL (50.0-100.0)
== END 2023-04-12 04:57 | disposition home or self-care (01) ==
LOC: HO.HSH4E 04:56
PROVIDERS: Visit Provider Internal Medicine Endocrinology, Diabetes & Metabolism
DX: I10 Essential (primary) hypertension (principal); F31.9 Bipolar disorder, unspecified; G20.C Parkinsonism, unspecified; Z79.899 Other long term (current) drug therapy
CPT/HCPCS: 36415; 80048; 80164

== ENCOUNTER 2023-05-21 14:50 | Outpatient (REF) | payer BC, SELFPAY ==
[2023-05-21 15:05] LABS: Appearance Urine Clear; Color Urine Yellow; Glucose Urine UA Negative (Negative); Leukocyte Esterase Urine Moderate (2+) (Negative); Nitrite Urine Negative (Negative); PH 7.5 (5.0-9.0); UMIC TRIGGER UACC YES; Urine Blood Trace (Negative); Urine Ketones Negative (Negative); Urine Protein Negative (Neg-Trace)
[2023-05-21 15:10] LABS: Bacteria Urine None Seen (None Seen); Hyaline Casts Urine 0-2 /LPF (0-2); RBC Urine 0-2 /HPF (0-2); Squamous Epithelial Cell Urine 0-2 /HPF (0-2); UACC Culture Trigger YES; WBC Urine 21-50 /HPF (0-5)
== END 2023-05-21 14:51 | disposition home or self-care (01) ==
LOC: HO.LNP 14:50
PROVIDERS: Visit Provider Internal Medicine Endocrinology, Diabetes & Metabolism
DX: N48.89 Other specified disorders of penis (principal); C61 Malignant neoplasm of prostate; R82.90 Unspecified abnormal findings in urine
CPT/HCPCS: 81001; 81003; 87086; 87088; 87186